=== PATIENT | male | born 1935 | race Caucasian/White ===

== ENCOUNTER → 2017-08-25 16:00 | Outpatient (CLI) | payer MEDICARE, SELFPAY | PROVIDERS: Family Provider Family Medicine; PCP Family Medicine; Visit Provider Otolaryngology Otolaryngology/Facial Plastic Surgery | DX: J02.9 Acute pharyngitis, unspecified (principal); J32.9 Chronic sinusitis, unspecified | CPT/HCPCS: 87070; 87077; 87186 ==

== ENCOUNTER → 2017-09-01 11:37 | Outpatient (CLI) | payer MEDICARE, SELFPAY ==
--- NOTE | 2017-09-01 11:44 | RAD_ITS ---
STUDY: X-RAY CHEST REASON FOR EXAM: Male, 82 years old. Cough. TECHNIQUE: PA and lateral views of the chest. COMPARISON: 06/13/2016. FINDINGS: There is linear stranding in both lung bases essentially unchanged since the prior examination likely due to scarring. No new infiltrate is seen. There is no demonstrated pleural abnormality. Sternal cerclage wires and vascular clips are present from a prior sternotomy and coronary artery bypass graft procedure (CABG). The heart size is normal. Normal mediastinum and jovany. Normal visualized pulmonary arteries. There is atherosclerotic calcification of the aortic arch with tortuosity. There are diffuse degenerative changes of the visualized thoracic spine. There is degenerative osteoarthritis of the bilateral shoulders. There is no demonstrated abnormality of the visualized soft tissue structures of the upper abdomen. RAD/Chest PA and Lateral IMPRESSION: Moderate stranding of the lung bases likely due to scarring unchanged since the prior examination. No new infiltrate is seen. Electronically Signed: Evans Causey MD at 3:40 EST Tel , Service support ,
== END ==
PROVIDERS: Family Provider Family Medicine; PCP Family Medicine; Visit Provider Family Medicine
DX: R93.8 Abnormal findings on diagnostic imaging of other specified body structures (principal); R06.89 Other abnormalities of breathing
CPT/HCPCS: 71046

== ENCOUNTER → 2017-11-06 15:47 | Outpatient (CLI) | payer MEDICARE, SELFPAY ==
[2017-11-06 16:46] LABS: Absolute Lymphocyte Count 2.56 X10^3/ul (0.83-4.51); Absolute Neutrophil Count 5.5 X10^3/uL (2.0-7.7); Basophil# 0.05 X10^3/uL; Basophil% 0.5 % (0-1); Eosinophil# 0.17 X10^3/uL; Eosinophils% 1.8 % (0-5); Hematocrit 50.2 % (40-54); Lymphocyte # 2.56 X10^3/ul (4.0); Lymphocyte % 27.4 % (19-41); Mean Corp Hgb Conc 31.9 g/gl (32-36); Mean Corpuscular Hgb 29.8 pg (27.0-32.0); Mean Corpuscular Volume 93.5 fL (80-94); Mean Platelet Vol. 9.9 fl (6.2-12.0); Monocyte# 1.12 X10^3/uL; Neutrophil # 5.45 X10^3/uL (2.7-7.7); Neutrophil % 58.2 % (47-70); Platelet Count 304 K/mm3 (150-450); RBC Distribution Width CV 14.5 % (11.6-14.6); RBC Distribution Width SD 48.8 fl (35.1-43.9); Red Blood Count 5.37 M/mm3 (4.6-6.2); White Blood Count 9.4 K/mm3 (4.4-11.0)
[2017-11-06 16:52] LABS: POSITIVE COUNT NO; POSITIVE DIFFERENTIAL NO; POSITIVE MORPHOLOGY NO
[2017-11-06 17:26] LABS: Anion Gap 7 (5-15); BUN 26 mg/dL (7-18); BUN/Creat Ratio 18.7 RATIO (10-20); Calcium,Total 8.9 mg/dL (8.5-10.1); Chloride 108 mmol/L (98-107); Creatinine, Serum 1.39 mg/dL (0.70-1.30); EST Glomerular Filtration Rate 52 mL/min (>60); Est Glom Filt Rate - Afr Amer 63 mL/min (>60); Glucose 86 mg/dL (74-106); Potassium 4.4 mmol/L (3.5-5.1); Sodium Level 144 mmol/L (136-145)
== END ==
PROVIDERS: Family Provider Family Medicine; PCP Family Medicine; Visit Provider Physician Assistant Medical
DX: I10 Essential (primary) hypertension (principal); R06.09 Other forms of dyspnea; I25.10 Atherosclerotic heart disease of native coronary artery without angina pectoris
CPT/HCPCS: 36415; 80048; 83880; 85025

== ENCOUNTER → 2018-02-26 08:18 | Outpatient (CLI) | payer MEDICARE, SELFPAY ==
[2018-02-26 09:35] LABS: AST(SGOT) 14 U/L (15-37); Alanine Aminotransfer ALT/SGPT 18 U/L (16-61); Albumin, Serum 2.9 g/dL (3.2-5.0); Alkaline Phosphatase 67 U/L (45-117); Bilirubin, Direct 0.14 mg/dL (0.00-0.30); Cholesterol 125 mg/dL (200); Globulin 4.1 g/dL (2.2-4.2); High Density Lipoprotein 36 mg/dL; Triglycerides 76 mg/dL; Very Low Density Lipoprotein 15 mg/dL (5-40)
== END ==
PROVIDERS: Family Provider Family Medicine; PCP Family Medicine; Visit Provider Physician Assistant Medical
DX: I10 Essential (primary) hypertension (principal); I25.10 Atherosclerotic heart disease of native coronary artery without angina pectoris; E78.00 Pure hypercholesterolemia, unspecified
CPT/HCPCS: 80061; 80076

== ENCOUNTER → 2018-06-01 08:43 | Outpatient (CLI) | payer MEDICARE, SELFPAY ==
[2018-06-01 10:35] LABS: Absolute Lymphocyte Count 1.83 X10^3/ul (0.83-4.51); Absolute Neutrophil Count 3.9 X10^3/uL (2.0-7.7); Basophil# 0.03 X10^3/uL; Basophil% 0.4 % (0-1); Eosinophil# 0.13 X10^3/uL; Eosinophils% 1.9 % (0-5); Hematocrit 47.9 % (40-54); Hemoglobin 15.6 g/dl (13.0-16.5); Lymphocyte # 1.83 X10^3/ul (4.0); Lymphocyte % 26.1 % (19-41); Mean Corp Hgb Conc 32.6 g/gl (32-36); Mean Corpuscular Hgb 30.5 pg (27.0-32.0); Mean Corpuscular Volume 93.6 fL (80-94); Mean Platelet Vol. 10.2 fl (6.2-12.0); Monocyte# 1.11 X10^3/uL; Monocyte% 15.8 % (0-10); Neutrophil % 55.7 % (47-70); Platelet Count 313 K/mm3 (150-450); RBC Distribution Width CV 13.9 % (11.6-14.6); RBC Distribution Width SD 46.1 fl (35.1-43.9); Red Blood Count 5.12 M/mm3 (4.6-6.2)
[2018-06-01 10:48] LABS: POSITIVE COUNT NO; POSITIVE DIFFERENTIAL NO; POSITIVE MORPHOLOGY NO
[2018-06-01 11:00] LABS: Anion Gap 7 (5-15); BUN 20 mg/dL (7-18); BUN/Creat Ratio 17.1 RATIO (10-20); Calcium,Total 8.7 mg/dL (8.5-10.1); Chloride 104 mmol/L (98-107); Creatinine, Serum 1.17 mg/dL (0.70-1.30); EST Glomerular Filtration Rate 63 mL/min (>60); Est Glom Filt Rate - Afr Amer 77 mL/min (>60); Glucose 90 mg/dL (74-106); Potassium 4.4 mmol/L (3.5-5.1); Sodium Level 140 mmol/L (136-145); Thyroid Stim Hormone (TSH) 0.27 uIU/mL (0.358-3.74)
[2018-06-01 14:23] LABS: T4 Free Direct 1.13 ng/dL (0.76-1.46)
== END ==
PROVIDERS: Family Provider Family Medicine; PCP Family Medicine; Visit Provider Family Medicine
DX: I10 Essential (primary) hypertension (principal); E03.9 Hypothyroidism, unspecified; E78.2 Mixed hyperlipidemia
CPT/HCPCS: 36415; 80048; 84439; 84443; 85025

== ENCOUNTER → 2018-11-25 | Outpatient (CLI) | payer MEDICARE, SELFPAY ==
[2018-11-05 14:50] VITALS: BMI 32.8
== END | disposition home or self-care (01) ==
PROVIDERS: Family Provider Family Medicine; PCP Family Medicine; Referring Provider Otolaryngology Otolaryngology/Facial Plastic Surgery; Visit Provider Otolaryngology Otolaryngology/Facial Plastic Surgery
DX: J02.9 Acute pharyngitis, unspecified (principal)
CPT/HCPCS: 87070

== ENCOUNTER → 2018-11-30 | Outpatient (CLI) | payer MEDICARE, SELFPAY ==
[2018-11-05 14:50] VITALS: BMI 32.8
[2018-11-30 12:31] LABS: AST(SGOT) 22 U/L (15-37); Alanine Aminotransfer ALT/SGPT 30 U/L (16-61); Albumin, Serum 3.6 g/dL (3.2-5.0); Alkaline Phosphatase 76 U/L (45-117); Anion Gap 7 (5-15); BUN 19 mg/dL (7-18); BUN/Creat Ratio 16.7 RATIO (10-20); Bilirubin, Direct 0.16 mg/dL (0.00-0.30); Calcium,Total 8.7 mg/dL (8.5-10.1); Chloride 108 mmol/L (98-107); Cholesterol 133 mg/dL (200); Creatinine, Serum 1.14 mg/dL (0.70-1.30); EST Glomerular Filtration Rate 65 mL/min (>60); Est Glom Filt Rate - Afr Amer 79 mL/min (>60); Globulin 4.5 g/dL (2.2-4.2); Glucose 102 mg/dL (74-106); High Density Lipoprotein 36 mg/dL; Potassium 4.3 mmol/L (3.5-5.1); Protein, Total 8.1 g/dL (6.4-8.2); Sodium Level 142 mmol/L (136-145); T4 Free Direct 1.08 ng/dL (0.76-1.46); Thyroid Stim Hormone (TSH) 0.21 uIU/mL (0.358-3.74); Triglycerides 151 mg/dL; Very Low Density Lipoprotein 30 mg/dL (5-40)
== END | disposition home or self-care (01) ==
LOC: BFHLAB 10:19
PROVIDERS: Family Provider Family Medicine; PCP Family Medicine; Visit Provider Physician Assistant Medical
DX: I10 Essential (primary) hypertension (principal); E05.90 Thyrotoxicosis, unspecified without thyrotoxic crisis or storm; E78.5 Hyperlipidemia, unspecified
CPT/HCPCS: 36415; 80048; 80061; 80076; 84439; 84443

== ENCOUNTER → 2019-06-02 | Outpatient (CLI) | payer MEDICARE, SELFPAY ==
[2018-11-05 14:50] VITALS: BMI 32.8
[2019-06-02 12:19] LABS: Absolute Lymphocyte Count 1.57 X10^3/uL (0.83-4.51); Absolute Neutrophil Count 4.3 X10^3/uL (2.0-7.7); Basophil# 0.09 X10^3/uL; Basophil% 1.3 % (0-1); Eosinophil# 0.14 X10^3/uL; Hematocrit 51.4 % (40-54); Hemoglobin 16.3 g/dL (13.0-16.5); Lymphocyte # 1.57 X10^3/ul (4.0); Lymphocyte % 22.6 % (19-41); Mean Corp Hgb Conc 31.7 g/dL (32-36); Mean Corpuscular Hgb 29.9 pg (27.0-32.0); Mean Corpuscular Volume 94.1 fL (80-94); Mean Platelet Vol. 9.9 fl (6.2-12.0); Monocyte# 0.79 X10^3/uL; Monocyte% 11.4 % (0-10); NRBC Flagged by Analyzer 0 % (0-5); Neutrophil # 4.34 X10^3/uL (2.7-7.7); Neutrophil % 62.6 % (47-70); Platelet Count 320 K/mm3 (150-450); RBC Distribution Width CV 13.8 % (11.6-14.6); RBC Distribution Width SD 47.8 fl (35.1-43.9); Red Blood Count 5.46 M/mm3 (4.6-6.2); White Blood Count 6.9 K/mm3 (4.4-11.0)
[2019-06-02 12:48] LABS: AST(SGOT) 16 U/L (15-37); Alanine Aminotransfer ALT/SGPT 22 U/L (16-61); Albumin, Serum 3.4 g/dL (3.2-5.0); Alkaline Phosphatase 68 U/L (45-117); Anion Gap 7 (5-15); BUN 18 mg/dL (7-18); BUN/Creat Ratio 15.9 RATIO (10-20); Bilirubin, Direct 0.19 mg/dL (0.00-0.30); Calcium,Total 8.6 mg/dL (8.5-10.1); Chloride 106 mmol/L (98-107); Cholesterol 126 mg/dL (200); Creatinine, Serum 1.13 mg/dL (0.70-1.30); EST Glomerular Filtration Rate 66 mL/min (>60); Est Glom Filt Rate - Afr Amer 80 mL/min (>60); Globulin 4.3 g/dL (2.2-4.2); Glucose 98 mg/dL (74-106); High Density Lipoprotein 40 mg/dL; Potassium 4.2 mmol/L (3.5-5.1); Protein, Total 7.7 g/dL (6.4-8.2); Sodium Level 140 mmol/L (136-145); T4 Free Direct 1.26 ng/dL (0.76-1.46); Triglycerides 102 mg/dL; Very Low Density Lipoprotein 20 mg/dL (5-40)
[2019-06-02 12:58] LABS: BNP,B-Type NATRIURETIC PEPTIDE 63.1 pg/mL (0-100)
== END | disposition home or self-care (01) ==
LOC: BFHLAB 10:18
PROVIDERS: Family Provider Family Medicine; PCP Family Medicine; Visit Provider Internal Medicine Cardiovascular Disease
DX: I10 Essential (primary) hypertension (principal); E05.90 Thyrotoxicosis, unspecified without thyrotoxic crisis or storm; R06.00 Dyspnea, unspecified; E78.5 Hyperlipidemia, unspecified
CPT/HCPCS: 36415; 80048; 80061; 80076; 83880; 84439; 84443; 85025

== ENCOUNTER → 2019-06-09 | Outpatient (CLI) | payer MEDICARE, SELFPAY ==
[2018-11-05 14:50] VITALS: BMI 32.8
--- NOTE | 2019-06-09 07:47 | CDU_ITS ---
Reason For Study: CAD Rt. Velocities/BP Lt. Velocities/BP Prox CCA 90.4/16 cm/sec. Prox CCA 117/9.4 cm/sec. Mid CCA 76/13.4 cm/sec. Mid CCA 103.8/11.6 cm/sec. Dist CCA 72.1/9.5 cm/sec. Dist CCA 84.6/11.5 cm/sec. Prox ICA 73.6/11.5 cm/sec. Prox ICA 99.4/16 cm/sec. Mid ICA 91.9/17 cm/sec. Mid ICA 88.4/16 cm/sec. Dist ICA 88.2/17 cm/sec. Dist ICA 88.2/22.5 cm/sec. Rt. ICA/CCA = 1.2. Lt. ICA/CCA = 1.0. Prox ECA 152.1/9.4 cm/sec. Prox ECA 215.8/8.5 cm/sec. Rt. Vert. 39.9/10.2 cm/sec. Lt. Vert. 48.7/8 cm/sec. Right Extracranial There is intimal thickening but no significant atherosclerotic plaque noted in the right common carotid artery. There is heterogeneous, irregular atherosclerotic plaque noted in the right internal carotid artery. There is heterogeneous, irregular atherosclerotic plaque noted in the right external carotid artery. Antegrade flow is noted in the right vertebral artery. Left Extracranial There is homogeneous, smooth atherosclerotic plaque noted in the left common carotid artery. There is heterogeneous, irregular atherosclerotic plaque noted in the left internal carotid artery. There is heterogeneous, irregular atherosclerotic plaque noted in the left external carotid artery. Antegrade flow is noted in the left vertebral artery. Procedure Carotid Duplex 44168. Exam performed in department. Interpretation Summary Mild (<50%) stenosis right extracranial internal carotid. Mild (<50%) stenosis left extracranial internal carotid. However, acoustic shadowing obscures portions of the left internal carotid artery lumen. Therefore, the degree of stenosis in the left internal carotid artery may exceed that which is estimated by velocity criteria alone. In this regard, clinical correlation is advised, and alternative imaging may be helpful. Flow within the vertebral arteries is antegrade bilaterally. Elevated velocities in the left external carotid artery are suggestive of stenosis >50%. Ordering Physician: Arnulfo Gordon Referring Physician: Arnulfo Gordon Performed By: Danelle Rojas RVT
== END | disposition home or self-care (01) ==
LOC: CVS 07:45
PROVIDERS: Family Provider Family Medicine; PCP Family Medicine; Referring Provider Family Medicine; Visit Provider Family Medicine
DX: I65.21 Occlusion and stenosis of right carotid artery (principal); I25.10 Atherosclerotic heart disease of native coronary artery without angina pectoris; Z95.1 Presence of aortocoronary bypass graft; R09.89 Other specified symptoms and signs involving the circulatory and respiratory systems
CPT/HCPCS: 93880

== ENCOUNTER → 2020-06-12 07:54 | Outpatient (CLI) | payer MEDICARE, SELFPAY ==
[2020-06-05 10:11] VITALS: BMI 33.6
[2020-06-12 09:44] LABS: Absolute Neutrophil Count 4.6 X10^3/uL (2.0-7.7); Basophil% 1.3 % (0-1); Eosinophil# 0.19 X10^3/uL; Eosinophils% 2.5 % (0-5); Hematocrit 50.7 % (40-54); Lymphocyte % 24.8 % (19-41); Mean Corp Hgb Conc 31.6 g/dL (32-36); Mean Corpuscular Hgb 30.3 pg (27.0-32.0); Mean Platelet Vol. 10.1 fl (6.2-12.0); Monocyte# 0.91 X10^3/uL; Monocyte% 11.9 % (0-10); NRBC Flagged by Analyzer 0 % (0-5); Neutrophil # 4.55 X10^3/uL (2.7-7.7); Neutrophil % 59.4 % (47-70); Platelet Count 330 K/mm3 (150-450); RBC Distribution Width CV 13.7 % (11.6-14.6); RBC Distribution Width SD 48.9 fl (35.1-43.9); Red Blood Count 5.28 M/mm3 (4.6-6.2); White Blood Count 7.7 K/mm3 (4.4-11.0)
[2020-06-12 10:05] LABS: AST(SGOT) 13 U/L (15-37); Alanine Aminotransfer ALT/SGPT 23 U/L (16-61); Albumin, Serum 3.2 g/dL (3.2-5.0); Alkaline Phosphatase 72 U/L (45-117); Bilirubin, Direct 0.15 mg/dL (0.00-0.30); Cholesterol 120 mg/dL (200); Globulin 4.2 g/dL (2.2-4.2); High Density Lipoprotein 38 mg/dL; Protein, Total 7.4 g/dL (6.4-8.2); Triglycerides 116 mg/dL; Very Low Density Lipoprotein 23 mg/dL (5-40)
[2020-06-12 10:24] LABS: Anion Gap 5 (5-15); BUN 20 mg/dL (7-18); BUN/Creat Ratio 16.5 RATIO (10-20); Calcium,Total 8.8 mg/dL (8.5-10.1); Chloride 106 mmol/L (98-107); Creatinine, Serum 1.21 mg/dL (0.70-1.30); EST Glomerular Filtration Rate 61 mL/min (>60); Est Glom Filt Rate - Afr Amer 74 mL/min (>60); Glucose 94 mg/dL (74-106); Potassium 4.5 mmol/L (3.5-5.1); Sodium Level 140 mmol/L (136-145); T4 Free Direct 1.08 ng/dL (0.76-1.46); Thyroid Stim Hormone (TSH) 0.19 uIU/mL (0.358-3.74)
== END ==
PROVIDERS: Physician Assistant Medical; PCP Family Medicine; Referring Provider Family Medicine; Visit Provider Family Medicine
DX: J42 Unspecified chronic bronchitis (principal); R79.89 Other specified abnormal findings of blood chemistry; I10 Essential (primary) hypertension; I25.10 Atherosclerotic heart disease of native coronary artery without angina pectoris
CPT/HCPCS: 36415; 80048; 80061; 80076; 84439; 84443; 85025

== ENCOUNTER → 2021-05-24 07:52 | Outpatient (CLI) | payer MEDICARE, SELFPAY ==
--- NOTE | 2021-05-24 07:57 | ECHOD_ITS ---
Reason For Study: S/P CABG Procedure This was a 2D Doppler, Color Flow transthoracic echocardiogram. Exam performed in department. Left Ventricle Normal LV size. Left ventricular systolic function is normal. The estimated ejection fraction is 60 %. Stage 1 diastolic dysfunction. No regional wall motion abnormalities noted. Right Ventricle Normal RV size. Normal systolic function. Atria Normal left atrium. Normal right atrium. Mitral Valve There is mild to moderate mitral annular calcification. Tricuspid Valve Normal tricuspid valve. Aortic Valve Trisinus/trileaflet aortic valve. Mild focal aortic valve calcification. Peak aortic valve gradient 18 mmHg. Mean aortic valve gradient 10 mmHg. Pulmonic Valve Normal pulmonic valve. Great Vessels Normal aortic root. The pulmonary artery is normal size. Normal inferior vena cava. Pericardium/Pleural No pericardial effusion. MMode/2D Measurements & Calculations LVIDd: 5.1 cm IVSd: 1.1 cm LVOT diam: 2.0 cm LVIDs: 3.5 cm LVPWd: 1.1 cm LVOT area: 3.1 cm2 RVDd: 3.5 cm FS: 32.1 % Ao root diam: 3.2 cm LAV(MOD-bp): 60.6 ml LA A4 area: 20.9 cm2 LAV(MOD-bp) Indexed: 29.8 ml/m2 LAV(MOD-sp2): 62.2 ml LAV(MOD-sp4): 59.1 ml LA dimension(2D): 4.2 cm RA A4 area: 18.0 cm2 Time Measurements MV dec time: 0.28 sec Doppler Measurements & Calculations MV E max salvador: 89.8 cm/sec Lat Peak E' Salvador: 7.3 cm/sec Med Peak E' Salvador: 6.8 cm/sec MV A max salvador: 116.1 cm/sec E/E' lat: 12.3 E/E' med: 13.1 MV E/A: 0.77 Ao V2 max: 215.3 cm/sec LV V1 max: 115.3 cm/sec SV(LVOT): 88.2 ml Ao max P.5 mmHg LV V1 max P.3 mmHg Ao V2 mean: 152.1 cm/sec LV V1 mean P.2 mmHg Ao mean P.1 mmHg LV V1 mean: 86.2 cm/sec Ao V2 VTI: 47.7 cm LV V1 VTI: 28.3 cm RICK(I,D): 1.8 cm2 RICK(V,D): 1.7 cm2 PA V2 max: 99.7 cm/sec PI end-d salvador: 95.2 cm/sec ECHO/Echo Complete Interpretation Summary Normal LV size. Left ventricular systolic function is normal. The estimated ejection fraction is 60 %. There is mild to moderate mitral annular calcification. Stage 1 diastolic dysfunction. Ordering Physician: Mk Landa Referring Physician: Gordon Scott Performed By: Patience Dawson, FAITH, RVT
--- NOTE | 2021-05-24 08:24 | AAVD_ITS ---
Reason For Study: AAA, HTN Aorta Measurements Aorta Doppler Measurements Proximal aorta measures2.22 x 2.24cm. in cross- Peak systolic flow velocities within the proximal sectional axis. aorta measure 50.6 cm/sec. Proximal aorta measures2.23cm. in longitudinal Peak systolic flow velocities within the mid aorta axis. measure 74.3 cm/sec. Mid aorta measures4.91 x 4.68cm. in cross- Peak systolic flow velocities within the distal sectional axis. aorta measure 42.13 cm/sec. Mid aorta measures4.93cm. in longitudinal axis. Distal aorta measures4.42 x 4.82cm. in cross- sectional axis. Distal aorta measures4.63cm. in longitudinal axis. Mural thrombus noted in the Aorta mid-distal. Mid true lumen, 2.42 x 3.23 x 2.22 cm. Distal true lumen, 1.97 x 3.15 x 1.93 cm. Left Iliac Artery Left iliac artery measures 1.08 x 1.07 cm. in the cross-sectional axis. Left iliac artery measures 1.09 cm. in the longitudinal axis. Peak systolic velocity in the left iliac artery measures 80.9 cm/sec. Right Iliac Artery Right iliac artery measures 1.11 x 1.11 cm. in the cross-sectional axis. Right iliac artery measures 1.11 cm. in the longitudinal axis. Peak systolic velocity in the right iliac artery measures 45.9 cm/sec. Procedure Aorta IVC Iliac vasculature or bypass grafts 99986. Exam performed in department. VL/Abd Aortic/IVC Duplex scan Interpretation Summary Mid abdominal aortic aneurysm 4.91 x 4.68 cm in diameter Mural thrombus noted with an adequate true lumen as per measurements. Left common iliac artery 1.08 x 1.07 cm diameter Right common iliac artery 1.11 x 1.11 cm in diameter Normal flow velocities throughout the abdominal aorta and iliac arteries. Ordering Physician: Mk Landa Referring Physician: Arnulfo Gordon Performed By: Danelle Rojas RVT
== END ==
PROVIDERS: PCP Family Medicine; Referring Provider Internal Medicine Cardiovascular Disease; Visit Provider Internal Medicine Cardiovascular Disease
DX: I25.10 Atherosclerotic heart disease of native coronary artery without angina pectoris (principal); I71.4 Abdominal aortic aneurysm, without rupture; I10 Essential (primary) hypertension
CPT/HCPCS: 93306; 93978

== ENCOUNTER → 2021-06-05 15:39 | Outpatient (CLI) | payer MEDICARE, SELFPAY ==
[2021-06-05 16:14] LABS: Hematocrit 49.1 % (40-54); Hemoglobin 15.9 g/dL (13.0-16.5); Mean Corp Hgb Conc 32.4 g/dL (32-36); Mean Corpuscular Hgb 29.8 pg (27.0-32.0); Mean Corpuscular Volume 91.9 fL (80-94); Mean Platelet Vol. 9.8 fl (6.2-12.0); Platelet Count 312 K/mm3 (150-450); RBC Distribution Width CV 13.8 % (11.6-14.6); RBC Distribution Width SD 46.8 fl (35.1-43.9); Red Blood Count 5.34 M/mm3 (4.6-6.2); White Blood Count 8.4 K/mm3 (4.4-11.0)
[2021-06-05 16:48] LABS: Anion Gap 4 (5-15); BUN 20 mg/dL (7-18); BUN/Creat Ratio 16.3 RATIO (10-20); Calcium,Total 9.2 mg/dL (8.5-10.1); Chloride 105 mmol/L (98-107); Creatinine, Serum 1.23 mg/dL (0.70-1.30); EST Glomerular Filtration Rate 60 mL/min (>60); Est Glom Filt Rate - Afr Amer 72 mL/min (>60); Glucose 98 mg/dL (74-106); Potassium 4.8 mmol/L (3.5-5.1); Sodium Level 139 mmol/L (136-145)
== END ==
PROVIDERS: PCP Family Medicine; Referring Provider Surgery; Visit Provider Surgery
DX: I25.10 Atherosclerotic heart disease of native coronary artery without angina pectoris (principal); I71.4 Abdominal aortic aneurysm, without rupture
CPT/HCPCS: 36415; 80048; 85027

== ENCOUNTER → 2021-06-20 12:33 | Outpatient (CLI) | payer MEDICARE, SELFPAY ==
--- NOTE | 2021-06-20 12:39 | CDU_ITS ---
Reason For Study: Bruit Rt. Velocities/BP Lt. Velocities/BP Prox CCA 114/7 cm/sec. Prox CCA 95/9 cm/sec. Mid CCA 78/7 cm/sec. Mid CCA 99/18 cm/sec. Dist CCA 69/6 cm/sec. Dist CCA 94/17 cm/sec. Prox ICA 77/13 cm/sec. Prox ICA 83/14 cm/sec. Mid ICA 92/20 cm/sec. Mid ICA 77/13 cm/sec. Dist ICA 84/19 cm/sec. Dist ICA 50/10 cm/sec. Rt. ICA/CCA = 1.2. Lt. ICA/CCA = 0.8. Prox ECA 201 cm/sec. Prox ECA 183/9 cm/sec. Rt. Vert. 44/12 cm/sec. Lt. Vert. 32/8 cm/sec. Right Extracranial There is intimal thickening but no significant atherosclerotic plaque noted in the right common carotid artery. There is heterogeneous, irregular atherosclerotic plaque noted in the right internal carotid artery. There is homogeneous, smooth atherosclerotic plaque noted in the right external carotid artery. Antegrade flow is noted in the right vertebral artery. Left Extracranial There is intimal thickening but no significant atherosclerotic plaque noted in the left common carotid artery. There is heterogeneous, irregular atherosclerotic plaque noted in the left internal carotid artery. There is heterogeneous, irregular atherosclerotic plaque noted in the left external carotid artery. Antegrade flow is noted in the left vertebral artery. Procedure Carotid Duplex 31013. This is a Carotid Duplex examination using B-mode, color flow and specral Doppler. Exam performed in department. VL/Carotid Duplex Ultrasound Interpretation Summary Irregular calcific plaque of the proximal right internal carotid artery with le ss than 50% stenosis. Mild tortuosity noted. Greater than 50% stenosis right external carotid artery Irregular calcific plaque with shadowing at the proximal left internal carotid artery with less than 50% stenosis Less than 50% stenosis left external carotid artery Patent and antegrade vertebral arteries bilaterally No significant change from the previous examination of June 09, 2019 except for possibly slightly increased stenosis of the right external carotid artery Ordering Physician: Adolph Sousa Referring Physician: Arnulfo Gordon Performed By: Praveena Frances RDCS, RVT
--- NOTE | 2021-06-20 12:39 | CT_ITS ---
STUDY: CT ABDOMEN AND PELVIS WITH CONTRAST REASON FOR EXAM: Male, 85 years old. Three-vessel CABG hypertension AAA RADIATION DOSAGE (If Supplied By Facility): CTDIvol = ( 35.54 ) mGy, DLP = ( 1142.67 ) mGycm TECHNIQUE: CT images were obtained from the dome of the diaphragm to the symphysis pubis without oral contrast. IV 100mL Isovue-370 was administered. Sagittal and coronal images were reconstructed. Individualized dose optimization techniques were used for this CT. COMPARISON: None. FINDINGS: Lung bases are severely emphysematous with atelectasis in the right lower lung. There is chronic bypass. There is infiltration of the right hemidiaphragm with hepatic flexure superimposed anteriorly and superiorly to the liver. Liver is normal. Gallbladder contains stones. Pancreas, spleen adrenals and kidneys are intact. There are simple renal cysts. Descending thoracic aorta is normal. Distal to the takeoff of the superior mesenteric artery but superior to the renal arteries there is a 4.2 cm aneurysm with peripheral moderate volume lipid rich plaque without stenosis. Renal arteries arise from the inferior portion of the aneurysm. Immediately below the renals the aortic diameter returns to normal. Further inferiorly there is a separate infrarenal 5.2 cm aortic aneurysm with large volume lipid rich plaque without luminal stenosis. Aorta returns to normal diameter immediately before the bifurcation. There is atherosclerosis of the common, internal and external iliacs. Left iliac is ectatic at 1.6 cm. Remainder of the vessels have normal diameters, are greater than 6 mm bilaterally. There are surgical clips in the suprapubic region and likely bilateral inguinal hernia repair without recurrence. There is right total hip replacement. There is no intestinal obstruction. There is severe intra-abdominal lipomatosis with normal subcutaneous fat compartment. This is an adverse metabolic proatherosclerotic state. Osseous structures are intact. CT/CT ANGIO ABD&PEL W/O&W/DYE IMPRESSION: 1. 4.2 cm suprarenal aortic aneurysm. 2. 5.2 cm infrarenal aortic aneurysm. 3. Severe emphysema. Electronically Signed: Josiah Dahl MD at 15:35 EST Tel , Service support ,
== END ==
PROVIDERS: PCP Family Medicine; Referring Provider Surgery; Visit Provider Surgery
DX: I71.4 Abdominal aortic aneurysm, without rupture (principal); R09.89 Other specified symptoms and signs involving the circulatory and respiratory systems
CPT/HCPCS: 74174; 93880; Q9967

== ENCOUNTER 2022-12-11 10:57 | Outpatient (CLI) | payer MEDICARE, SELFPAY ==
[2022-12-11 12:49] LABS: T4 Free Direct 1.02 ng/dL (0.76-1.46); Thyroid Stim Hormone (TSH) 0.18 uIU/mL (0.358-3.74)
== END 2022-12-11 23:59 | disposition home or self-care (01) ==
LOC: BFHLAB 10:58
PROVIDERS: PCP Nurse Practitioner Family; Referring Provider Nurse Practitioner Family; Visit Provider Nurse Practitioner Family
DX: R79.89 Other specified abnormal findings of blood chemistry (principal); E03.9 Hypothyroidism, unspecified
CPT/HCPCS: 36415; 84439; 84443

== ENCOUNTER → 2023-06-02 | Outpatient (CLI) | payer MEDICARE, SELFPAY ==
[2023-06-02 12:24] LABS: Absolute Lymphocyte Count 1.48 X10^3/uL (0.83-4.51); Absolute Neutrophil Count 5.7 X10^3/uL (2.0-7.7); Basophil# 0.09 X10^3/uL; Basophil% 1.1 % (0-1); Eosinophils% 2.4 % (0-5); Hematocrit 52.3 % (40-54); Hemoglobin 16.1 g/dL (13.0-16.5); Lymphocyte # 1.48 X10^3/ul (0.83-4.51); Lymphocyte % 17.9 % (19-41); Mean Corp Hgb Conc 30.8 g/dL (32-36); Mean Corpuscular Hgb 29.7 pg (27.0-32.0); Mean Corpuscular Volume 96.3 fL (80-94); Mean Platelet Vol. 10.3 fl (6.2-12.0); Monocyte# 0.76 X10^3/uL; Monocyte% 9.2 % (0-10); NRBC Flagged by Analyzer 0 % (0-5); Neutrophil # 5.71 X10^3/uL (2.7-7.7); Platelet Count 301 K/mm3 (150-450); RBC Distribution Width CV 13.4 % (11.6-14.6); RBC Distribution Width SD 47.6 fl (35.1-43.9); Red Blood Count 5.43 M/mm3 (4.6-6.2); White Blood Count 8.3 K/mm3 (4.4-11.0)
[2023-06-02 12:56] LABS: ALB/GLOB Ratio 0.8 RATIO (0.9-2.4); AST(SGOT) 16 U/L (15-37); Alanine Aminotransfer ALT/SGPT 20 U/L (16-61); Albumin, Serum 3.3 g/dL (3.2-5.0); Alkaline Phosphatase 62 U/L (45-117); Anion Gap 3 (5-15); BUN 20 mg/dL (7-18); BUN/Creat Ratio 14.2 RATIO (10-20); Chloride 108 mmol/L (98-107); Cholesterol 108 mg/dL (200); Creatinine, Serum 1.41 mg/dL (0.70-1.30); EST Glomerular Filtration Rate 51 mL/min (>60); Est Glom Filt Rate - Afr Amer 61 mL/min (>60); Globulin 4.1 g/dL (2.2-4.2); Glucose 96 mg/dL (74-106); High Density Lipoprotein 35 mg/dL; Potassium 4.9 mmol/L (3.5-5.1); Protein, Total 7.4 g/dL (6.4-8.2); Sodium Level 140 mmol/L (136-145); T4 Free Direct 1.18 ng/dL (0.76-1.46); Thyroid Stim Hormone (TSH) 0.17 uIU/mL (0.358-3.74); Triglycerides 118 mg/dL; Very Low Density Lipoprotein 24 mg/dL (5-40)
== END | disposition home or self-care (01) ==
LOC: BFHLAB 10:44
PROVIDERS: PCP Nurse Practitioner Family; Referring Provider Nurse Practitioner Family; Visit Provider Nurse Practitioner Family
DX: I10 Essential (primary) hypertension (principal); E78.2 Mixed hyperlipidemia; I25.10 Atherosclerotic heart disease of native coronary artery without angina pectoris; E05.90 Thyrotoxicosis, unspecified without thyrotoxic crisis or storm
CPT/HCPCS: 36415; 80053; 80061; 84439; 84443; 85025

== ENCOUNTER 2023-09-07 09:24 | Inpatient (IN) | payer MEDICARE, SELFPAY ==
[2023-09-07] VITALS (11 sets, daily range): BP systolic 154–176; BP diastolic 69–85; PULSE 61–71; RESP 16–22; TEMP 36.8–37.5; O2SAT 92–95; BMI 33.6
--- NOTE | 2023-09-07 09:50 | EX.ED.DYSGE1 ---
HPI History of Present Illness Chief Complaint: Fever Informant: patient and family Onset/Context/Timing Onset: Days Context: Gradual Onset Timing: Continuous Current Severity: Mild Maximum Severity: Mild Narrative Narrative: 88-year-old male history of COPD, CAD, CABG and AAA and hypertension. Has had a fever, cough and congestion since Friday morning. No vomiting or diarrhea. Coughing up all white phlegm. Able to take p.o. fluids. Complaining of generalized weakness. Today saw a urgent care center in the emergency department for further evaluation. Prior similar symptoms: Yes Recent Illness/Hospitalization: No PFSH [facility] Medical History Abdominal aortic aneurysm (AAA) Amnesia (retrograde) Atherosclerotic heart disease of [place] coronary artery without angina pectoris Encounter for long-term current use of high risk medication Essential (primary) hypertension Hayfever Hyperlipidemia Impacted cerumen, right ear Knee pain Nonrheumatic tricuspid (valve) insufficiency Obesity Home Medications aspirin 81 mg tablet,delayed release 81 mg PO DAILY@0800 10/23/15 [History Last Taken 06/12/16] cholecalciferol (vitamin D3) 25 mcg (1,000 unit) tablet 2,000 unit PO DAILY 10/23/15 [History Last Taken 06/12/16] omega 0-hel-uqk-fish oil 60 mg-90 mg-500 mg capsule 1 cap PO DAILY 06/05/20 [History Last Taken Unknown] lisinopril 20 mg tablet 20 mg PO DAILY #90 tabs 02/17/23 [Rx Last Taken Unknown] metoprolol succinate 25 mg tablet,extended release 24 hr 25 mg PO BID #180 tabs 02/17/23 [Rx Last Taken Unknown] simvastatin 20 mg tablet 20 mg PO DAILY #90 tabs 02/17/23 [Rx Last Taken Unknown] Allergy/AdvReac Type Severity Reaction Status Date / Time No Known Allergies Allergy Verified 09/07/23 09:25 Family History Mother CAD (coronary artery disease) Sister Asthma Other Atherosclerosis Surgical History H/O coronary artery bypass surgery (1989) H/O hernia repair History of hip replacement Hx of cataract surgery Social History Smoking Status: Former smoker alcohol intake: never substance use type: does not use caffeine: Yes Type: coffee Number of servings: 1 what type of physical activity do you participate in: none seatbelt use: always do you feel safe at home: Yes ROS ROS ED ROS Narrative Cough, fever, generalized weakness and congestion. Review of Systems ROS Unobtainable: Denies due to encephalopathy Constitutional Constitutional ED: Reports fever(s); Denies chills Eyes Eyes: Denies blurry vision ENT ENT ED: Denies ear pain Cardiovascular Cardiovascular: Denies chest pain or palpitations Respiratory/Chest Respiratory/Chest: Reports cough Gastrointestinal Gastrointestinal: Denies abdominal pain, constipation, diarrhea, melena, nausea or vomiting Genitourinary Genitourinary ED: Denies dysuria or hematuria Musculoskeletal Musculoskeletal: Denies arthralgias, back pain or myalgias Integumentary Denies abscess or Abrasions Neurologic Neurologic: Denies headache(s) or paresthesias Endocrine Endocrinology: Denies cold intolerance Hematologic/Lymphatic Hematologic/Lymphatic: Reports none Allergic/Immunologic Allergic/Immunologic ED: Denies mouth swelling, tongue swelling or urticaria EXAM Physical Exam Narrative Exam Narrative: 88-year-old male vital signs are stable his initial temperature is 99.5 temporally. Pulse ox 93% on room air no hypoxia. He is in no distress. Daughter is in the room helping with the history. He does not look septic or toxic. He is currently in no distress. H EENT exam moist weeks membranes. Pupils round reactive light. No facial droop. Neck nontender no lymphadenopathy. Lungs dry cough. No rales, rhonchi or wheezing. Heart regular rhythm rate about 70 no murmur. Chest wall and ribs nontender. Abdomen soft nontender. No peritoneal signs. Back nontender. Moving all 4 extremities. Normal motor strength. Nontender. No edema. Neurologically is awake and alert. Answering questions following commands. Const Vital Signs: 09/07/23 09:25 09/07/23 10:03 09/07/23 11:02 Temperature 99.5 F H 99.1 F Temperature Source Temporal Oral Pulse Rate 70 69 Respiratory Rate 18 20 H Respiratory Effort Short of Breath Respiratory Pattern Tachypnea Blood Pressure 158/75 H 154/69 H Blood Pressure Mean 102 97 Pulse Ox 93 92 Oxygen Delivery Method Room Air Room Air Positive well nourished and well developed; Negative for cachectic, contractures or unkempt General Appearance ED: well developed and NAD; Negative for unkempt, cachectic, contractures, cyanotic, diaphoretic or pallor Nutritional Appearance: Negative for cachectic HEENT Reports moist mucous membranes Negative for trauma or tenderness Eyes PERRL and EOMs intact bilaterally General Eye ED: Negative for pale conjunctiva, scleral icterus or other Neck no lymphadenopathy, supple and no JVD General: Negative for tenderness Lymph Lymphatic: Negative for other Chest Wall inspection of chest normal and palpation of chest normal Chest: Negative for other Resp normal respiratory effort and clear to auscultation bilaterally Effort and Inspection: Negative for retractions Auscultation: Negative for rales, rhonchi or wheezes Cardio regular rate, regular rhythm, S1 normal heart sound, S2 normal heart sound and no murmurs Rhythm: Negative for abnormal rhythm GI normal to inspection, nondistended, normoactive bowel sounds, non-tender, non-distended and no masses Auscultation: normoactive bowel sounds Palpation: soft; Negative for tender or guarding Back/Spine no CVA tenderness General Back: Negative for CVA tenderness Cervical Spine: Negative for cervical spine tenderness Thoracic Spine / Upper Back: Negative for thoracic spinal tenderness Lumbar Spine / Lower Back: Negative for lumbar spinal tenderness Extremity normal to inspection General Extremety ED: Negative for edema or tenderness General Extremity: Negative for edema Neuro oriented x3 and CN's II-XII intact bilaterally Sensorium / Orientation: alert Motor Exam: strength 5/5 throughout Psych mental status grossly normal Appearance: Negative for unkempt Attitude: No agitated Mood & Affect: Negative for depressed, anxious or tearful Skin no rashes or lesions noted and no wounds General Skin Exam: Negative for jaundice or pallor Lesions: No lesion noted Rashes: No rashes noted Trauma: Negative for abrasion Wounds: Negative for wounds noted MDM MDM MDM Narrative Medical decision making narrative: 88-year-old male URI symptoms will be tested for COVID and flu very well could be a viral syndrome versus pneumonia. Screening labs are being obtained. Will be treated with IV fluids. He will be ambulated to make sure he is strong enough to walk. Tylenol for low-grade fever. Repeat exam at 11:29 AM Patient doing well. Patient was ambulated down his pulse ox dropped into the mid 80s. He was able to ambulate. Currently he is doing well. Spoke to he and his family. He will be admitted. History & Record Review Discussion w/independent historian: Patient and Family Additional record(s) reviewed:: Prior inpatient record, Prior outpatient record, Prior ED visit and Prior labs Lab Data Attestation: I reviewed the patient's lab results. Lab results narrative: CBC normal. White count of 9. H&H 15 and 47. Platelets 277. Electrolytes show a gap of 7 BUN and creatinine of 27 and 1.46. Glucose 123. Labs: Laboratory Results - last 24 hr 09/07/23 10:05 WBC 9.3 RBC 5.02 Hgb 15.3 Hct 47.1 MCV 93.8 MCH 30.5 MCHC 32.5 RDW Std Deviation 49.0 H RDW Coeff of Laura 14.2 Plt Count 277 MPV 10.3 Immature Gran % (Auto) 0.200 Neut % (Auto) 63.3 Lymph % (Auto) 16.9 L Randolph % (Auto) 18.4 H Eos % (Auto) 0.2 Baso % (Auto) 1.0 Absolute Neuts (auto) 5.9 Absolute Lymphs (auto) 1.56 Nucleated RBC % 0 Differential Comment SCANNED Sodium 141 Potassium 4.5 Chloride 108 H Carbon Dioxide 26.0 Anion Gap 7 BUN 27 H Creatinine 1.46 H Estim Creat Clear Calc 36.39 Est GFR (MDRD) Af Amer 59 L Est GFR (MDRD) Non-Af 49 L BUN/Creatinine Ratio 18.5 Glucose 123 H Calcium 9.2 Radiography Chest X-Ray - ED: 1 View, Read by ED Physician, Read by Radiologist, Normal, Heart, Lungs, Mediastinum and Bony Structures Diagnostic Testing: Clinical Impression(s) from Imaging Studies Chest X-Ray 09/07/23 10:20 IMPRESSION: No radiographic evidence of acute cardiopulmonary disease. Electronically Signed: Evans Causey MD at 10:59 EST , Chest x-ray, portable, single view shows no acute abnormality. Interpreted both myself and the radiologist. Prior sternotomy. No pneumonia noted. Discharge Plan Triage Chief Complaint: Fever ED Provider: Jayson Carter Dx/Rx/DC Orders Clinical Impression: Influenza A, COPD (chronic obstructive pulmonary disease) with emphysema Prescriptions: No Action omega 9-cas-yof-fish oil 60-90-500 mg capsule 1 cap PO DAILY aspirin 81 MG tablet 81 mg PO DAILY@0800 Patient Comments: [facility] cholecalciferol (vitamin D3) 1,000 UNIT tablet 2,000 unit PO DAILY Patient Comments: SUPPLEMENT metoprolol succinate 25 mg tablet extended release 24 hr 25 mg PO BID Qty: 180 3RF simvastatin 20 mg tablet 20 mg PO DAILY Qty: 90 3RF lisinopril 20 mg tablet 20 mg PO DAILY Qty: 90 3RF Primary Care Provider: Praveena Dumont Referrals: Praveena Dumont, CHIEF CLERK-C [Primary Care Provider] - Disposition Disposition: Acute Care Hospital [facility]
[2023-09-07] MEDS: 0.9% Normal Saline (1000mL) 1,000 ML 1000 ML IV (10:02)
[2023-09-07] MEDS: Acetaminophen 500 MG Tablet 1000 MG PO (10:08)
--- OUTSIDE RECORDS SUMMARY | 2023-09-07 10:08 | XMS RPT_ITS | CCD ---
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 septum. Mitral Valve Mild diffuse mitral valve thickening. Mild mitral annular calcification extending into the posterior leaflet. Trivial mitral valve insufficiency. Tricuspid Valve Normal tricuspid valve. Trivial tricuspid valve insufficiency. Right ventricular systolic pressure estimated to be 41 mmHg. Mild pulmonary hypertension. Aortic Valve Trisinus/trileaflet aortic valve. Mild diffuse aortic valve thickening. Mild focal aortic valve calcification. Mild restriction of the aortic valve. Mild aortic stenosis. Peak aortic valve gradient 13 mmHg. Mean aortic valve gradient 6 mmHg. Calculated aortic valve area (continuity equation) is 2.1 cm2. Pulmonic Valve Normal pulmonic valve. Trivial eccentric pulmonic valve insufficiency. Great Vessels Normal aortic root. Mild atherosclerosis of the aortic arch. Normal inferior vena cava. Inferior vena cava collapse with sniff. Pericardium/Pleural No pericardial effusion. MMode/2D Measurements AND Calculations LVIDd: 4.6 cm IVSd: 1.4 cm LVOT diam: 2.1 cm Ao root diam: 3.3 cm LVIDs: 3.1 cm LVPWd: 1.3 cm LVOT area: 3.6 cm2 Ao root area: 8.8 cm2 RVDd: 3.1 cm FS: 31.1 % LA dimension: 4.6 cm ___ LAV(MOD-bp): 45.0 ml LA A4 area: 17.3 cm2 RA A4 area: 12.8 cm2 LAV(MOD-bp) Indexed: 23.4 ml/m2 LAV(MOD-sp2): 48.6 ml LAV(MOD-sp4): 40.2 ml Doppler Measurements AND Calculations MV E max salvador: Lat Peak E' Salvador: Med Peak E' Salvador: Ao V2 max: 183.0 cm/sec 93.1 cm/sec 13.0 cm/sec 8.6 cm/sec Ao max P.4 mmHg MV A max salvador: Ao V2 mean: 127.1 cm/sec 116.0 cm/sec MV E/A: 0.73 Ao mean P.1 mmHg Ao V2 VTI: 27.9 cm RICK(I,D): 2.4 cm2 RICK(V,D): 2.1 cm2 ___ LV V1 max: 105.0 cm/sec SV(LVOT): 66.5 ml PA V2 max: 121.5 cm/sec TR max salvador: LV V1 max P.4 mmHg PA max P.9 mmHg 298.0 cm/sec LV V1 mean P.9 mmHg TR max P.5 mmHg LV V1 mean: 64.0 cm/sec LV V1 VTI: 18.6 cm ___ E/E' lat: 7.2 E/E' med: 10.8 Interpretation Summary Mild concentric left ventricular hypertrophy. The estimated ejection fraction is 65 %. Stage 1 diastolic dysfunction. Right ventricular systolic pressure estimated to be 41 mmHg. Mild pulmonary hypertension. Mild aortic stenosis. Focal calcium located on non coronary cusp. Compared to echo report dated 04/16/2012, no appreciable changes noted. 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 Abdominal aortic aneurysm. TECHNIQUE: Ultrasound evaluation of the aorta was performed with real-time and static augustine-scale imaging. COMPARISON: Comparison is made with prior examination dated February 21, 2014. FINDINGS: There is atherosclerotic plaque formation of the abdominal aorta. Aorta measures: Proximal 2.2 cm. Middle 3.2 cm. Distal 3.8 cm. Aorta measure transversely: Proximal 2.4 cm. Middle 3.7 cm. Distal 3.3 cm. Right iliac artery measures: 1.6 cm. Right iliac artery measure transversely: 1.2 cm. Left iliac artery measures: 1.3 cm. Left iliac artery measure transversely: 1.1 cm. Minimal enlargement of the saccular infrarenal abdominal aortic aneurysm.. IMPRESSION: Minimal enlargement of the saccular infrarenal abdominal aortic aneurysm. Electronically Signed: Shay Kay MD at 10:18 EDT Tel [phone], Service support [phone], CC: Shira Desai DO [employer] Supervisor: Signed Shira Desai DO Work Phone: Start: 02-21-2014 End: 02-21-2014 Aorta Procedure Note: See Note; NOTES: [facility] Imaging Services [address] [place] [address] Ultrasound Report MR#: [id number] Acct: [id number] Name: MARTIN REYES Rep #: [id number] : 1935 78 From: Shay Kay MD PCP: Shira Desai DO Status: REG CLI Study: Aorta Date of Exam: 02/21/14 Exam# [id number] Ordering Dr: Shira Desai DO PROCEDURES: ULTRASOUND AORTA REASON FOR EXAM: Male, 78 years old. History of abdominal aortic aneurysm. TECHNIQUE: Ultrasound evaluation of the aorta was performed with real-time and static augustine-scale imaging. COMPARISON: Comparison is made with prior study dated January 12, 2013. FINDINGS: There is tortuous elongation of the abdominal aorta. There is evidence of atherosclerotic plaque formation. Aorta measures: Proximal 2.6 cm. Middle 3.0 cm. Distal 3.5 cm. Aorta measure transversely: Proximal 2.2 cm. Middle 3.3 cm. Distal 3.0 cm. Right iliac artery measures: 1.3 cm. Right iliac artery measure transversely: 1.1 cm. Left iliac artery measures: 0.8 cm. Left iliac artery measure transversely: 0.6 cm. There is a stable fusiform infrarenal abdominal aortic aneurysm.. Atherosclerotic plaque. IMPRESSION: Stable infrarenal fusiform abdominal aortic aneurysm. Electronically Signed: Shay Kay MD at 15:21 EDT Tel [phone], Service support [phone], CC: Shira Desai DO [employer] Supervisor: Signed Shira Desai DO Work Phone: Start: 11-16-2013 End: 11-16-2013 Lower Ext/No Jt/w/o Procedure Note: See Note; NOTES: [facility] Imaging Services [address] [place] [address] MRI Report MR#: [id number] Acct: [id number] Name: MARTIN REYES Rep #: [id number] : 1935 M 78 From: Ye Chong MD PCP: Shira Desai DO Status: REG CLI Study: Lower Ext/No Jt/w/o Date of Exam: 11/16/13 Exam# [id number] Ordering Dr: Shira Desai DO PROCEDURE: MRI LOWER EXTREMITY LEFT CALF REASON FOR EXAM: Male, 78 years old. Left calf pain; no known injury, pain medial calf into posterior knee, swelling calf into ankle x 2 months, oil bead medial knee and medial ankle showing area of pain, lt calf vein removed for bypass surgery in TECHNIQUE: Standardized fat and water weighted pulse sequences were obtained in all 3 orthogonal planes. COMPARISON: None. FINDINGS: There is anterior subcutaneous soft tissue edema. There is a knee joint effusion with popliteal cyst. There are insufficiency fractures of the medial femoral condyle and medial tibial plateau with degenerative changes of the medial compartment (coronal T1 series 4 image 10 and coronal T2 series 5 image 9). There is a ruptured popliteal cyst with fluid extending along the myofascial plane of the medial gastrocnemius (axial T2 series 7 image 16. Normal crural fascia of the leg. Normal muscles of the calf. Normal musculotendinous junction of the gastrocnemius ? Achilles tendon. Normal Achilles tendon. Normal tibia and fibula. IMPRESSION: Ruptured popliteal cyst with fluid extending along the myofascial plane of the medial gastrocnemius. Subcutaneous soft tissue edema. 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 Electronically Signed: Ye Chong MD, FACR at 21:47 EDT , Service support [phone], CC: Shira Desai DO [employer] Supervisor: Signed Shira Desai DO Work Phone: Start: 08-26-2013 End: 08-26-2013 Knee 4 or More Views Procedure Note: See Note; NOTES: [facility] Imaging Services [address] [place] [address] Radiology Report MR#: [id number] Acct: [id number] Name: MARTIN REYES Rep #: [id number] : 1935 M 78 From: Richa Becerra MD PCP: Shira Desai DO Status: REG CLI Study: Knee 4 or More Views Date of Exam: 08/26/13 Exam# [id number] Ordering Dr: Shira Desai DO STUDY: X-RAY - LEFT KNEE REASON FOR EXAM: Male, 78 years old. Knee pain TECHNIQUE: 4 views of the knee. COMPARISON: None. FINDINGS: Normal visualized distal femur. Normal visualized proximal tibia and fibula. Normal proximal tibiofibular articulation. There is no demonstrated fracture. There is minimal degenerative arthrosis of the medial femorotibial compartment. There is minimal degenerative arthrosis of the lateral femorotibial compartment. There is mild degenerative arthrosis of the patellofemoral articulation. There is a soft tissue prominence in the suprapatellar region suggesting a small volume joint effusion. Prior harvest of the greater saphenous vein. IMPRESSION: Minimal joint space narrowing with a small volume joint effusion. Electronically Signed: Richa Becerra M.D. at 19:11 EST , Service support [phone], CC: Shira Desai DO [employer] Supervisor: Signed Shira Desai DO Work Phone: Start: 08-26-2013 End: 08-26-2013 L/S Spine Min 4 Views Procedure Note: See Note; NOTES: [facility] Imaging Services [address] [place] [address] Radiology Report MR#: [id number] Acct: [id number] Name: MARTIN REYES Rep #: [id number] : 1935 M 78 From: Richa Becerra MD PCP: Shira Desai DO Status: REG CLI Study: L/S Spine Min 4 Views Date of Exam: 08/26/13 Exam# [id number] Ordering Dr: Shira Desai DO STUDY: X-RAY - LUMBAR SPINE REASON FOR EXAM: Male, 78 years old. Low back pain TECHNIQUE: 5 views of the lumbar spine were obtained. COMPARISON: Lumbar spine series of December 04, 2011 FINDINGS: Normal lumbar lordosis. There is no substantial scoliosis. There is a normal alignment of the vertebrae. Normal vertebral bodies and endplates. Mild degenerative disc narrowing at all lumbar levels with moderate spondylitic endplate changes at L1-2, L2-3 and L3-4 with minimal spondylitic endplate changes at L4-5 and L5-S1 hypertrophic degenerative facet joint changes primarily at L4-5 and L5-S1. Atherosclerotic calcifications of the abdominal aorta. Measurement of the wall calcifications suggest a 4.6 cm fusiform dilatation of the infrarenal aorta not substantially changed in size from the prior examination. IMPRESSION: Normal alignment of the lumbar spine without a fracture, osteolytic or blastic bone lesion. Degenerative disc and facet joint changes in the pattern as described above are not substantially changed from the prior exam of November 2011. 4.6 cm fusiform aneurysm of the infrarenal aorta appearing stable according to the wall measurements on lateral imaging since the prior exam. Electronically Signed: Richa Becerra M.D. at 19:47 EST , Service support [phone], CC: Shira Desai DO [employer] Supervisor: Signed Shira Desai DO Work Phone: Fang Schaeffer CMA Plan of Treatment Date Care Activity Detail Author Start: 07-28-2023 Advance Directive Discussion Advance Directive Discussion [facility] Start: 07-28-2023 Depression Assessment Depression Assessment [facility] Start: 03-28-2022 Influenza vaccination [facility] Start: 07-28-2021 ADVANCE DIRECTIVE DISCUSSION ADVANCE DIRECTIVE DISCUSSION [facility] Start: 07-28-2021 DEPRESSION ASSESSMENT DEPRESSION ASSESSMENT [facility] Start: 09-15-2017 End: 03-21-2017 *Hepatic Function Panel *Hepatic Function Panel [facility] Work Phone: Start: 09-15-2017 End: 03-21-2017 Lipid panel [AGGREGATE] *Lipid Profile CC PCP [facility] Work Phone: Start: 09-11-2017 End: 09-11-2017 Appointment Appointment [facility] Work Phone: Start: 03-13-2017 End: 03-13-2017 Appointment Appointment [facility] Work Phone: Start: 03-13-2017 End: 03-21-2017 *Hepatic Function Panel *Hepatic Function Panel [facility] Work Phone: Start: 03-13-2017 End: 03-13-2017 Follow Up Appt 6 months Follow Up Appt 6 months [facility] Work Phone: Start: 03-13-2017 End: 03-21-2017 Lipid panel [AGGREGATE] *Lipid Profile CC PCP [facility] Work Phone: Start: 03-13-2017 End: 03-13-2017 MMM MMM [facility] Work Phone: Start: 02-27-2017 End: 02-27-2017 Appointment Appointment [facility] Work Phone: Start: 08-28-2016 End: 08-28-2016 GRAPE PICKER GRAPE PICKER [facility] Work Phone: Start: 08-28-2016 End: 08-28-2016 Follow Up Appt 6 months Follow Up Appt 6 months [facility] Work Phone: Start: 07-09-2016 DIABETES SCREEN DIABETES SCREEN [facility] Start: 07-09-2016 Diabetes Screening Diabetes Screening [facility] Start: 10-10-2015 Procedure Education Eprescribed prescriptions (G8553) [facility]; [facility] Work Phone: Start: 10-10-2015 Urine albumin quantitative MICROALBUMIN: CREATININE RATIO (41702) AND (32439) [facility]; [facility] Work Phone: Start: 10-10-2015 Assay of prostate specific antigen total PSA (PROSTATE SPECIFIC ANTIGEN) (V76.44) [facility]; [facility] Work Phone: Start: 10-10-2015 Blood count complete auto&auto difrntl wbc CBC W/AUTO DIFF WBC (14387) [facility]; [facility] Work Phone: Start: 10-10-2015 Comprehensive metabolic panel METABOLIC PANEL, COMPREHENSIVE (57903) [facility]; [facility] Work Phone: Start: 10-10-2015 Lipid panel LIPID PANEL (67666) [facility]; [facility] Work Phone: Start: 10-10-2015 Assay of thyroid stimulating hormone tsh TSH (48374) [facility]; [facility] Work Phone: Start: 09-14-2015 Pneumococcal Vaccine: 65+ (2 of 2 - PPSV23 or PCV20) Pneumococcal Vaccine: 65+ (2 of 2 - PPSV23 or PCV20) [facility] Start: 07-19-2015 Procedure Education Eprescribed prescriptions (G8553) [facility]; [facility] Work Phone: Start: 06-06-2015 Procedure Education Eprescribed prescriptions (G8553) [facility]; [facility] Work Phone: Start: 06-06-2015 Assay of free thyroxine T4, FREE (THYROXINE) (40598) [facility]; [facility] Work Phone: Start: 06-06-2015 Assay of triiodothyronine t3 free T3, FREE (TRIDOTHYRONINE) (72567) [facility]; [facility] Work Phone: Start: 06-06-2015 Assay of thyroid stimulating hormone tsh TSH (18822) [facility]; [facility] Work Phone: Start: 06-06-2015 Blood count complete auto&auto difrntl wbc CBC W/AUTO DIFF WBC (52488) [facility]; [facility] Work Phone: Start: 06-06-2015 Comprehensive metabolic panel METABOLIC PANEL, COMPREHENSIVE (84292) [facility]; [facility] Work Phone: Start: 06-06-2015 Lipid panel LIPID PANEL (30411) [facility]; [facility] Work Phone: Start: 02-08-2015 Procedure Education Eprescribed prescriptions (G8553) [facility]; [facility] Work Phone: Start: 10-12-2014 Blood count complete auto&auto difrntl wbc CBC W/AUTO DIFF WBC (22051) [facility]; [facility] Work Phone: Start: 10-12-2014 Comprehensive metabolic panel METABOLIC PANEL, COMPREHENSIVE (36298) [facility]; [facility] Work Phone: Start: 10-12-2014 Lipid panel LIPID PANEL (73780) [facility]; [facility] Work Phone: Start: 10-12-2014 Assay of thyroid stimulating hormone tsh TSH (10661) [facility]; [facility] Work Phone: Start: 10-12-2014 Assay of prostate specific antigen total PSA (PROSTATE SPECIFIC ANTIGEN) (V76.44) [facility]; [facility] Work Phone: Start: 10-12-2014 Hemoglobin glycosylated a1c HgA1C , Office (20988) [facility]; [facility] Work Phone: Start: 05-13-2014 Patient Education [facility]; [facility] Work Phone: Start: 04-26-2014 Procedure Education Eprescribed prescriptions (G8553) [facility]; [facility] Work Phone: Start: 09-22-2013 Provider Instructions for Treatment [facility]; [facility] Work Phone: Start: 12-16-2012 Provider Instructions for Treatment Diet, Exercise, and Wt loss [facility]; [facility] Work Phone: Start: 08-19-2012 Patient Education High Cholesterol (Hypercholesterolemia) *: cholesterol [facility]; [facility] Work Phone: Start: 05-20-2012 Patient Education Heart Murmur *: cardiovascular health [facility]; [facility] Work Phone: Start: 04-08-2012 Patient Education Diabetes and Illness: diabetes [facility]; [facility] Work Phone: Start: 04-08-2012 Lipid panel LIPID PANEL (97231) [facility]; [facility] Work Phone: Start: 04-08-2012 Comprehensive metabolic panel METABOLIC PANEL, COMPREHENSIVE (53463) [facility]; [facility] Work Phone: Start: 04-08-2012 Assay of triiodothyronine t3 free T3, FREE (TRIDOTHYRONINE) (26509) [facility]; [facility] Work Phone: Start: 04-08-2012 Assay of thyroid stimulating hormone tsh TSH (01811) [facility]; [facility] Work Phone: Start: 04-08-2012 Assay of thyroxine total T4, TOTAL (68610) [facility] Work Phone: Start: 01-08-2012 Patient Education Depression: Brief Version *: depression [facility]; [facility] Work Phone: Start: 01-08-2012 Provider Instructions for Treatment Diet, Exercise, and Wt loss [facility]; [facility] Work Phone: Start: 2001 PNEUMOVAX AGE 65 AND OVER WITH 5YR LOOKBACK (#1) PNEUMOVAX AGE 65 AND OVER WITH 5YR LOOKBACK (#1) [facility] Start: 1996 RSV Vaccine (1 - 1-dose 60+ series) RSV Vaccine (1 - 1-dose 60+ series) [facility] Start: 1986 SHINGRIX VACCINE (1 of 2) SHINGRIX VACCINE (1 of 2) [facility] Start: 1955 Urine microalbumin profile [place] [facility] Start: 1954 SPIROMETRY SPIROMETRY [facility] Start: 1942 PNEUMOCOCCAL: 65+ (1 - PCV) PNEUMOCOCCAL: 65+ (1 - PCV) [facility] Start: 1941 COVID-19 VACCINE (1) COVID-19 VACCINE (1) [facility] Start: 1936 COVID-19 VACCINE (#1) COVID-19 VACCINE (#1) [facility] End: 06-19-2023 Ct angio abd&plvis cntrst mtrl w/wo cntrst img CTA ABD/PEL WO/W IVCON Radiology Routine 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 1 Occurrences starting 05/20/2022 until 06/19/2023 [facility] Work Phone: Immunizations Immunization Date Immunization Notes Care Provider Fa [facility] 05-20-2020 influenza, high-dose , quadrivalent vaccine (FLUZONE HIGH DOSE QUADRIVALENT) Gonzalez Grey MD Work Phone: [facility] 12-04-2011 varicella zoster immune globulin Shira Fast DO Work Phone: [facility]; [facility] Work Phone: 05-20-2005 influenza virus vaccine, unspecified formulation Gonzalez Grey MD Work Phone: [facility] Work Phone: Payers Date Payer Category Payer Medicare [employer] MEDICARE A ETNA MEDICARE PPO [id number] 2021-Present [phone] [address] [place] [address] PPO [id number] 2021 Medicare [id number] 2009 Medicare AETNA MEDICARE A ETNA MEDICARE PPO [id number] 2009-Present [phone] [address] [place] [address] PPO [id number] Unknown Social History Date Type Detail Facility Start: 05-20-2022 Tobacco smoking stat [facility] Ex-smoker [facility] End: 07-28-1971 History of tobacco use Current smoker [facility] Work Phone: End: 07-28-1971 History of tobacco use Cigarette Smoker [facility] Work Phone: Start: 11-12-2021 End: 09-02-2023 Alcohol intake Current non-drinker of alcohol (finding) [facility] Start: 1935 Sex Assigned At Not on file C [facility] Start: 11-02-2021 End: 05-20-2022 Exposure to SARS-CoV-2 (event) Not sure [facility] Start: 07-04-2020 End: 05-20-2022 Cigarettes smoked current (pack per day) - Reported 1 [facility] Start: 05-20-2022 Tobacco use and exposure Smokeless tobacco non-user [facility] Alcohol Use: Alcohol Use: [facility]; [facility] Work Phone: Exercise History: Exercise History: [facility]; [facility] Work Phone: Clinical Notes 11-12-2021 to 09-02-2023 Adarsh Ponce APRN.CNP - 09/02/2023 2:36 PM Selam Grey MD - 05/20/2022 12:15 PM RT Yumiko(R) - 11/12/2021 12:30 PM Doug Leo RN - 11/12/2021 12:30 PM EDT Note Date & Type Note Facility 09-02-2023 Note HNO ID: [id number] Author: ADARSH PONCE APRN.KARTIK Service: ? Author Type: Nurse Practitioner Type: Progress Notes Filed: 09/02/2023 18:37 Note Text: This note was created using NoteWriter. Subjective Martin Reyes is a 88 year old male. 88 year old male with PMH hyperlipidemia, AAA, HTN, thoracic aortic aneurysm, and emphysema presents for wound. Acute onset 2 weeks ago Mid brow +redness Endorses initially was a small scratch Has been picking at it. +drainage +tenderness Denies fever or chills Denies malaise or fatigue Denies new lotions, soaps, or medicines States he used hydrogen peroxide on the area as well. The history is provided by the patient. No hourly sign language interpreter was used. Wound Check This is a new problem. The current episode started 1 to 4 weeks ago. The problem occurs constantly. The problem has been unchanged. Pertinent negatives include no abdominal pain, arthralgias, chest pain, chills, coughing, diaphoresis, fever, headaches, nausea, rash or vomiting. Nothing aggravates the symptoms. Treatments tried: hydrogen peroxide. The treatment provided no relief. PAST MEDICAL HISTORY Diagnosis Date AAA (abdominal aortic aneurysm) without rupture (HCC) 11/12/2021 Essential hypertension 11/12/2021 Hypertrophy of prostate without urinary obstruction and other lower urinary tract symptoms (LUTS) Hypertrophy of the prostate w/o obstruction Unspecified essential hypertension PAST SURGICAL HISTORY Procedure Laterality Date ARTHRP ACETBLR/PROX FEM PROSTC AGRFT/ALGRFT 2004 Hip replacement, total, right COLONOSCOPY FLX DX W/COLLJ SPEC WHEN PFRMD 04/13/2012 Colonoscopy repeat flex sig and Ba Enema in 10 years LAPAROSCOPY SURG RPR INITIAL INGUINAL HERNIA 05/28/06 LEFT INGUINAL HERNIA LAPS SURG RPR RECURRENT INGUINAL HERNIA 05/28/06 RIGHT INGUINAL PAST SURGICAL HISTORY OF 2006 CABG x3 PAST SURGICAL HISTORY OF 2007 prostate surgery, scraped out tract RPR 1ST INGUN HRNA AGE 6 YRS/> REDUCIBLE 1963 Hernia repair, inguinal RPR UMBILICAL HRNA 5 YRS/> REDUCIBLE 05/28/06 UMBILICAL HERNIA ALLERGIES Patient has no active allergies. MEDICATIONS metoprolol tartrate, short acting, (LOPRESSOR) 50 mg tablet Take 25 mg by mouth twice daily. PT IS TAKING ONLY ONE 1/2 TAB DAILY lisinopril 5 mg tablet Take 1 tablet by mouth once daily. simvastatin (ZOCOR) 20 mg tablet Take 20 mg by mouth daily at bedtime. OMEGA-3 FATTY ACIDS 1,000 MG CAP Take one(1) tablet daily. CHOLECALCIFEROL (VITAMIN D3) 1,000 UNIT TAB Take one(1) tablet daily. aspirin(ECOTRIN LOW STRENGTH 81 MG TAB) Take one(1) tablet daily. mupirocin (BACTROBAN) 2 % cream Apply 1 application to affected area three times a day for 10 days. Location: brow of face doxycycline monohydrate 100 mg tablet Take 1 tablet by mouth two times a day for 7 days. citalopram hydrobromide (CELEXA) 10 mg tablet Take 1 tablet by mouth once daily. (Patient not taking: Reported on 09/02/2023) niacin/inositol niacinate(NIACIN FLUSH FREE 400 MG-100 MG CAP) Take one(1) tablet daily. (Patient not taking: Reported on 09/02/2023) FAMILY HISTORY Problem Relation Age of Onset Cancer Father Heart Mother Social History Tobacco Use Smoking status: Former Packs/day: 1.00 Years: 15.00 Additional pack years: 0.00 Total pack years: 15.00 Types: Cigarettes Quit date: 07/28/1971 Years since quittin.1 Smokeless tobacco: Never Substance Use Topics Alcohol use: No Drug use: No Review of Systems Constitutional: Negative for activity change, appetite change, chills, diaphoresis, fever and unexpected weight change. Eyes: Negative for photophobia, pain, discharge, redness and itching. Respiratory: Negative for apnea, cough, chest tightness, shortness of breath and stridor. Cardiovascular: Negative for chest pain, palpitations and leg swelling. Gastrointestinal: Negative for abdominal pain, diarrhea, nausea and vomiting. Musculoskeletal: Negative for arthralgias, back pain and gait problem. Skin: Positive for wound. Negative for color change, pallor and rash. Allergic/Immunologic: Negative for environmental allergies, food allergies and immunocompromised state. Neurological: Negative for dizziness, facial asymmetry, light-headedness and headaches. Hematological: Negative for adenopathy. Does not bruise/bleed easily. Psychiatric/Behavioral: Negative for agitation and behavioral problems. Objective BP 138/82 Pulse 69 Temp 36.6 ?C (97.8 ?F) (Tympanic) Resp 16 Wt 93.3 kg (205 lb 9.6 oz) SpO2 96% BMI 32.20 kg/m? Physical Exam Vitals and nursing note reviewed. Constitutional: General: He is not in acute distress. Appearance: Normal appearance. He is not ill-appearing, toxic-appearing or diaphoretic. HENT: Head: Normocephalic and atraumatic. Comments: Mid brow with scant purulent drainage noted from erythematic non indurated and non fluctuant. NO crepitus. No streaking. No petechi (more content not included)... [facility] 09-02-2023 History of Present illness Narrative This note was created using [employer]. Subjective Martin Reyes is a 88 year old male. 88 year old male with PMH hyperlipidemia, AAA, HTN, thoracic aortic aneurysm, and emphysema presents for wound. Acute onset 2 weeks ago Mid brow +redness Endorses initially was a small scratch Has been picking at it. +drainage +tenderness Denies fever or chills Denies malaise or fatigue Denies new lotions, soaps, or medicines States he used hydrogen peroxide on the area as well. The history is provided by the patient. No hourly sign language interpreter was used. Wound Check This is a new problem. The current episode started 1 to 4 weeks ago. The problem occurs constantly. The problem has been unchanged. Pertinent negatives include no abdominal pain, arthralgias, chest pain, chills, coughing, diaphoresis, fever, headaches, nausea, rash or vomiting. Nothing aggravates the symptoms. Treatments tried: hydrogen peroxide. The treatment provided no relief. PAST MEDICAL HISTORY Diagnosis Date AAA (abdominal aortic aneurysm) without rupture (HCC) 11/12/2021 Essential hypertension 11/12/2021 Hypertrophy of prostate without urinary obstruction and other lower urinary tract symptoms (LUTS) Hypertrophy of the prostate w/o obstruction Unspecified essential hypertension PAST SURGICAL HISTORY Procedure Laterality Date ARTHRP ACETBLR/PROX FEM PROSTC AGRFT/ALGRFT 2005 Hip replacement, total, right COLONOSCOPY FLX DX W/COLLJ SPEC WHEN PFRMD 04/13/2012 Colonoscopy repeat flex sig and Ba Enema in 10 years LAPAROSCOPY SURG RPR INITIAL INGUINAL HERNIA 05/28/06 LEFT INGUINAL HERNIA LAPS SURG RPR RECURRENT INGUINAL HERNIA 05/28/06 RIGHT INGUINAL PAST SURGICAL HISTORY OF 2006 CABG x3 PAST SURGICAL HISTORY OF 2007 prostate surgery, scraped out tract RPR 1ST INGUN HRNA AGE 6 YRS/> REDUCIBLE 1963 Hernia repair, inguinal RPR UMBILICAL HRNA 5 YRS/> REDUCIBLE 05/28/06 UMBILICAL HERNIA ALLERGIES Patient has no active allergies. MEDICATIONS metoprolol tartrate, short acting, (LOPRESSOR) 50 mg tablet Take 25 mg by mouth twice daily. PT IS TAKING ONLY ONE 1/2 TAB DAILY lisinopril 5 mg tablet Take 1 tablet by mouth once daily. simvastatin (ZOCOR) 20 mg tablet Take 20 mg by mouth daily at bedtime. OMEGA-3 FATTY ACIDS 1,000 MG CAP Take one(1) tablet daily. CHOLECALCIFEROL (VITAMIN D3) 1,000 UNIT TAB Take one(1) tablet daily. aspirin(ECOTRIN LOW STRENGTH 81 MG TAB) Take one(1) tablet daily. mupirocin (BACTROBAN) 2 % cream Apply 1 application to affected area three times a day for 10 days. Location: brow of face doxycycline monohydrate 100 mg tablet Take 1 tablet by mouth two times a day for 7 days. citalopram hydrobromide (CELEXA) 10 mg tablet Take 1 tablet by mouth once daily. (Patient not taking: Reported on 09/02/2023) niacin/inositol niacinate(NIACIN FLUSH FREE 400 MG-100 MG CAP) Take one(1) tablet daily. (Patient not taking: Reported on 09/02/2023) FAMILY HISTORY Problem Relation Age of Onset Cancer Father Heart Mother Social History Tobacco Use Smoking status: Former Packs/day: 1.00 Years: 15.00 Additional pack years: 0.00 Total pack years: 15.00 Types: Cigarettes Quit date: 07/28/1971 Years since quittin.1 Smokeless tobacco: Never Substance Use Topics Alcohol use: No Drug use: No Review of Systems Constitutional: Negative for activity change, appetite change, chills, diaphoresis, fever and unexpected weight change. Eyes: Negative for photophobia, pain, discharge, redness and itching. Respiratory: Negative for apnea, cough, chest tightness, shortness of breath and stridor. Cardiovascular: Negative for chest pain, palpitations and leg swelling. Gastrointestinal: Negative for abdominal pain, diarrhea, nausea and vomiting. Musculoskeletal: Negative for arthralgias, back pain and gait problem. Skin: Positive for wound. Negative for color change, pallor and rash. Allergic/Immunologic: Negative for environmental allergies, food allergies and immunocompromised state. Neurological: Negative for dizziness, facial asymmetry, light-headedness and headaches. Hematological: Negative for adenopathy. Does not bruise/bleed easily. Psychiatric/Behavioral: Negative for agitation and behavioral problems. Objective BP 138/82 Pulse 69 Temp 36.6 C (97.8 F) (Tympanic) Resp 16 Wt 93.3 kg (205 lb 9.6 oz) SpO2 96% BMI 32.20 kg/m Physical Exam Vitals and nursing note reviewed. Constitutional: General: He is not in acute distress. Appearance: Normal appearance. He is not ill-appearing, toxic-appearing or diaphoretic. HENT: Head: Normocephalic and atraumatic. Comments: Mid brow with scant purulent drainage noted from erythematic non indurated and non fluctuant. NO crepitus. No streaking. No petechia No rash Right Ear: External ear normal. Left Ear: External ear normal. Nose: Nose normal. No congestion or rhinorrhea. Mouth/Throat: Mouth: Mucous membranes are moist. Pharynx: Oropharynx is clear. No oropharyngeal exudate or posterior oropharyngeal erythema. Eyes: General: Right eye: No discharge. Left eye: No discharge. Extraocular Movements: Extraocular movements intact. Conjunctiva/sclera: Conjunctivae normal. Pupils: Pupils are equal, round, and reactive to light. Cardiovascular: Rate and Rhythm: Regular rhythm. Pulses: Normal pulses. Heart sounds: Normal heart sounds. No murmur heard. No friction rub. No gallop. Pulmonary: Effort: Pulmonary effort is normal. No respiratory distress. Breath sounds: Normal breath sounds. No stridor. No wheezing, rhonchi or rales. Chest: Chest wall: No tenderness. Abdominal: General: Abdomen is flat. There is no distension. Palpations: Abdomen is soft. There is no mass. Tenderness: There is no abdominal tenderness. There is no guarding or rebound. Hernia: No hernia is present. Musculoskeletal: General: No swelling, tenderness, deformity or signs of injury. Normal range of motion. Cervical back: Normal range of motion and neck supple. No rigidity or tenderness. Right lower leg: No edema. Left lower leg: No edema. Lymphadenopathy: Cervical: No cervical adenopathy. Skin: General: Skin is warm and dry. Capillary Refill: Capillary refill takes less than 2 seconds. Coloration: Skin is not jaundiced or pale. Findings: No bruising, lesion or rash. Neurological: General: No focal deficit present. Mental Status: He is alert and oriented to person, place, and time. Cranial Nerves: No cranial nerve deficit. Sensory: No sensory deficit. Motor: No weakness. Coordination: Coordination normal. Gait: Gait normal. Deep Tendon Reflexes: Reflexes normal. Psychiatric: Mood and Affect: Mood normal. Behavior: Behavior normal. Thought Content: Thought content normal. Assessment and Plan ASSESSMENT/PLAN: 1. Skin infection - ICD9: 686.9, ICD10: L08.9 Brow region of forehead Has been present x 2 weeks Mild yellow purulence noted - Begin treatment with Doxycyline Topical Mupirocin cream - No lymphangetic streaking, this was defined for patient to watch for and to seek medical care immediately if appears - Area of cellulitis defined with pen, seek further attention if this area continues to enlarge - Follow up for recheck in two days - Adarsh Ponce APRN.[employer] documented in this encounter [facility] 05-20-2022 History of Present illness Narrative Images from the original note were not included. 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 Heart , Vascular and Thoracic [place] DEPARTMENT OF VASCULAR SURGERY OUTPATIENT VISIT DATE May 20, 2022 OUTPATIENT VISIT TYPE ESTABLISHED SERVICE DATE: 05/20/2022 SERVICE TIME: 1:01 PM PRIMARY CARE PHYSICIAN: Shira Desai DO HISTORY OF PRESENT ILLNESS: Mr. Reyes is a 86 year old male who presents today for a vascular surgery follow-up visit. PAST MEDICAL HISTORY Diagnosis Date AAA (abdominal aortic aneurysm) without rupture 11/12/2021 Essential hypertension 11/12/2021 Hypertrophy of prostate without urinary obstruction and other lower urinary tract symptoms (LUTS) Hypertrophy of the prostate w/o obstruction Unspecified essential hypertension PAST SURGICAL HISTORY Procedure Laterality Date ARTHRP ACETBLR/PROX FEM PROSTC AGRFT/ALGRFT 2004 Hip replacement, total, right COLONOSCOPY FLX DX W/COLLJ SPEC WHEN PFRMD 04/13/2012 Colonoscopy repeat flex sig and Ba Enema in 10 years LAPAROSCOPY SURG RPR INITIAL INGUINAL HERNIA 05/28/06 LEFT INGUINAL HERNIA LAPS SURG RPR RECURRENT INGUINAL HERNIA 05/28/06 RIGHT INGUINAL PAST SURGICAL HISTORY OF 2006 CABG x3 PAST SURGICAL HISTORY OF 2007 prostate surgery, scraped out tract RPR 1ST INGUN HRNA AGE 6 YRS/> REDUCIBLE 1963 Hernia repair, inguinal RPR UMBILICAL HRNA 5 YRS/> REDUCIBLE 05/28/06 UMBILICAL HERNIA SOCIAL HISTORY Social History Tobacco Use Smoking status: Former Packs/day: 1.00 Years: 15.00 Pack years: 15.00 Types: Cigarettes Quit date: 07/28/1971 Years since quittin.8 Smokeless tobacco: Never Substance Use Topics Alcohol use: No Drug use: No MEDICATIONS: metoprolol tartrate, short acting, (LOPRESSOR) 50 mg tablet Take 25 mg by mouth twice daily. PT IS TAKING ONLY ONE 1/2 TAB DAILY lisinopril 5 mg tablet Take 1 tablet by mouth once daily. citalopram hydrobromide (CELEXA) 10 mg tablet Take 1 tablet by mouth once daily. simvastatin (ZOCOR) 20 mg tablet Take 20 mg by mouth daily at bedtime. niacin/inositol niacinate(NIACIN FLUSH FREE 400 MG-100 MG CAP) Take one(1) tablet daily. OMEGA-3 FATTY ACIDS 1,000 MG CAP Take one(1) tablet daily. CHOLECALCIFEROL (VITAMIN D3) 1,000 UNIT TAB Take one(1) tablet daily. aspirin(ECOTRIN LOW STRENGTH 81 MG TAB) Take one(1) tablet daily. ALLERGIES: ALLERGIES Allergen Reactions Environmental [Othe* ragweed causes sneezing and watering of the eyes Diagnostic tests reviewed for today's visit: Most recent imaging AORTA Abdominal aortic aneurysm measuring 3.04 x 3.01 cm at proximal. Juxtarenal abdominal aortic aneurysm measuring 4.48 x 4.35 cm at level of the renals. Infrarenal abdominal aortic aneurysm measuring 5.15 x 5.02 cm at mid. Known finding per CTA 11/12/2021. Aorta plaque noted without evidence of hemodynamically significant stenosis . RIGHT VESSELS Common iliac artery plaque noted without evidence of hemodynamically significant stenosis . Negative for aneurysm. Internal iliac artery plaque noted without evidence of hemodynamically significant stenosis at proximal. Negative for aneurysm. External iliac artery 50-99% stenosis at mid. Negative for aneurysm at proximal and mid. LEFT VESSELS Common iliac artery appears ectatic measuring 1.84 x 1.90 cm at distal. Common iliac artery plaque noted without evidence of hemodynamically significant stenosis . Internal iliac artery plaque noted without evidence of hemodynamically significant stenosis at proximal. Negative for aneurysm. External iliac artery patent without evidence of aneurysm at proximal and mid. IMPRESSION and PLAN: This office note has been dictated. STAFF PHYSICIAN: Gonzalez Grey MD DATE OF SERVICE: May 20, 2022 TIME OF SERVICE: 1:01 PM Medical Decision Making: Medical Decision Making Level: 1 - N/A S documented in this encounter [facility] 11-12-2021 History of Present illness Narrative Radiology Service Progress Note PATIENT NAME: Martin Reyes DATE OF SERVICE: November 12, 2021 TIME: 12:42 PM PATIENT IDENTITY VERIFICATION COMPLETED USING TWO (2) IDENTIFIERS: Name and Date of confirmed by patient verbally and Name and Date of confirmed by identification band. FALL SCREENING: Has the patient had 2 falls in the last year or 1 fall with injury or currently using an Ambulatory Assistive Device (Walker, Cane, Wheelchair, Crutches, etc.)? No PATIENT GENDER DATA: Male PATIENT RELEVANT IMPLANT DATA REVIEWED: Yes RADIOLOGY DEPARTMENT: CT; Exam(s) Completed: Cardiac PERIPHERAL IV DATA: Site assessment: Clean,Dry and Intact, Site disposition Discontinued SIGNED BY: RT Yee(R) November 12, 2021 12:42 PM Radiology Service Progress Note DATE OF SERVICE: November 12, 2021 TIME: 12:20 PM PATIENT WEIGHT: 202LBS PATIENT IDENTITY VERIFICATION COMPLETED USING TWO (2) STANDARD IDENTIFIERS: Name and Date of confirmed by patient verbally. FALL SCREENING: Has the patient had 2 falls in the last year or 1 fall with injury or currently using an Ambulatory Assistive Device (Walker, Cane, Wheelchair, Crutches, etc.)? No PATIENT GENDER DATA: Male ALLERGIES: Reviewed and unchanged CONTRAST ALLERGY: No EXAM: CT -CONTRAST INDUCED NEPHROPATHY RISK FACTORS: Patient age > 60 years CREATININE: Creatinine Date Value Ref Range Status 07/09/2013 1.00 0.70 - 1.40 mg/dL Final eGFR-All Other Races Date Value Ref Range Status 07/09/2013 >60 . Final Comment: eGFR (Estimated GFR) Units of measure: mL/min/1.73 meters squared eGFR is derived from the reexpressed MDRD Study equation using the following parameters: serum creatinine, age, gender and race. The creatinine assay has been calibrated to be traceable to IDMS. An eGFR <60 mL/min/1.73m2 for >3 months is consistent with chronic kidney disease. Refer to KDOQI guidelines for clinical interpretation. eGFR- Date Value Ref Range Status 07/09/2013 >60 Final P.O.C.T. RESULTS: POC done: Yes, See Lab Tab November 12, 2021 TREATMENT: No Hydration needed. IV SITE: Ambulatory: A peripheral IV was started in the Right antecubital site with a Angio cath: 20 gauge. IV SITE APPEARANCE: Clean,Dry and Intact SIGNATURE: Va Leo RN PATIENT NAME: Martin Reyes DATE: November 12, 2021 TIME: 12:20 PM documented in this encounter [facility] 11-12-2021 History of Present illness Narrative Images from the original note were not included. Heart, Vascular and Thoracic [place] DEPARTMENT OF VASCULAR SURGERY OUTPATIENT VISIT DATE November 12, 2021 OUTPATIENT VISIT TYPE CONSULTATION SERVICE DATE: 11/12/2021 SERVICE TIME: 12:10 PM PRIMARY CARE PHYSICIAN: Shira Desai DO REFERRING PROVIDER: Raymundo Sousa III NO FORWARDING ADDRESS Consult requested for an opinion regarding the evaluation and treatment of the above. My final impression and recommendations will be communicated back to the requesting physician by way of the shared medical record or letter via [place] mail. CHIEF COMPLAINT: Aortic aneurysm HISTORY OF PRESENT ILLNESS: Vascular consultation at the request of Dr. Raymundo A Cebul III. A copy of this consultation note will be provided to the requesting physician by way of shared Medical record or letter to requesting physician via [place] mail. Mr. Reyes is a 86 year old male who is seen today for aaa. PAST MEDICAL HISTORY Diagnosis Date Hypertrophy of prostate without urinary obstruction and other lower urinary tract symptoms (LUTS) Hypertrophy of the prostate w/o obstruction Unspecified essential hypertension PAST SURGICAL HISTORY Procedure Laterality Date ARTHRP ACETBLR/PROX FEM PROSTC AGRFT/ALGRFT 2004 Hip replacement, total, right COLONOSCOPY FLX DX W/COLLJ SPEC WHEN PFRMD 04/13/2012 Colonoscopy repeat flex sig and Ba Enema in 10 years LAPAROSCOPY SURG RPR INITIAL INGUINAL HERNIA 05/28/06 LEFT INGUINAL HERNIA LAPS SURG RPR RECURRENT INGUINAL HERNIA 05/28/06 RIGHT INGUINAL PAST SURGICAL HISTORY OF 2006 CABG x3 PAST SURGICAL HISTORY OF 2007 prostate surgery, scraped out tract RPR 1ST INGUN HRNA AGE 6 YRS/> REDUCIBLE 1963 Hernia repair, inguinal RPR UMBILICAL HRNA 5 YRS/> REDUCIBLE 05/28/06 UMBILICAL HERNIA SOCIAL HISTORY: Social History Tobacco Use Smoking status: Former Smoker Packs/day: 1.00 Years: 15.00 Pack years: 15.00 Types: Cigarettes Quit date: 07/28/1971 Years since quittin.3 Smokeless tobacco: Never Used Substance Use Topics Alcohol use: No Drug use: No FAMILY HISTORY Problem Relation Age of Onset Cancer Father Heart Mother MEDICATIONS: metoprolol tartrate, short acting, (LOPRESSOR) 50 mg tablet Take 25 mg by mouth twice daily. PT IS TAKING ONLY ONE 1/2 TAB DAILY lisinopril 5 mg tablet Take 1 tablet by mouth once daily. citalopram hydrobromide (CELEXA) 10 mg tablet Take 1 tablet by mouth once daily. simvastatin (ZOCOR) 20 mg ORAL tablet Take 20 mg by mouth daily at bedtime. niacin/inositol niacinate(NIACIN FLUSH FREE 400 MG-100 MG CAP) Take one(1) tablet daily. OMEGA-3 FATTY ACIDS 1,000 MG CAP Take one(1) tablet daily. CHOLECALCIFEROL (VITAMIN D3) 1,000 UNIT TAB Take one(1) tablet daily. aspirin(ECOTRIN LOW STRENGTH 81 MG TAB) Take one(1) tablet daily. ALLERGIES: ALLERGIES Allergen Reactions Environmental [Othe* ragweed causes sneezing and watering of the eyes REVIEW of SYSTEM: Constitutional: No weight loss, malaise or fevers. HEENT: Negative for frequent or significant headaches Respiratory: Negative for cough, wheezing, or shortness of breath Cardiovascular: Negative for chest pain, leg swelling or palpitations Gatrointestinal: Negative for abdominal discomfort, blood in stools or black stools or change in bowel habits Genitourinary: No history of dysuria, frequency, or incontinence Musculoskeletal: Negative for joint pain or swelling, back pain or muscle pain Endocrine: Negative for cold or heat intolerance, polyuria, polydipsia and goiter Hematology/Lymphatic: Negative for prolonged bleeding, bruising easily or swollen nodes Neurologic: No history or headaches, syncope, paralysis, seizures or tremors Integumentary: Negative for lesions, rash, and itching. PHYSICAL EXAM: VITALS: BP 180/78 Pulse 64 Temp 98 Resp 18 Ht 5' 7 (1.70m) Wt 202 lb (91.6kg) SpO2 94% BMI 31.63 kg/(m^2). General: WDWN in NAD Skin: No lesions; normal color, turgor HEENT: NCAT PERRLA EOMI No icterus or adenopathy Carotid: bruits none Pulmonary: Clear to percussion and auscultation Coronary: Normal S1, S2; no murmurs, rubs or gallops Abdomen: No organomegaly, normal bowel sounds, non-tender Extremities: Normal range of motion, no edema or ulceration Vascular: 2+ Pulses throughout carotid, brachial radial, femoral, popliteal, PT, DP Neurologic: Awake, alert and oriented. Normal and symmetrical M/S function. Diagnostic tests reviewed for today's visit: Most recent labs IMPRESSION: Mr. Reyes is a 86 year old male with 5cm aaa The normal abdominal aortic diameter is 2cm. A 50% increase in size in any artery diameter is when its considered an aneursym, so 3cm for the abdominal aorta. The iliac arteries start at the end of the aorta at the level of the belly button and are also enlarged in 20-30% of cases. 15% of patients with have associated lower extremity (popliteal artery) aneurysms. Abdominal aortic aneursyms (AAA) occur by age 65 in 4% of men and 1% of women, they are associated with smoking, hypertension and emphysema. For each subsequent decade the risk of AAA essentially doubles. AAAs tend not to run in families, 85% are sporatic and 15% have a family history. Smoking cessation or avoidance is important. BP control to <140/90 for non diabetics and <130/80 for non diabetics. The average AAA growth is 4mm per year. We follow them based on diameter. If initial ultrasound screening identified an aortic diameter>2.5 cmbut <3 cm, SVS suggest rescreening after 10 years. SVS suggest surveillance imaging at 3-year intervals for patients with an AAA between 3.0 and 3.9 cm. SVS suggest surveillance imaging at 12-month intervals for patients with an AAA of 4.0 to 4.9 cm in diameter. [place] Small Aneurysm (UKSAT) Trial and the Aneurysm Detection and Management (JESSICA) Trial, both which showed no survival benefit to repair of abdominal aortic aneurysms (AAA) that were less than 5.5cm. Both showed that surveillance was safe and both showed that 60% of people eventually crossed over to open repair. The risk of risk of rupture during surveillance was less than 1% for both studies; was actually .6% in JESSICA and 0.8% in the UKSAT. Current medicare data shows risk of open AAA repair to be associated with 4% mortality. [facility] experience has been 2%. Endovascular AAA repair has 2% mortality nationwide in medicare population and 1% at [facility]. This shows that either open AAA repair or minimally invasive endovascular AAA repair has higher risk than surveillance for AAA. The goal of AAA repair is to prevent rupture and and we intervene when our risk is less than risk of the untreated AAA. This is 5.5cm for men. Both studies had minimal women in the study so we sometimes fix AAA at 5.0cm in women due to lack of better data to suggest it is also ok to observe. We screen people to follow their aneurysm with either CAT scans or ultrasound. The frequency of testing is determined by size. f/u 6 months with aaa duplex This office note has been dictated. Gonzalez Grey MD . PLAN and RECOMMENDATIONS: Continue Medical Management Medical Decision Making SIGNATURE: Gonzalez Grey MD PATIENT NAME: Martin Reyes DATE: November 12, 2021 TIME: 12:10 PM documented in this encounter [facility] AAA (abdominal aortic aneurysm) without rupture (HCC)- Primary Abdominal aneurysm without mention of rupture [facility] Diagnosis Abdominal aortic aneurysm (AAA) without rupture (HCC) [facility] Diagnosis 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 Essential hypertension Unspecified essential hypertension Hyperlipidemia, mixed Mixed hyperlipidemia [facility] Diagnosis 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 [facility] Diagnosis Skin infection- Primary Unspecified local infection of skin and subcutaneous tissue [facility] Name Dates Details How to access health informa tion online Indication:Other hyperlipidemia Start:10-Oct-2015 Instruction Type:Patient Education How to access health informa tion online - Detail Indication:Other hyperlipidemia Start:10-Oct-2015 Instruction Type:Patient Education Patient Instructions Indication:Other hyperlipidemia Start:10-Oct-2015 Instruction Type:Provider Instructions for Treatment How to access health informa tion online 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 Start:07-Aug-2015 Instruction Type:Patient Education How to access health informa tion online - Detail 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 Start:07-Aug-2015 Instruction Type:Patient Education Patient Instructions 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 Start:07-Aug-2015 Instruction Type:Provider Instructions for Treatment How to access health informa tion online Indication:Cervical lymphadenopathy Start:19-Jul-2015 Instruction Type:Patient Education How to access health informa tion online - Detail Indication:Cervical lymphadenopathy Start:19-Jul-2015 Instruction Type:Patient Education Patient Instructions Indication:Cervical lymphadenopathy Start:19-Jul-2015 Instruction Type:Provider Instructions for Treatment How to access health informa tion online Indication:Other hyperlipidemia Start:06-Jun-2015 Instruction Type:Patient Education How to access health informa tion online - Detail Indication:Other hyperlipidemia Start:06-Jun-2015 Instruction Type:Patient Education Patient Instructions Indication:Other hyperlipidemia Start:06-Jun-2015 Instruction Type:Provider Instructions for Treatment Patient Instructions Indication:Allergic rhinitis Start:08-Feb-2015 Instruction Type:Provider Instructions for Treatment How to access health informa tion online Indication:Impaired fasting glucose Start:08-Feb-2015 Instruction Type:Patient Education How to access health informa tion online - Detail Indication:Impaired fasting glucose Start:08-Feb-2015 Instruction Type:Patient Education zyrtec Indication:Allergic rhinitis Start:08-Feb-2015 Instruction Type:Provider Instructions for Treatment Patient Instructions 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 Start:07-Dec-2014 Instruction Type:Provider Instructions for Treatment Patient Instructions Indication:Impaired fasting glucose Start:12-Oct-2014 Instruction Type:Provider Instructions for Treatment How to access health informa tion online Indication:Impaired fasting glucose Start:26-Apr-2014 Instruction Type:Patient Education How to access health informa tion online - Detail Indication:Impaired fasting glucose Start:26-Apr-2014 Instruction Type:Patient Education Patient Instructions Indication:Impaired fasting glucose Start:26-Apr-2014 Instruction Type:Provider Instructions for Treatment Patient Instructions Indication:Impaired fasting glucose Start:22-Dec-2013 Instruction Type:Provider Instructions for Treatment Patient Instructions Indication:Rupture of popliteal cyst Start:24-Nov-2013 Instruction Type:Provider Instructions for Treatment Patient Instructions Indication:Calf pain Start:03-Nov-2013 Instruction Type:Provider Instructions for Treatment Patient Instructions Indication:Encounter for Medicare annual wellness exam Start:22-Sep-2013 Instruction Type:Provider Instructions for Treatment Patient Instructions Indication:Impaired fasting glucose Start:24-Aug-2013 Instruction Type:Provider Instructions for Treatment Patient Instructions 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 Start:20-Apr-2013 Instruction Type:Provider Instructions for Treatment Patient Instructions Indication:Impaired fasting glucose Start:16-Dec-2012 Instruction Type:Provider Instructions for Treatment Patient Instructions Indication:Impaired fasting glucose Start:19-Aug-2012 Instruction Type:Provider Instructions for Treatment Patient Instructions Indication:Aortic valve disorder Start:20-May-2012 Instruction Type:Provider Instructions for Treatment Patient Instructions Indication:Depressive disorder Start:08-Apr-2012 Instruction Type:Provider Instructions for Treatment [facility] Work Phone: reason for referral (narrative)* Outpatient Procedure (Routine) - Authorized Specialty Diagnoses / Procedures Referred By Contac t Referred To [facility] Diagnoses AAA (abdominal aortic aneurysm) without rupture (HCC) Procedures US ABD AORTA COMPLETE VAS LAB DUP-SCAN AORTA IVC ILIAC VASCL/BPGS COMPLETE Gonzalez Grey MD [address] [place] [address] [facility] [place] [facility] [place] [address] Referral ID Status Reason Start Date Expiration Date Visits Requested Visits Authorized [id number] Authorized Auto-Generat ed Referral 11/12/2021 11/12/2022 1 1 [facility] Reason for Referral Specialty Diagnoses / Procedures Referred By Contac t Referred To Contact CT IMAGING Diagnoses 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 Procedures CTA ABD/PEL WO/W IVCON CT ANGIO ABD&PLVIS CNTRST MTRL W/WO CNTRST IMGES Gonzalez Grey MD [address] [place] [address] Ct Imaging Referral ID Status Reason Start Date Expiration Date Visits Requested Visits Authorized [id number] Pending Review Auto-Generat ed Referral 2 06/19/2023 1 1 Specialty Diagnoses / Procedures Referred By Contac t Referred To Contact CT IMAGING Diagnoses 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 Procedures CTA CHEST (NONGATED) WO/W IVCON CT ANGIOGRAPHY CHEST W/CONTRAST/NONCONTRAST Gonzalez Grey MD [address] [place] [address] Ct Imaging Referral ID Status Reason Start Date Expiration Date Visits Requested Visits Authorized [id number] Pending Review Auto-Generat ed Referral 2 06/19/2023 1 1 Family History No Family History Records FoundUnknown Family Member Name Dates Details Father Comments: from lung issu es at age 72- had alot of exposures in his life Status:Active Mother Comments:- atheroscl erosis- age 76 Status:Active Summary Purpose Advance Directives No Advanced Directives Records Found Additional Source Comments Source Comments (unrecognize d section and content) In the event this informatio n is protected by the Federal Confidentiality of Alcohol and Drug Abuse Patient Records regulations: The Federal rules restrict any use of the information to criminally investigate or prosecute any alcohol or drug abuse patient.[facility] event this information is protected by the Federal Confidentiality of Alcohol and Drug Abuse Patient Records regulations: The Federal rules restrict any use of the information to criminally investigate or prosecute any alcohol or drug abuse patient.[facility] the event this information is protected by the Federal Confidentiality of Alcohol and Drug Abuse Patient Records regulations: The Federal rules restrict any use of the information to criminally investigate or prosecute any alcohol or drug abuse patient.[facility] the event this information is protected by the Federal Confidentiality of Alcohol and Drug Abuse Patient Records regulations: The Federal rules restrict any use of the information to criminally investigate or prosecute any alcohol or drug abuse patient.[facility] the event this information is protected by the Federal Confidentiality of Alcohol and Drug Abuse Patient Records regulations: The Federal rules restrict any use of the information to criminally investigate or prosecute any alcohol or drug abuse patient.[facility] the event this information is protected by the Federal Confidentiality of Alcohol and Drug Abuse Patient Records regulations: The Federal rules restrict any use of the information to criminally investigate or prosecute any alcohol or drug abuse patient.[facility] Reason for Visit (unrecogniz ed section and content) Reason Comments Radiology CT Specialty Diagnoses / Procedures Referred By Carolina magallanes Referred To Contact CT IMAGING Diagnoses Abdominal aortic aneurysm (AAA) without rupture (HCC) Procedures CTA CHEST (NONGATED) WO/W IVCON CTA CHEST, W/WO CONTRAST Gonzalez Grey MD [address] [place] [address] Ct Imaging Referral ID Status Reason Start Date Expiration Date V isits Requested Visits Authorized [id number] Closed Auto-Generate d Referral 07/10/2021 08/09/2022 1 1 Reason Comments Established Patient Reason Comments Rash Rash abound eyebrows x 2 weeks Care Teams (unrecognized sec tion and content) Sound Effects Supervisor Relationship Specialty Start Date End Date Shira Desai DO PCP - General Internal Medicine 01/16/12 Sound Effects Supervisor Relationship Specialty Start Date End Date Shira Desai DO PCP - General Internal Medicine 01/16/12 Sound Effects Supervisor Relationship Specialty Start Date End Date Shira Desai DO PCP - General Internal Medicine 01/16/12 Sound Effects Supervisor Relationship Specialty Start Date End Date Shira Desai DO PCP - General Internal Medicine 01/16/12 (unrecognized sect ion and content) No Status Records Found INFORMATION SOURCE (unrecogn ized section and content) FOR RECORDS PERTAINING TO PATIENTS WHO ARE OR HAVE BEEN ENROLLED IN A CHEMICAL DEPENDENCY/SUBSTANCEABUSE PROGRAM, SOME INFORMATION MAY BE OMITTED. This clinical summary was aggregated from multiple sources. Caution should be exercised in using it in the provision of clinical care. This summary normalizes information from multiple sources, and as a consequence, information in this document may materially change the coding, format and clinical context of patient data. In addition, data may be omitted in some cases. CLINICAL DECISIONS SHOULD BE BASED ON THE PRIMARY CLINICAL RECORDS. [facility]. provides no warranty or guarantee of the accuracy or completeness of information in this document.
[2023-09-07 10:17] LABS: Absolute Lymphocyte Count 1.56 X10^3/uL (0.83-4.51); Absolute Neutrophil Count 5.9 X10^3/uL (2.0-7.7); Basophil# 0.09 X10^3/uL; Eosinophil# 0.02 X10^3/uL; Eosinophils% 0.2 % (0-5); Hematocrit 47.1 % (40-54); Hemoglobin 15.3 g/dL (13.0-16.5); Lymphocyte # 1.56 X10^3/ul (0.83-4.51); Lymphocyte % 16.9 % (19-41); Mean Corp Hgb Conc 32.5 g/dL (32-36); Mean Corpuscular Hgb 30.5 pg (27.0-32.0); Mean Corpuscular Volume 93.8 fL (80-94); Mean Platelet Vol. 10.3 fl (6.2-12.0); Monocyte% 18.4 % (0-10); NRBC Flagged by Analyzer 0 % (0-5); Neutrophil # 5.86 X10^3/uL (2.7-7.7); Neutrophil % 63.3 % (47-70); POSITIVE DIFFERENTIAL YES; Platelet Count 277 K/mm3 (150-450); RBC Distribution Width CV 14.2 % (11.6-14.6); Red Blood Count 5.02 M/mm3 (4.6-6.2); White Blood Count 9.3 K/mm3 (4.4-11.0)
[2023-09-07 10:18] LABS: Differential Indicated SCAN CRITERIA MET
--- NOTE | 2023-09-07 10:20 | RAD_ITS ---
INDICATION: cough EXAMINATION/TECHNIQUE: X-RAY - XR Chest 1 View COMPARISON: Prior study dated: 09/01/2017 FINDINGS: LINES/DEVICES: None. LUNGS: Mild stranding/scarring in the left lower lung. No new infiltrate is seen. No evidence of pleural effusions. MEDIASTINUM AND CARDIOVASCULAR STRUCTURES: Borderline cardiac silhouette. Status post median sternotomy. BONES AND SOFT TISSUES: Unchanged. RAD/Chest 1 View (Portable) IMPRESSION: No radiographic evidence of acute cardiopulmonary disease. Electronically Signed: Evans Causey MD at 10:59 EST ,
[2023-09-07 10:28] LABS: Anion Gap 7 (5-15); BUN 27 mg/dL (7-18); BUN/Creat Ratio 18.5 RATIO (10-20); Calcium,Total 9.2 mg/dL (8.5-10.1); Chloride 108 mmol/L (98-107); Creatinine, Serum 1.46 mg/dL (0.70-1.30); EST Glomerular Filtration Rate 49 mL/min (>60); Est Glom Filt Rate - Afr Amer 59 mL/min (>60); Estimated Creatinine Clearance 36.39 ml/min; Glucose 123 mg/dL (74-106); Potassium 4.5 mmol/L (3.5-5.1); Sodium Level 141 mmol/L (136-145)
[2023-09-07 10:49] LABS: Differential Comment SCANNED
--- NOTE | 2023-09-07 11:41 | PCM.HP.STD ---
HPI - General General Date of Admission: 09/07/23 Date of Service: 09/07/23 Chief Complaint: Generalized weakness HPI Narrative FRANCO REYES, is a 88 M with multiple comorbidities including COPD, coronary artery disease status post CABG ,Essential hypertension who presents with generalized weakness. Patient symptoms started 2 days prior to his admission. Patient did experience sinus congestion subjective fever as well as chills. Patient was seen and evaluated at an urgent care center and sent to the ED. Workup in the emergency department did reveal presence of influenza A infection. Patient did experience significant hypoxia on ambulation with oxygen saturation dropping to the mid 80s. Decision subsequently made to admit patient for further management in the hospital. [facility] Medical History Abdominal aortic aneurysm (AAA) Amnesia (retrograde) Atherosclerotic heart disease of hughes coronary artery without angina pectoris Encounter for long-term current use of high risk medication Essential (primary) hypertension Hayfever Hyperlipidemia Impacted cerumen, right ear Knee pain Nonrheumatic tricuspid (valve) insufficiency Obesity Home Medications aspirin 81 mg tablet,delayed release 81 mg PO DAILY@0800 10/23/15 [History Last Taken 06/12/16] cholecalciferol (vitamin D3) 25 mcg (1,000 unit) tablet 2,000 unit PO DAILY 10/23/15 [History Last Taken 06/12/16] omega 0-zju-zms-fish oil 60 mg-90 mg-500 mg capsule 1 cap PO DAILY 06/05/20 [History Last Taken Unknown] lisinopril 20 mg tablet 20 mg PO DAILY #90 tabs 02/17/23 [Rx Last Taken Unknown] metoprolol succinate 25 mg tablet,extended release 24 hr 25 mg PO BID #180 tabs 02/17/23 [Rx Last Taken Unknown] simvastatin 20 mg tablet 20 mg PO DAILY #90 tabs 02/17/23 [Rx Last Taken Unknown] Allergy/AdvReac Type Severity Reaction Status Date / Time No Known Allergies Allergy Verified 09/07/23 09:25 Family History Mother CAD (coronary artery disease) Sister Asthma Other Atherosclerosis Surgical History H/O coronary artery bypass surgery (1989) H/O hernia repair History of hip replacement Hx of cataract surgery Social History Smoking Status: Former smoker alcohol intake: never substance use type: does not use caffeine: Yes Type: coffee Number of servings: 1 what type of physical activity do you participate in: none seatbelt use: always do you feel safe at home: Yes ROS ROS Narrative GENERAL: fever, chills, HEENT: denies headache, sinus congestion, RESPIRATORY: cough, shortness of breath, CARDIAC: denies chest pain, palpitations, GASTROINTESTINAL: denies abdominal pain, GENITOURINARY: denies dysuria, urgency, EXTREMITY: denies swelling MUSCULOSKELETAL: denies current joint pain or tenderness NEUROLOGIC: denies focal numbness, weakness, tingling HEMATOLOGIC: denies easy bruising and/or hemorrhage INTEGUMENT: denies rashes PSYCHIATRIC: denies suicidal or homicidal ideation Vital Signs Vital Signs Vital Signs: 09/07/23 09:25 09/07/23 10:03 09/07/23 11:02 Temperature 99.5 F H 99.1 F Temperature Source Temporal Oral Pulse Rate 70 69 Respiratory Rate 18 20 H Respiratory Effort Short of Breath Respiratory Pattern Tachypnea Blood Pressure 158/75 H 154/69 H Blood Pressure Mean 102 97 Pulse Ox 93 92 Oxygen Delivery Method Room Air Room Air Weight Weight: 91.626 kg Body Mass Index (BMI) 33.6 Physical Exam Narrative GENERAL: Frail looking HEENT: Atraumatic; normocephalic EYES; Anicteric, Normal Conjunctiva NECK; supple, normal thyroid, RESPIRATORY: Diminished to auscultation CARDIOVASCULAR: Regular S1 S2, GI: soft, normoactive bowel sounds, : No Renal angle tenderness; EXTREMITIES: No edema, no clubbing, MUSCULOSKELETAL: no muscle wasting NEURO: Awake; no lateralizing signs. SKIN: No Rash PSYCH; Flat affect Results Lab / Micro Data 09/07/23 10:05 09/07/23 10:05 Labs: Laboratory Results - last 24 hr 09/07/23 10:05: WBC 9.3, RBC 5.02, Hgb 15.3, Hct 47.1, MCV 93.8, MCH 30.5, MCHC 32.5, RDW Std Deviation 49.0 H, RDW Coeff of Laura 14.2, Plt Count 277, MPV 10.3, Immature Gran % (Auto) 0.200, Neut % (Auto) 63.3, Lymph % (Auto) 16.9 L, [place] % (Auto) 18.4 H, Eos % (Auto) 0.2, Baso % (Auto) 1.0, Absolute Neuts (auto) 5.9, Absolute Lymphs (auto) 1.56, Nucleated RBC % 0, Differential Comment SCANNED, Sodium 141, Potassium 4.5, Chloride 108 H, Carbon Dioxide 26.0, Anion Gap 7, BUN 27 H, Creatinine 1.46 H, Estim Creat Clear Calc 36.39, Est GFR (MDRD) Af Amer 59 L, Est GFR (MDRD) Non-Af 49 L, BUN/Creatinine Ratio 18.5, Glucose 123 H, Calcium 9.2 Micro: Microbiology 09/07/23 10:04 Mucosa - Nasopharyngeal SARS-CoV-2, Influenza & RSV (PCR) - Final Influenzae A Imaging Radiology Impression Chest X-Ray 09/07/23 10:20 IMPRESSION: No radiographic evidence of acute cardiopulmonary disease. Electronically Signed: Evans Causey MD at 10:59 EST , Assessment & Plan Assessment/Plan (1) Influenza A: PLAN: Plan Patient is an 88-year-old gentleman presented with progressive generalized weakness subjective fever and chills tested positive for influenza A 1. Acute influenza A infection ? Patient admitted to regular nursing floor started on Tamiflu in addition to symptomatic treatment 2. COPD ? With mild exacerbation precipitated by patient acute influenza A. Patient managed with systemic steroid, bronchodilator treatments in addition to supplemental oxygen which is currently being titrated to keep saturation greater than 90 3. Acute hypoxia ? Secondary to #1 and #2 4. Coronary artery disease ? With previous CABG patient remains on guideline directed medical therapy 5. Hypertension - Blood pressure controlled, home medications continued with dose adjustment as needed 6. Acute renal insufficiency and superimposed on chronic kidney disease stage III ? Baseline creatinine 1.2 patient creatinine on admission was 1.4 started on hydration with subsequent monitoring of electrolyte 7. Dyslipidemia -Patient is on statin therapy, continued at home dose 8. DVT prophylaxis ? Patient on Lovenox dose adjusted for kidney function Time spent in the patient's overall evaluation,decision-making process, review of diagnostic data, adjustment of management, discussion with other providers, nursing nursing and ancillary staff involved in patient's care documentation, 75 Minutes Advance planning; did discuss with the patient and family regarding advanced directives as well as CODE STATUS. Did explain the various scenarios involved ( FULL CODE, DNR CCA, DNR CCA with no intubation, and DNR CC and what each meant) patient elected to remain full code with CPR and intubation if needed. Order was placed. Time spent on discussion 18 minutes. Charges/Coding Visit Charges Inpatient E&M: 49889 Init Hosp L3 Procedures Hospitalists Procedures: 39519 Advncd Care Plan 30 Min
[2023-09-07] MEDS: Ipratropium/Albuterol Sulfate 3 ML AMPUL.NEB INHALATION ×2 (11:45→19:19)
--- OUTSIDE RECORDS SUMMARY | 2023-09-07 13:44 | XMS RPT_ITS | CCD ---
Author Name Unknown Address [address] [facility] [address] [place] [address] Organization [facility] Care Team Providers Care Cad Detailer Name Role Phone MD Cordell, [place] S Unavailable Erica Caruso Unavailable Unavailable Terra WALLACE, Yasmin Brown Unavailable Unavailable MD Cordell, [place] S Unavailable Fast DO, Shira A Primary Care Provider Fast DO, Shira A Primary Care Provider Fast DO, Shira A Unavailable Manchak DATA COMMUNICATIONS TECHNICIAN, Lyndsay Unavailable Unavailable Nivia Blakely Unavailable Unavailable Unavailable Unavailable Fast DO, Shira A Primary Care Provider FAST, SHIRA A Primary Care Unavailable Allergies Allergy Classification Reported Allergen(s) Allergy Type Date of Onset Reaction(s) Facility (5 sources) environmental [Other] Propensity to adverse reactions [facility] Work Phone: (1 source) OTHER; Translations: [OTHER] Propensity to adverse reactions (disorder) [address] [place] [address] Repository Medications Current Medications Medication Drug Class(es) Dates Sig (Normalized) Sig (Original) doxycycline monohydrate 100 mg oral tablet (2 sources) Tetracycline-clas s Drug Start: 09-02-2023 End: 09-09-2023 [...] mouth 1 hour prior to appt. AMOXICILLIN [id number] Mk Landa MD Problems Active Problems Problem Classification Problem Date Documented Da te Episodic/Chronic Aortic; peripheral; and visceral artery aneurysms (20 sources) Abdominal aortic aneurysm without rupture; Translations: [Abdominal aortic aneurysm, without rupture] Onset: 11-12-2021 Chronic Cardiac dysrhythmias (4 sources) Premature beats; Translations: [Other premature beats] 10-10-2015 Chronic Past or Other Problems Problem Classification Problem Date Documented Da te Episodic/Chronic Abdominal hernia (14 sources) Bilateral inguinal hernia; Translations: [Bilateral inguinal hernia, without obstruction or gangrene, not specified as recurrent] Onset: 05-19-2006 05-19-2006 Episodic Coronary atherosclerosis and other heart disease (8 sources) Presence of aortocoronary bypass graft; Translations: [Presence of aortocoronary bypass graft] Onset: 08-24-2016 02-21-2017 Episodic Other aftercare (3 sources) Other penitentiary (current) drug therapy; Translations: [Other penitentiary (current) drug therapy] Onset: 08-24-2016 08-24-2016 Episodic Syncope (1 source) Syncope Unclassified (3 sources) Unspecified Diagnosis Resolved: 12-04-2011 12-04-2011 Results Test Name Value Interpretation Reference Range Facil ity Vital Signs Date Time Vital Sign Value Performing Clinician Facility 09-07-2023 09:15-0500 Body temperature 100.2 [degF] Alysha Hunter PA-C Work Phone: [facility] 09-07-2023 09:15-0500 Body weight 91.63 kg Alysha Hunter PA-C Work Phone: [facility] 09-07-2023 09:15-0500 Diastolic blood pressure 64 mm[Hg] Alysha Hunter PA-C Work Phone: [facility] 09-07-2023 09:15-0500 Heart rate 73 /min Alysha Hunter PA-C Work Phone: [facility] 09-07-2023 09:15-0500 Respiratory rate 20 /min Alysha Athy PA-C Work Phone: [facility] 09-07-2023 09:15-0500 SaO2% (BldA) [Mass fraction] 91 % Alysha Phamy PA-C Work Phone: [facility] 09-07-2023 09:15-0500 Systolic blood pressure 120 mm[Hg] Alysha Phamy PA-C Work Phone: [facility] 09-02-2023 14:20-0500 Body temperature 97.81 [degF] Adarsh Ponce CONTACT CENTER CONSULTANT.SIZE CHANGER Work Phone: [facility] 09-02-2023 14:20-0500 Body weight 93.26 kg Adarsh Ponce CONTACT CENTER CONSULTANT.SIZE CHANGER Work Phone: [facility] 09-02-2023 14:20-0500 Diastolic blood pressure 82 mm[Hg] Adarsh Ponce CONTACT CENTER CONSULTANT.SIZE CHANGER Work Phone: [facility] 09-02-2023 14:20-0500 Heart rate 69 /min Adarsh Ponce CONTACT CENTER CONSULTANT.SIZE CHANGER Work Phone: [facility] 09-02-2023 14:20-0500 Respiratory rate 16 /min Adarsh Ponce CONTACT CENTER CONSULTANT.SIZE CHANGER Work Phone: [facility] 09-02-2023 14:20-0500 SaO2% (BldA) [Mass fraction] 96 % Adarsh Ponce CONTACT CENTER CONSULTANT.SIZE CHANGER Work Phone: [facility] 09-02-2023 14:20-0500 Systolic blood pressure 138 mm[Hg] Adarsh Ponce CONTACT CENTER CONSULTANT.SIZE CHANGER Work Phone: [facility] 05-20-2022 12:42-0400 Diastolic blood pressure 81 mm[Hg] Gonzalez Grey MD Work Phone: [facility] 05-20-2022 12:42-0400 Heart rate 62 /min Gonzalez Grey MD Work Phone: [facility] 05-20-2022 12:42-0400 Systolic blood pressure 141 mm[Hg] Gonzalez Grey MD Work Phone: [facility] 11-12-2021 11:33-0400 Body height 170.2 cm Gonzalez Grey MD Work Phone: [facility] 11-12-2021 11:33-0400 Body temperature 98.01 [degF] Gonzalez Grey MD Work Phone: [facility] 11-12-2021 11:33-0400 Body weight 91.63 kg Gonzalez Grey MD Work Phone: [facility] 11-12-2021 11:33-0400 Diastolic blood pressure 78 mm[Hg] Gonzalez Grey MD Work Phone: [facility] 11-12-2021 11:33-0400 Heart rate 64 /min Gonzalez Grey MD Work Phone: [facility] 11-12-2021 11:33-0400 Respiratory rate 18 /min Gonzalez Grey MD Work Phone: [facility] 11-12-2021 11:33-0400 SaO2% (BldA) [Mass fraction] 94 % Gonzalez Grey MD Work Phone: [facility] 11-12-2021 11:33-0400 Systolic blood pressure 180 mm[Hg] Gonzalez Grey MD Work Phone: [facility] 03-13-2017 08:36-0400 BMI (Body Mass Index) 33.18 kg/m2 MD [facility] Work Phone: 03-13-2017 08:36-0400 BP Diastolic 70 mm[Hg] MD [facility] Work Phone: 03-13-2017 08:36-0400 BP Systolic 112 mm[Hg] MD [facility] Work Phone: 03-13-2017 08:36-0400 Height 162.56 cm MD [facility] Work Phone: 03-13-2017 08:36-0400 Pulse (Heart Rate) 60 /min MD [facility] Work Phone: 03-13-2017 08:36-0400 Respiratory Rate 20 /min MD [facility] Work Phone: 03-13-2017 08:36-0400 Weight 87.68 kg MD [facility] Work Phone: 08-28-2016 08:52-0500 BMI (Body Mass Index) 33.12 kg/m2 Yasmin Ellison RN [facility] Work Phone: 08-28-2016 08:52-0500 BP Diastolic 82 mm[Hg] Yasmin Ellison RN [facility] Work Phone: 08-28-2016 08:52-0500 BP Systolic 164 mm[Hg] Yasmin Ellison RN [facility] Work Phone: 08-28-2016 08:52-0500 BSA (Body Surface Area) 1.93 m2 Yasmin Ellison RN [facility] Work Phone: 08-28-2016 08:52-0500 Height 162.56 cm Yasmin Ellison RN [facility] Work Phone: 08-28-2016 08:52-0500 Pulse (Heart Rate) 74 /min Yasmin Ellison RN [facility] Work Phone: 08-28-2016 08:52-0500 Respiratory Rate 18 /min [facility] Work Phone: 08-28-2016 08:52-0500 Weight 87.54 kg Yasmin Ellison RN [facility] Work Phone: 10-10-2015 08:46-0400 Body height 162.56 cm Lyndsay Schaeffer CMA [facility] Work Phone: 10-10-2015 08:46-0400 Body mass index (BMI) [Ratio] 32.44 kg/m2 Lyndsay Schaeffer [facility] Work Phone: 10-10-2015 08:46-0400 Body surface area Derived from formula 1.91 m2 Lyndsay Schaeffer [facility] Work Phone: 10-10-2015 08:46-0400 Body temperature 97.7 [degF] Lyndsay Schaeffer [facility] Work Phone: Encounters Encounter Date Encounter Type Care Provider Facility Start: 09-07-2023 End: 09-07-2023 Patient encounter procedure Alysha Hunter PA-C Work Phone: [facility] Procedures Date Procedure Procedure Detail [...] [AGGREGATE] Sebastian Contreras Start: 03-13-2017 End: 03-13-2017 VERO Landa MD Start: 08-28-2016 End: 08-28-2016 Dietary management education, guidance, and counseling Yasmin Ellison RN Start: 08-28-2016 End: 08-28-2016 SHARMIN Landa MD Start: 08-28-2016 End: 08-28-2016 Follow Up Appt 6 months Sebastian Contreras Start: 06-13-2016 End: 06-13-2016 History and Physical Exam Procedure Note: See Note; NOTES: [facility] Medical Records Department [address] [place] [address] History and Physical 06/13/16 1633 MR#: [id number] Acct: [id number] Name: MARTIN REYES Rep #: [id number] : 1935 80 From: Saleem Gonzalez MD PCP: Shira Desai DO Status: REG ER Y Location: ED Problem List (1) Acute encephalopathy Status: Acute (2) Amnesia (retrograde) Status: Acute (3) Hypertension Status: Chronic Qualifiers: Hypertension type: H (4) Coronary artery disease Status: Chronic Qualifiers: Coronary Disease-Associated Artery/Lesion type: C Enterprise vs. transplanted heart: N Associated angina: A [...] Ike)] Niacin 500 mg PO DAILY 10/23/15 [place]-3 Fatty Acids [Fish Oil] 500 mg PO [...] 83.2 H Lymph % (Auto) 8.7 L [place] % (Auto) 7.1 Eos % (Auto) 0.4 [...] Clarity Clear Urine pH 6.5 Ur Specific [place] 1.005 Urine Protein Negative Urine Glucose (UA) [...] without Cont Procedure Note: See Note; NOTES: [facility] Imaging Services [address] [place] [address] Verdana 4d Abdomen/Pelvis without Cont MR#: [id number] Acct: [id number] Name: MARTIN REYES Rep #: [id number] : 1935 M 80 From: Shay Kay MD PCP: Shira Desai DO Status: REG ER Study: Abdomen/Pelvis without Cont Date of Exam: 06/13/16 Exam# [id number] Ordering Dr: Almaz Gaona DO STUDY: CT [...] Shay Kay MD at 13:40 EST Tel [phone], Service support [phone], CC: Shira Desia DO; Almaz Gaona DO Clipper Machine Operator: Signed Shira Desai DO Work Phone: Start: 06-13-2016 End: 06-13-2016 Brain/Head without Contrast Procedure Note: See Note; NOTES: [facility] Imaging Services [address] [place] [address] Verdana 4d Brain/Head without Contrast MR#: [id number] Acct: [id number] Name: MARTIN REYES Rep #: [id number] : 1935 M 80 From: Shay Kay MD PCP: Shira Desai DO Status: REG ER Study: Brain/Head without Contrast Date of Exam: 06/13/16 Exam# [id number] Ordering Dr: Almaz Gaona DO STUDY: CT [...] Shay Kay MD at 13:36 EST Tel [phone], Service support [phone], CC: Shira Desai DO; Almaz Gaona DO Clipper Machine Operator: Signed Shira Desai DO Work Phone: Start: 06-13-2016 End: 06-13-2016 Chest 1 View Procedure Note: See Note; NOTES: [facility] Imaging Services [address] [place] [address] Verdana 4d Chest 1 View MR#: [id number] Acct: [id number] Name: MARTIN REYES Rep #: [id number] : 1935 M 80 From: Shay Kay MD PCP: Shira Desai DO Status: PRE ER Study: Chest 1 View Date of Exam: 06/13/16 Exam# [id number] Ordering Dr: Almaz Gaona DO STUDY: X-RAY [...] Shay Kay MD at 13:05 EST Tel [phone], Service support [phone], CC: Shira Desai DO; Almaz Gaona DO Clipper Machine Operator: Signed Shira Desai DO Work Phone: Start: 10-30-2015 End: 10-30-2015 Emergency Department Summary Procedure Note: See Note; NOTES: [facility] Medical Records Department [address] [place] [address] Emergency Department Summary MR#: [id number] Acct: [id number] Name: MARTIN REYES Rep #: [id number] : 1935 80 From: Juan José Zazueta MD PCP: Shira Desai DO Status: DEP ER DATE OF SERVICE: 10/23/2015 CHIEF COMPLAINT: Chills and dysuria. HISTORY OF PRESENT ILLNESS: This is a 80-year-old male presenting secondary to 2 days' worth of symptoms. He states that he is having some burning with urination and difficulty emptying. He states that Friday night, he was having chills associated with [...] Juan José Zazueta M.D. T: SOFYA JOB: [id number] 10/30/15 0023 <Electronically signed by Juan José Zazueta MD> Date Juan José Zazueta MD Cosigner Signature (If Indicated): Date CC: Shira Desai DO Date Dictated: 10/23/15721 Date Transcribed: 10/23/15721 Clipper Machine Operator: Signed Shira Desai DO Work Phone: Start: 10-23-2015 End: 10-23-2015 Discharge Instruction Procedure Note: See Note; NOTES: [facility] Medical Records Department [address] [place], [place] [address] [address] Discharge Instruction 10/23/15717 MR#: [id number] Acct: [id number] Name: MARTIN REYES Rep #: [id number] : 1935 80 From: Juan José Zazueta MD PCP: Shira Desai DO Status: DEP ER ED Disposition - Plan for ED [...] problems, contact your doctor. Call [facility] ([phone]) or report to the closest Emergency Room. Call 911 if necessary. 10/23/15740 <Electronically signed by Juan José Zazueta MD> Date Juan José Zazueta MD Cosigner Signature (If Indicated): Date CC: Shira Little DO Work Phone: Start: 06-08-2015 End: 06-08-2015 Echocardiogram Complete Procedure Note: See Note; NOTES: [facility] Cardiovascular Services [address] [place] [address] Echo Complete 06/07/15 1347 MR#: [id number] Acct: [id number] Name: MARTIN REYES Rep #: [id number] : 1935 79 From: Wili Thomas MD Attending Dr: Shira Desai DO Status: REG CLI Ordering Dr: Shira Desai DO Date: 06/07/15 Location: [facility] Sex: M C Admitted: Procedure This was [...] Dictated: 06/07/15 1347 Date Transcribed: 06/07/15 1509 Clipper Machine Operator: Signed Shira Desai DO Work Phone: Start: 10-20-2014 End: 10-20-2014 Aorta Procedure Note: See Note; NOTES: [facility] Imaging Services [address] [place] [address] Ultrasound Report MR#: [id number] Acct: [id number] Name: MARTIN REYES Eleazar Rep #: [id number] : 1935 M 79 From: Shay Kay MD PCP: Shira Desai DO Status: REG CLI Study: Aorta Date of Exam: 10/20/14 Exam# [id number] Ordering Dr: Shira Desai DO PROCEDURES: ULTRASOUND [...] Shay Kay MD at 10:18 EDT Tel [phone], Service support [phone], CC: Shira Desai DO Clipper Machine Operator: Signed Shira Desai DO Work Phone: Start: 02-21-2014 End: 02-21-2014 Aorta Procedure Note: See Note; NOTES: [facility] Imaging Services [address] [place] [address] Ultrasound Report MR#: [id number] Acct: [id number] Name: MARTIN REYES Rep #: [id number] : 1935 M 78 From: Shay Kay MD PCP: Shira Desai DO Status: REG CLI Study: Aorta Date of Exam: 02/21/14 Exam# [id number] Ordering Dr: Shira Desai DO PROCEDURES: ULTRASOUND [...] Shay Kay MD at 15:21 EDT Tel [phone], Service support [phone], CC: Shira Desai DO Clipper Machine Operator: Signed Shira Desai DO Work Phone: Start: 11-16-2013 End: 11-16-2013 Lower Ext/No Jt/w/o Procedure Note: See Note; NOTES: [facility] Imaging Services [address] [place] [address] MRI Report MR#: [id number] Acct: [id number] Name: MARTIN REYES Eleazar Rep #: [id number] : 1935 78 From: Ye Chong MD PCP: Shira Desai DO Status: REG CLI Study: Lower Ext/No Jt/w/o Date of Exam: 11/16/13 Exam# [id number] Ordering Dr: Shira Desai DO PROCEDURE: MRI [...] FACR at 21:47 EDT , Service support [phone], CC: Shira Desai DO Clipper Machine Operator: Signed Shira Desai DO Work Phone: Start: 08-26-2013 End: 08-26-2013 Knee 4 or More Views Procedure Note: See Note; NOTES: [facility] Imaging Services [address] [place] [address] Radiology Report MR#: [id number] Acct: [id number] Name: MARTIN REYES Rep #: [id number] : 1935 M 78 From: Richa Becerra MD PCP: Shira Desai DO Status: REG CLI Study: Knee 4 or More Views Date of Exam: 08/26/13 Exam# [id number] Ordering Dr: Shira Desai DO STUDY: X-RAY [...] M.D. at 19:11 EST , Service support [phone], CC: Shira Desai DO Clipper Machine Operator: Signed Shira Desai DO Work Phone: Start: 08-26-2013 End: 08-26-2013 L/S Spine Min 4 Views Procedure Note: See Note; NOTES: [facility] Imaging Services [address] [place] [address] Radiology Report MR#: [id number] Acct: [id number] Name: MARTIN REYES Rep #: [id number] : 1935 [facility] From: Richa Becerra MD PCP: Shira Desai DO Status: REG CLI Study: L/S Spine Min 4 Views Date of Exam: 08/26/13 Exam# [id number] Ordering Dr: Shira Desai DO STUDY: X-RAY [...] M.D. at 19:47 EST , Service support [phone], CC: Shira Desai DO Clipper Machine Operator: Signed Shira Desai DO Work Phone: Fang Schaeffer CMA Plan of Treatment Date Care Activity Detail Author Start: 07-28-2023 Advance Directive Discussion Advance Directive Discussion [facility] Start: 07-28-2023 Depression Assessment Depression Assessment [facility] Start: 03-28-2022 Influenza vaccination [facility] Start: 07-28-2021 ADVANCE DIRECTIVE DISCUSSION ADVANCE DIRECTIVE DISCUSSION [facility] Start: 07-28-2021 DEPRESSION ASSESSMENT DEPRESSION ASSESSMENT [facility] Start: 09-15-2017 End: 03-21-2017 *Hepatic Function Panel *Hepatic Function Panel [facility] Work Phone: Start: 09-15-2017 End: 03-21-2017 Lipid panel [AGGREGATE] *Lipid Profile CC PCP [facility] Work Phone: Start: 09-11-2017 End: 09-11-2017 Appointment Appointment [facility] Work Phone: Start: 03-13-2017 End: 03-13-2017 Appointment Appointment [facility] Work Phone: Start: 03-13-2017 End: 03-21-2017 *Hepatic Function Panel *Hepatic Function Panel [facility] Work Phone: Start: 03-13-2017 End: 03-13-2017 Follow Up Appt 6 months Follow Up Appt 6 months [facility] Work Phone: Start: 03-13-2017 End: 03-21-2017 Lipid panel [AGGREGATE] *Lipid Profile CC PCP [facility] Work Phone: Start: 03-13-2017 End: 03-13-2017 MMM MMM [facility] Work Phone: Start: 02-27-2017 End: 02-27-2017 Appointment Appointment [facility] Work Phone: Start: 08-28-2016 End: 08-28-2016 TURNER MACHINE TURNER MACHINE [facility] Work Phone: Start: 08-28-2016 End: 08-28-2016 Follow Up Appt 6 months Follow Up Appt 6 months [facility] Work Phone: Start: 07-09-2016 DIABETES SCREEN DIABETES SCREEN [facility] Start: 07-09-2016 Diabetes Screening Diabetes Screening [facility] Start: 10-10-2015 Procedure Education Eprescribed prescriptions (G8408) [facility] Work Phone: Start: 10-10-2015 Urine albumin quantitative MICROALBUMIN: CREATININE RATIO (09887) AND (91894) [facility] Work Phone: Start: 10-10-2015 Assay of prostate specific antigen total PSA (PROSTATE SPECIFIC ANTIGEN) (V76.44) [facility] Work Phone: Start: 10-10-2015 Blood count complete auto&auto difrntl wbc CBC W/AUTO DIFF WBC (30551) [facility] Work Phone: Start: 10-10-2015 Comprehensive metabolic panel METABOLIC PANEL, COMPREHENSIVE (24680) [facility] Work Phone: Start: 10-10-2015 Lipid panel LIPID PANEL (87938) [facility]; [facility] Work Phone: Start: 10-10-2015 Assay of thyroid stimulating hormone tsh TSH (86875) [facility]; [facility] Work Phone: Start: 09-14-2015 Pneumococcal Vaccine: 65+ (2 of 2 - PPSV23 or PCV20) Pneumococcal Vaccine: 65+ (2 of 2 - PPSV23 or PCV20) [facility] Start: 07-19-2015 Procedure Education Eprescribed prescriptions (G8553) [facility]; [facility] Work Phone: Start: 06-06-2015 Procedure Education Eprescribed prescriptions (G8553) [facility] Work Phone: Start: 06-06-2015 Assay of free thyroxine T4, FREE (THYROXINE) (42631) [facility] Work Phone: Start: 06-06-2015 Assay of triiodothyronine t3 free T3, FREE (TRIDOTHYRONINE) (53828) [facility] Work Phone: Start: 06-06-2015 Assay of thyroid stimulating hormone tsh TSH (22568) [facility] Work Phone: Start: 06-06-2015 Blood count complete auto&auto difrntl wbc CBC W/AUTO DIFF WBC (28129) [facility]; [facility] Work Phone: Start: 06-06-2015 Comprehensive metabolic panel METABOLIC PANEL, COMPREHENSIVE (77809) [facility]; [facility] Work Phone: Start: 06-06-2015 Lipid panel LIPID PANEL (37142) [facility] Work Phone: Start: 02-08-2015 Procedure Education Eprescribed prescriptions (G8553) [facility]; [facility] Work Phone: Start: 10-12-2014 Blood count complete auto&auto difrntl wbc CBC W/AUTO DIFF WBC (65228) [facility] Work Phone: Start: 10-12-2014 Comprehensive metabolic panel METABOLIC PANEL, COMPREHENSIVE (00044) [facility] Work Phone: Start: 10-12-2014 Lipid panel LIPID PANEL (82065) [facility] Work Phone: Start: 10-12-2014 Assay of thyroid stimulating hormone tsh TSH (24256) [facility] Work Phone: Start: 10-12-2014 Assay of prostate specific antigen total PSA (PROSTATE SPECIFIC ANTIGEN) (V76.44) [facility] Work Phone: Start: 10-12-2014 Hemoglobin glycosylated a1c HgA1C , Office (01299) [facility] Work Phone: Start: 05-13-2014 Patient Education [facility] Work Phone: [...] Phone: Start: 04-08-2012 Lipid panel LIPID PANEL (38186) [facility]; [facility] Work Phone: Start: 04-08-2012 Comprehensive metabolic panel METABOLIC PANEL, COMPREHENSIVE (86752) [facility] Work Phone: Start: 04-08-2012 Assay of triiodothyronine t3 free T3, FREE (TRIDOTHYRONINE) (22990) [facility] Work Phone: Start: 04-08-2012 Assay of thyroid stimulating hormone tsh TSH (59861) [facility]; [facility] Work Phone: Start: 04-08-2012 Assay of thyroxine total T4, TOTAL (07481) [facility] [...] 65 AND OVER WITH 5YR LOOKBACK (#1) [facility] Start: 1996 RSV Vaccine (1 - 1-dose 60+ series) RSV Vaccine (1 - 1-dose 60+ series) [facility] Start: 1986 SHINGRIX VACCINE (1 of 2) SHINGRIX VACCINE (1 of 2) [facility] Start: 1955 Urine microalbumin profile [place] [facility] Start: 1954 SPIROMETRY SPIROMETRY [facility] Start: 1942 PNEUMOCOCCAL: 65+ (1 - PCV) PNEUMOCOCCAL: 65+ (1 - PCV) [facility] Start: 1941 COVID-19 VACCINE (1) COVID-19 VACCINE (1) [facility] Start: 1936 COVID-19 VACCINE (#1) COVID-19 VACCINE (#1) [facility] End: 06-19-2023 Ct angio abd&plvis cntrst mtrl w/wo cntrst img CTA ABD/PEL WO/W IVCON Radiology Routine 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 1 Occurrences starting 05/20/2022 until 06/19/2023 [facility] Work Phone: Immunizations Immunization Date Immunization Notes Care Provider Fa [facility] 05-20-2020 influenza, high-dose , quadrivalent vaccine (FLUZONE HIGH DOSE QUADRIVALENT) Gonzalez Grey MD Work Phone: [facility] 12-04-2011 varicella zoster immune globulin Shira Desai DO Work Phone: [facility] Work Phone: 05-20-2005 influenza virus vaccine, unspecified formulation Gonzalez Grey MD Work Phone: [facility] Work Phone: Payers Date Payer Category Payer Medicare AETNA MEDICARE A ETNA MEDICARE PPO [id number] 2021-Present [phone] [address] [place] [address] PPO [id number] 2021 Medicare [id number] 2009 Medicare AETNA MEDICARE A ETNA MEDICARE PPO [id number] 2009-Present [phone] [address] [place] [address] PPO [id number] Unknown Social History Date Type Detail Facility Start: [facility]20[facility]2022 [facility] End: 07-28-1971 History of tobacco use Current smoker [facility] Work Phone: End: 07-28-1971 History of tobacco use Cigarette Smoker [facility] Work Phone: Start: 11-12-2021 End: 09-07-2023 Alcohol intake Current non-drinker of alcohol (finding) [facility] Start: 1935 Sex Assigned At Not on file [facility] Start: 11-02-2021 End: 05-20-2022 Exposure to SARS-CoV-2 (event) Not sure [facility] Start: 07-04-2020 End: 05-20-2022 Cigarettes smoked current (pack per day) - Reported 1 [facility] Start: 05-20-2022 Tobacco use and exposure Smokeless tobacco non-user [facility] Alcohol Use: Alcohol Use: [facility]; [facility] Work Phone: Exercise History: Exercise History: Compr ehensive Internal Medicine; [facility] Work Phone: Clinical Notes 11-12-2021 to 09-07-2023 Alysha Hunter PA-C - 09/07/2023 9:20 AM Adarsh Spivey APRN.SIZE CHANGER - 09/02/2023 2:36 PM Selam Grey MD - 05/20/2022 12:15 PM EDTStaRT [place](R) - 11/12/2021 12:30 PM EDT Note Date & Type Note Facility 09-07-2023 History of Present illness Narrative Presents with a chief complaint of cough, shortness of breath, abdominal pain and fever over the past 2 days. He does have a history of COPD. Patient found to be hypoxic here at 91% and febrile. We do not have x-ray services or further workup here at [facility] so recommended he be evaluated in the emergency department. His daughter will take him to [facility] to be fully evaluated. documented in this encounter [facility] 09-02-2023 Note HNO ID: [id number] Author: ADARSH PONCE APRN.KARTIK Service: ? Author [...] history is provided by the patient. No postmaster relief was used. Wound Check This is a [...] streaking. No petechi (more content not included)... [facility] 09-02-2023 History of Present illness Narrative This note was created using AVAST Softwareriter. Subjective Martin Reyes is a 88 year [...] history is provided by the patient. No postmaster relief was used. Wound Check This is a [...] recheck in two days - Adarsh Ponce APRN.KARTIK documented in this encounter [facility] 05-20-2022 History of Present illness Narrative Images from the original note were not included. 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 [facility] DEPARTMENT OF VASCULAR SURGERY OUTPATIENT VISIT DATE [...] 05/28/06 RIGHT INGUINAL PAST SURGICAL HISTORY OF 2007 CABG x3 PAST SURGICAL HISTORY OF 2008 prostate surgery, scraped out tract RPR 1ST [...] - N/A S documented in this encounter [facility] 11-12-2021 History of Present illness Narrative Radiology [...] TIME: 12:20 PM documented in this encounter [facility] 11-12-2021 History of Present illness Narrative Images from the original note were not included. Heart[facility] V[facility] DEPARTMENT OF VASCULAR SURGERY OUTPATIENT VISIT DATE [...] consultation at the request of Dr. Raymundo Sousa III. A copy of this consultation note [...] repair to be associated with 4% mortality. [facility] experience has been 2%. Endovascular AAA repair has 2% mortality nationwide in medicare population and 1% at [facility]. 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 Essential hypertension Unspecified essential hypertension Hyperlipidemia, mixed Mixed hyperlipidemia [facility] Diagnosis 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 [facility] Diagnosis Skin infection- Primary Unspecified local infection of skin and subcutaneous tissue [facility] Diagnosis Hypoxia- Primary Hypoxemia Fever, unspecified fever cause documented in this encounter [facility]* Name Dates Details How to access health [...] Indication:Impaired fasting glucose Start:08-Feb-2015 Instruction Type:Patient Education [facility] Indication:Allergic rhinitis Start:08-Feb-2015 Instruction Type:Provider Instructions for [...] Referred By Contac t Referred To Contact HEART AND VASCULAR [facility] Diagnoses AAA (abdominal aortic aneurysm) without rupture (HCC) Procedures US ABD AORTA COMPLETE VAS LAB DUP-SCAN AORTA IVC ILIAC VASCL/BPGS COMPLETE Gonzalez Grey MD [address] [place] [address] 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 Procedures CTA ABD/PEL WO/W IVCON CT ANGIO ABD&PLVIS CNTRST MTRL W/WO CNTRST IMGES Gonzalez Grey MD [address] [place] [address] Ct Imaging Referral ID Status Reason Start Date Expiration Date Visits Requested Visits Authorized [id number] Pending Review Auto-Generat ed Referral 2 06/19/2023 1 1 Specialty Diagnoses / Procedures Referred By Contac t Referred To Contact CT IMAGING Diagnoses 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 Procedures CTA CHEST (NONGATED) WO/W IVCON CT ANGIOGRAPHY CHEST W/CONTRAST/NONCONTRAST Gonzalez Grey MD [id number] Imaging Referral ID Status Reason Start Date Expiration Date Visits Requested Visits Authorized [id number] Pending Review Auto-Generat ed Referral 2 06/19/2023 1 1 Family History Unknown Family Member Name Dates Details Father Comments: [...] or prosecute any alcohol or drug abuse patient.[facility] the event this information is protected by the Federal Confidentiality of Alcohol and Drug Abuse Patient Records regulations: The Federal rules restrict any use of the information to criminally investigate or prosecute any alcohol or drug abuse patient.[facility] the event this information is protected by the Federal Confidentiality of Alcohol and Drug Abuse Patient Records regulations: The Federal rules restrict any use of the information to criminally investigate or prosecute any alcohol or drug abuse patient.[facility] the event this information is protected by the Federal Confidentiality of Alcohol and Drug Abuse Patient Records regulations: The Federal rules restrict any use of the information to criminally investigate or prosecute any alcohol or drug abuse patient.[facility] the event this information is protected by the Federal Confidentiality of Alcohol and Drug Abuse Patient Records regulations: The Federal rules restrict any use of the information to criminally investigate or prosecute any alcohol or drug abuse patient.[facility] the event this information is protected by the Federal Confidentiality of Alcohol and Drug Abuse Patient Records regulations: The Federal rules restrict any use of the information to criminally investigate or prosecute any alcohol or drug abuse patient.[facility] the event this information is protected by the Federal Confidentiality of Alcohol and Drug Abuse Patient Records regulations: The Federal rules restrict any use of the information to criminally investigate or prosecute any alcohol or drug abuse patient.[facility] Reason for Visit (unrecogniz ed section and content) Reason Comments Radiology CT Specialty Diagnoses / Procedures Referred By Contac t Referred To Contact CT IMAGING Diagnoses Abdominal aortic aneurysm (AAA) without rupture (HCC) Procedures CTA CHEST (NONGATED) WO/W IVCON CTA CHEST, W/WO CONTRAST Gonzalez Grey MD [address] [place] [address] Ct Imaging Referral ID Status Reason Start Date Expiration Date V isits Requested Visits Authorized [id number] Closed Auto-Generate d Referral 07/10/2021 08/09/2022 1 1 Reason Comments Established Patient Reason Comments Rash Rash abound eyebrows x 2 weeks Reason Comments Fever Chills, runny nose, cough, stomach hurts from coughing x 2 days Care Teams (unrecognized sec tion and content) Cad Detailer Relationship Specialty Start Date End Date Shira Desai DO PCP - General Internal Medicine 01/16/12 Cad Detailer Relationship Specialty Start Date End Date Shira Desai DO PCP - General Internal Medicine 01/16/12 Cad Detailer Relationship Specialty Start Date End Date Shira Desai DO PCP - General Internal Medicine 01/16/12 Cad Detailer Relationship Specialty Start Date End Date Shira Desai DO PCP - General Internal Medicine 01/16/12 Cad Detailer Relationship Specialty Start Date End Date Shira [...] BE BASED ON THE PRIMARY CLINICAL RECORDS. [facility] [facility]. provides no warranty or guarantee of the accuracy or completeness of information in this document.
[2023-09-07] MEDS: 0.9% Normal Saline (1000mL) 1,000 ML 125 ML IV (16:25)
[2023-09-07] MEDS: guaiFENesin 10 ML UDC (200MG/10ML) 20 ML PO (16:49)
[2023-09-07] MEDS: Acetaminophen 325 MG Tablet 650 MG PO (16:49)
[2023-09-07] MEDS: Azithromycin 250 MG Tablet 500 MG PO (16:56)
[2023-09-07] MEDS: Oseltamivir Phosphate 30 MG Capsule PO (17:02)
[2023-09-07] MEDS: Metoprolol(XL)Succ 25 MG Tablet PO (20:39)
[2023-09-07] MEDS: MELATONIN 3 MG TABLET PO (20:40)
[2023-09-07] MEDS: Atorvastatin Calcium 10 MG Tablet PO (20:40)
[2023-09-07] MEDS: Aspirin E.C. 81 MG Tablet PO (20:40)
[2023-09-08] VITALS (8 sets, daily range): BP systolic 148–150; BP diastolic 73–76; PULSE 58–74; RESP 16–18; TEMP 36.6–36.8; O2SAT 88–94; BMI 33.1
[2023-09-08] MEDS: 0.9% Normal Saline (1000mL) 1,000 ML 125 ML IV (00:26)
[2023-09-08 06:09] LABS: Absolute Lymphocyte Count 0.82 X10^3/uL (0.83-4.51); Absolute Neutrophil Count 5.2 X10^3/uL (2.0-7.7); Basophil# 0.01 X10^3/uL; Basophil% 0.2 % (0-1); Hematocrit 45.9 % (40-54); Hemoglobin 14.2 g/dL (13.0-16.5); Lymphocyte # 0.82 X10^3/ul (0.83-4.51); Lymphocyte % 13.2 % (19-41); Mean Corp Hgb Conc 30.9 g/dL (32-36); Mean Corpuscular Hgb 29.9 pg (27.0-32.0); Mean Corpuscular Volume 96.6 fL (80-94); Mean Platelet Vol. 10.6 fl (6.2-12.0); Monocyte% 3.2 % (0-10); NRBC Flagged by Analyzer 0 % (0-5); Neutrophil # 5.15 X10^3/uL (2.7-7.7); Neutrophil % 83.2 % (47-70); Platelet Count 209 K/mm3 (150-450); RBC Distribution Width CV 14.1 % (11.6-14.6); RBC Distribution Width SD 50.3 fl (35.1-43.9); Red Blood Count 4.75 M/mm3 (4.6-6.2); White Blood Count 6.2 K/mm3 (4.4-11.0)
[2023-09-08 06:49] LABS: Anion Gap 5 (5-15); BUN 26 mg/dL (7-18); BUN/Creat Ratio 24.1 RATIO (10-20); Calcium,Total 8.3 mg/dL (8.5-10.1); Chloride 112 mmol/L (98-107); Creatinine, Serum 1.08 mg/dL (0.70-1.30); EST Glomerular Filtration Rate 69 mL/min (>60); Est Glom Filt Rate - Afr Amer 83 mL/min (>60); Estimated Creatinine Clearance 49.74 ml/min; Glucose 146 mg/dL (74-106); Magnesium 2.3 mg/dL (1.6-2.6); Phosphorus 2.5 mg/dL (2.5-4.9); Sodium Level 141 mmol/L (136-145)
[2023-09-08] MEDS: Ipratropium/Albuterol Sulfate 3 ML AMPUL.NEB INHALATION ×3 (07:16→14:03)
--- NOTE | 2023-09-08 08:21 | PN.HOSP_ITS ---
Reason for Visit Reason for Visit: Diagnoses Influenza due to other identified influenza virus with other respiratory manife stations (09/07/23) Subjective Subjective Feeling well. Anxious to go home. Objective Data Objective Data Vital Signs: Vital Signs Temp Pulse Resp BP Pulse Ox O2 Del Method O2 Flow Rate 36.8 C 60 18 150/73 H 94 Nasal Cannula 2 09/08/23 02:18 09/08/23 07:16 09/08/23 07:16 09/08/23 02:18 09/08/23 07:16 09/08/23 07:16 09/08/23 07:16 Oxygen Flow Rate (L/min) 2 Oxygen Delivery Method Nasal Cannula Weight: 90.2 kg Body Mass Index (BMI) 33.1 Intake & Output: Intake and Output for Last 24 Hours 09/06/23 09/07/23 09/08/23 23:59 23:59 23:59 Intake Total 1240 / 1240 1300 / 1300 Output Total 125 / 125 Balance 1240 / 1240 1175 / 1175 Lab / Micro Data 09/08/23 05:25 09/08/23 05:25 Labs: Laboratory Results - last 24 hr 09/07/23 10:05: WBC 9.3, RBC 5.02, Hgb 15.3, Hct 47.1, MCV 93.8, MCH 30.5, MCHC 32.5, RDW Std Deviation 49.0 H, RDW Coeff of Laura 14.2, Plt Count 277, MPV 10.3, Immature Gran % (Auto) 0.200, Neut % (Auto) 63.3, Lymph % (Auto) 16.9 L, Ada % (Auto) 18.4 H, Eos % (Auto) 0.2, Baso % (Auto) 1.0, Absolute Neuts (auto) 5.9, Absolute Lymphs (auto) 1.56, Nucleated RBC % 0, Differential Comment SCANNED, Sodium 141, Potassium 4.5, Chloride 108 H, Carbon Dioxide 26.0, Anion Gap 7, BUN 27 H, Creatinine 1.46 H, Estim Creat Clear Calc 36.39, Est GFR (MDRD) Af Amer 59 L, Est GFR (MDRD) Non-Af 49 L, BUN/Creatinine Ratio 18.5, Glucose 123 H, Calcium 9.2 09/08/23 05:25: WBC 6.2, RBC 4.75, Hgb 14.2, Hct 45.9, MCV 96.6 H, MCH 29.9, MCHC 30.9 L, RDW Std Deviation 50.3 H, RDW Coeff of Laura 14.1, Plt Count 209, MPV 10.6, Immature Gran % (Auto) 0.200, Neut % (Auto) 83.2 H, Lymph % (Auto) 13.2 L, Ada % (Auto) 3.2, Eos % (Auto) 0.0, Baso % (Auto) 0.2, Absolute Neuts (auto) 5.2, Absolute Lymphs (auto) 0.82 L, Nucleated RBC % 0, Sodium 141, Potassium 5.0, Chloride 112 H, Carbon Dioxide 24.0, Anion Gap 5, BUN 26 H, Creatinine 1.08, Estim Creat Clear Calc 49.74, Est GFR (MDRD) Af Amer 83, Est GFR (MDRD) Non-Af 69, BUN/Creatinine Ratio 24.1 H, Glucose 146 H, Calcium 8.3 L, Phosphorus 2.5, Magnesium 2.3 Micro: Microbiology 09/07/23 10:04 Mucosa - Nasopharyngeal SARS-CoV-2, Influenza & RSV (PCR) - Final Influenzae A Radiography Diagnostic Testing: Radiology Impression Chest X-Ray 09/07/23 10:20 IMPRESSION: No radiographic evidence of acute cardiopulmonary disease. Electronically Signed: Evans Causey MD at 10:59 EST Reading Location ID and State: [facility] / [place] Tel , Service support , Physical Exam Const alert and no apparent distress HEENT head/scalp atraumatic and moist oral mucous membranes Resp normal respiratory effort and no retractions Auscultation: wheezes Cardio regular rate, regular rhythm, S1 normal heart sound and S2 normal heart sound GI normal to inspection, nondistended, normoactive bowel sounds and soft to palpation Assessment & Plan Assessment/Plan (1) Influenza A: PLAN: Plan Acute influenza A infection * Tamiflu COPD with mild exacerbation * precipitated by patient acute influenza A. * Prednisone * Wean oxygen as tolerated. Patient is ambulatory in home and in the community and requires home oxygen with portability. 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 Patient on Lovenox dose adjusted for kidney function Code status: full.
[2023-09-08] MEDS: Azithromycin 250 MG Tablet 500 MG PO (09:40)
[2023-09-08] MEDS: Oseltamivir Phosphate 30 MG Capsule PO (09:41)
[2023-09-08] MEDS: Enoxaparin 30 MG/0.3 ML Syringe SC (09:41)
[2023-09-08] MEDS: Metoprolol(XL)Succ 25 MG Tablet PO (09:43)
[2023-09-08] MEDS: Cholecalciferol (VIT D3) 25 MCG TABLET (1,000 UNITS) 50 MCG PO (09:43)
--- NOTE | 2023-09-08 10:00 | CASEMGMT ---
RODRIGO NICHOLS Assessment Face to Face with patient for initial transition planning/care coordination assessment. RODRIGO NICHOLS introduced self and role at [facility], pt voices understanding. Pt is A&Ox4 and is resting comfortably in bed and is calm. Pt daughter at bedside. Care providers, pharmacy, and demographics verified. Admitting dx: Influenza A LACE Strata: 2 PCP:Tim Specialists: Cordell Preferred Pharmacy: [facility] during this stay Insurance: AETNA [facility] Prescription Benefit: Yes LNOK: Mee Lang - Daughter Living Arrangements: Pt lives alone in a ranch home with a BM with HR and 2 steps to enter with HR and no issues entering. Pt states he does not use the BM often. ADLs/IADLs: States ind Transportation: Pt drives DME: Walk-in shower with chair. Pt is on O2 now but denies home O2 history. Verbal list of local in network DME companies provided to the pt. Pt states he would want [employer] for potential home O2 needs. Pt daughter states that she is going to buy the pt a cane after DC. Denies all other DME needs. HHC/SNF: Denies SNF. States HHC in 1996 after heart surgery. Pt?s goal: Home no needs. Plan: Pt states that he feels safe and comfortable being DC from the hospital with no additional needs. Pt denies HHC, SNF, and OP therapy needs at this time. Will follow for possible O2 needs. Josué Head RN, CM
--- NOTE | 2023-09-08 11:07 | DS.PCM_ITS ---
Providers Date of Admission: 09/07/23 Primary Care Physician: TRACIE Gutierrez Reason For Visit: ACUTE INFLUENZA A Diagnosis Discharge Diagnosis (1) Influenza A: Status: Acute Code(s): J10.1 - Influenza due to other identified influenza virus with other respiratory manifestations Plan Acute influenza A infection * Tamiflu COPD with mild exacerbation * precipitated by patient acute influenza A. * Prednisone * Wean oxygen as tolerated. Patient is ambulatory in home and in the community and requires home oxygen with portability. 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 Patient on Lovenox dose adjusted for kidney function Code status: full. Medications at Discharge Home Medications aspirin 81 mg tablet,delayed release 81 mg PO DAILY@0800 10/23/15 cholecalciferol (vitamin D3) 25 mcg (1,000 unit) tablet 2,000 unit PO DAILY 10/23/15 omega 1-itr-bij-fish oil 60 mg-90 mg-500 mg capsule 1 cap PO DAILY 06/05/20 lisinopril 20 mg tablet 20 mg PO DAILY #90 tabs 02/17/23 metoprolol succinate 25 mg tablet,extended release 24 hr 25 mg PO BID #180 tabs 02/17/23 simvastatin 20 mg tablet 20 mg PO DAILY #90 tabs 02/17/23 Glucosamine Arthritis 09/07/23 Tumeric PO BID Arthritis 09/07/23 albuterol sulfate 90 mcg/actuation aerosol inhaler 2 puff inhalation Q6H PRN shortness of breath or wheezing #8.5 grams 09/08/23 azithromycin 250 mg tablet 500 mg (2 x 250 mg) PO Q24 #3 tabs 09/08/23 oseltamivir 30 mg capsule 30 mg PO BID #8 caps 09/08/23 prednisone 20 mg tablet 40 mg (2 x 20 mg) PO DAILY@0800 #10 tabs 09/08/23 Hospital Course Operations None Procedures None Summary of Care Provided Minutes Spent on Discharge: 32 Weight / BMI Weight Weight: 90.2 kg Body Mass Index (BMI) 33.1 ABG / Lab / Microbiology Data 09/08/23 05:25 09/08/23 05:25 Laboratory: Laboratory Results - last 24 hr 09/08/23 05:25: WBC 6.2, RBC 4.75, Hgb 14.2, Hct 45.9, MCV 96.6 H, MCH 29.9, MCHC 30.9 L, RDW Std Deviation 50.3 H, RDW Coeff of Laura 14.1, Plt Count 209, MPV 10.6, Immature Gran % (Auto) 0.200, Neut % (Auto) 83.2 H, Lymph % (Auto) 13.2 L, [place] % (Auto) 3.2, Eos % (Auto) 0.0, Baso % (Auto) 0.2, Absolute Neuts (auto) 5.2, Absolute Lymphs (auto) 0.82 L, Nucleated RBC % 0, Sodium 141, Potassium 5.0, Chloride 112 H, Carbon Dioxide 24.0, Anion Gap 5, BUN 26 H, Creatinine 1.08, Estim Creat Clear Calc 49.74, Est GFR (MDRD) Af Amer 83, Est GFR (MDRD) Non-Af 69, BUN/Creatinine Ratio 24.1 H, Glucose 146 H, Calcium 8.3 L, Phosphorus 2.5, Magnesium 2.3 Microbiology: Microbiology 09/07/23 10:04 Mucosa - Nasopharyngeal SARS-CoV-2, Influenza & RSV (PCR) - Final Influenzae A D/C Instructions Discharge Diet: No restrictions Meaningful Use Info Meaningful Use Diagnoses (Choose all that apply): None applicable Discharge Plan Admission Admit Date/Time: 09/07/23 11:37 Primary Reason for Your Visit: influenza A. COPD exacerbation. Attending Provider: Eulogio Cobian Primary Care Provider: Praveena Dumont Consulting Providers: Lukas Louise Discharge Orders/Prescriptions Prescriptions: New azithromycin 250 mg Tablet 500 mg PO Q24 Qty: 3 0RF prednisone 20 mg Tablet 40 mg PO DAILY@0800 Qty: 10 0RF oseltamivir 30 mg Capsule 30 mg PO BID Qty: 8 0RF albuterol sulfate 90 mcg/actuation HFA aerosol inhaler 2 puff inhalation Q6H PRN (Reason: shortness of breath or wheezing) Qty: 8.5 0RF Continued omega 7-hrr-rdl-fish oil 60-90-500 mg capsule 1 cap PO DAILY aspirin 81 MG tablet 81 mg PO DAILY@0800 Patient Comments: [facility] cholecalciferol (vitamin D3) 1,000 UNIT tablet 2,000 unit PO DAILY Patient Comments: SUPPLEMENT Tumeric PO BID Patient Comments: takes one in the morning and one in the evening. Glucosamine metoprolol succinate 25 mg tablet extended release 24 hr 25 mg PO BID Qty: 180 3RF simvastatin 20 mg tablet 20 mg PO DAILY Qty: 90 3RF lisinopril 20 mg tablet 20 mg PO DAILY Qty: 90 3RF Referrals / Follow Up: Praveena Dumont, CUPOLA OPERATOR-C [Primary Care Provider] - Within 2 Weeks Disposition Disposition (needs filled in before D/C Order can be placed): Home, Self Care Charges/Coding Visit Charges Inpatient E&M: 77380 Disch Hosp >30min
--- NOTE | 2023-09-08 13:25 | CASEMGMT ---
Pt qualified for O2 at home. Referral sent to [facility] via [facility] at this time.
--- NOTE | 2023-09-08 13:47 | PHA.DC.MC.R ---
Pharmacy [facility] has performed discharge medication reconciliation and counseling for this patient. Patient counseled via telephone due to droplet precautions. 1. ALBUTEROL INHALER 2PUFF Q6H PRN SOB/WHEEZING 2. AZITHROMYCIN 500MG PO DAILY X 3 DAYS 3. OSELTAMIVIR 30MG PO BID X 4 DAYS 4. PREDNISONE 40MG PO DAILY X 5 DAYS The patient's discharge medication list was reviewed for discrepancies and discrepancies were resolved. The patient was counseled on the following discharge medications and changes in medications for homegoing were reviewed. The Reason for Use, instructions for use, and potential side effects were reviewed for all new medications. The patient's questions regarding all of their medications were answered. The patient was able to verbally demonstrate an understanding of their discharge medications. Medications at Discharge Home Medications aspirin 81 mg tablet,delayed release 81 mg PO DAILY@0800 10/23/15 cholecalciferol (vitamin D3) 25 mcg (1,000 unit) tablet 2,000 unit PO DAILY 10/23/15 omega 4-lrq-pli-fish oil 60 mg-90 mg-500 mg capsule 1 cap PO DAILY 06/05/20 lisinopril 20 mg tablet 20 mg PO DAILY #90 tabs 02/17/23 metoprolol succinate 25 mg tablet,extended release 24 hr 25 mg PO BID #180 tabs 02/17/23 simvastatin 20 mg tablet 20 mg PO DAILY #90 tabs 02/17/23 Glucosamine Arthritis 09/07/23 Tumeric PO BID Arthritis 09/07/23 albuterol sulfate 90 mcg/actuation aerosol inhaler 2 puff inhalation Q6H PRN shortness of breath or wheezing #8.5 grams 09/08/23 azithromycin 250 mg tablet 500 mg (2 x 250 mg) PO Q24 #3 tabs 09/08/23 oseltamivir 30 mg capsule 30 mg PO BID #8 caps 09/08/23 prednisone 20 mg tablet 40 mg (2 x 20 mg) PO DAILY@0800 #10 tabs 09/08/23
--- NOTE | 2023-09-08 14:49 | CHAPLAIN ---
Type of Pastoral Visit _x__ Initial Visit ___ Follow-up Visit ___ On-call Visit ___ General Patient Visit ___ Spiritual Assessment ___ Family Conference ___ Bereavement ___ Rapid Response ___ Code Blue ___ Other (describe below) Pastoral Care Referral From _x__ Patient ___ Family ___ Nurse ___ Physician ___ Belt Molder ___ Bounty Trapper ___ Other (describe below) Sacrament/Intervention _x__ Active listening ___ Anointing ___ Jehovah'S Witness ___ Bereavement ___ Communion ___ [place] exploration ___ ___ Life review _x__ Prayer ___ Reconciliation ___ Sacrament of Sick _x__ Supportive presence ___ Wedding ___ Other (describe below) Pastoral Comments patient is awake and daughter is in the room with him; pt is very [place] and so speaking loudly is needed; pt indicates that he is fine and that he wants to go home today; pt is expected to be released today; pt welcomes a prayer; some initial reaction from patient is that he is focused on going home; pt welcomes a prayer for his support
== END 2023-09-08 15:32 | disposition home or self-care (01) | DRG 192 ==
LOC: ED 11:45 → MS3 13:40
PROVIDERS: Admitting Provider Internal Medicine; Emergency Provider Emergency Medicine; PCP Nurse Practitioner Family
DX: J44.1 Chronic obstructive pulmonary disease with (acute) exacerbation (principal); E78.5 Hyperlipidemia, unspecified; N18.30 Chronic kidney disease, stage 3 unspecified; I12.9 Hypertensive chronic kidney disease with stage 1 through stage 4 chronic kidney disease, or unspecified chronic kidney disease; J10.1 Influenza due to other identified influenza virus with other respiratory manifestations; I25.10 Atherosclerotic heart disease of native coronary artery without angina pectoris; R09.02 Hypoxemia; Z79.82 Long term (current) use of aspirin; Z79.899 Other long term (current) drug therapy; Z87.891 Personal history of nicotine dependence; Z95.1 Presence of aortocoronary bypass graft
CPT/HCPCS: 36415; 71045; 80048; 83735; 84100; 85025; 87631; 94640; 94668; 99283; J7030

== ENCOUNTER 2024-03-15 20:09 | Emergency (ER) | payer MEDICARE, SELFPAY ==
[2024-03-15 20:10] VITALS: BP 143/63; PULSE 91; RESP 20; TEMP 37.4; O2SAT 88
[2024-03-15 20:12] VITALS: BP 140/64; PULSE 81; RESP 18; TEMP 37.3; O2SAT 91; O2SAT 95
--- NOTE | 2024-03-15 20:55 | EX.ED.DYSGE1 ---
HPI History of Present Illness Chief Complaint: General Illness Informant: patient Onset/Context/Timing Onset: Today and Hours Context: Gradual Onset Timing: Continuous Current Severity: Mild Maximum Severity: Mild Narrative Narrative: 88-year-old male history of COPD on 2 L oxygen at home also hypertension and CAD. States today around 4:00 he started on sore throat and feeling feverish. No chills. He denies any vomiting or diarrhea. Denies any dysuria. No abdominal or chest pain. No known exposure. 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) Home Medications ?Medication ?Instructions ?Recorded ?Last Taken ?Type aspirin 81 mg tablet,delayed 81 mg PO DAILY@0800 10/23/15 06/12/16 History release cholecalciferol (vitamin D3) 25 2,000 unit PO DAILY 10/23/15 06/12/16 History mcg (1,000 unit) tablet omega 5-lqz-nwp-fish oil 60 mg-90 1 cap PO DAILY 06/05/20 Unknown History mg-500 mg capsule Glucosamine Arthritis 09/07/23 09/06/23 History Tumeric PO BID Arthritis 09/07/23 09/06/23 History albuterol sulfate 90 mcg/actuation 2 puff inhalation Q6H PRN 09/08/23 Unknown Rx aerosol inhaler shortness of breath or wheezing #8.5 grams azithromycin 250 mg tablet 500 mg (2 x 250 mg) PO Q24 #3 tabs 09/08/23 Unknown Rx oseltamivir 30 mg capsule 30 mg PO BID #8 caps 09/08/23 Unknown Rx prednisone 20 mg tablet 40 mg (2 x 20 mg) PO DAILY@0800 09/08/23 Unknown Rx #10 tabs lisinopril 20 mg tablet 20 mg PO DAILY #90 tabs 02/10/24 Unknown Rx metoprolol succinate 25 mg 25 mg PO BID #180 tabs 02/10/24 Unknown Rx tablet,extended release 24 hr simvastatin 20 mg tablet 20 mg PO DAILY #90 tabs 02/10/24 Unknown Rx nirmatrelvir 150 mg-ritonavir 100 See Rx Instructions PO .COMPLEX 03/15/24 Unknown Rx mg tablets in a dose pack #20 tabs (Paxlovid) Allergy/AdvReac Type Severity Reaction Status Date / Time No Known Allergies Allergy Verified 09/07/23 09:25 Family History Mother CAD (coronary artery disease) Sister Asthma Other Atherosclerosis Surgical History Hx of cataract surgery H/O hernia repair History of hip replacement H/O coronary artery bypass surgery (1989) Social History Smoking Status: Former smoker alcohol intake: never substance use type: does not use caffeine: Yes Type: coffee Number of servings: 1 what type of physical activity do you participate in: none seatbelt use: always do you feel safe at home: Yes ROS ROS ED ROS Narrative Fever and chills. Weakness. Constitutional Constitutional ED: Reports chills and fever(s) Eyes Eyes: Denies blurry vision ENT ENT ED: Denies ear pain Cardiovascular Cardiovascular: Denies chest pain Respiratory/Chest Respiratory/Chest: Reports cough and dyspnea Gastrointestinal Gastrointestinal: Denies abdominal pain, constipation, diarrhea, melena, nausea or vomiting Genitourinary Genitourinary ED: Denies dysuria or hematuria Musculoskeletal Musculoskeletal: Denies arthralgias or back pain Integumentary Denies abscess Neurologic Neurologic: Denies headache(s) Psychiatric Psychiatric: Denies anxiety Endocrine Endocrinology: Denies cold intolerance Hematologic/Lymphatic Hematologic/Lymphatic: Reports none Allergic/Immunologic Allergic/Immunologic ED: Denies mouth swelling, tongue swelling or urticaria EXAM Physical Exam Narrative Exam Narrative: A 8-year-old male vital signs his temporal temp was not 9.3 is oral temp is 90.1. He does not look septic or toxic. His pulse ox is 88 on room air 95% on 2 L he is on 2 L at home. He is in no distress. at bedside. H EENT exam appears dry reactive light. Mytrex membranes. Neck nontender. No lymphadenopathy. Lungs clear to auscultation bilaterally. Heart regular rhythm rate about 80 no murmur. Chest wall ribs nontender. Abdomen soft nontender. Moving all 4 extremities. Nontender. Neurologically is awake and alert. Answer questions following commands. Const Vital Signs: 03/15/24 20:10 03/15/24 20:12 03/15/24 20:12 Temperature 99.3 F H 99.1 F Temperature Source Temporal Oral Pulse Rate 91 81 Respiratory Rate 20 H 18 Respiratory Pattern Blood Pressure 143/63 H 140/64 H Blood Pressure Mean 89 89 Pulse Ox 88 95 91 Oxygen Delivery Method Room Air Nasal Cannula Nasal Cannula Oxygen Flow Rate (L/min) 2 2 03/15/24 21:12 03/15/24 21:18 03/15/24 22:00 Temperature 100.2 F H 99.4 F H Temperature Source Oral Oral Pulse Rate 78 82 Respiratory Rate 28 H 23 H Respiratory Pattern Tachypnea Blood Pressure 146/79 H 148/69 H Blood Pressure Mean 101 95 Pulse Ox 94 93 Oxygen Delivery Method Nasal Cannula Nasal Cannula Oxygen Flow Rate (L/min) 2 2 Positive well nourished and well developed; Negative for cachectic, contractures or unkempt General Appearance ED: well developed and NAD; Negative for unkempt, cachectic, contractures, cyanotic, diaphoretic or pallor Nutritional Appearance: Negative for cachectic HEENT Reports moist mucous membranes Negative for trauma or tenderness Eyes PERRL and EOMs intact bilaterally General Eye ED: Negative for pale conjunctiva Neck no lymphadenopathy, supple and no JVD Chest Wall inspection of chest normal and palpation of chest normal Chest: Negative for other Resp normal respiratory effort and clear to auscultation bilaterally Effort and Inspection: Negative for retractions Auscultation: Negative for rales, rhonchi, wheezes or diminished lung sounds Cardio regular rate, regular rhythm, S1 normal heart sound, S2 normal heart sound and no murmurs GI normal to inspection, nondistended, normoactive bowel sounds, non-tender, non-distended and no masses Palpation: soft; Negative for tender, guarding or rebound tenderness present Back/Spine no CVA tenderness General Back: Negative for CVA tenderness Cervical Spine: Negative for cervical spine tenderness Thoracic Spine / Upper Back: Negative for thoracic spinal tenderness Lumbar Spine / Lower Back: Negative for lumbar spinal tenderness Extremity normal to inspection General Extremety ED: Negative for edema or tenderness General Extremity: Negative for edema Neuro oriented x3 and CN's II-XII intact bilaterally Sensorium / Orientation: alert; Negative for orientation impaired Motor Exam: strength 5/5 throughout Psych mental status grossly normal Appearance: Negative for unkempt Attitude: No agitated Mood & Affect: Negative for depressed, anxious or tearful Skin no rashes or lesions noted and no wounds General Skin Exam: Negative for jaundice or pallor Lesions: No lesion noted Rashes: No rashes noted Trauma: Negative for abrasion Wounds: Negative for wounds noted MDM MDM MDM Narrative Medical decision making narrative: 88-year-old male low-grade fever 100.1 with URI symptoms and sore throat. COVID, chest x-ray and labs. IV fluids and Tylenol. Viral syndrome versus pneumonia versus other. Repeat exam at 11 PM patient is doing well. Had a long discussion with both he and his family at bedside. He wants to go home. She is comfortable that he goes home. He has oxygen at home. He has an inhaler and a nebulizer at home. They do want him to be started on Paxlovid I will write him a prescription and get it filled at our pharmacy. He will follow-up with his primary care physician to ensure he is improving. He knows to drink plenty of fluids. Tylenol for his fever. Return if worse. Nurses will ambulate the patient prior to discharge to make sure he is doing well and strong enough to walk. History & Record Review Discussion w/independent historian: Patient and Family Additional record(s) reviewed:: Prior inpatient record, Prior outpatient record, Prior ED visit and Prior labs Lab Data Attestation: I reviewed the patient's lab results. Lab results narrative: CBC white 11.8. H&H 14 and 44. Platelets 262. Electrolytes show gap 4. BUN and creatinine 25 and 1.85 history of chronic renal insufficiency consistent with prior labs. Glucose 137. UA has only 5-10 white cells. No red cells 1+ bacteria no nitrates. COVID-positive. Labs: Laboratory Results - last 24 hr 03/15/24 03/15/24 20:59 21:35 WBC 11.8 H RBC 4.77 Hgb 14.3 Hct 44.9 MCV 94.1 H MCH 30.0 MCHC 31.8 L RDW Std Deviation 48.2 H RDW Coeff of Laura 14.0 Plt Count 262 MPV 9.8 Immature Gran % (Auto) 0.300 Neut % (Auto) 83.1 H Lymph % (Auto) 3.8 L [place] % (Auto) 11.4 H Eos % (Auto) 0.6 Baso % (Auto) 0.8 Absolute Neuts (auto) 9.8 H Absolute Lymphs (auto) 0.45 L Nucleated RBC % 0 Sodium 140 Potassium 4.5 Chloride 111 H Carbon Dioxide 25.0 Anion Gap 4 L BUN 25 H Creatinine 1.85 H Est GFR (MDRD) Af Amer 45 L Est GFR (MDRD) Non-Af 37 L BUN/Creatinine Ratio 13.5 Glucose 137 H Calcium 8.8 Urine Color Yellow Urine Clarity Clear Urine pH 6.0 Ur Specific [place] 1.015 Urine Protein 15 H Urine Glucose (UA) Normal Urine Ketones Negative Urine Occult Blood Negative Urine Nitrite Negative Urine Bilirubin Negative Urine Urobilinogen Normal Ur Leukocyte Esterase 500 H Urine RBC 0-5 SEEN Urine WBC 5-10 SEEN Ur Squamous Epith Cells 0-5 SEEN Ur Transition Epith Cell 0-5 SEEN Urine Bacteria 1+ Urine Mucus 0 SEEN Urine Yeast RARE Radiography Chest X-Ray - ED: 2 View, Read by ED Physician, Normal, Heart, Lungs, Mediastinum, Bony Structures, No Acute Disease and Chronic Changes Diagnostic Testing: Clinical Impression(s) from Imaging Studies Chest X-Ray 03/15/24 21:10 IMPRESSION: 1. Bilateral pleural thickening and/or bilateral pleural effusions with basilar predominant pulmonary opacities which may be scarring, atelectasis, or pneumonia. 2. Status post median sternotomy. Status post CABG. 3. Hyperinflated lungs with interstitial prominence likely indicative of COPD. Electronically Signed: Jose Mello DO at 22:06 EDT , Chest x-ray, 2 views AP and lateral interpreted by myself shows chronic changes. Prior sternotomy. Possible right pleural effusion versus scarring. No obvious pneumonia. A lot of chronic changes from his COPD history. Discharge Plan Triage Chief Complaint: General Illness ED Provider: Jayson Carter Dx/Rx/DC Orders Clinical Impression: COVID, Hypoxia, History of COPD, History of coronary artery disease Prescriptions: New Paxlovid 150-100 mg tablets,dose pack See Rx Instructions .ROUTE .COMPLEX Qty: 20 0RF Rx Instructions: orally per package directions No Action omega 0-qno-yif-fish oil 60-90-500 mg capsule 1 cap PO DAILY aspirin 81 MG tablet 81 mg PO DAILY@0800 Patient Comments: [facility] cholecalciferol (vitamin D3) 1,000 UNIT tablet 2,000 unit PO DAILY Patient Comments: SUPPLEMENT Tumeric PO BID Patient Comments: takes one in the morning and one in the evening. Glucosamine azithromycin 250 mg Tablet 500 mg PO Q24 Qty: 3 0RF prednisone 20 mg Tablet 40 mg PO DAILY@0800 Qty: 10 0RF oseltamivir 30 mg Capsule 30 mg PO BID Qty: 8 0RF albuterol sulfate 90 mcg/actuation HFA aerosol inhaler 2 puff inhalation Q6H PRN (Reason: shortness of breath or wheezing) Qty: 8.5 0RF lisinopril 20 mg tablet 20 mg PO DAILY Qty: 90 3RF metoprolol succinate 25 mg tablet extended release 24 hr 25 mg PO BID Qty: 180 3RF simvastatin 20 mg tablet 20 mg PO DAILY Qty: 90 3RF Primary Care Provider: Praveena Dumont Referrals: Praveena Dumont, CAFE MANAGER-C [Primary Care Provider] - 3-5 Days if not improving Activity Restrictions/Additional Instructions: Plenty of fluids and rest. Tylenol for fever. Use your inhaler and nebulizer for your breathing. The Paxlovid prescription for your COVID Follow-up with your doctor if not improving. Return emergency department if you are feeling worse. Use your oxygen all the time 2 to 3 L. Print Language: Arabic Disposition Disposition: Home, Self Care
[2024-03-15 21:07] LABS: Absolute Lymphocyte Count 0.45 X10^3/uL (0.83-4.51); Absolute Neutrophil Count 9.8 X10^3/uL (2.0-7.7); Basophil% 0.8 % (0-1); Eosinophil# 0.07 X10^3/uL; Eosinophils% 0.6 % (0-5); Hematocrit 44.9 % (40-54); Hemoglobin 14.3 g/dL (13.0-16.5); Lymphocyte # 0.45 X10^3/ul (0.83-4.51); Lymphocyte % 3.8 % (19-41); Mean Corp Hgb Conc 31.8 g/dL (32-36); Mean Corpuscular Volume 94.1 fL (80-94); Mean Platelet Vol. 9.8 fl (6.2-12.0); Monocyte# 1.35 X10^3/uL; Monocyte% 11.4 % (0-10); NRBC Flagged by Analyzer 0 % (0-5); Neutrophil # 9.82 X10^3/uL (2.7-7.7); Neutrophil % 83.1 % (47-70); POSITIVE DIFFERENTIAL YES; Platelet Count 262 K/mm3 (150-450); RBC Distribution Width SD 48.2 fl (35.1-43.9); Red Blood Count 4.77 M/mm3 (4.6-6.2); White Blood Count 11.8 K/mm3 (4.4-11.0)
--- NOTE | 2024-03-15 21:10 | RAD_ITS ---
EXAM: XR CHEST, 2 VIEWS CLINICAL INDICATION: fever TECHNIQUE: Frontal and lateral views of the chest. COMPARISON: 09/07/2023 FINDINGS: LUNGS AND PLEURAL SPACES: Bilateral pleural thickening and/or bilateral pleural effusions with basilar predominant pulmonary opacities which may be scarring, atelectasis, or pneumonia. Hyperinflated lungs with interstitial prominence likely indicative of COPD. No pneumothorax. HEART: No significant cardiomegaly. Status post CABG. MEDIASTINUM: Central airways and mediastinal contour are unremarkable. BONES/JOINTS: Status post median sternotomy. Degenerative changes in the spine. No acute fracture. SOFT TISSUES: No significant abnormality. RAD/Chest PA and Lateral IMPRESSION: 1. Bilateral pleural thickening and/or bilateral pleural effusions with basilar predominant pulmonary opacities which may be scarring, atelectasis, or pneumonia. 2. Status post median sternotomy. Status post CABG. 3. Hyperinflated lungs with interstitial prominence likely indicative of COPD. Electronically Signed: Jose Mello DO at 22:06 EDT ,
[2024-03-15 21:12] VITALS: BP 146/79; PULSE 78; RESP 28; TEMP 37.9; O2SAT 94
[2024-03-15 21:21] LABS: Anion Gap 4 (5-15); BUN 25 mg/dL (7-18); BUN/Creat Ratio 13.5 RATIO (10-20); Calcium,Total 8.8 mg/dL (8.5-10.1); Chloride 111 mmol/L (98-107); Creatinine, Serum 1.85 mg/dL (0.70-1.30); EST Glomerular Filtration Rate 37 mL/min (>60); Est Glom Filt Rate - Afr Amer 45 mL/min (>60); Glucose 137 mg/dL (74-106); Potassium 4.5 mmol/L (3.5-5.1); Sodium Level 140 mmol/L (136-145)
[2024-03-15 21:39] LABS: Color, Urine Yellow (Yellow); Glucose, Dipstick Normal (Normal); Ketone-Dipstick Negative (Negative); Leukocyte Esterase-Dipstick 500 /ul (Negative); Mucous, Urine 0 SEEN /hpf (<or=2+); Nitrite-Dipstick Negative (Negative); Occult Blood-Urine Negative /ul (Negative); Protein-Dipstick 15 mg/dl (Negative); Specific Gravity, Urine 1.015 (1.002-1.030); Urine Bilirubin Dipstick Negative (Negative); Urine Clarity Clear (Clear); Urine Urobilinogen Normal (Normal)
[2024-03-15] MEDS: Acetaminophen 500 MG Tablet 1000 MG PO (21:40)
[2024-03-15] MEDS: 0.9% Normal Saline (1000mL) 1,000 ML 999 ML IV (21:41)
[2024-03-15 21:49] LABS: White Blood Cells 5-10 SEEN /hpf (0-5)
[2024-03-15 21:51] LABS: Bacteria 1+ /hpf (None Seen); Red Blood Cells-Urine 0-5 SEEN /hpf (0-5); Squamous Epithelial Cells - UA 0-5 SEEN /hpf (0-5); Yeast-Urine RARE /hpf (None Seen)
[2024-03-15 21:52] LABS: Transitional Epithelial - Ur 0-5 SEEN /hpf (0-5)
[2024-03-15 22:00] VITALS: BP 148/69; PULSE 82; RESP 23; TEMP 37.4; O2SAT 93
[2024-03-15 23:00] VITALS: BP 146/60; PULSE 80; RESP 18; TEMP 37.3; O2SAT 93
[2024-03-15 23:34] VITALS: BP 133/81; PULSE 82; RESP 22; TEMP 37.3; O2SAT 94
== END 2024-03-15 23:35 | disposition home or self-care (01) ==
PROVIDERS: Emergency Provider Emergency Medicine; PCP Nurse Practitioner Family; Visit Provider Emergency Medicine
DX: U07.1 COVID-19 (principal); J43.9 Emphysema, unspecified; I10 Essential (primary) hypertension; R09.02 Hypoxemia; E78.5 Hyperlipidemia, unspecified; Z87.891 Personal history of nicotine dependence; I25.10 Atherosclerotic heart disease of native coronary artery without angina pectoris; Z99.81 Dependence on supplemental oxygen; Z95.1 Presence of aortocoronary bypass graft
CPT/HCPCS: 71046; 80048; 81001; 85025; 87631; 96360; 99284; J7030; A4216

== ENCOUNTER 2024-03-16 17:57 | Emergency (ER) | payer MEDICARE, SELFPAY ==
[2024-03-16 17:59] VITALS: BP 137/58; PULSE 74; RESP 18; TEMP 37.7; O2SAT 88; BMI 35.4
[2024-03-16 19:15] VITALS: O2SAT 88
[2024-03-16 19:16] VITALS: O2SAT 94
[2024-03-16 19:29] VITALS: BP 141/61; PULSE 65; RESP 22; TEMP 38.1; O2SAT 94
--- NOTE | 2024-03-16 19:30 | ED.VIS.DYS ---
HPI History of Present Illness Chief Complaint: Cold Sx Narrative Narrative: 88-year-old male past medical history of COPD was seen in the emergency department yesterday evening and diagnosed with COVID. He had laboratory work and a chest x-ray performed. He was given a prescription for Paxlovid. He returns with his daughter and son-in-law today because he states that while they offered him admission last evening, he declined. Although his oxygen level may have been low, he has oxygen at home that he wears for his COPD as needed. Daughter states that he has not been wearing his 2 L of oxygen and that when he gets up to move around, he becomes hypoxic but refuses to wear his oxygen. Additionally, he was given a prescription for Paxlovid but was told by the pharmacy that he cannot take it until he does not take his cholesterol medication for at least 5 days. The patient inadvertently did take his cholesterol medication this morning. He presents to the emergency department again today because he was having chills and a fever. He last received Tylenol this afternoon. Additionally, he has an albuterol inhaler at home, that his daughter states that he does not like to use. 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) Home Medications ?Medication ?Instructions ?Recorded ?Last Taken ?Type aspirin 81 mg tablet,delayed 81 mg PO DAILY@0800 10/23/15 06/12/16 History release cholecalciferol (vitamin D3) 25 2,000 unit PO DAILY 10/23/15 06/12/16 History mcg (1,000 unit) tablet omega 4-mlt-xxm-fish oil 60 mg-90 1 cap PO DAILY 06/05/20 Unknown History mg-500 mg capsule Glucosamine Arthritis 09/07/23 09/06/23 History Tumeric PO BID Arthritis 09/07/23 09/06/23 History albuterol sulfate 90 mcg/actuation 2 puff inhalation Q6H PRN 09/08/23 Unknown Rx aerosol inhaler shortness of breath or wheezing #8.5 grams azithromycin 250 mg tablet 500 mg (2 x 250 mg) PO Q24 #3 tabs 09/08/23 Unknown Rx oseltamivir 30 mg capsule 30 mg PO BID #8 caps 09/08/23 Unknown Rx prednisone 20 mg tablet 40 mg (2 x 20 mg) PO DAILY@0800 09/08/23 Unknown Rx #10 tabs lisinopril 20 mg tablet 20 mg PO DAILY #90 tabs 02/10/24 Unknown Rx metoprolol succinate 25 mg 25 mg PO BID #180 tabs 02/10/24 Unknown Rx tablet,extended release 24 hr simvastatin 20 mg tablet 20 mg PO DAILY #90 tabs 02/10/24 Unknown Rx nirmatrelvir 150 mg-ritonavir 100 See Rx Instructions PO .COMPLEX 03/15/24 Unknown Rx mg tablets in a dose pack #20 tabs (Paxlovid) albuterol sulfate 90 mcg/actuation 1 - 2 puff inhalation Q4H PRN PRN 03/16/24 Unknown Rx aerosol inhaler (Ventolin HFA) Wheezing #1 ea Allergy/AdvReac Type Severity Reaction Status Date / Time No Known Allergies Allergy Verified 03/16/24 17:59 Family History Mother CAD (coronary artery disease) Sister Asthma Other Atherosclerosis Surgical History Hx of cataract surgery H/O hernia repair History of hip replacement H/O coronary artery bypass surgery (1989) Social History Smoking Status: Former smoker alcohol intake: never substance use type: does not use caffeine: Yes Type: coffee Number of servings: 1 what type of physical activity do you participate in: none seatbelt use: always do you feel safe at home: Yes ROS ROS ED ROS Narrative Positive fever. Positive chills. Recent diagnosis of COVID. Complains of mild dyspnea with occasional cough. Reported hypoxia when not on 2 L of oxygen at home. No nausea or vomiting. Denies other symptoms. EXAM Physical Exam Narrative Exam Narrative: Afebrile. Vital signs noted. Nontoxic-appearing. Regular rate and rhythm. Lungs are clear to auscultation bilaterally, speaking in full sentences and moving a good amount of air. Abdomen soft and nontender with normoactive bowel sounds. Neurological examination nonfocal and nonlateralizing. Const Vital Signs: 03/16/24 17:59 03/16/24 18:50 Temperature 99.9 F H Temperature Source Oral Pulse Rate 74 Respiratory Rate 18 Respiratory Effort Normal Non-Labored Blood Pressure 137/58 H Blood Pressure Mean 84 Pulse Ox 88 Oxygen Delivery Method Room Air MDM MDM MDM Narrative Medical decision making narrative: I reviewed the patient's prior records. He did have a chest x-ray yesterday, along with basic laboratory work. I had a lengthy conversation with both the patient and his daughter. It was stressed to him that he should wear his oxygen at least 2 L and up to 5 L per nasal cannula at home as he became hypoxic here. Resultant pulse ox on 2 L here in the emergency department is 94 to 97%. Additionally, I offered to write him for a steroid burst, but there is concern about him not being able to take his Paxlovid and a drug to drug interaction as well. I did write him a prescription for a new inhaler, and offered to give him 1 here in the emergency department but he declined. Additionally, I offered to call the hospitalist to see if he could be observed overnight, and I did discuss with him placement in rehab or long term facility and he also declined this. He prefers to be discharged home again, and I stressed the importance of wearing his oxygen, at least 2 L at all times, along with use of his inhaler and taking his Paxlovid. Return instructions to the emergency department were reviewed. Patient and family are agreeable to the plan. Disposition is discharged home in stable condition. Discharge Plan Triage Chief Complaint: Cold Sx ED Provider: Lance Arellano Dx/Rx/DC Orders Clinical Impression: COVID, History of COPD, Hypoxia Prescriptions: New albuterol sulfate [Ventolin HFA] 90 mcg/actuation HFA aerosol inhaler 1 - 2 puff inhalation Q4H PRN PRN (Reason: Wheezing) Qty: 1 0RF No Action omega 3-qtu-zlm-fish oil 60-90-500 mg capsule 1 cap PO DAILY aspirin 81 MG tablet 81 mg PO DAILY@0800 Patient Comments: [facility] cholecalciferol (vitamin D3) 1,000 UNIT tablet 2,000 unit PO DAILY Patient Comments: SUPPLEMENT Tumeric PO BID Patient Comments: takes one in the morning and one in the evening. Glucosamine azithromycin 250 mg Tablet 500 mg PO Q24 Qty: 3 0RF prednisone 20 mg Tablet 40 mg PO DAILY@0800 Qty: 10 0RF oseltamivir 30 mg Capsule 30 mg PO BID Qty: 8 0RF albuterol sulfate 90 mcg/actuation HFA aerosol inhaler 2 puff inhalation Q6H PRN (Reason: shortness of breath or wheezing) Qty: 8.5 0RF Paxlovid 150-100 mg tablets,dose pack See Rx Instructions .ROUTE .COMPLEX Qty: 20 0RF Rx Instructions: orally per package directions lisinopril 20 mg tablet 20 mg PO DAILY Qty: 90 3RF metoprolol succinate 25 mg tablet extended release 24 hr 25 mg PO BID Qty: 180 3RF simvastatin 20 mg tablet 20 mg PO DAILY Qty: 90 3RF Primary Care Provider: Praveena Dumont Referrals: Praveena Dumont, UTILIZATION COORDINATOR-C [Primary Care Provider] - 3-5 Days if not improving Activity Restrictions/Additional Instructions: You should wear your 2 L of oxygen at home at all times while you are sick with COVID. You can use up to 5 L. Take Tylenol 1000 mg by mouth up to 3 times in a 24-hour period. Use the albuterol inhaler 1 to 2 puffs inhaled every 4-6 hours as needed for shortness of breath. Do not take your cholesterol medication for 5 days so you can take your Paxlovid. Print Language: Japanese Disposition Disposition: Home, Self Care
--- NOTE | 2024-03-16 19:33 | ED.RN ---
This RN educated the pt on wearing oxygen at home and to take his paxlovid as prescribed per pharmacy. The patient verbally stated that he would wear his oxygen at home to better help his breathing.
--- NOTE | 2024-03-16 19:43 | ED.RN ---
Pt left without discharge paperwork, it was left in the room.
== END 2024-03-16 19:44 | disposition home or self-care (01) ==
PROVIDERS: Emergency Provider Emergency Medicine; PCP Nurse Practitioner Family; Visit Provider Emergency Medicine
DX: U07.1 COVID-19 (principal); J43.9 Emphysema, unspecified; E78.5 Hyperlipidemia, unspecified; R09.02 Hypoxemia; I25.10 Atherosclerotic heart disease of native coronary artery without angina pectoris; Z87.891 Personal history of nicotine dependence; I10 Essential (primary) hypertension; Z99.81 Dependence on supplemental oxygen
CPT/HCPCS: 99282

== ENCOUNTER → 2024-06-07 | Outpatient (CLI) | payer MEDICARE, SELFPAY ==
[2024-06-07 12:16] LABS: Absolute Lymphocyte Count 1.37 X10^3/uL (0.83-4.51); Absolute Neutrophil Count 4.7 X10^3/uL (2.0-7.7); Basophil# 0.08 X10^3/uL; Basophil% 1.1 % (0-1); Eosinophil# 0.22 X10^3/uL; Eosinophils% 3.1 % (0-5); Hematocrit 49.1 % (40-54); Hemoglobin 15.3 g/dL (13.0-16.5); Lymphocyte # 1.37 X10^3/ul (0.83-4.51); Lymphocyte % 19.1 % (19-41); Mean Corp Hgb Conc 31.2 g/dL (32-36); Mean Corpuscular Hgb 30.3 pg (27.0-32.0); Mean Corpuscular Volume 97.2 fL (80-94); Mean Platelet Vol. 10.4 fl (6.2-12.0); Monocyte# 0.79 X10^3/uL; NRBC Flagged by Analyzer 0 % (0-5); Neutrophil % 65.4 % (47-70); Platelet Count 296 K/mm3 (150-450); RBC Distribution Width CV 13.4 % (11.6-14.6); RBC Distribution Width SD 48.2 fl (35.1-43.9); Red Blood Count 5.05 M/mm3 (4.6-6.2); White Blood Count 7.2 K/mm3 (4.4-11.0)
[2024-06-07 12:44] LABS: Vitamin D,25 Hydroxy 76.2 ng/mL
[2024-06-07 13:23] LABS: ALB/GLOB Ratio 0.8 RATIO (0.9-2.4); AST(SGOT) 12 U/L (15-37); Alanine Aminotransfer ALT/SGPT 20 U/L (16-61); Albumin, Serum 3.1 g/dL (3.2-5.0); Alkaline Phosphatase 67 U/L (45-117); Anion Gap 5 (5-15); BUN 21 mg/dL (7-18); BUN/Creat Ratio 16.3 RATIO (10-20); Chloride 106 mmol/L (98-107); Cholesterol 127 mg/dL (200); Creatinine, Serum 1.29 mg/dL (0.70-1.30); EST Glomerular Filtration Rate 56 mL/min (>60); Est Glom Filt Rate - Afr Amer 68 mL/min (>60); Glucose 104 mg/dL (74-106); High Density Lipoprotein 47 mg/dL; Potassium 4.5 mmol/L (3.5-5.1); Protein, Total 7.1 g/dL (6.4-8.2); Sodium Level 139 mmol/L (136-145); Triglycerides 85 mg/dL; Very Low Density Lipoprotein 17 mg/dL (5-40)
== END | disposition home or self-care (01) ==
LOC: BFHLAB 10:28
PROVIDERS: PCP Nurse Practitioner Family; Referring Provider Nurse Practitioner Family; Visit Provider Nurse Practitioner Family
DX: E78.2 Mixed hyperlipidemia (principal); I10 Essential (primary) hypertension; E55.9 Vitamin D deficiency, unspecified
CPT/HCPCS: 36415; 80053; 80061; 82306; 85025

== ENCOUNTER → 2024-07-13 | Outpatient (CLI) | payer MEDICARE, SELFPAY ==
--- NOTE | 2024-07-13 14:25 | CT_ITS ---
STUDY: CTA ABDOMEN AND PELVIS WITH CONTRAST REASON FOR EXAM: Male, 89 years old. AAA CHANGES RADIATION DOSAGE (If Supplied By Facility): CTDIvol = ( 40.07 ) mGy, DLP = ( 1530.03 ) mGycm TECHNIQUE: Transaxial images were obtained from the dome of the diaphragm to the symphysis pubis without oral contrast. 100 ML ISOVUE 370 was administered. Sagittal and coronal images were reconstructed. 3-D images were reconstructed. Individualized dose optimization techniques were used for this CT. COMPARISON: Comparison is made with prior study dated June 20, 2021. FINDINGS: Mild degree of increased linear markings at the lung bases suggestive of a linear scarring. The visualized portions of the heart are within normal limits. There is decreased attenuation of the liver consistent with steatosis. There are multiple gallstones. Normal spleen. Normal pancreas. Normal bilateral adrenal glands. 1 cm cyst in the inferior pole of the right kidney as well as in the superior pole. There is a 4.4 cm cyst in the posterior lower aspect of the left kidney. Bilateral renal cortical atrophy. Normal visualized stomach. Normal small intestine. Normal colon. The appendix is visualized and appears normal. 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 There is also evidence of a fusiform infrarenal abdominal aortic aneurysm with a transverse dimension of 5.3 cm. Plaque formation is seen. Peripheral calcification of the aortic wall. Ectasia of both common iliac arteries. Normal inferior vena cava. Normal retroperitoneum. Normal urinary bladder. There is evidence of prior bilateral inguinal hernia repair with a mesh. There are degenerative changes of the visualized lumbar spine. Status post right total hip replacement. CT/CTA Abd/Pelvis W/WO Contrast IMPRESSION: Stable examination. Electronically Signed: Shay Kay MD at 13:54 EST ,
== END | disposition home or self-care (01) ==
LOC: CT 14:20
PROVIDERS: PCP Nurse Practitioner Family; Referring Provider Nurse Practitioner Family; Visit Provider Nurse Practitioner Family
DX: I71.40 Abdominal aortic aneurysm, without rupture, unspecified (principal)
CPT/HCPCS: 74174; Q9967

== ENCOUNTER → 2025-01-25 | Outpatient (CLI) | payer MEDICARE, SELFPAY ==
--- NOTE | 2025-01-25 10:48 | EKG12_ITS ---
Test Reason : PREOP Blood Pressure : */* mmHG Vent. Rate : 70 BPM Atrial Rate : 70 BPM P-R Int : 202 ms QRS Dur : 84 ms QT Int : 402 ms P-R-T Axes : 38 25 62 degrees QTcB Int : 434 ms Normal sinus rhythm Normal ECG Confirmed by MAILE SHANNON, JUSTINE ([id number]), editor in chief ASHLY REYES ([id number]) on 01/25/2025 1:30:50 PM Referred By: Oliver Rowell Confirmed By: JUSTINE GR MD
[2025-01-25 13:00] LABS: Hematocrit 49.7 % (40-54); Hemoglobin 16.2 g/dL (13.0-16.5); Mean Corp Hgb Conc 32.6 g/dL (32-36); Mean Corpuscular Volume 95.2 fL (80-94); Mean Platelet Vol. 10.4 fl (6.2-12.0); Platelet Count 291 K/mm3 (150-450); RBC Distribution Width CV 13.3 % (11.6-14.6); RBC Distribution Width SD 46.9 fl (35.1-43.9); Red Blood Count 5.22 M/mm3 (4.6-6.2); White Blood Count 8.6 K/mm3 (4.4-11.0)
[2025-01-25 14:02] LABS: Anion Gap 11 (5-15); BUN 39 mg/dL (4-19); BUN/Creat Ratio 20.5 RATIO (10-20); Calcium,Total 9.2 mg/dL (7.6-11.0); Carbon Dioxide 25.5 mmol/L (21.0-32.0); Chloride 103 mmol/L (98-108); Glucose 95 mg/dL (70-99); Potassium 5.2 mmol/L (3.3-5.1)
== END | disposition home or self-care (01) ==
LOC: PSN 10:42
PROVIDERS: PCP Nurse Practitioner Family; Referring Provider Otolaryngology; Visit Provider Otolaryngology
DX: Z01.812 Encounter for preprocedural laboratory examination (principal); Z01.810 Encounter for preprocedural cardiovascular examination
CPT/HCPCS: 36415; 80048; 85027; 93005

== ENCOUNTER → 2025-04-06 | Outpatient (CLI) | payer MEDICARE, SELFPAY | END | disposition home or self-care (01) | LOC: LABSPEC 15:33 | PROVIDERS: PCP Nurse Practitioner Family; Referring Provider Otolaryngology; Visit Provider Otolaryngology | DX: H92.10 Otorrhea, unspecified ear (principal) | CPT/HCPCS: 87070; 87075; 87077; 87186; 87205 ==

== ENCOUNTER → 2025-06-15 | Outpatient (CLI) | payer MEDICARE, SELFPAY ==
--- OUTSIDE RECORDS SUMMARY | 2025-06-15 14:44 | XMS RPT_ITS | CCD ---
Author Organization [facility] Care Team Providers Care Crm Technical Lead Name Role Phone MD Landa Cyril S Unavailable Erica Caruso Unavailable Unavailable Terra RN, Yasmin A Unavailable Unavailable MD Landa Cyril S Unavailable Fast DO, Leigh A Primary Care Provider Fast DO, Leigh A Primary Care Provider Fast DO, Legih A Unavailable Maksim GARCIA, Lyndsay Unavailable Unavailable Nivia Blakely Unavailable Unavailable Unavailable Unavailable Tim, INSIDE SALES SPECIALIST-C Praveena Primary Care Provider Tim, INSIDE SALES SPECIALIST-C Praveena Referring Provider Dr. Mk Landa Attending Provider Fast DO, Leigh A Primary Care Provider Tim, INSIDE SALES SPECIALIST-C Praveena Primary Care Provider Dr. Jayson Carter Emergency Provider Dr. Lukas Louise Attending Provider Unavailable Dr. Lukas Louise Admit Provider Unavailable Dr. Lukas Louise Other Provider Unavailable Dr. Eulogio Cobian Attending Provider Dr. Eulogio Cobian Other Provider Fast DO, Leigh A Primary Care Provider Unavailable Primary Care Provider Unavailabl e FAST, LEIGH A Primary Care Unavailable SELF Referring Unavailable FAST, LEIGH A Primary Care Unavailable Tim INSIDE SALES SPECIALIST-C, Praveena Primary Care Provider Sorin SHANNON, Dr. Boyd Attending Provider Sorin SHANNON, Dr. Boyd Referring Provider Oliver Rowell Attending Unavailabl e Oliver Rowell Referring Unavailabl e Tim, Praveena Primary Care Unavailable Roof Dillon BLANC Attending Unavailable Tim, Praveena Primary Care Unavailable Tim, Praveena Referring Unavailable Oliver Rowell Referring Unavailabl Mk Mendez Attending Unavailable Tim, Praveena Primary Care Unavailable Tim, Praveena Primary Care Unavailable Tim, Praveena Attending Unavailable Tim, Praveena Referring Unavailable Oliver Rowell Attending Unavailabl e Wartmcherrie, Oliver Referring Unavailabl e Tim, Praveena Primary Care Unavailable Tim, Praveena Primary Care Unavailable Tim, Praveena Attending Unavailable Tim, Praveena Referring Unavailable Tim INSIDE SALES SPECIALIST-C, [place] Primary Care Physician Sorin SHANNON, Dr. Boyd Attending Physician Cordell SHANNON, Dr. Terrazas Attending Physician Allergies Allergy Classification Reported Allergen(s) Allergy Type Date of Onset Reaction(s) Facility (5 sources) environmental [Other] Propensity to adverse reactions [facility] Work Phone: Medications Current Medications Medication Drug Class(es) Dates Sig (Normalized) Sig (Original) [id number] 200 actuat albuterol 0.09 mg/actuat metered dose inhaler (5 sources) beta2-Adrenergic Agonist Start: 03-16-2024 Start: 09-08-2023 End: 04-19-2024 Albuterol Sulfate 90 mcg/act uation HFA aerosol inhaler Discontinued 2 NMA INHALATION EVERY 6 HOURS as needed for shortness of breath or wheezing 8.5 0 September 08, 2023 1:00am April 19, 2024 10:31am Start: 09-08-2023 take 1 puff(s) by in halation every six hours Albuterol Sulfate Active 2 PUFF INHALATION EVERY 6 HOURS 8.5 September 08, 2023 12:00am aspirin 81 mg delayed release oral tablet (19 sources) Platelet Aggregation Inhibitor, Nonsteroidal Anti-inflammatory Drug Start: 01-03-2009 take 1 tablet by mouth once daily take 1 tablet by mouth once ana maría y ASPIRIN LOW DOSE, 81MG (Oral Tablet) 1 tab qd (81 MG) Active Comment on above: Take one(1) tablet d aily. cholecalciferol 0.25 mg oral tablet (20 sources) Vitamin D Start: 04-19-2024 take 1 tablet by mouth once daily Start: 08-24-2016 take 1 tablet by humberto once daily VITAMIN D 2000 UNIT TABS One tablet by mouth daily CHOLECALCIFEROL [id number] Serena Conde RN Start: 10-23-2015 End: 04-19-2024 take 2 tablets by mouth once daily Cholecalciferol (Vitamin D3) 1,000 UNIT tablet Discontinued 2000 U PO DAILY October 23, 2015 12:00am April 19, 2024 10:31am Start: 10-23-2015 take 2000 [IU] by [facility] once daily Cholecalciferol (Vitamin D3) Active 2000 UNIT PO DAILY October 22, 2015 11:00pm Start: 03-06-2010 CHOLECALCIFERO L (VITAMIN D3) 1,000 UNIT TAB Take one(1) tablet daily. 0 03/06/2010 Active take 1 capsule by [facility] once daily VITAMIN D3, 2000UNIT (Oral Capsule) 1 cap qd (2000 UNIT) Active Comment on above: Take one(1) tablet d aily. doxycycline monohydrate 100 mg oral tablet (2 sources) Tetracycline-cla ss Drug Start: 09-02-2023 End: 09-09-2023 take 1 tablet by mouth twice daily doxycycline monohydrate 100 mg tablet Take 1 tablet by mouth two times a day for 7 days. 14 tablet 0 09/02/2023 09/09/2023 Active Comment on above: Take 1 tablet by [facility] two times a day for 7 days. Glucosamine (5 sources) Start: 04-19-2024 Start: 04-19-2024 glucosamine HC l Active PO April 19, 2024 12:00am Start: 09-07-2023 End: 04-19-2024 Glucosamine Discontinued [facility] 2023 1:00am April 19, 2024 10:30am Arthritis Start: 09-07-2023 Glucosamine Ac tive September 07, 2023 12:00am inositol 100 mg / niacin 400 mg oral capsule (9 sources) Nicotinic Acid Start: 03-27-2010 niacin/inositol niacinate(NIACIN FLUSH FREE 400 MG-100 MG CAP) Take one(1) tablet daily. 0 03/27/2010 Active Comment on above: Take one(1) tablet d alisha. lisinopril 20 mg oral tablet (20 sources) Angiotensin Converting Enzyme Inhibitor Start: 05-04-2021 End: 03-29-2025 take 1 tablet by mouth once daily Start: 07-19-2015 End: 05-04-2021 take 1 tablet by mouth once daily Lisinopril 10 MG tablet Discontinued 10 mg PO DAILY October 23, 2015 12:00am May 04, 2021 12:24pm Start: 04-13-2012 take 1 tablet by humberto th once daily lisinopril 5 mg tablet Take 1 tablet by mouth once daily. 0 04/13/2012 Active Comment on above: Take 1 tablet by humberto th once daily. 24 hr metoprolol succinate 25 mg extended release oral tablet (20 sources) beta-Adrenergic Ike Start: 11-04-2019 End: 03-29-2025 take 1 tablet by mouth twice daily Start: 08-24-2016 take 1 tablet by humbreto th twice daily METOPROLOL TARTRATE 25 MG TABS One tablet by mouth twice daily METOPROLOL TARTRATE [id number] Mk Landa MD Start: 12-08-2015 take 1 tablet by humberto th once daily METOPROLOL SUCCINATE ER, 25MG (Oral Tablet Extended Release 24 Hour) 1 (one) Tablet ER 24HR daily for 0 days Quantity: 90 {Tablet} Refills: 0 Ordered: 08-Dec-2015 Lyndsay Schaeffer CMA Start : 08-Dec-2015 Active Start: 10-23-2015 End: 11-04-2019 take 1 tablet by mouth once daily Metoprolol Tartrate 25 MG tablet Discontinued 25 mg PO DAILY October 23, 2015 12:00am November 04, 2019 10:29am Start: 04-08-2012 End: 04-08-2012 METOPROLOL TARTRATE, 25MG (O ral Tablet) 1/2 tab Tablet qd for 0 days Quantity: 30 {Tablet} Refills: 0 Ordered: 08-Apr-2012 Fast DO, Leigh A Fast DO, Leigh A Start : 08-Apr-2012 End : 08-Apr-2012 Discontinued Start: 07-18-2011 take 1 tablet by humberto th once daily metoprolol tartrate, short acting, (LOPRESSOR) 50 mg tablet Take 25 mg by mouth twice daily. PT IS TAKING ONLY ONE 1/2 TAB DAILY 07/18/2011 Active take 1 tablet by humberto th every twenty-four hours metoprolol succinate ER (TOPROL XL) 25 mg 24 hr tablet Take 25 mg by mouth. Active Comment on above: Take 25 mg by mouth twice daily. PT IS TAKING ONLY ONE 1/2 TAB DAILY mupirocin 20 mg/ml topical cream (2 sources) RNA Synthetase Inhibitor Antibacterial Start: 4 End: 4 mupirocin (BACTROBAN) 2 % cream Apply 1 application to affected area three times a day for 10 days. Location: brow of face 30 g 0 09/02/2023 09/12/2023 Active Comment on above: Apply 1 application to affected area three times a day for 10 days. Location: brow of face ofloxacin 3 mg/ml otic solution (1 source) Quinolone Antimicrobial Start: 5 End: 5 ofloxacin (FLOXIN) 0.3 % otic solution Indications: Acute otitis externa of both ears, unspecified type Use 5 Drops in both ears once daily for 7 days. 10 mL 08/31/2024 09/07/2024 Active [facility] 9-Hjt-Jop-Fish Oil (4 sources) Start: 0 take 1 capsule by mouth once daily [facility]gins 9-Ofc-Kyq-Fish Oil Active 1 CAP PO DAILY June 05, 2020 12:00am Start: 10-23-2015 End: 09-16-2019 take 500 mg by mouth once daily [facility] 4-Wka-Vkb-Fish Oil Discontinued 500 MG PO DAILY October 22, 2015 11:00pm September 16, 2019 2:58pm [facility] 7-Oqx-Ycb-Fish Oil 60- 90-500 mg capsule (2 sources) Start: 06-05-2020 Start: 06-05-2020 [facility]gins 3-Dha-Ep a-Fish Oil 60-90-500 mg capsule Active 1 NMA PO DAILY June 05, 2020 1:00am OMEGA-3 FATTY ACIDS 1,000 MG CAP (9 sources) Start: 03-06-2010 OMEGA-3 FATTY ACIDS 1,000 MG CAP Take one(1) tablet daily. 0 03/06/2010 Active Comment on above: Take one(1) tablet d ailsilvio. simvastatin 20 mg oral tablet (20 sources) HMG-CoA Reductase Inhibitor Start: 08-05-2011 End: 03-29-2025 take 1 tablet by mouth once daily Comment on above: Take 20 mg by mouth daily at bedtime. Turmeric Root Extract 500 mg tablet (2 sources) Start: 04-19-2024 take 1 tablet by mouth twice daily Start: 04-19-2024 take 1 tablet by humberto th twice daily Turmeric Root Extract 500 mg tablet Active 500 mg PO TWICE A DAY April 19, 2024 12:00am Completed/Discontinued Medications Medication Drug Class(es) Dates Sig (Normalized) Sig (Original) amoxicillin 500 mg oral capsule (9 sources) Penicillin-class Antibacterial Start: 11-06-2017 End: 09-16-2019 take 1 capsule by mouth every hour Amoxicillin 500 mg capsule Discontinued 0 PO .Prior to appt. November 06, 2017 12:00am September 16, 2019 3:57pm 500 MG, 4 Caps 1 Hr PO .Prior to appt. Start: 03-13-2017 take 4 capsules by m outh every hour AMOXICILLIN 500 MG CAPS take 4 caps by mouth 1 hour prior to appt. AMOXICILLIN [id number] Mk Landa MD Start: 08-18-2015 AMOXICILLIN, 5 00MG (Oral Tablet) 4 Tablet 30 minutes prior to dental apt for 0 days Quantity: 4 {Tablet} Refills: 3 Ordered: 18-Aug-2015 Zenaida Prince Start : 18-Aug-2015 Active amoxicillin 875 mg / clavulanate 125 mg oral tablet (1 source) Penicillin-class Antibacterial Start: 07-19-2015 End: 08-07-2015 take 1 tablet by mouth twice daily AMOXICILLIN-POT CLAVULANATE, 875-125MG (Oral Tablet) 1 (one) Tablet bid for 0 days Quantity: 20 {Tablet} Refills: 0 Ordered: 07-Aug-2015 Zenaida Prince Start : 19-Jul-2015 End : 07-Aug-2015 Discontinued azithromycin 250 mg oral tablet (3 sources) Macrolide Antimicrobial Start: 09-08-2023 End: 04-19-2024 take 2 tablets by mouth every twenty-four hours Azithromycin 250 mg Tablet Discontinued 500 mg PO EVERY 24 HOURS 3 0 September 08, 2023 1:00am April 19, 2024 10:32am Start: 09-08-2023 take 500 mg by mouth every twenty-four hours Azithromycin Active 500 MG PO EVERY 24 HOURS 3 September 08, 2023 12:00am 24 hr buPROPion hydrochloride 150 mg extended release oral tablet (1 source) Aminoketone Start: 12-10-2011 End: 12-10-2011 take 1 tablet by mouth every twenty-four hours in the morning BUPROPION HCL (XL), 150MG (Oral Tablet Extended Release 24 Hour) 1 Tablet ER 24HR q am for 0 days Quantity: 30 {Tablet_ER_24HR} Refills: 3 Ordered: 10-Dec-2011 Fast DO, Leigh A Fast DO, Leigh A Start : 10-Dec-2011 End : 10-Dec-2011 Discontinued citalopram 10 mg oral tablet (19 sources) Serotonin Reuptake Inhibitor Start: 04-13-2012 End: 04-24-2023 take 1 tablet by mouth once daily Citalopram 10 MG tablet Discontinued 10 mg PO DAILY October 23, 2015 12:00am April 24, 2023 1:20pm Comment on above: Take 1 tablet by humberto once daily. docosahexaenoic acid 120 mg / eicosapentaenoic acid 180 mg oral capsule (1 source) take 1 capsule by mouth once daily FISH OIL CONCENTRATE, 1000MG (Oral Capsule) 1 cap qd (1000 MG) Active hydrocortisone acetate 25 mg rectal suppository (1 source) Corticosteroid Start: 06-07-2015 End: 08-07-2015 ANUSOL-HC, 25MG (Rectal Suppository) 1 (one) Suppository Suppository rectally, q hs, prn for 30 days Quantity: 30 {Suppository} Refills: 1 Ordered: 07-Aug-2015 Zenaida Prince Start : 07-Jun-2015 End : 07-Aug-2015 Discontinued niacin 500 mg oral tablet (9 sources) Nicotinic Acid Start: 10-23-2015 End: 09-16-2019 take 1 tablet by mouth once daily Niacin 500 MG tablet Discontinued 500 mg PO DAILY October 23, 2015 12:00am September 16, 2019 3:57pm NIACIN FLUSH FREE, 500MG (Oral Capsule) (1 source) take 1 tablet by mouth once daily NIACIN FLUSH FREE, 500MG (Oral Capsule) 1 tab qd (500 MG) Active Nirmatrelvir-Ritonav ir (2 sources) Start: 03-15-2024 End: 04-19-2024 Nirmatrelvir-Ritona vir (Paxlovid) 150-100 mg tablets,dose pack Discontinued 0 PO .COMPLEX 20 0 March 15, 2024 12:00am April 19, 2024 10:31am orally per package directions Hudgins 2-Ahc-Nis-Fish Oil 500 MG capsule,delayed release(DR/EC) (2 sources) Start: 10-23-2015 End: 09-16-2019 take 1 capsule by mouth once daily Hudgins 9-Miy-Cpt-Fish Oil 500 MG capsule,delayed release(DR/EC) Discontinued 500 mg PO DAILY October 23, 2015 12:00am September 16, 2019 3:58pm OMEGA-3 FATTY ACIDS CPDR (3 sources) Start: 08-24-2016 take 1 tablet by mouth once daily OMEGA 3 CPDR One tablet by mouth daily OMEGA-3 FATTY ACIDS CPDR [id number] Serena Conde RN OMEGA-3 FATTY ACIDS CPDR (2 sources) Start: 08-24-2016 take 1 tablet by mouth once daily OMEGA 3 CPDR One tablet by mouth daily OMEGA-3 FATTY ACIDS CPDR [id number] Serena Conde RN oseltamivir 30 mg oral capsule (3 sources) Neuraminidase Inhibitor Start: 09-08-2023 End: 04-19-2024 take 1 capsule by mouth twice daily Oseltamivir 30 mg Capsule Discontinued 30 mg PO TWICE A DAY 8 0 September 08, 2023 1:00am April 19, 2024 10:32am predniSONE 20 mg oral tablet (3 sources) Start: 09-08-2023 End: 04-19-2024 take 2 tablets by mouth once daily Prednisone 20 mg Tablet Discontinued 40 mg PO DAILY@0800 10 0 September 08, 2023 1:00am April 19, 2024 10:32am Start: 09-08-2023 take 40 mg by mouth once daily Prednisone Active 40 MG PO DAILY@0800 10 September 08, 2023 12:00am Tumeric (3 sources) Start: 09-07-2023 End: 04-19-2024 Tumeric Discontinued PO TWIC E A DAY September 07, 2023 1:00am April 19, 2024 10:30am Arthritis Start: 09-07-2023 Tumeric Active PO TWICE A DAY September 07, 2023 12:00am Problems Active Problems Problem Classification Problem Date Documented Date Episodic/Chronic Aortic; peripheral; and visceral artery aneurysms (20 sources) Abdominal aortic aneurysm without rupture; Translations: [Abdominal aortic aneurysm, without rupture] Onset: 11-12-2021 Chronic Comment on above: Mid abdominal aortic aneurysm 4.91 x 4.68 cm in diameter. Mural thrombus noted with an adequate true lumen as per measurements. U/S 05/24/21 Cardiac dysrhythmias (4 sources) Premature beats; Translations: [Other premature beats] 10-10-2015 Chronic Comment on above: chronic stable-dwayne nue present regimen Cardiac dysrhythmias (2 sources) Bradycardia; Translations: [Bradycardia] 10-10-2015 Episodic Chronic obstructive pulmonary disease and bronchiectasis (18 sources) Centriacinar emphysema; Translations: [Centrilobular emphysema] Onset: 11-12-2021 Chronic Coronary atherosclerosis and other heart disease (16 sources) Atherosclerotic heart disease of [place] coronary artery without angina pectoris; Translations: [Coronary arteriosclerosis] Onset: 08-24-2016 08-24-2016 Chronic Diabetes mellitus without complication (15 sources) Impaired fasting glycemia; Translations: [Impaired fasting glucose] 10-10-2015 Episodic Comment on above: has resolved he has been normal the last several labs Disorders of lipid metabolism (20 sources) Hyperlipidemia; Translations: [Mixed hyperlipidemia] Onset: 11-12-2011 08-24-2016 Chronic Comment on above: chronic stable-dwayne nue present regimen Essential hypertension (20 sources) Hypertensive disorder; Translations: [Essential hypertension] Onset: 08-24-2016 08-24-2016 Chronic Fever of unknown origin (1 source) Fever; Translations: [Fever, unspecified] 09-07-2023 Episodic Heart valve disorders (14 sources) Nonrheumatic tricuspid (valve) insufficiency; Translations: [Aortic valve disorder] Onset: 08-24-2016 08-24-2016 Chronic Heart valve disorders (2 sources) Heart murmur; Translations: [Heart murmur] 10-10-2015 Episodic Hemorrhoids (2 sources) Hemorrhoids; Translations: [Hemorrhoid] 10-10-2015 Episodic Hyperplasia of prostate (5 sources) Benign prostatic hyperplasia; Translations: [Enlarged prostate with lower urinary tract symptoms] 10-10-2015 Chronic Comment on above: chronic stable-dwayne nue present regimen Hypertension with complications and secondary hypertension (18 sources) Hypertensive heart disease; Translations: [Hypertensive heart disease without heart failure] 10-10-2015 Chronic Comment on above: chronic stable-dwayne nue present regimen Immunizations and screening for infectious disease (10 sources) Needs influenza immunization; Translations: [Need for prophylactic vaccination and inoculation against influenza (Renamed from Need for immunization against influenza)] Resolved: 06-06-2015 10-10-2015 Episodic Influenza (4 sources) Influenza due to Influenza A virus; Translations: [Influenza due to other identified influenza virus with other respiratory manifestations] 09-07-2023 Episodic Lymphadenitis (3 sources) Cervical lymphadenopathy; Translations: [Cervical lymphadenopathy] 10-10-2015 Episodic Comment on above: better will monitor close Mood disorders (11 sources) Depressive disorder; Translations: [Depressive disorder] 10-10-2015 Chronic Comment on above: chronic stable-dwayne nue present regimen Osteoarthritis (3 sources) Osteoarthritis; Translations: [Osteoarthritis, unspecified osteoarthritis type, unspecified site] 10-10-2015 Chronic Comment on above: sp hip replacemnt Other aftercare (2 sources) Patient encounter status; Translations: [Other buttermaker (current) drug therapy] 11-03-2019 Episodic Other aftercare (2 sources) Long-term current use of drug therapy; Translations: [Other buttermaker (current) drug therapy] 11-03-2019 Episodic Other and ill-defined heart disease (1 source) Heart disease 10-10-2015 Chronic Other circulatory disease (4 sources) Carotid bruit; Translations: [Other specified symptoms and signs involving the circulatory and respiratory systems] 07-02-2021 Episodic Other circulatory disease (2 sources) H/O: heart disorder; Translations: [Personal history of other diseases of the circulatory system] 03-23-2024 Episodic Other connective tissue disease (4 sources) Pain in calf; Translations: [Calf pain] 07-19-2015 Episodic Comment on above: seeing ortho Other connective tissue disease (2 sources) Pain in limb; Translations: [Limb pain] 10-10-2015 Episodic Other connective tissue disease (3 sources) Rupture of popliteal space synovial cyst; Translations: [Rupture of popliteal cyst] 10-10-2015 Episodic Comment on above: leg swelling better they are still dealing with knee Other connective tissue disease (2 sources) Swelling of limb; Translations: [Swelling of Limb (Renamed from Limb swelling)] 10-10-2015 Episodic Other ear and sense organ disorders (1 source) Hearing loss 10-10-2015 Chronic Other ear and sense organ disorders (1 source) Acute otitis externa of bilateral ears; Translations: [Unspecified acute noninfective otitis externa, bilateral] 08-31-2024 Episodic Other ear and sense organ disorders (1 source) Otorrhea, unspecified ear; Translations: [Otorrhea, unspecified ear] Onset: 04-16-2025 Episodic Other lower respiratory disease (3 sources) Hypoxia; Translations: [Hypoxemia] 09-07-2023 Episodic Other lower respiratory disease (1 source) Dyspnea; Translations: [Shortness of breath] 03-15-2024 Episodic Other lower respiratory disease (2 sources) History of chronic obstructive airway disease; Translations: [Personal history of other diseases of the respiratory system] 03-23-2024 Episodic Other male genital disorders (2 sources) Male erectile dysfunction, unspecified; Translations: [Erectile dysfunction] 10-10-2015 Chronic Comment on above: work on getting cial is samples Other nutritional; endocrine; and metabolic disorders (12 sources) Body mass index (BMI) 30.0-30.9, adult; Translations: [Body mass index (BMI) 33.0-33.9, adult] Onset: 08-24-2016 Resolved: 03-13-2017 03-13-2017 Chronic Other nutritional; endocrine; and metabolic disorders (2 sources) Body mass index (BMI) 33.0-33.9, adult; Translations: [Body mass index (BMI) 33.0-33.9, adult] Onset: 08-28-2016 08-28-2016 Chronic Other screening for suspected conditions (not mental disorders or infectious disease) (14 sources) Thyroid hormone tests abnormal; Translations: [Abnormal TSH] Resolved: 12-22-2013 10-10-2015 Episodic Other skin disorders (2 sources) Actinic keratosis; Translations: [Actinic keratosis] 10-10-2015 Episodic Other skin disorders (2 sources) [place] - lesion ; Translations: [[place] of foot] 10-10-2015 Episodic Other upper respiratory disease (2 sources) Allergic rhinitis; Translations: [Allergic rhinitis] 10-10-2015 Chronic Skin and subcutaneous tissue infections (1 source) Infection of skin; Translations: [Local infection of the skin and subcutaneous tissue, unspecified] 09-02-2023 Episodic Spondylosis; intervertebral disc disorders; other back problems (2 sources) Low back pain; Translations: [Low back pain] 10-10-2015 Episodic Thyroid disorders (9 sources) Hyperthyroidism; Translations: [Hyperthyroidism] 10-10-2015 Chronic Unclassified (2 sources) 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; Translations: [Presence of aortocoronary bypass graft] Onset: 08-24-2016 02-21-2017 Unclassified (2 sources) Long-term drug therapy; Translations: [Other half-way (current) drug therapy] Onset: 08-24-2016 08-24-2016 Unclassified (2 sources) screening Resolved: 06-06-2015 06-06-2015 Unclassified (20 sources) Unclassified (1 source) Abdominal aortic aneurysm, without rupture, unspecified; Translations: [Abdominal aortic aneurysm, without rupture, unspecified] Onset: 08-13-2024 Urinary tract infections (4 sources) Urinary tract infectious disease; Translations: [Urinary tract infection, site not specified] 10-24-2015 Episodic Viral infection (2 sources) Disease caused by 2019-nCoV; Translations: [COVID-19] 04-19-2024 Episodic Past or Other Problems Problem Classification Problem Date Documented Da te Episodic/Chronic Abdominal hernia (18 sources) Bilateral inguinal hernia; Translations: [Bilateral inguinal hernia, without obstruction or gangrene, not specified as recurrent] Onset: 05-19-2006 05-19-2006 Episodic Coronary atherosclerosis and other heart disease (9 sources) Presence of aortocoronary bypass graft; Translations: [Aortocoronary bypass status] Onset: 07-28-1989 02-21-2017 Episodic Other aftercare (3 sources) Other buttermaker (current) drug therapy; Translations: [Other buttermaker (current) drug therapy] Onset: 08-24-2016 08-24-2016 Episodic Syncope (1 source) Syncope Unclassified (3 sources) Unspecified Diagnosis Resolved: 12-04-2011 12-04-2011 Unclassified (4 sources) Acute encephalopathy 11-03-2019 Results Test Name Value Interpretation Reference Range Facility Culture, Anaerobic Any Sourc phil 04-12-2025 CUAN OTORRHEA No anaerobic bacteria isolated. Normal [facility] Comment on above: Performed By: #### M 100.2000, M100.2700, M100.4001 ####[facility] [id number] [place], [address] Ear/Mast Cultureon [facility] OTORRHEA #2 Gram positive riley suggestive of a diphtheroid. Susceptibility not normally performed on this organism Bacteria Ear Aerobe Cult Achromobacter xylosoxidans Amount Growth 2+ Corynebacterium jeikeium Amount Growth 3+ Achromobacter xylosoxidans: REACTION levoFLOXacin Islt BERRY 4 I Meropenem Islt BERRY 1 S Pip+Tazo Islt BERRY <=4 S TMP SMX Islt BERRY <=20 S Achromobacter xylosoxidans: REACTION Aztreonam Islt BERRY >=64 R Doxycycline Islt BERRY 8 I Imipenem Islt BERRY 2 S Normal [facility] Comment on above: Performed By: #### M 100.2000, M100.2700, M100.4001 ####[facility] [id number] [place], [address] Gram Stainon 04-07-2025 GS OTORRHEA Gram Stain 2+ Gram positive rods 4+ Gram negative rods Rare Gram positive cocci Normal [facility] Comment on above: Performed By: #### M 100.2000, M100.2700, M100.4001 #### [facility] [address] [place], [address] Aerobic bacterial ear cultur eOrdered By: Oliver Rowell on 04-06-2025 Bacteria identified Aer cx Nom (Ear) Achromobacter xylosoxidans Abnormal [facility] Bacteria identified Aer cx Nom (Ear) Corynebacterium jeikeium Abnormal [facility] Anaerobic cultureOrdered By: Oliver Rowell on 04-06-2025 Bacteria identified Anaer cx Nom (Unsp spec) No anaerobic bacteria isolated. [facility] Gram stainOrdered By: Christo Rowell on 04-06-2025 Microscopic observation Gram stain Nom (Unsp spec) [facility] 12 Lead EKGon 01-25-2025 12 Lead EKG [facility] Cardi[facility] Services [address] [place] [address] 12 Lead EKG 01/25/25 1053 MR#: [id number] Acct: [id number] Name: FRANCO REYES Rep #: [id number] : 1935 89 From: Mk Landa MD Attending Dr: Dr. Oliver Rowell MD Statu s: REG CLI Ordering Dr: Oliver Rowell MD Date: 5 Location: [facility] Sex: M C Admitted: Test Reason : PREOP Blood Pressure : */* mmHG Vent. Rate : 70 BPM Atrial Rate : 70 BPM P-R Int : 202 ms QRS Dur : 84 ms QT Int : 402 ms P-R-T Axes : 38 25 62 degrees QTcB Int : 434 ms Normal sinus rhythm Normal ECG Confirmed by MK LANDA MD ([id number]), editor city ASHLY REYES ([id number]) on 01/25/2025 1:30:50 PM Referred By: Oliver Rowell Confirmed By: MK LANDA MD 01/25/25 1330 Date Mk Landa MD CC: TRACIE Dumont; Dr. Oliver Rowell MD Signed Normal [facility] Anion gap in Serum or Plasma Ordered By: Oliver Rowell on 01-25-2025 Anion gap [Moles/Vol] 11 mmol/L 5-15 [facility] Automated blood erythrocyte countOrdered By: Oliver Rowell on 01-25-2025 RBC (Bld) [#/Vol] 5.22 10*6/uL Normal 4.6-6.2 [facility] Comment on above: Performed By: #### L 500.2500, L100.0500 #### [facility] [address] [place], [address] Automated blood hematocrit ( percentage)Ordered By: Oliver Rowell on 01-25-2025 Hematocrit (Bld) [Volume fraction] 49.7 % Normal 40-54 [facility] Comment on above: Performed By: #### L 500.2500, L100.0500 #### [facility] [address] [place], [address] BUN/creatinine ratioOrdered By: Oliver Rowell on 01-25-2025 Urea nitrogen/Creatinine [Mass ratio] 20.5 mg/mg High [facility]20 [facility] Basic Metabolic Profile (BMP )on 01-25-2025 BUN/CRE 20.[address] Comment on above: Performed By: #### L 500.2500, L100.0500 #### [facility] [address] [place], [address] Calcium [Mass/Vol] 9.2 mg/dL Normal 7.6-11.0 [facility] Comment on above: Performed By: #### L 500.2500, L100.0500 #### [facility] [address] [place], [address] Chloride [Moles/Vol] 103 mmol/L Normal 98-108 [facility] Comment on above: Performed By: #### L 500.2500, L100.0500 #### [facility] [address] [place], [address] CO2 [Moles/Vol] 25.5 mmol/L Normal 21.0-32.0 [facility] Comment on above: Performed By: #### L 500.2500, L100.0500 #### [facility] [address] [place], [address] Creatinine [Mass/Vol] 1.92 mg/dL High 0.70-1.20 [facility] Comment on above: Performed By: #### L 500.2500, L100.0500 #### [facility] [address] [place], [address] GAP 11 Normal 5-15 [facility] Comment on above: Performed By: #### L 500.2500, L100.0500 #### [facility] [address] [place], [address] GFR/1.73 sq M.predicted among non-blacks MDRD (S/P/Bld) [Vol rate/Area] 33 mL/min/{1.73_m2} Low >60 [facility] Comment on above: Result Comment: mL/m in/1.73m2 CKD-EPI Creatinine Equation (2020) Performed By: #### L 500.2500, L100.0500 #### [facility] [address] [place], [address] Glucose [Mass/Vol] 95 mg/dL Normal 70-99 [facility] Comment on above: Performed By: #### L 500.2500, L100.0500 #### [facility] [address] [place], [address] Potassium [Moles/Vol] 5.2 mmol/L High 3.3-5.1 [facility] Comment on above: Performed By: #### L 500.2500, L100.0500 #### [facility] [address] [place], [address] Sodium [Moles/Vol] 140 mmol/L Normal 133-145 [facility] Comment on above: Performed By: #### L 500.2500, L100.0500 #### [facility] [address] [place], [address] Urea nitrogen [Mass/Vol] 39 mg/dL High 4-19 [facility] [facility] Comment on above: Performed By: #### L 500.2500, L100.0500 #### [facility] [address] [place], [address] CBC-Complete Blood Cnt No Di ffon 01-25-2025 RDW SD 46.9 fl High 35.1-43.9 [facility] Comment on above: Performed By: #### L 500.2500, L100.0500 #### [facility] [address] [place], [address] Carbon dioxide, total [Moles /volume] in Central venous bloodOrdered By: Oliver Rowell on 01-25-2025 CO2 [Moles/Vol] 25.5 mmol/L 21.0-32.0 [facility] Chloride assayOrdered By: Ferny Rowell on 01-25-2025 Chloride [Moles/Vol] 103 mmol/L 98-108 [facility] Electrocardiogram reportOrde red By: Mk Landa on 01-25-2025 EKG study [facility] Cardi[facility] Services [address] [place] [address] 12 Lead EKG 01/25/25 1053 MR#: [id number] Acct: [id number] Name: FRANCO REYES Rep #:[id number] : 1935 89 From: Mk Landa MD Attending Dr: Dr. Oliver Rowell MD Status: REG CLI Ordering Dr: Oliver Rowell MD D ate: 01/25/25 Location: [facility] Sex: M C Admitted: Test Reason : PREOP Blood Pressure : */* mmHG Vent. Rate : 70 BPM Atrial Rate : 70 BPM P-R Int : 202 ms QRS Dur : 84 ms QT Int : 402 ms P-R-T Axes : 38 25 62 degrees QTcB Int : 434 ms Normal sinus rhythm Normal ECG Confirmed by MK LANDA MD ([id number]), [place] ASHLY REYES ([id number]) on 01/25/2025 1:30:50 PM Referred By: Oliver Rowell Confirmed By: MK LANDA MD 07/01/25 1330 Date _ Mk Landa MD CC: INSIDE SALES SPECIALIST-Derian Dumont; Dr. Oliver Rowell MD ~ Signed [facility] Work Phone: Erythrocyte distribution wid th ratioOrdered By: Oliver Rowell on 01-25-2025 Erythrocyte distribution width (RBC) [Ratio] 13.3 % Normal 11.6-14.6 [facility] Comment on above: Performed By: #### L 500.2500, L100.0500 #### [facility] [address] [facility] [place], [place], [id number] Erythrocyte distribution wid th standard deviationOrdered By: Oliver Rowell on 01-25-2025 Erythrocyte distribution width (RBC) [Ratio] 46.9 fl High 35.1-43.9 [facility] Glomerular filtration rate ( GFR) estimation/1.73 sq m using serum, plasma, or whole bOrdered By: Oliver Rowell on 01-25-2025 GFR/1.73 sq M.predicted among non-blacks MDRD (S/P/Bld) [Vol rate/Area] 33 mL/min/{1.73_m2} Low >60 [facility] Comment on above: mL/min/1.73m2 CKD-EP I Creatinine Equation (2020) Hemoglobin measurementOrdere d By: Oliver Rowell on 01-25-2025 Hemoglobin (Bld) [Mass/Vol] 16.2 g/dL Normal 13.0-16.5 [facility] Comment on above: Performed By: #### L 500.2500, L100.0500 #### [facility] [address] [place], [place], [id number] MCV (mean corpuscular volume ) determinationOrdered By: Oliver Rowell on 01-25-2025 MCV (RBC) [Entitic vol] 95.2 fL High 80-[address] [facility] Comment on above: Performed By: #### L 500.2500, L100.0500 #### [facility] [address] [place], [address] Mean corpuscular hemoglobin (MCH) determinationOrdered By: Oliver Rowell on 01-25-2025 MCH (RBC) [Entitic mass] 31.0 pg Normal 27.0-32.0 [facility] Comment on above: Performed By: #### L 500.2500, L100.0500 #### [facility] [address] [place], [address] Mean corpuscular hemoglobin concentration (MCHC) determinationOrdered By: Oliver Rowell on 01-25-2025 MCHC (RBC) [Mass/Vol] 32.6 g/dL Normal 32-36 [facility] Comment on above: Performed By: #### L 500.2500, L100.0500 #### [facility] [address] [place], [address] Mean platelet volume determi nationOrdered By: Oliver Rowell on 01-25-2025 Platelet mean volume (Bld) [Entitic vol] 10.4 fL Normal 6.2-12.0 [facility] Comment on above: Performed By: #### L 500.2500, L100.0500 #### [facility] [address] [place], [address] Platelet countOrdered By: Ferny Rowell on 01-25-2025 Platelets (Bld) [#/Vol] 291 10*3/uL Normal 150-450 [facility] Comment on above: Performed By: #### L 500.2500, L100.0500 #### [facility] [address] [place], [address] Potassium measurement (mass/ volume)Ordered By: Oliver Rowell on 01-25-2025 Potassium (Unsp spec) [Mass/Vol] 5.2 mmol/L High 3.3-5.1 [facility] Serum creatinine measurement (mass/volume)Ordered By: Oliver Rowell on 01-25-2025 Creatinine [Mass/Vol] 1.92 mg/dL High 0.70-1.20 [facility] Serum glucose measurement (m ass/volume)Ordered By: Oliver Rowell on 01-25-2025 Glucose [Mass/Vol] 95 mg/dL 70-99 [facility] Serum or plasma calcium ana paula urement (mass/volume)Ordered By: Oliver Rowell on 01-25-2025 Calcium [Mass/Vol] 9.2 mg/dL 7.6-11.0 [facility] Serum or plasma urea nitroge n measurement (mass/volume)Ordered By: Oliver Rowell on 01-25-2025 Urea nitrogen [Mass/Vol] 39 mg/dL High 4-19 [facility] Sodium levelOrdered By: Tom Rowell on 01-25-2025 Sodium [Moles/Vol] 140 mmol/L 133-145 [facility] White blood cell (WBC) count Ordered By: Oliver Rowell on 01-25-2025 WBC (Bld) [#/Vol] 8.6 10*3/uL Normal 4.4-11.0 [facility] Comment on above: Performed By: #### L 500.2500, L100.0500 #### [facility] [place], [address] [address] 08-31-2024 [facility] Office Visit (UCTR ) FRANCO REYES ([id number]) 1935 M Date Time Provider Department 08/31/24 2:30 PM MEGAN GRAHAM [facility] During your visit today, we recorded the following information about you: Temperature Pulse Respiration Blood pressure 98.2 degrees 67/minute 24/minute 177/82 Weight 95 kg Norman PORSHA Gibson.HYDRAULIC PILE HAMMER OPERATOR 08/31/2024 2:48 PM Signed CC: Patient presents with: Cough: Congestion, L ear pain x5 days HPI: Franco Reyes is a 89 year old male who presents to the office with complaint of cough, nonproductive and ear symptoms for 5 days. Symptoms are staying the same. Associated symptoms includes ear pain. Denies wheezing, dyspnea, nausea, vomiting , and diarrhea. Treatments tried include nothing so far. with no relief of symptoms. Sick contacts: unknown. History of asthma, frequent episodes of bronchitis, chronic bronchitis, bronchiectasis or COPD: No Smoker: No Seasonal/environmenta l allergies: No The ROS is otherwise negative. The patient's pmh, medications, allergies, and past visits are reviewed. PHYSICAL EXAM: BP 177/82 Pulse 67 Temp 36.8 ?C (98.2 ?F) Resp 24 Wt 95 kg (209 lb 7 oz) SpO2 94% BMI 32.80 kg/m? General appearance: alert, cooperative, pleasant, in no acute distress Head: Normocephalic Eyes: EOM's intact, conjunctiva pink and moist, no icterus, sclera white, non-injected Ears: Right ear: External ear/canal- cerumen impaction and irritated canal, TM - clear with good landmarks. Left ear: External ear/canal- irritated canal, TM - tympanosclerosis Oropharynx:moist without lesions, No erythema, exudates or tonsillar hypertrophy. Heart: Negative. RRR without obvious murmur, gallop, or rubs. No ectopy. Lungs: clear to auscultation, without rales or wheeze, good air exchange PAST MEDICAL HISTORY Diagnosis Date AAA (abdominal [...] 05/28/06 UMBILICAL HERNIA ALLERGIES Patient has no known allergies. MEDICATIONS lisinopril (ZESTRIL) 20 mg tablet metoprolol succinate ER (TOPROL XL) 25 mg 24 hr tablet Take 25 mg by mouth. simvastatin (ZOCOR) 20 mg tablet Take 20 mg by mouth daily at bedtime. OMEGA-3 FATTY ACIDS 1,000 MG CAP Take one(1) tablet daily. CHOLECALCIFEROL (VITAMIN D3) 1,000 UNIT TAB Take one(1) tablet daily. aspirin(ECOTRIN LOW STRENGTH 81 MG TAB) Take one(1) tablet daily. ofloxacin (FLOXIN) 0.3 % otic solution Use 5 Drops in both ears once daily for 7 days. metoprolol tartrate, short acting, (LOPRESSOR) 50 mg tablet Take 25 mg by mouth twice daily. PT IS TAKING ONLY ONE 1/2 TAB DAILY lisinopril 5 mg tablet Take 1 tablet by mouth once daily. citalopram hydrobromide (CELEXA) 10 mg tablet Take 10 mg by mouth once daily. niacin/inositol niacinate(NIACIN FLUSH FREE 400 MG-100 MG CAP) Take one(1) tablet daily. (Patient not taking: Reported on 09/02/2023) FAMILY HISTORY Problem Relation Age of Onset Cancer Father Heart Mother Social History Tobacco Use Smoking status: Former Current packs/day: 0.00 Average packs/day: 1 pack/day for 15.0 years (15.0 ttl pk-yrs) Types: Cigarettes Start date: 07/28/1956 Quit date: 07/28/1971 Years since quittin.1 Smokeless tobacco: Never Substance Use Topics Alcohol use: No Drug use: No ASSESSMENT/PLAN: 1. Acute otitis externa of both ears, unspecified type - ICD9: 380.10, ICD10: H60.503 - OFLOXACIN 0.3 % EAR DROPS Prescription instructions reviewed with patient as applicable. Potential red flag symptoms discussed with the patient. Reviewed appropriate action plan to take if red flag symptoms occur. Patient agreeable to treatment plan. Megan Graham APRN.HYDRAULIC PILE HAMMER OPERATOR Allergies As of Date: 08/31/2024 (No Known Allergies) Date Reviewed: 08/31/2024 Reviewed by: Luann Tran MA - Fully Assessed Reason for Visit: Cough [28] Cmt: Congestion, L ear pain x5 days Primary Visit Diagnosis:Acute otitis externa of both ears, unspecified type [H60.503] Order(s):ofloxacin (FLOXIN) 0.3 % otic solutionUse 5 Drops in both ears once d (more content not included)... Normal [facility] CTA Abd/Pelvis W/WO Contrast on 07-13-2024 CTA Abd/Pelvis W/WO Contrast [facility] Imaging Services [address] [place] [address] CTA Abd/Pelvis W/WO Contrast MR#: [id number] Acct: [id number] Name: KALEJULITAFRANCO D Rep #: [id number] : 1935 [facility] From: Shay zamorano MD PCP: TRACIE Gutierrez Status: REG CLI Study: CTA Abd/Pelvis W/WO Contrast Date of Exam: Exam# [id number] Ordering Dr: Praveena Dumont [id number] STUDY: CTA ABDOMEN AND PELVIS WITH CONTRAST REASON FOR EXAM: Male, 89 years old. AAA CHANGES RADIATION DOSAGE (If Supplied By Facility): CTDIvol = ( 40.07 ) mGy, DLP = ( 1530.03 ) mGycm TECHNIQUE: Transaxial images were obtained from the dome of the diaphragm to the symphysis pubis without oral contrast. 100 ML ISOVUE 370 was administered. Sagittal and coronal images were reconstructed. 3-D images were reconstructed. Individualized dose optimization techniques were used for this CT. COMPARISON: Comparison is made with prior study dated June 20, 2021. FINDINGS: Mild degree of increased linear markings at the lung bases suggestive of a linear scarring. The visualized portions of the heart are within normal limits. There is decreased attenuation of the liver consistent with steatosis. There are multiple gallstones. Normal spleen. Normal pancreas. Normal bilateral adrenal glands. 1 cm cyst in the inferior pole of the right kidney as well as in the superior pole. There is a 4.4 cm cyst in the posterior lower aspect of the left kidney. Bilateral renal cortical atrophy. Normal visualized stomach. Normal small intestine. Normal colon. The appendix is visualized and appears normal. 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 There is also evidence of a fusiform infrarenal abdominal aortic aneurysm with a transverse dimension of 5.3 cm. Plaque formation is seen. Peripheral calcification of the aortic wall. Ectasia of both common iliac arteries. Normal inferior vena cava. Normal retroperitoneum. Normal urinary bladder. There is evidence of prior bilateral inguinal hernia repair with a mesh. There are degenerative changes of the visualized lumbar spine. Status post right total hip replacement. CT/CTA Abd/Pelvis W/WO Contrast IMPRESSION: Stable examination. Electronically Signed: Shay Kay MD at 13:54 EST Reading Location ID and State: [address] [place] [address] , Service support , CC: TRACIE Dumont Java J2Ee Application Developer: Signed Normal [facility] CBC W/Diff, Automatedon 11- Absolute Lymph 1.37 X10 3/uL Normal 0.83-4.51 [facility] Comment on above: Performed By: #### L 500.4050, L500.4100, L100.0100, L506.1000 #### [facility] [address] [place], [place], [address] Absolute Neut 4.7 X10 3/uL Normal 2.0-7.7 [facility] Comment on above: Performed By: #### L 500.4050, L500.4100, L100.0100, L506.1000 #### [facility] [address] [place], [address] Basophils/100 WBC (Bld) 1.1 % High 0-[address] [facility] Comment on above: Performed By: #### L 500.4050, L500.4100, L100.0100, L506.1000 #### [facility] [address] [place], [address] Eosinophils/100 WBC (Bld) 3.1 % Normal 0-5 [facility] Comment on above: Performed By: #### L 500.4050, L500.4100, L100.0100, L506.1000 #### [facility] [address] [place], [address] Erythrocyte distribution width (RBC) [Ratio] 13.4 % Normal 11.6-14.6 [facility] Comment on above: Performed By: #### L 500.4050, L500.4100, L100.0100, L506.1000 #### [facility] [address] [place], [address] Hematocrit (Bld) [Volume fraction] 49.1 % Normal 40-54 [facility] Comment on above: Performed By: #### L 500.4050, L500.4100, L100.0100, L506.1000 #### [facility] [address] [place], [address] Hemoglobin (Bld) [Mass/Vol] 15.3 g/dL Normal 13.0-16.5 [facility] Comment on above: Performed By: #### L 500.4050, L500.4100, L100.0100, L506.1000 #### [facility] [address] [place], [address] IG% 0.300 Normal 0.0-0.9 [facility] Comment on above: Result Comment: IG% - Immature Granulocytes (promyelocytes, myelocytes and metamyelocytes) > 1% indicates that a LEFT SHIFT is Present. Performed By: #### L 500.4050, L500.4100, L100.0100, L506.1000 #### [facility] [address] [place], [address] Lymphocytes/100 WBC (Bld) 19.1 % Normal 19-41 [facility] Comment on above: Performed By: #### L 500.4050, L500.4100, L100.0100, L506.1000 #### [facility] [address] [place], [address] MCH (RBC) [Entitic mass] 30.3 pg Normal 27.0-32.0 [facility] Comment on above: Performed By: #### L 500.4050, L500.4100, L100.0100, L506.1000 #### [facility] [address] [place], [address] MCHC (RBC) [Mass/Vol] 31.2 g/dL Low 32-36 [facility] Comment on above: Performed By: #### L 500.4050, L500.4100, L100.0100, L506.1000 #### [facility] [address] [place], [address] MCV (RBC) [Entitic vol] 97.2 fL High 80-[address] [facility] Comment on above: Performed By: #### L 500.4050, L500.4100, L100.0100, L506.1000 #### [facility] [address] [place], [address] Monocytes/100 WBC (Bld) 11.0 % High 0-[address] [facility] Comment on above: Performed By: #### L 500.4050, L500.4100, L100.0100, L506.1000 #### [facility] [address] [place], [address] Neutrophils/100 WBC (Bld) 65.4 % Normal 47-70 [facility] Comment on above: Performed By: #### L 500.4050, L500.4100, L100.0100, L506.1000 #### [facility] [address] [place], [address] Nucleated RBC (Bld) [#/Vol] 0 10*3/uL Normal 0-5 [facility] Comment on above: Performed By: #### L 500.4050, L500.4100, L100.0100, L506.1000 #### [facility] [address] [place], [address] Platelet mean volume (Bld) [Entitic vol] 10.4 fL Normal 6.2-12.0 [facility] Comment on above: Performed By: #### L 500.4050, L500.4100, L100.0100, L506.1000 #### [facility] [address] [place], [address] Platelets (Bld) [#/Vol] 296 10*3/uL Normal 150-450 [facility] Comment on above: Performed By: #### L 500.4050, L500.4100, L100.0100, L506.1000 #### [facility] [address] [place], [address] RBC (Bld) [#/Vol] 5.05 10*6/uL Normal 4.6-6.2 [facility] Comment on above: Performed By: #### L 500.4050, L500.4100, L100.0100, L506.1000 #### [facility] [address] [place], [address] RDW SD 48.2 fl High 35.1-43.9 [facility] Comment on above: Performed By: #### L 500.4050, L500.4100, L100.0100, L506.1000 #### [facility] [address] [place], [address] WBC (Bld) [#/Vol] 7.2 10*3/uL Normal 4.4-11.0 [facility] Comment on above: Performed By: #### L 500.4050, L500.4100, L100.0100, L506.1000 #### [facility] [address] [place], [address] Comprehensive Metabolic Prof ilon 06-07-2024 Albumin [Mass/Vol] 3.1 g/dL Low 3.2-5.0 [facility] Comment on above: Performed By: #### L 500.4050, L500.4100, L100.0100, L506.1000 #### [facility] [address] [place], [address] Albumin/Globulin [Mass ratio] 0.8 {ratio} Low 0.9-2.4 [facility] Comment on above: Performed By: #### L 500.4050, L500.4100, L100.0100, L506.1000 #### [facility] [address] [place], [address] ALK P 67 U/L Normal 45-117 [facility] Comment on above: Performed By: #### L 500.4050, L500.4100, L100.0100, L506.1000 #### [facility] [address] [place], [address] ALT [Catalytic activity/Vol] 20 U/L Normal 16-61 [facility] Comment on above: Performed By: #### L 500.4050, L500.4100, L100.0100, L506.1000 #### [facility] [address] [place], [address] AST [Catalytic activity/Vol] 12 U/L Low 15-37 [facility] Comment on above: Performed By: #### L 500.4050, L500.4100, L100.0100, L506.1000 #### [facility] [address] [place], [address] Bilirubin [Mass/Vol] 0.70 mg/dL Normal 0.20-1.00 [facility] Comment on above: Result Comment: For patients on eltrombopag therapy, use of Dimension [place] TBIL is not recommended. Performed By: #### L 500.4050, L500.4100, L100.0100, L506.1000 #### [facility] [address] [place], [address] BUN/CRE 16.3 RATIO Normal 10-20 [facility] Comment on above: Performed By: #### L 500.4050, L500.4100, L100.0100, L506.1000 #### [facility] [address] [place], [address] CA,Total 9.0 mg/dL Normal 8.5-10.1 [facility] Comment on above: Performed By: #### L 500.4050, L500.4100, L100.0100, L506.1000 #### [facility] [address] [place], [address] Chloride [Moles/Vol] 106 mmol/L Normal 98-107 [facility] Comment on above: Performed By: #### L 500.4050, L500.4100, L100.0100, L506.1000 #### [facility] [address] [place], [address] CO2 [Moles/Vol] 28.0 mmol/L Normal 21.0-32.0 [facility] Comment on above: Performed By: #### L 500.4050, L500.4100, L100.0100, L506.1000 #### [facility] [address] [place], [address] Creatinine [Mass/Vol] 1.29 mg/dL Normal 0.70-1.30 [facility] Comment on above: Result Comment: The validity of the calculated GFR GFRAA in patients over 70 years has not been determined. Clinical correlation is essential. Performed By: #### L 500.4050, L500.4100, L100.0100, L506.1000 #### [facility] [address] [place], [address] EST GFR - AA 68 mL/min Normal >60 [facility] Comment on above: Result Comment: Afri can Cymraes GFR Calc Performed By: #### L 500.4050, L500.4100, L100.0100, L506.1000 #### [facility] [address] [place], [address] GAP 5 Normal 5-15 [facility] Comment on above: Performed By: #### L 500.4050, L500.4100, L100.0100, L506.1000 #### [facility] [address] [place], [address] GFR/1.73 sq M.predicted among non-blacks MDRD (S/P/Bld) [Vol rate/Area] 56 mL/min/{1.73_m2} Low >60 [facility] Comment on above: Result Comment: Non- GFR Calc Performed By: #### L 500.4050, L500.4100, L100.0100, L506.1000 #### [facility] [address] [place], [address] Globulin (S) [Mass/Vol] 4.0 g/dL Normal 2.2-4.2 [facility] Comment on above: Performed By: #### L 500.4050, L500.4100, L100.0100, L506.1000 #### [facility] [address] [place], [address] Glucose [Mass/Vol] 104 mg/dL Normal 74-106 [facility] Comment on above: Result Comment: Fast ing Glucose result from 100 to 125 mg/dL suggests IMPAIRED HOMEOSTASIS per A.D.A. criteria. Performed By: #### L 500.4050, L500.4100, L100.0100, L506.1000 #### [facility] [address] [place], [address] Potassium [Moles/Vol] 4.5 mmol/L Normal 3.5-5.1 [facility] Comment on above: Performed By: #### L 500.4050, L500.4100, L100.0100, L506.1000 #### [facility] [address] [place], [address] Sodium [Moles/Vol] 139 mmol/L Normal 136-145 [facility] Comment on above: Performed By: #### L 500.4050, L500.4100, L100.0100, L506.1000 #### [facility] [address] [place], [address] T PROT 7.1 g/dL Normal 6.4-8.2 [facility] Comment on above: Performed By: #### L 500.4050, L500.4100, L100.0100, L506.1000 #### [facility] [address] [place], [address] Urea nitrogen [Mass/Vol] 21 mg/dL High 7-18 [facility] Comment on above: Performed By: #### L 500.4050, L500.4100, L100.0100, L506.1000 #### [facility] [address] [place], [address] Lipid Profileon 06-07-2024 Cholesterol [Mass/Vol] 127 mg/dL Normal 200 [facility] Comment on above: Result Comment: <200 mg/dL Desirable 200-240 mg/dL Borderline >240 mg/dL High Risk Performed By: #### L 500.4050, L500.4100, L100.0100, L506.1000 #### [facility] [address] [place], [address] Cholesterol in HDL [Mass/Vol] 47 mg/dL Normal [facility] Comment on above: Result Comment: The drugs N-Acetylcysteine and Metamizole may falsely depress this assay. Reference Range HDL <40 mg/dL Low HDL Cholesterol HDL >or= 60 mg/dL High HDL Cholesterol Performed By: #### L 500.4050, L500.4100, L100.0100, L506.1000 #### [facility] [address] [place], [address] Cholesterol in LDL [Mass/Vol] 63 mg/dL Normal 0-130 [facility] Comment on above: Performed By: #### L 500.4050, L500.4100, L100.0100, L506.1000 #### [facility] [address] [place], [address] Cholesterol in VLDL [Mass/Vol] 17 mg/dL Normal 5-40 [facility] Comment on above: Performed By: #### L 500.4050, L500.4100, L100.0100, L506.1000 #### [facility] [address] [place], [address] Triglyceride [Mass/Vol] 85 mg/dL Normal [facility] Comment on above: Result Comment: The drugs N-Acetylcysteine and Metamizole may falsely depress this assay. Serum Triglycerides Reference Interval Normal <150 mg/dL Borderline high 150 - 199 mg/dL High 200 - 499 mg/dL Very High > or = 500 mg/dL Performed By: #### L 500.4050, L500.4100, L100.0100, L506.1000 #### [facility] [address] [place], [address] Vitamin D,25 Hydroxyon 06-07 Vitamin D 25-OH 76.2 ng/mL Normal [facility] Comment on above: Result Comment: Deloris min D 25(OH) Status Range Deficiency <20 ng/mL (50nmol/L) Insufficiency 20 - 30 ng/mL (50 - 75 nmol/L) Sufficiency 30 - 100 ng/mL (75 - 250 nmol/L) Toxicity >100 ng/mL (>250 nmol/L) Performed By: #### L 500.4050, L500.4100, L100.0100, L506.1000 #### [facility] [address] [place], [address] Cardiology Visit Reporton Cardiology Visit Report [facility] [address] [place], [place] [address] OFFICE VISIT Date of Service: 04/19/24 MR#: [id number] Acct: [id number] Name: FRANCO REYES Rep #: [id number] : 1935 Provider: TRACIE hodgson Age/Sex: 88/M [place] [facility] [place] Status: Signed [facility] History of Present Illness Details: FRANCO REYES, is a 88 M who presents to the office today for a cardiovascular follow-up. He has a history of coronary artery disease. He underwent coronary artery bypass surgery x3 in the . He also has a history of hypertension and hyperlipidemia. He also has a history of an abdominal aortic aneurysm documented by CT of 3.9 cm in 2016. He denies chest, arm, jaw, or neck discomfort. He acknowledges shortness with activity since COVID exposure in February 2024. He denies symptoms of shortness of breath at rest, orthopnea, PND, sudden weight gain, or bilateral lower extremity edema. He denies snoring. He denies chronic cough. He denies palpitations, lightheadedness, near syncope, or syncopal episodes. He states dizziness associated with Meniere's disease. He denies claudication issues. He denies fever or chills. He denies blood in urine, blood in stool, or epistaxis. He denies myalgia. He denies unexplainable fatigue. His exercise tolerance is stable. He states his blood pressure at home is typically systolic 120s. Intake Vital Signs 04/24/23 13:19 03/16/24 17:59 04/19/24 10:20 Height 5 ft 5 in 5 ft 5 in 5 ft 5 in Weight: 204 lb BMI 33.9 BP 148/71 H Blood Pressure Location Lt brachial Position Sitting Respiration 18 Pulse 66 Pulse Source NIBP Pulse Oximetry (%) 94 Oxygen Delivery Method room air Comment Wears O2 NC at home Intake Visit Reasons: 1 y fu Bsw Required: No Is patient in pain?: No Allergies No Known Allergies Allergy (Verified 04/19/24 10:27) Medications ???Medication ???Instructions ???Recorded ???Confirmed ???Type aspirin 81 mg tablet,delayed 81 mg PO DAILY@0800 10/23/15 04/19/24 History release omega 0-flu-toz-fish oil 60 mg-90 1 cap PO DAILY 06/05/20 04/19/24 History mg-500 mg capsule lisinopril 20 mg tablet 20 mg PO DAILY #90 tabs 02/10/24 04/19/24 Rx metoprolol succinate 25 mg 25 mg PO BID #180 tabs 02/10/24 04/19/24 Rx tablet,extended release 24 hr simvastatin 20 mg tablet 20 mg PO DAILY #90 tabs 02/10/24 04/19/24 Rx albuterol sulfate 90 mcg/actuation 1 - 2 puff inhalation Q4H PRN PRN 03/16/24 04/19/24 Rx aerosol inhaler (Ventolin HFA) Wheezing #1 ea cholecalciferol (vitamin D3) 250 250 mcg PO QDAY 04/19/24 04/19/24 History mcg (10,000 unit) tablet glucosamine HCl PO 04/19/24 04/19/24 History turmeric root extract 500 mg tablet 500 mg PO BID 04/19/24 04/19/24 History Ejection fraction %: 60 Have you fallen in the past year?: Yes (X 1 fall walking down a ramp) PFSH Medical History (Reviewed 04/19/24 @ 10:49 by Dillon Frances INSIDE SALES SPECIALIST, INSIDE SALES SPECIALIST-C) Essential (primary) hypertension Hyperlipidemia Nonrheumatic tricuspid (valve) insufficiency Atherosclerotic heart disease of [place] coronary artery without angina pectoris Emphysema lung Carotid bruit Obesity Abdominal aortic aneurysm (AAA) Impacted cerumen, right ear Knee pain Hayfever Encounter for long-term current use of high risk medication Amnesia (retrograde) Surgical History (Reviewed 04/19/24 @ 10:49 by Dillon Frances INSIDE SALES SPECIALIST, INSIDE SALES SPECIALIST-C) Hx of cataract surgery H/O hernia repair History of hip replacement H/O coronary artery bypass surgery (1989) Family History (Reviewed 04/19/24 @ 10:49 by Dillon Frances INSIDE SALES SPECIALIST, INSIDE SALES SPECIALIST-C) Mother CAD (coronary artery disease) Sister Asthma Other Atherosclerosis Social History Smoking Status: Former smoker how long ago did patient quit smokin alcohol intake: never substance use type: does not use caffeine: Yes Type: coffee Number of servings: 1 what type of physical activity do you participate in: none seatbelt use: always do you feel safe at home: Yes ROS Const Const: Negative for fatigue or weakness Eyes Eyes: Negative for change in vision ENT ENT: Positive for balance problems (Has been using a cane as a precaution since fall.); Negative for dizziness or Nosebleed/epistaxis Cardio Chest Pain: No Palpitations: No Edema: None Muscle aches with walking: None Resp Respiratory: Positive for SOB with activity (Since covid in February 2024); Negative for SOB at rest, SOB orthopnea SOB lying down, Cough or paroxysmal nocturnal dyspnea GI GI: Negative nausea, heartburn or black,tarry stools : Negative for hematuria Musc Musc: Positive for balance problems (Has been using a cane as a precaution since fall.); Negative for muscle aches/ myalgia, muscle we (more content not included)... [facility] ([facility] ) FRANCO REYES ([id number]) 1935 M Date Time Provider Department 03/15/24 7:30 PM LAURIE APARICIO [facility] During your visit today, we recorded the following information about you: Temperature Pulse Respiration Weight 102.6 degrees 84/minute 24/minute 96.2 kg Laurie Aparicio BRO 03/15/2024 7:56 PM Signed Patient presents today stating that suddenly around 4 PM today he felt chilled and developed wheezing. He states that all of a sudden he just started not feeling well. On presentation here his initial pulse ox was 88% and patient appeared to have moderate work of breathing. Patient does have a known history of COPD. His temperature was 102.6. After discussion with patient I informed him that I felt that he should be evaluated at a facility with a higher level of care. I explained to him that with his low oxygen saturation combined with his current fever there was a high likelihood of pneumonia and possible need for admission to the hospital. I offered transportation to [facility] which family declines and they will self transport. Patient was able to ambulate back to his car. Allergies As of Date: 03/15/2024 (No Active Allergies) Date Reviewed: 03/15/2024 Reviewed by: Maryann Banks MA - Fully Assessed Reason for Visit: Wheezing [181] Cmt: chills x today Primary Visit Diagnosis:SOB (shortness of breath) [R06.02] Prescriptions as of 03/15/2024 - metoprolol tartrate, short acting, (LOPRESSOR) 50 mg tablet Take 25 mg by mouth twice daily. PT IS TAKING ONLY ONE 1/2 TAB DAILY - lisinopril 5 mg tablet Take 1 tablet by mouth once daily. - citalopram hydrobromide (CELEXA) 10 mg tablet Take 1 tablet by mouth once daily. - simvastatin (ZOCOR) 20 mg tablet Take 20 mg by mouth daily at bedtime. - niacin/inositol niacinate(NIACIN FLUSH FREE 400 MG-100 MG CAP) Take one(1) tablet daily. - OMEGA-3 FATTY ACIDS 1,000 MG CAP Take one(1) tablet daily. - CHOLECALCIFEROL (VITAMIN D3) 1,000 UNIT TAB Take one(1) tablet daily. - aspirin(ECOTRIN LOW STRENGTH 81 MG TAB) Take one(1) tablet daily. Problem List As Of Date 03/15/2024 Noted Resolved HERNIA INGUINAL,BILATERAL [K40.20] 05/19/2006 HERNIA UMBILICAL [K42.9] 05/19/2006 Hyperlipidemia, mixed [E78.2] 11/12/2011 AAA (abdominal aortic aneurysm) without rupture*11/12/2021 Centrilobular emphysema (HCC) [J43.2] 11/12/2021 Essential hypertension [I10] 11/12/2021 Thoracic aortic aneurysm without rupture [I71.2*05/20/2022 Encounter Status:Closed by LAURIE APARICIO on 03/15/24 Normal [facility] Absolute lymphocyte countOrd ered By: Lukas Louise on 09-08-2023 Lymphocytes Auto (Unsp spec) [#/Vol] 0.82 10*3/uL 0.83-4.51 [facility] Automated lymphocyte count a s percentage of total leukocytesOrdered By: Lukas Louise on 09-08-2023 Lymphocytes/100 WBC Auto (Unsp spec) 13.2 % 19-41 [facility] Basophil percentageOrdered B y: Lukas Louise on 09-08-2023 Basophil percentage 2.5 mg/dL 2.5-4.9 [facility] Basophils/100 WBC (Bld) 0.2 % 0-[address] [facility] Chloride [Moles/Vol] 112 mmol/L 98-107 [facility] Eosinophils/100 WBC (Bld) 0.0 % 0-5 [facility] Glucose [Mass/Vol] 146 mg/dL 74-106 [facility] Comment on above: Fasting Glucose resu lt greater than or equal to 126 mg/dL suggests DIABETES MELLITUS per A.D.A. criteria. Hemoglobin (Bld) [Mass/Vol] 14.2 g/dL 13.0-16.5 [facility] Monocytes/100 WBC (Bld) 3.2 % 0-[address] [facility] Neutrophils (Bld) [#/Vol] 5.2 10*3/uL 2.0-7.7 [facility] Neutrophils/100 WBC (Bld) 83.2 % 47-70 [facility] Potassium [Moles/Vol] 5.0 mmol/L 3.5-5.1 [facility] Sodium [Moles/Vol] 141 mmol/L 136-145 [facility] WBC (Bld) [#/Vol] 6.2 10*3/uL 4.4-11.0 [facility] Determination of erythrocyte mean corpuscular volume (MCV)Ordered By: Lukas Louise on 09-08-2023 MCV (RBC) [Entitic vol] 96.6 fL 80-[address] [facility] Erythrocyte distribution wid th ratioOrdered By: Lukas Louise on 09-08-2023 Erythrocyte distribution width (RBC) [Ratio] 14.1 % 11.6-14.6 [facility] Erythrocyte distribution wid th standard deviationOrdered By: Lukas Louise on 09-08-2023 Erythrocyte distribution width (RBC) [Entitic vol] 50.3 fL 35.1-43.9 [facility] Hematocrit Auto (Bld) [Volum e fraction]Ordered By: Lukas Louise on 09-08-2023 Hematocrit (Bld) [Volume fraction] 45.9 % 40-54 [facility] Immature granulocytes/100 WB C Auto (Bld)Ordered By: Lukas Louise on 09-08-2023 Immature granulocytes/100 WBC (Bld) 0.200 % 0.0-0.9 [facility] Comment on above: IG% - Immature Granu locytes (promyelocytes, myelocytes and metamyelocytes) > 1% indicates that a LEFT SHIFT is Present. Laboratory - Chemistry and C hemistry - challengeOrdered By: Lukas Louise on 09-08-2023 CO2 [Moles/Vol] 24.0 mmol/L 21.0-32.0 [facility] Magnesium [Mass/Vol] 2.3 mg/dL 1.6-2.6 [facility] Urea nitrogen/Creatinine [Mass ratio] 24.1 mg/mg 10-20 [facility] Laboratory - Hematology and Cell countsOrdered By: Lukas Louise on 09-08-2023 MCH (RBC) [Entitic mass] 29.9 pg 27.0-32.0 [facility] MCHC (RBC) [Mass/Vol] 30.9 g/dL 32-36 [facility] Nucleated RBC/100 WBC (Bld) [Ratio] 0 % 0-5 [facility] Platelet mean volume (Bld) [Entitic vol] 10.6 fL 6.2-12.0 [facility] Platelets (Bld) [#/Vol] 209 10*3/uL 150-450 [facility] No Panel InformationOrdered By: Lukas Louise on 09-08-2023 Estimated Creatinine Clearance Calc 49.74 ml/min [facility] Estimated GFR (MDRD) Amer 83 mL/min >60 [facility] Comment on above: GFR Calc Estimated GFR (MDRD) Non-Af Amer 69 mL/min >60 [facility] Comment on above: Non- GFR Calc RBC Auto (Bld) [#/Vol]Ordere d By: Lukas Louise on 09-08-2023 RBC (Bld) [#/Vol] 4.75 10*6/uL 4.6-6.2 [facility] Serum or plasma calcium ana paula urement (mass/volume)Ordered By: Lukas Louise on 09-08-2023 Calcium [Mass/Vol] 8.3 mg/dL 8.5-10.1 [facility] Serum or plasma creatinine m easurement (mass/volume)Ordered By: Lukas Louise on 09-08-2023 Creatinine [Mass/Vol] 1.08 mg/dL 0.70-1.30 [facility] Comment on above: The validity of the calculated GFR & GFRAA in patients over 70 years has not been determined. Clinical correlation is essential. Serum or plasma urea nitroge n measurement (mass/volume)Ordered By: Lukas Louise on 09-08-2023 Urea nitrogen [Mass/Vol] 26 mg/dL 7-18 [facility] Thin prep Papanicolaou smear with manual screeningOrdered By: Lukas Louise on 09-08-2023 Thin prep Papanicolaou smear with manual screening 5 5-15 [facility] Blood manual differential co mment interpretation (narrative result)Ordered By: Jayson Carter on 09-07-2023 Manual differential comment Mono (Bld) [Interp] SCANNED [facility] CNOVon 09-07-2023 CNOV Office Visit ([facility] ) FRANCO REYES ([id number]) 1935 M Date Time Provider Department 09/07/23 9:15 AM RAUL QUINTERO [facility] During your visit today, we recorded the following information about you: Temperature Pulse Respiration Blood pressure 100.2 degrees 73/minute 20/minute 120/64 Weight 91.6 kg Raul Quintero, PATI 09/07/2023 9:21 AM Signed Presents with a chief complaint of cough, shortness of breath, abdominal pain and fever over the past 2 days. He does have a history of COPD. Patient found to be hypoxic here at 91% and febrile. We do not have x-ray services or further workup here at [facility] so recommended he be evaluated in the emergency department. His daughter will take him to [facility] to be fully evaluated. Referring Provider: SELF [200] Allergies As of Date: 09/07/2023 (No Active Allergies) Date Reviewed: 09/07/2023 Reviewed by: Jewels Mei MA - Fully Assessed Reason for Visit: Fever [47] Cmt: Chills, runny nose, cough, stomach hurts from coughing x 2 days Primary Visit Diagnosis:Hypoxia [R09.02] Other Visit Diagnosis:Fever, unspecified fever cause [R50.9] Prescriptions as of 09/07/2023 - mupirocin (BACTROBAN) 2 % cream Apply 1 application to affected area three times a day for 10 days. Location: brow of face - doxycycline monohydrate 100 mg tablet Take 1 tablet by mouth two times a day for 7 days. - metoprolol tartrate, short acting, (LOPRESSOR) 50 mg tablet Take 25 mg by mouth twice daily. PT IS TAKING ONLY ONE 1/2 TAB DAILY - lisinopril 5 mg tablet Take 1 tablet by mouth once daily. - citalopram hydrobromide (CELEXA) 10 mg tablet Take 1 tablet by mouth once daily. - simvastatin (ZOCOR) 20 mg tablet Take 20 mg by mouth daily at bedtime. - niacin/inositol niacinate(NIACIN FLUSH FREE 400 MG-100 MG CAP) Take one(1) tablet daily. - OMEGA-3 FATTY ACIDS 1,000 MG CAP Take one(1) tablet daily. - CHOLECALCIFEROL (VITAMIN D3) 1,000 UNIT TAB Take one(1) tablet daily. - aspirin(ECOTRIN LOW STRENGTH 81 MG TAB) Take one(1) tablet daily. Problem List As Of Date 09/07/2023 Noted Resolved HERNIA INGUINAL,BILATERAL [K40.20] 05/19/2006 HERNIA UMBILICAL [K42.9] 05/19/2006 Hyperlipidemia, mixed [E78.2] 11/12/2011 AAA (abdominal aortic aneurysm) without rupture*11/12/2021 Centrilobular emphysema (HCC) [J43.2] 11/12/2021 Essential hypertension [I10] 11/12/2021 Thoracic aortic aneurysm without rupture [I71.2*05/20/2022 Encounter Status:Closed by RAUL QUINTERO on 09/07/23 Normal [facility] - Microbiology an d Antimicrobial susceptibilityOrdered By: Jayson Carter on 09-07-2023 SARS-CoV-2 (COVID-19) RNA SOBIA+probe Ql (Unsp spec) Influenzae A [facility] Absolute lymphocyte countOrd ered By: Praveena Dumont on 06-02-2023 Lymphocytes Auto (Unsp spec) [#/Vol] 1.48 10*3/uL 0.83-4.51 [facility] Basophil percentageOrdered B y: Praveena Dumont on 06-02-2023 Basophils/100 WBC (Bld) 1.1 % 0-[address] [facility] Bilirubin [Mass/Vol] 0.70 mg/dL 0.20-1.00 [facility] Comment on above: For patients on eltr ombopag therapy, use of Dimension [place] TBIL is not recommended. Chloride [Moles/Vol] 108 mmol/L 98-107 [facility] Cholesterol [Mass/Vol] 108 mg/dL <200 [facility] Comment on above: <200 mg/dL Desirable 200-240 mg/dL Borderline >240 mg/dL High Risk Eosinophils/100 WBC (Bld) 2.4 % 0-5 [facility] Glucose [Mass/Vol] 96 mg/dL 74-106 [facility] Neutrophils (Bld) [#/Vol] 5.7 10*3/uL 2.0-7.7 [facility] Neutrophils/100 WBC (Bld) 69.0 % 47-70 [facility] Potassium [Moles/Vol] 4.9 mmol/L 3.5-5.1 [facility] Protein [Mass/Vol] 7.4 g/dL 6.4-8.2 [facility] Sodium [Moles/Vol] 140 mmol/L 136-145 [facility] Triglyceride [Mass/Vol] 118 mg/dL <[address] [facility] Comment on above: The drugs N-Acetylcy steine and Metamizole may falsely depress this assay.Serum Triglycerides Reference Interval Normal <150 mg/dL Borderline high 150 - 199 mg/dL High 200 - 499 mg/dL Very High > or = 500 mg/dL WBC (Bld) [#/Vol] 8.3 10*3/uL 4.4-11.0 [facility] Blood erythrocytes count (nu mber/volume)Ordered By: Praveena Dumont on 06-02-2023 RBC (Bld) [#/Vol] 5.43 10*6/uL 4.6-6.2 [facility] Blood hemoglobin measurement (mass/volume)Ordered By: Praveena Dumont on 06-02-2023 Hemoglobin (Bld) [Mass/Vol] 16.1 g/dL 13.0-16.5 [facility] Blood lymphocytes/100 leukoc ytesOrdered By: Praveena Dumont on 06-02-2023 Lymphocytes/100 WBC (Bld) 17.9 % 19-41 [facility] Blood monocytes/100 leukocyt esOrdered By: Praveena Dumont on 06-02-2023 Monocytes/100 WBC (Bld) 9.2 % 0-10 [facility] Blood platelet mean volumeOr dered By: Praveena Dumont on 06-02-2023 Platelet mean volume (Bld) [Entitic vol] 10.3 fL 6.2-12.0 [facility] Determination of erythrocyte mean corpuscular volume (MCV)Ordered By: Praveena Dumont on 06-02-2023 MCV (RBC) [Entitic vol] 96.3 fL 80-[address] [facility] Hematocrit Auto (Bld) [Volum e fraction]Ordered By: Praveena Dumont on 06-02-2023 Hematocrit (Bld) [Volume fraction] 52.3 % 40-54 [facility] Laboratory - Chemistry and C hemistry - challengeOrdered By: Praveena Dumont on 06-02-2023 ALP [Catalytic activity/Vol] 62 U/L 45-117 [facility] ALT [Catalytic activity/Vol] 20 U/L 16-61 [facility] CO2 [Moles/Vol] 29.0 mmol/L 21.0-32.0 [facility] Free T4 [Mass/Vol] 1.18 ng/dL 0.76-1.46 [facility] Globulin (S) [Mass/Vol] 4.1 g/dL 2.2-4.[address] [facility] Urea nitrogen/Creatinine [Mass ratio] 14.2 mg/mg 10-20 [facility] - Hematology and Cell countsOrdered By: Praveena Dumont on 06-02-2023 Erythrocyte distribution width (RBC) [Entitic vol] 47.6 fL 35.1-43.9 [facility] Erythrocyte distribution width (RBC) [Ratio] 13.4 % 11.6-14.6 [facility] Immature granulocytes/100 WBC (Bld) 0.400 % 0.0-0.9 [facility] Comment on above: IG% - Immature Granu locytes (promyelocytes, myelocytes and metamyelocytes) > 1% indicates that a LEFT SHIFT is Present. MCH (RBC) [Entitic mass] 29.7 pg 27.0-32.0 [facility] Nucleated RBC/100 WBC (Bld) [Ratio] 0 % 0-5 [facility] MCHC Auto (RBC) [Mass/Vol]Or dered By: Praveena Dumont on 06-02-2023 MCHC (RBC) [Mass/Vol] 30.8 g/dL 32-36 [facility] No Panel InformationOrdered By: Praveena Dumont on 06-02-2023 Estimated GFR (MDRD) Amer 61 mL/min >60 [facility] Comment on above: GFR Calc Estimated GFR (MDRD) Non-Af Amer 51 mL/min >60 [facility] Comment on above: Non- GFR Calc Thyroid Stimulating Hormone (TSH) 0.17 uIU/mL 0.358-3.74 [facility] Platelets bldOrdered By: Lacey Dumont on 06-02-2023 Platelets (Bld) [#/Vol] 301 10*3/uL 150-450 [facility] Serum or plasma albumin ana paula urement (mass/volume)Ordered By: Praveena Dumont on 06-02-2023 Albumin [Mass/Vol] 3.3 g/dL 3.2-5.0 [facility] Serum or plasma albumin/glob ulin mass ratioOrdered By: Praveena Dumont on 06-02-2023 Albumin/Globulin [Mass ratio] 0.8 {ratio} 0.9-2.4 [facility] Serum or plasma calcium ana paula urement (mass/volume)Ordered By: Prvaeena Dumont on 06-02-2023 Calcium [Mass/Vol] 9.0 mg/dL 8.5-10.1 [facility] Serum or plasma cholesterol in HDL measurement (mass/volume)Ordered By: Praveena Dumont on 06-02-2023 Cholesterol in HDL [Mass/Vol] 35 mg/dL >40 [facility] Comment on above: The drugs N-Acetylcy steine and Metamizole may falsely depress this assay. Reference Range HDL <40 mg/dL Low HDL Cholesterol HDL >or= 60 mg/dL High HDL Cholesterol Serum or plasma cholesterol in VLDL measurement (mass/volume)Ordered By: Praveena Dumont on 06-02-2023 Cholesterol in VLDL [Mass/Vol] 24 mg/dL 5-40 [facility] Serum or plasma creatinine m easurement (mass/volume)Ordered By: Praveena Dumont on 06-02-2023 Creatinine [Mass/Vol] 1.41 mg/dL 0.70-1.30 [facility] Comment on above: The validity of the calculated GFR & GFRAA in patients over 70 years has not been determined. Clinical correlation is essential. Serum or plasma low density lipoprotein (LDL) cholesterol measurement (mass/volume)Ordered By: Praveena Dumont on 06-02-2023 Cholesterol in LDL [Mass/Vol] 49 mg/dL 0-130 [facility] Serum or plasma urea nitroge n measurement (mass/volume)Ordered By: Praveena Dumont on 06-02-2023 Urea nitrogen [Mass/Vol] 20 mg/dL 7-18 [facility] Thin prep Papanicolaou smear with manual screeningOrdered By: Praveena Dumont on 06-02-2023 Thin prep Papanicolaou smear with manual screening 16 U/L 15-37 [facility] Thin prep Papanicolaou smear with manual screening 3 5-15 [facility] CREATININE, BLOOD (POC)on Creatinine [Mass/Vol] 1.10 mg/dL 0.7 - 1.4 mg/dL [facility] GFR/1.73 sq M.predicted among non-blacks MDRD (S/P/Bld) [Vol rate/Area] mL/min/{1.73_m2} [facility] No Panel Informationon 11-12 [facility] Lab Report: Lipid Profileon 03-13-2017 Cholesterol 118 mg/dL Invalid Interpretation Code 200 [facility] Work Phone: HDL Cholesterol 40 mg/dL Invalid Interpretation Code [facility] Work Phone: LDL Cholesterol 50 mg/dL Invalid Interpretation Code 0-130 [facility] Work Phone: Triglyceride 141 mg/dL Invalid Interpretation Code [facility] Work Phone: very low density lipoproteins 28 mg/dL Invalid Interpretation Code 5-40 [facility] Work Phone: Lab Report: Liver Profileon 03-13-2017 Alanine aminotransferase (ALT) 21 U/L Invalid Interpretation Code 12-78 [facility] Work Phone: Albumin 3.3 g/dL Low 3.4-5.0 [employer] Work Phone: Alkaline phosphatase (ALP) 74 U/L Invalid Interpretation Code 45-117 [facility] Work Phone: ALP enzyme act/vol (Bld) 74 U/L 45-117 [facility] Work Phone: Aspartate aminotransferase (AST) 15 U/L Invalid Interpretation Code 15-37 [facility] Work Phone: Bilirubin (direct) 0.16 mg/dL Invalid Interpretation Code 0.00-0.30 [facility] Work Phone: Bilirubin (total) 0.60 mg/dL Invalid Interpretation Code 0.20-1.00 [facility] Work Phone: Globulin 4.1 g/dL High 2.3-3.5 [facility] Work Phone: Globulin mass conc (S) 4.1 g/dL High 2.3-3.5 [facility] Work Phone: Protein 7.4 g/dL Invalid Interpretation Code 6.4-8.2 [facility] Work Phone: Office Visiton 03-13-2017 Documentation of current medications (procedure) Done Invalid Interpretation Code [facility] Work Phone: Fall risk assessment No Invalid Interpretation Code [facility] Work Phone: Protein mass conc Done [facility] Work Phone: Clinical Lists Update: 02-21-2017 Left ventricular Ejection fraction 60 % Invalid Interpretation Code [facility] Work Phone: Office Visiton 08-28-2016 Dietary management education, guidance, and counseling (procedure) yes Invalid Interpretation Code [facility] Work Phone: Documentation of current medications (procedure) Done Invalid Interpretation Code [facility] Work Phone: Protein mass conc Done [facility] Work Phone: Clinical Lists Update: 08-24-2016 Tobacco smoking status NHIS Former smoker [facility] Work Phone: Tobacco use CPHS Former smoker Invalid Interpretation Code [facility] Work Phone: Clinical Lists Update: 06-16-2016 Thyrotropin Qn 0.20 u[iU]/mL Low [facility] Work Phone: Clinical Lists Update: 06-13-2016 Anion gap 9 mmol/L Invalid Interpretation Code [facility] Work Phone: Anion gap molar conc 9 mmol/L [facility] Work Phone: Calcium mass conc 8.7 mg/dL Invalid Interpretation Code [facility] Work Phone: Chloride molar conc 105 mmol/L Invalid Interpretation Code [facility] Work Phone: CO2 27 mmol/L Invalid Interpretation Code [facility] Work Phone: CO2 ppres (BldV) 27 mmol/L [facility] Work Phone: Creatinine mass conc 1.09 mg/dL Invalid Interpretation Code [facility] Work Phone: Glucose 101 mg/dL Invalid Interpretation Code [facility] Work Phone: Glucose mass conc 101 mg/dL [facility] Work Phone: Hematocrit (HCT) 48.1 % Invalid Interpretation Code [facility] Work Phone: Hematocrit Volume Fraction (Bld) 48.1 % [facility] Work Phone: Hemoglobin mass conc (Bld) 16.2 g/dL Invalid Interpretation Code [facility] Work Phone: Magnesium mass conc 2.2 mg/dL Invalid Interpretation Code [facility] Work Phone: Platelets 329 10*3/mm3 Invalid Interpretation Code [facility] Work Phone: Platelets #/vol (Bld) 329 10*3/mm3 [facility] Work Phone: Potassium molar conc 4.3 mmol/L Invalid Interpretation Code [facility] Work Phone: Sodium molar conc 141 mmol/L Invalid Interpretation Code [facility] Work Phone: Urea nitrogen mass conc 19 mg/dL High [facility] Work Phone: Urea nitrogen/Creatinine mass ratio 17.4 mg/mg Invalid Interpretation Code [facility] Work Phone: HgA1C , Office ([phone])Aleyda d By: Lyndsay Schaeffer on 10-10-2015 HbA1c (Bld) [Mass fraction] 5.4 % Normal 4.6 - 7.1 [facility] Work Phone: HgA1C , Office ([phone])Ordere d By: Leihg Lloyd on 06-06-2015 HbA1c (Bld) [Mass fraction] 5.6 % Normal 4.6 - 7.1 [facility] Work Phone: LIPID PANEL ([phone])Ordered B y: Wound Nurse on 05-25-2015 Cholesterol [Mass/Vol] 107 mg/dL Normal 100-199 [facility] Work Phone: Comment on above: Please note refere nce interval change PATIENT WAS FASTINGP ERFORMED BY: YEHUDA KeyVive70 Andrew Michaels Ltdin [place] [id number] Cholesterol in HDL [Mass/Vol] 39 mg/dL Abnormal [facility]; [facility] Work Phone: Comment on above: According to ATP-III Guidelines, HDL-C >59 mg/dL is considered anegative risk factor for CHD. PATIENT WAS FASTINGP ERFORMED BY: YEHUDA LabBreezeworks70 [place] [id number] Cholesterol in LDL [Mass/Vol] 55 mg/dL Normal 0-99 [facility]; [facility] Work Phone: Comment on above: Please note refere nce interval change PATIENT WAS FASTINGP ERFORMED BY: [facility] LabSangon Biotechrp Jibwsj0971 [address] [place] [id number] Cholesterol in LDL/Cholesterol in HDL [Mass ratio] 1.4 {ratio_units} Normal 0.0-3.6 [facility]; [facility] Work Phone: Comment on above: LDL/HDL Ratio Men Wo men 1/2 Avg.Risk 1.0 1.5 Avg.Risk 3.6 3.2 2X Avg.Risk 6.2 5.0 3X Avg.Risk 8.0 6.1 PATIENT WAS FASTINGP ERFORMED BY: Glisten LabRue La LaWtvxrt5555 [place] [id number] Cholesterol in VLDL [Mass/Vol] 13 mg/dL Normal 5-40 [facility]; [facility] Work Phone: Comment on above: PATIENT WAS FASTINGP ERFORMED BY: YEHUDA LabCoapril Ovtnzp3484 [address] [facility] [place] [id number] Triglyceride [Mass/Vol] 66 mg/dL Normal 0-149 [facility]; [facility] Work Phone: Comment on above: Please note refere nce interval change PATIENT WAS FASTINGP ERFORMED BY: YEHUDA [facility] Hozmjq8206 [facility] [id number] METABOLIC PANEL, COMPREHENSI VE ([id number])Ordered By: Wound Nurse on 05-25-2015 Albumin [Mass/Vol] 3.7 g/dL Normal 3.5-4.8 [facility]; [facility] Work Phone: Comment on above: PATIENT WAS FASTINGP ERFORMED BY: YEHUDA LabCo Lighir13[address] [facility] [id number] Information: [id number] Albumin/Globulin [Mass ratio] 1.3 {ratio} Normal 1.1-2.5 [facility]; [facility] Work Phone: Comment on above: PATIENT WAS FASTINGP ERFORMED BY: YEHUDA LabCo Xlwjpc9026 [facility] [id number] Information: [id number] ALP [Catalytic activity/Vol] 61 U/L Normal 39-117 [facility]; [facility] Work Phone: Comment on above: PATIENT WAS FASTINGP ERFORMED BY: [facility] Brtrqv2896 [address] [facility] [place] [id number] Information: [id number] ALT [Catalytic activity/Vol] 14 U/L Normal 0-44 [facility]; [facility] Work Phone: Comment on above: PATIENT WAS FASTINGP ERFORMED BY: CB [facility] Cwfnoi5138 [address] [facility] [id number] Information: [id number] AST [Catalytic activity/Vol] 18 U/L Normal 0-40 [facility]; [facility] Work Phone: Comment on above: PATIENT WAS FASTINGP ERFORMED BY: YEHUDA Sosa6370 [address] [facility] [id number] Information: [id number] Bilirubin [Mass/Vol] 0.7 mg/dL Normal 0.0-1.2 [facility] rehensive Internal Medicine; [facility] Work Phone: Comment on above: PATIENT WAS FASTINGP ERFORMED BY: YEHUDA LabCo Rmqjim9365 [address] [facility] [id number] Information: [id number] Calcium [Mass/Vol] 8.7 mg/dL Normal 8.6-10.2 [facility]; [facility] Work Phone: Comment on above: PATIENT WAS FASTINGP ERFORMED BY: [facility] Eoivaf78[address] [facility] [id number] Information: [id number] Chloride [Moles/Vol] 106 mmol/L Normal 97-108 [facility]; [facility] Work Phone: Comment on above: PATIENT WAS FASTINGP ERFORMED BY: YEHUDA LabCo Boruqd5628 [address] [facility] [id number] Information: [id number] CO2 [Moles/Vol] 20 mmol/L Normal 18-29 [facility]; [facility] Work Phone: Comment on above: PATIENT WAS FASTINGP ERFORMED BY: Lab[facility] Rbzgrd0478 [address] [facility] [place] [id number] Information: [id number] Creatinine [Mass/Vol] 1.05 mg/dL Normal 0.76-1.27 [facility]; [facility] Work Phone: Comment on above: PATIENT WAS FASTINGP ERFORMED BY: [facility] Deqtii9711 [address] [facility] [id number] Information: [id number] GFR/1.73 sq M.predicted among blacks CKD-EPI (S/P/Bld) [Vol rate/Area] 78 mL/min/1.73 Normal [facility]; [facility] Work Phone: Comment on above: PATIENT WAS FASTINGP ERFORMED BY: [facility]CoMarl[facility] Rehabilitation HospitalByttpi4224 [facility] [id number] Information: [id number] GFR/1.73 sq M.predicted among non-blacks CKD-EPI (S/P/Bld) [Vol rate/Area] 68 mL/min/1.73 Normal [facility]; [facility] Work Phone: Comment on above: PATIENT WAS FASTINGP ERFORMED BY: [facility] Funnji69[address] [facility] [id number] Information: [id number] Globulin (S) [Mass/Vol] 2.9 g/dL Normal 1.5-4.5 [facility]; [facility] Work Phone: Comment on above: PATIENT WAS FASTINGP ERFORMED BY: [facility] Vrwqom12[address] [facility] [id number] Information: [id number] Glucose [Mass/Vol] 97 mg/dL Normal 65-99 [facility]; [facility] Work Phone: Comment on above: PATIENT WAS FASTINGP ERFORMED BY: [facility] Shabwn6[address] [facility] [id number] Information: [id number] Potassium [Moles/Vol] 4.8 mmol/L Normal 3.5-5.2 [facility]; [facility] Work Phone: Comment on above: PATIENT WAS FASTINGP ERFORMED BY: [facility] Bimtii033[address] [facility] [id number] Information: [id number] Protein [Mass/Vol] 6.6 g/dL Normal 6.0-8.5 [facility]; [facility] Work Phone: Comment on above: PATIENT WAS FASTINGP ERFORMED BY: YEHUDA Jennings Gkspgc[address] [facility] [id number] Information: [id number] Sodium [Moles/Vol] 141 mmol/L Normal 134-144 [facility]; [facility] Work Phone: Comment on above: PATIENT WAS FASTINGP ERFORMED BY: StephaniJac[place] 2850[address] [facility] [id number] Information: [id number] Urea nitrogen [Mass/Vol] 16 mg/dL Normal 8-27 [facility]; [facility] Work Phone: Comment on above: PATIENT WAS FASTINGP ERFORMED BY: [address] [id number] Information: [id number] Urea nitrogen/Creatinine [Mass ratio] 15 mg/mg Normal 10-22 [facility]; [facility] Work Phone: Comment on above: PATIENT WAS FASTINGP ERFORMED BY: [facility] Cswvqw7970 [facility] [id number] Information: [id number] T3, FREE (TRIDOTHYRONINE) ([phone])Ordered By: Wound Nurse on 05-25-2015 Free T3 [Mass/Vol] 3.3 pg/mL Normal 2.0-4.4 [facility]; [facility] Work Phone: Comment on above: PATIENT WAS FASTINGP ERFORMED BY: [place] [address] [facility] [id number] T4, FREE (THYROXINE) ([id number]) Ordered By: Wound Nurse on 05-25-2015 Free T4 [Mass/Vol] 1.23 ng/dL Normal 0.82-1.77 [facility]; [facility] Work Phone: Comment on above: PATIENT WAS FASTINGP ERFORMED BY: YEHUDA [facility] [facility] [id number] TSH ([id number])Ordered By: Angel perry Delivery Coordinator on 05-25-2015 TSH Qn 0.220 {uIU/mL} Abnormal 0.450-4.500 Angelita arnett [facility]; [facility] Work Phone: Comment on above: PATIENT WAS FASTINGP ERFORMED BY: YEHUDA [facility] Pwxgmm3983 [facility] [id number] FECAL OCCULT- Tubes sent sue e ([id number])on 02-08-2015 Hemoglobin.gastrointest inal Ql (Stl) negetive Normal [facility]; [facility] Work Phone: HgA1C , Office ([phone])Ordere d By: Zenaida Prince on 02-08-2015 HbA1c (Bld) [Mass fraction] 5.5 % Normal 4.6 - 7.1 [facility]; [facility] Work Phone: CBC W/AUTO DIFF WBC ([id number])O rdered By: Wound Nurse on 10-06-2014 Basophils (Bld) [#/Vol] 0.1 10*3/uL Normal 0.0-0.2 [facility]; [facility] Work Phone: Comment on above: PATIENT WAS FASTINGP ERFORMED BY: YEHUDA LabCoapril Rxjlxy30[address] [facility] [id number] Information: [id number] Basophils/100 WBC (Bld) 1 % Normal [facility]; [facility] Work Phone: Comment on above: PATIENT WAS FASTINGP ERFORMED BY: YEHUDA [facility] Ymiqrr1677 [facility] [id number] Information: [id number] Eosinophils (Bld) [#/Vol] 0.3 10*3/uL Normal 0.0-0.4 [facility]; [facility] Work Phone: Comment on above: PATIENT WAS FASTINGP ERFORMED BY: YEHUDA [facility] Ynzweu4317 [facility] [id number] Information: [id number] Eosinophils/100 WBC (Bld) 4 % Normal [facility]; [facility] Work Phone: Comment on above: PATIENT WAS FASTINGP ERFORMED BY: YEHUDA Sosa[address] [facility] [id number] Information: [id number] Erythrocyte distribution width (RBC) [Ratio] 13.8 % Normal 12.3-15.4 [facility]; [facility] Work Phone: Comment on above: PATIENT WAS FASTINGP ERFORMED BY: [address] [id number] Information: [id number] Hematocrit (Bld) [Volume fraction] 47.8 % Normal 37.5-51.0 [facility]; [facility] Work Phone: Comment on above: PATIENT WAS FASTINGP ERFORMED BY: [address] [id number] Information: [id number] Hemoglobin (Bld) [Mass/Vol] 15.6 g/dL Normal 12.6-17.7 [facility]; [facility] Work Phone: Comment on above: PATIENT WAS FASTINGP ERFORMED BY: [facility] [facility] [id number] Information: [id number] Immature granulocytes (Bld) [#/Vol] 0.0 10*3/uL Normal 0.0-0.1 [facility]; [facility] Work Phone: Comment on above: PATIENT WAS FASTINGP ERFORMED BY: [place] [address] [facility] [id number] Information: [id number] Immature granulocytes/100 WBC (Bld) 0 % Normal [facility]; [facility] Work Phone: Comment on above: PATIENT WAS FASTINGP ERFORMED BY: [address] [id number] Information: [id number] Lymphocytes (Bld) [#/Vol] 1.7 10*3/uL Normal 0.7-3.1 [facility]; [facility] Work Phone: Comment on above: PATIENT WAS FASTINGP ERFORMED BY: YEHUDA StephaniJacob [place] 2850270 [facility] [id number] Information: [id number] Lymphocytes/100 WBC (Bld) 21 % Normal [facility]; [facility] Work Phone: Comment on above: PATIENT WAS FASTINGP ERFORMED BY: YEHUDA [facility] Fwcpir4[address] [id number] Information: [id number] MCH (RBC) [Entitic mass] 30.0 pg Normal 26.6-33.0 [facility]; [facility] Work Phone: Comment on above: PATIENT WAS FASTINGP ERFORMED BY: YEHUDA [address]phani[address] [id number] Information: [id number] MCHC (RBC) [Mass/Vol] 32.6 g/dL Normal 31.5-35.7 [facility] prehensive Internal Medicine; [facility] Work Phone: Comment on above: PATIENT WAS FASTINGP ERFORMED BY: YEHUDA Styles[address] [id number] Information: [id number] MCV (RBC) [Entitic vol] 92 fL Normal 79-97 [facility]; [facility] Work Phone: Comment on above: PATIENT WAS FASTINGP ERFORMED BY: [address] [id number] Information: [id number] Monocytes (Bld) [#/Vol] 0.8 10*3/uL Normal 0.1-0.9 [facility]; [facility] Work Phone: Comment on above: PATIENT WAS FASTINGP ERFORMED BY: YEHUDA StylesCo Jsrpxy54[address] [facility] [id number] Information: [id number] Monocytes/100 WBC (Bld) 10 % Normal [facility]; [facility] Work Phone: Comment on above: PATIENT WAS FASTINGP ERFORMED BY: [facility] Qtswoc5804 [facility] [id number] Information: [id number] Neutrophils (Bld) [#/Vol] 5.2 10*3/uL Normal 1.4-7.0 [facility]; [facility] Work Phone: Comment on above: PATIENT WAS FASTINGP ERFORMED BY: YEHUDA Jennings Leheee4[address] [facility] [id number] Information: [id number] Neutrophils/100 WBC (Bld) 64 % Normal [facility]; [facility] Work Phone: Comment on above: PATIENT WAS FASTINGP ERFORMED BY: [facility] Eqtcwg1380 [facility] [id number] Information: [id number] Platelets (Bld) [#/Vol] 318 10*3/uL Normal 150-379 [facility]; [facility] Work Phone: Comment on above: PATIENT WAS FASTINGP ERFORMED BY: [facility] Elhscn7718 [facility] [id number] Information: [id number] RBC (Bld) [#/Vol] 5.20 10*6/uL Normal 4.14-5.80 Compr ensive Internal [facility]; [facility] Work Phone: Comment on above: PATIENT WAS FASTINGP ERFORMED BY: [facility] Vitrss44[address] [facility] [id number] Information: [id number] WBC (Bld) [#/Vol] 8.1 10*3/uL Normal 3.4-10.8 Compre [facility]; [facility] Work Phone: Comment on above: PATIENT WAS FASTINGP ERFORMED BY: YEHUDA Lucie Sosa6370 [address] [place] [id number] Information: [id number] LIPID PANEL ([id number])Ordered B y: Wound Nurse on 10-06-2014 Cholesterol [Mass/Vol] 109 mg/dL Normal 100-199 [facility]; [facility] Work Phone: Comment on above: PATIENT WAS FASTINGP ERFORMED BY: YEHUDA [facility] Dvohwo8969 [address] RoadDublin [place] [id number] Cholesterol in HDL [Mass/Vol] 35 mg/dL Abnormal [facility]; [facility] Work Phone: Comment on above: According to ATP-III Guidelines, HDL-C >59 mg/dL is considered anegative risk factor for CHD. PATIENT WAS FASTINGP ERFORMED BY: YEHUDA LabAlee Sywluj2724 [address] VoicesCritical Access Hospitalin [place] [id number] Cholesterol in LDL [Mass/Vol] 53 mg/dL Normal 0-99 [facility]; [facility] Work Phone: Comment on above: PATIENT WAS FASTINGP ERFORMED BY: YEHUDA LabAlee Nnwpuq5261 [address] Voices[place] [id number] Cholesterol in LDL/Cholesterol in HDL [Mass ratio] 1.5 {ratio_units} Normal 0.0-3.6 [facility]; [facility] Work Phone: Comment on above: LDL/HDL Ratio Men Wo men 1/2 Avg.Risk 1.0 1.5 Avg.Risk 3.6 3.2 2X Avg.Risk 6.2 5.0 3X Avg.Risk 8.0 6.1 PATIENT WAS FASTINGP ERFORMED BY: YEHUDA [facility] Jmvqcx4438 [address] [facility] [place] [id number] Cholesterol in VLDL [Mass/Vol] 21 mg/dL Normal 5-40 [facility]; [facility] Work Phone: Comment on above: PATIENT WAS FASTINGP ERFORMED BY: YEHUDA [facility] Qtfvsl4382 [address] [facility] [place] [id number] Triglyceride [Mass/Vol] 103 mg/dL Normal 0-149 [facility]; [facility] Work Phone: Comment on above: PATIENT WAS FASTINGP ERFORMED BY: YEHUDA Lucie Sosa[address] [facility] [id number] METABOLIC PANEL, COMPREHENSI VE ([id number])Ordered By: Wound Nurse on 10-06-2014 Albumin [Mass/Vol] 3.8 g/dL Normal 3.5-4.8 [facility]; [facility] Work Phone: Comment on above: PATIENT WAS FASTINGP ERFORMED BY: YEHUDA Michaelaapril Vqohqo[address] [facility] [id number] Albumin/Globulin [Mass ratio] 1.4 {ratio} Normal 1.1-2.5 [facility]; [facility] Work Phone: Comment on above: PATIENT WAS FASTINGP ERFORMED BY: YEHUDA Michaela Kpbpkl0[address] [facility] [id number] ALP [Catalytic activity/Vol] 63 U/L Normal 39-117 [facility]; [facility] Work Phone: Comment on above: PATIENT WAS FASTINGP ERFORMED BY: YEHUDA Michaelaapril Agzbgd0537 [facility] [id number] ALT [Catalytic activity/Vol] 13 U/L Normal 0-44 [facility]; [facility] Work Phone: Comment on above: PATIENT WAS FASTINGP ERFORMED BY: YEHUDA Michaela Vxlrrc56[address] [facility] [id number] AST [Catalytic activity/Vol] 16 U/L Normal 0-40 [facility]; [facility] Work Phone: Comment on above: PATIENT WAS FASTINGP ERFORMED BY: YEHUDA Michaelaapril Hknbtb38[address] [facility] [id number] Bilirubin [Mass/Vol] 0.6 mg/dL Normal 0.0-1.2 [facility]; [facility] Work Phone: Comment on above: PATIENT WAS FASTINGP ERFORMED BY: YEHUDA [facility] Psreli8404 [address]oney RoadDublin [place] [id number] Calcium [Mass/Vol] 9.0 mg/dL Normal 8.6-10.2 [facility]; [facility] Work Phone: Comment on above: PATIENT WAS FASTINGP ERFORMED BY: CB [facility] Yegamb4445 [address] RoadDublin [place] [id number] Chloride [Moles/Vol] 103 mmol/L Normal 97-108 Comp rehensive Internal Medicine; [facility] Work Phone: Comment on above: PATIENT WAS FASTINGP ERFORMED BY: CB [facility] Benzkb6761 [address] RoadDublin [place] [id number] CO2 [Moles/Vol] 25 mmol/L Normal 18-29 [facility] Internal Medicine; [facility] Work Phone: Comment on above: PATIENT WAS FASTINGP ERFORMED BY: [facility] Sihprz0342 [address] RoadDublin [place] [id number] Creatinine [Mass/Vol] 0.97 mg/dL Normal 0.76-1.27 [facility]; [facility] Work Phone: Comment on above: PATIENT WAS FASTINGP ERFORMED BY: [facility] Lwvpwf8314 [address] RoadDublin [place] [id number] GFR/1.73 sq M.predicted among blacks CKD-EPI (S/P/Bld) [Vol rate/Area] 86 mL/min/1.73 Normal [facility]; [facility] Work Phone: Comment on above: PATIENT WAS FASTINGP ERFORMED BY: [facility] Tomeyg3269 [address] RoadDublin [place] [id number] GFR/1.73 sq M.predicted among non-blacks CKD-EPI (S/P/Bld) [Vol rate/Area] 74 mL/min/1.73 Normal [facility]; [facility] Work Phone: Comment on above: PATIENT WAS FASTINGP ERFORMED BY: CB [facility] Meopsr6473 [address] RoadDublin [place] [id number] Globulin (S) [Mass/Vol] 2.7 g/dL Normal 1.5-4.5 [facility]; [facility] Work Phone: Comment on above: PATIENT WAS FASTINGP ERFORMED BY: YEHUDA LabAlee Sosa6370 [address] RoadDublin [place] [id number] Glucose [Mass/Vol] 86 mg/dL Normal 65-99 [facility]; [facility] Work Phone: Comment on above: PATIENT WAS FASTINGP ERFORMED BY: YEHUDA [facility] Guiwmk0286 [address] RoadDublin [place] [id number] Potassium [Moles/Vol] 4.6 mmol/L Normal 3.5-5.2 [facility]; [facility] Work Phone: Comment on above: PATIENT WAS FASTINGP ERFORMED BY: YEHUDA [facility] Pwdpjg4322 [address]oney RoadCritical Access Hospitalin [place] [id number] Protein [Mass/Vol] 6.5 g/dL Normal 6.0-8.5 [facility] Internal Medicine; [facility] Work Phone: Comment on above: PATIENT WAS FASTINGP ERFORMED BY: YEHUDA LabCoapril Bpvdtc4712 [address] Roadblin [place] [id number] Sodium [Moles/Vol] 143 mmol/L Normal 134-144 [facility] Internal Medicine; [facility] Work Phone: Comment on above: PATIENT WAS FASTINGP ERFORMED BY: YEHUDA [facility]Centerpo[facility] Zdbyoi[address] [facility]in [place] [id number] Urea nitrogen [Mass/Vol] 19 mg/dL Normal 8-27 [facility]; [facility] Work Phone: Comment on above: PATIENT WAS FASTINGP ERFORMED BY: YHEUDA [facility] Npgvac26[address] RoadDublin [place] [id number] Urea nitrogen/Creatinine [Mass ratio] 20 mg/mg Normal 10-22 [facility]; [facility] Work Phone: Comment on above: PATIENT WAS FASTINGP ERFORMED BY: YEHUDA [facility] Egzvos[address] [facility]in [place] [id number] MICROALBUMINOrdered By: Syst em Delivery Coordinator on 10-06-2014 Albumin DL <= 20 mg/L (U) [Mass/Vol] mg/dL Normal 0.0-17.0 [facility]; [facility] Work Phone: Comment on above: PATIENT WAS FASTINGP ERFORMED BY: YEHUDA [facility] Imwwtv[address] Voicesblin [place] [id number] Albumin/Creatinine (U) [Mass ratio] <3.5 Normal 0.0-30.0 [facility]; [facility] Work Phone: Comment on above: PATIENT WAS FASTINGP ERFORMED BY: YEHUDA LabCoapril Yvfxzw2930 [address] RoadDublin [place] [id number] Creatinine (U) [Mass/Vol] 85.6 mg/dL Normal 22.0-328.0 [facility]; [facility] Work Phone: Comment on above: PATIENT WAS FASTINGP ERFORMED BY: YEHUDA LabAlee Uqjmpl[address] [facility]in [place] [id number] TSH ([id number])Ordered By: Syste m Delivery Coordinator on 10-06-2014 TSH Qn 0.280 {uIU/mL} Abnormal 0.450-4.500 [facility] Internal Medicine; [facility] Work Phone: Comment on above: PATIENT WAS FASTINGP ERFORMED BY: YEHUDA [facility] Rguopa5784 [address]en[address] edelightAtrium Health Harrisburg [id number] HgA1C , Office ([phone])Ordere d By: Zenaida Prince on 04-26-2014 HbA1c (Bld) [Mass fraction] 5.6 % Normal 4.6 - 7.1 [facility]; [facility] Work Phone: LIPID PANEL ([phone])Ordered B y: Wound Nurse on 04-15-2014 Cholesterol [Mass/Vol] 121 mg/dL Normal 100-199 [facility] Internal Medicine; [facility] Work Phone: Comment on above: PATIENT WAS FASTINGP ERFORMED BY: YEHUDA LabCoapril Ruhybs[address] [facility] [id number] Cholesterol in HDL [Mass/Vol] 43 mg/dL Normal [facility]; [facility] Work Phone: Comment on above: According to ATP-III Guidelines, HDL-C >59 mg/dL is considered anegative risk factor for CHD. PATIENT WAS FASTINGP ERFORMED BY: CB [facility] Xihosg8696 [address] RoadDublin [place] [id number] Cholesterol in LDL [Mass/Vol] 62 mg/dL Normal 0-99 [facility]; [facility] Work Phone: Comment on above: PATIENT WAS FASTINGP ERFORMED BY: CB [facility] Jytynd0938 [address] RoadDublin [place] [id number] Cholesterol in LDL/Cholesterol in HDL [Mass ratio] 1.4 {ratio_units} Normal 0.0-3.6 [facility]; [facility] Work Phone: Comment on above: PATIENT WAS FASTINGP ERFORMED BY: CB [facility] Ogsvrj8763 [address] RoadDublin [place] [id number] Cholesterol in VLDL [Mass/Vol] 16 mg/dL Normal 5-40 [facility]; [facility] Work Phone: Comment on above: PATIENT WAS FASTINGP ERFORMED BY: CB [facility] Ltefes[address] [facility] HospitalDublin [place] [id number] Triglyceride [Mass/Vol] 78 mg/dL Normal 0-149 C omprehensive Internal Medicine; [facility] Work Phone: Comment on above: PATIENT WAS FASTINGP ERFORMED BY: CB [facility] Ivnbvh[address] [facility] HospitalDublin [place] [id number] METABOLIC PANEL, COMPREHENSI VE ([id number])Ordered By: Wound Nurse on 04-15-2014 Albumin [Mass/Vol] 3.9 g/dL Normal 3.5-4.8 [facility] Internal Medicine; [facility] Work Phone: Comment on above: PATIENT WAS FASTINGP ERFORMED BY: CB [facility] Aeeyyg[address] [facility] Hospitalblin [place] [id number] Information: [id number] Albumin/Globulin [Mass ratio] 1.3 {ratio} Normal 1.1-2.5 [facility]; [facility] Work Phone: Comment on above: PATIENT WAS FASTINGP ERFORMED BY: YEHUDA Sosa[address] [facility] [id number] Information: [id number] ALP [Catalytic activity/Vol] 72 U/L Normal 39-117 [facility]; [facility] Work Phone: Comment on above: PATIENT WAS FASTINGP ERFORMED BY: [place] [address] [facility] [id number] Information: [id number] ALT [Catalytic activity/Vol] 15 U/L Normal 0-44 [facility]; [facility] Work Phone: Comment on above: PATIENT WAS FASTINGP ERFORMED BY: [address] [id number] Information: [id number] AST [Catalytic activity/Vol] 17 U/L Normal 0-40 [facility]; [facility] Work Phone: Comment on above: PATIENT WAS FASTINGP ERFORMED BY: [facility]aniCenterpointe Hospital Wsjwtg8[address] [facility] [id number] Information: [id number] Bilirubin [Mass/Vol] 0.8 mg/dL Normal 0.0-1.2 [facility]; [facility] Work Phone: Comment on above: PATIENT WAS FASTINGP ERFORMED BY: [place] [address] [facility] [id number] Information: [id number] Calcium [Mass/Vol] 9.3 mg/dL Normal 8.6-10.2 [facility] Internal Medicine; [facility] Work Phone: Comment on above: PATIENT WAS FASTINGP ERFORMED BY: [facility] [facility] [id number] Information: [id number],[id number] Chloride [Moles/Vol] 103 mmol/L Normal 97-108 Comp rehensive Internal Medicine; [facility] Work Phone: Comment on above: PATIENT WAS FASTINGP ERFORMED BY: LabCenterpointe Hospital Orwdgc485[address] [facility] [id number] Information: [id number] CO2 [Moles/Vol] 24 mmol/L Normal 18-29 [facility] Internal Medicine; [facility] Work Phone: Comment on above: PATIENT WAS FASTINGP ERFORMED BY: LabJacob V[place] 2850270 [facility] [id number] Information: [id number] Creatinine [Mass/Vol] 1.03 mg/dL Normal 0.76-1.27 [facility] prehensive Internal Medicine; [facility] Work Phone: Comment on above: PATIENT WAS FASTINGP ERFORMED BY: [place] [address] [facility] [id number] Information: [id number] GFR/1.73 sq M.predicted among blacks CKD-EPI (S/P/Bld) [Vol rate/Area] 81 mL/min/1.73 Normal [facility]; [facility] Work Phone: Comment on above: PATIENT WAS FASTINGP ERFORMED BY: [facility] [facility] [id number] Information: [id number] GFR/1.73 sq M.predicted among non-blacks CKD-EPI (S/P/Bld) [Vol rate/Area] 70 mL/min/1.73 Normal [facility]; [facility] Work Phone: Comment on above: PATIENT WAS FASTINGP ERFORMED BY: LabJacob [place] 2850270 [facility] [id number] Information: [id number] Globulin (S) [Mass/Vol] 3.0 g/dL Normal 1.5-4.5 C omprehensive Internal Medicine; [facility] Work Phone: Comment on above: PATIENT WAS FASTINGP ERFORMED BY: YEHUDA Jennings Wsrkhw82[address] [facility] [id number] Information: [id number],[id number] Glucose [Mass/Vol] 89 mg/dL Normal 65-99 [facility] Internal Medicine; [facility] Work Phone: Comment on above: PATIENT WAS FASTINGP ERFORMED BY: YEHUDA StylesCenterpointe Hospital Yomdik[address] [facility] [id number] Information: [id number],[id number] Potassium [Moles/Vol] 4.6 mmol/L Normal 3.5-5.2 [facility] Internal Medicine; [facility] Work Phone: Comment on above: PATIENT WAS FASTINGP ERFORMED BY: YEHUDA Espanalin[address] [facility] [id number] Information: [id number] Protein [Mass/Vol] 6.9 g/dL Normal 6.0-8.5 [facility] Internal Medicine; [facility] Work Phone: Comment on above: PATIENT WAS FASTINGP ERFORMED BY: YEHUDA StylesCenterpo[facility] Hospital Nlwixe99[address] [facility] [id number] Information: [id number],[id number] Sodium [Moles/Vol] 143 mmol/L Normal 134-144 [facility] Internal Medicine; [facility] Work Phone: Comment on above: PATIENT WAS FASTINGP ERFORMED BY: [facility]aniCenterpo[facility] Hospital Qhnrjf[address] [facility] [id number] Information: [id number],[id number] Urea nitrogen [Mass/Vol] 17 mg/dL Normal 8-27 [facility]; [facility] Work Phone: Comment on above: PATIENT WAS FASTINGP ERFORMED BY: YEHUDA Jennings Apnuld0[address] [facility] [id number] Information: [id number] Urea nitrogen/Creatinine [Mass ratio] 17 mg/mg Normal 10-22 [facility]; [facility] Work Phone: Comment on above: PATIENT WAS FASTINGP ERFORMED BY: [facility] Uudfiz[address] [facility] [id number] Information: [id number] Blood Glucose , Office ([phone])Ordered By: Anastasia Dorado on 12-22-2013 Glucose Glucometer (BldC) [Moles/Vol] 108 1 Normal [facility]; [facility] Work Phone: Comment on above: not fasting HgA1C , Office ([phone])Ordere d By: Anastasia Dorado on 12-22-2013 HbA1c (Bld) [Mass fraction] 5.7 % Normal 4.6 - 7.1 [facility]; [facility] Work Phone: CBC WITH MANUAL DIFF ([phone]) Ordered By: Wound Nurse on 12-10-2013 Basophils (Bld) [#/Vol] 0.1 10*3/uL Normal 0.0-0.2 [facility]; [facility] Work Phone: Comment on above: PATIENT WAS FASTINGP ERFORMED BY: [facility] Phmlvp29[address] [facility] [id number] Information: [id number] Basophils/100 WBC (Bld) 1 % Normal 0-3 C omprehensive Internal Medicine; [facility] Work Phone: Comment on above: PATIENT WAS FASTINGP ERFORMED BY: [facility] Wcguoz[address] [facility] [id number] Information: [id number] Eosinophils (Bld) [#/Vol] 0.1 10*3/uL Normal 0.0-0.4 [facility]; [facility] Work Phone: Comment on above: PATIENT WAS FASTINGP ERFORMED BY: CB [facility] Hpapci[address] [facility] [id number] Information: [id number],[id number] Eosinophils/100 WBC (Bld) 2 % Normal 0-5 [facility]; [facility] Work Phone: Comment on above: PATIENT WAS FASTINGP ERFORMED BY: YEHUDA Jennings Hroxlk[address] [facility] [id number] Information: [id number] Erythrocyte distribution width (RBC) [Ratio] 13.6 % Normal 12.3-15.4 [facility]; [facility] Work Phone: Comment on above: PATIENT WAS FASTINGP ERFORMED BY: YEHUDA Jennings[address] [id number] Information: [id number],[id number] Hematocrit (Bld) [Volume fraction] 46.9 % Normal 37.5-51.0 [facility]; [facility] Work Phone: Comment on above: PATIENT WAS FASTINGP ERFORMED BY: YEHUDA Jennings Trmqmr[address] [id number] Information: [id number],[id number] Hemoglobin (Bld) [Mass/Vol] 15.8 g/dL Normal 12.6-17.7 [facility]; [facility] Work Phone: Comment on above: PATIENT WAS FASTINGP ERFORMED BY: YEHUDA StylesCenterpointe Hospital Quyylg36[address] [id number] Information: [id number],[id number] Immature granulocytes (Bld) [#/Vol] 0.0 10*3/uL Normal 0.0-0.1 [facility]; [facility] Work Phone: Comment on above: PATIENT WAS FASTINGP ERFORMED BY: YEHUDA Jennings[address] [id number] Information: [id number] Immature granulocytes/100 WBC (Bld) 0 % Normal 0-2 [facility]; [facility] Work Phone: Comment on above: PATIENT WAS FASTINGP ERFORMED BY: YEHUDA JenningsJason [place] 8[address]4970 [facility] [id number] Information: [id number] Lymphocytes (Bld) [#/Vol] 1.5 10*3/uL Normal 0.7-3.1 [facility]; [facility] Work Phone: Comment on above: PATIENT WAS FASTINGP ERFORMED BY: YEHUDA [facility]lesCenterpointe Hospital Wpnegi08[address] [facility] [id number] Information: [id number] Lymphocytes/100 WBC (Bld) 23 % Normal 14-46 [facility]; [facility] Work Phone: Comment on above: PATIENT WAS FASTINGP ERFORMED BY: Stephani[address] [id number] Information: [id number] MCH (RBC) [Entitic mass] 30.7 pg Normal 26.6-33.0 [facility]; [facility] Work Phone: Comment on above: PATIENT WAS FASTINGP ERFORMED BY: Stephani[address] [id number] Information: [id number] MCHC (RBC) [Mass/Vol] 33.7 g/dL Normal 31.5-35.7 [facility]; [facility] Work Phone: Comment on above: PATIENT WAS FASTINGP ERFORMED BY: YEHUDA [facility]phaniCenterpointe Hospital Imtdrq5[address] [facility] [id number] Information: [id number] MCV (RBC) [Entitic vol] 91 fL Normal 79-97 C [facility] centerrehens[facility] Internal Medicine; [facility] Work Phone: Comment on above: PATIENT WAS FASTINGP ERFORMED BY: [facility] [facility] [id number] Information: [id number] Monocytes (Bld) [#/Vol] 0.7 10*3/uL Normal 0.1-0.9 [facility]; [facility] Work Phone: Comment on above: PATIENT WAS FASTINGP ERFORMED BY: YEHUDA [facility]aniUp [facility] System[address] [facility] [id number] Information: [id number] Monocytes/100 WBC (Bld) 10 % Normal 4-12 C omprehensive Internal Medicine; [facility] Work Phone: Comment on above: PATIENT WAS FASTINGP ERFORMED BY: YEHUDA Sosa[address] Markbl[place] [id number] Information: [id number] Neutrophils (Bld) [#/Vol] 4.0 10*3/uL Normal 1.4-7.0 [facility]; [facility] Work Phone: Comment on above: PATIENT WAS FASTINGP ERFORMED BY: YEHUDA Sosa[address] RoadCritical Access Hospitalin [place] [id number] Information: 105939,[id number] Neutrophils/100 WBC (Bld) 64 % Normal 40-74 [facility]; [facility] Work Phone: Comment on above: PATIENT WAS FASTINGP ERFORMED BY: YEHUDA Sosa[address] [facility] [id number] Information: [id number] Platelets (Bld) [#/Vol] 266 10*3/uL Normal 155-379 [facility]; [facility] Work Phone: Comment on above: PATIENT WAS FASTINGP ERFORMED BY: YEHUDA Sosa[address] [facility] [place] [id number] Information: [id number] RBC (Bld) [#/Vol] 5.14 10*6/uL Normal 4.14-5.80 [facility]; [facility] Work Phone: Comment on above: PATIENT WAS FASTINGP ERFORMED BY: YEHUDA LabCoapril EspanaOryfpz2997 Rooney RoadCritical Access Hospitalin [place] [id number] Information: [id number] WBC (Bld) [#/Vol] 6.4 10*3/uL Normal 3.4-10.8 [facility] Internal Medicine; [facility] Work Phone: Comment on above: PATIENT WAS FASTINGP ERFORMED BY: YEHUDA LabCoapril EspanaCnhvnc[address] [facility]in [place] [id number] Information: [id number] LIPID PANEL ([id number])Ordered B y: Wound Nurse on 12-10-2013 Cholesterol [Mass/Vol] 117 mg/dL Normal 100-199 Co mprehensive Internal Medicine; [facility] Work Phone: Comment on above: PATIENT WAS FASTINGP ERFORMED BY: YEHUDA [facility] Adjnpv4340 [address] RoadDublin [place] [id number] Cholesterol in HDL [Mass/Vol] 40 mg/dL Normal [facility]; [facility] Work Phone: Comment on above: According to ATP-III Guidelines, HDL-C >59 mg/dL is considered anegative risk factor for CHD. PATIENT WAS FASTINGP ERFORMED BY: YEHUDA [facility] Zcfarn5341 [address] RoadDublin [place] [id number] Cholesterol in LDL [Mass/Vol] 56 mg/dL Normal 0-99 [facility]; [facility] Work Phone: Comment on above: PATIENT WAS FASTINGP ERFORMED BY: CB [facility] Yaokjb7707 [address] RoadDublin [place] [id number] Cholesterol in LDL/Cholesterol in HDL [Mass ratio] 1.4 {ratio_units} Normal 0.0-3.6 [facility]; [facility] Work Phone: Comment on above: PATIENT WAS FASTINGP ERFORMED BY: YEHUDA [facility] Uxnjql8882 [address] RoadDublin [place] [id number] Cholesterol in VLDL [Mass/Vol] 21 mg/dL Normal 5-40 [facility]; [facility] Work Phone: Comment on above: PATIENT WAS FASTINGP ERFORMED BY: CB [facility] Phnpdm4815 [address] RoadDublin [place] [id number] Triglyceride [Mass/Vol] 104 mg/dL Normal 0-149 C ompwyandot memorial hospitalensive Internal Medicine; [facility] Work Phone: Comment on above: PATIENT WAS FASTINGP ERFORMED BY: CB [facility] Zgmhff7803 [address] RoadDublin [place] [id number] METABOLIC PANEL, COMPREHENSI VE ([id number])Ordered By: Wound Nurse on 12-10-2013 Albumin [Mass/Vol] 4.0 g/dL Normal 3.5-4.8 [facility] Internal Medicine; [facility] Work Phone: Comment on above: PATIENT WAS FASTINGP ERFORMED BY: YEHUDA Lucie Sosa[address] [facility] [id number]; will review at appt on 12.24.13 Albumin/Globulin [Mass ratio] 1.4 {ratio} Normal 1.1-2.5 [facility]; [facility] Work Phone: Comment on above: PATIENT WAS FASTINGP ERFORMED BY: YEHUDA StephaniAlee EspanaKkpacg4[address] [facility] [id number]; will review at appt on 12.24.13 ALP [Catalytic activity/Vol] 64 U/L Normal 39-117 [facility]; [facility] Work Phone: Comment on above: PATIENT WAS FASTINGP ERFORMED BY: YEHUDA Lucie Sosa[address] [facility] [id number]; will review at appt on 12.24. ALT [Catalytic activity/Vol] 17 U/L Normal 0-44 [facility]; [facility] Work Phone: Comment on above: PATIENT WAS FASTINGP ERFORMED BY: YEHUDA Lucie Espanalin[address] [facility] [id number]; will review at appt on 12.24. AST [Catalytic activity/Vol] 18 U/L Normal 0-40 [facility]; [facility] Work Phone: Comment on above: PATIENT WAS FASTINGP ERFORMED BY: YEHUDA LabEmanuel Jvbizr[address] [facility] [id number]; will review at appt on 12.24. Bilirubin [Mass/Vol] 0.5 mg/dL Normal 0.0-1.2 [facility] Internal Medicine; [facility] Work Phone: Comment on above: PATIENT WAS FASTINGP ERFORMED BY: YEHUDA [facility] Nuqtzo06[address] [facility] [id number]; will review at appt on 5.30.14 Calcium [Mass/Vol] 9.0 mg/dL Normal 8.6-10.2 [facility] Internal Medicine; [facility] Work Phone: Comment on above: PATIENT WAS FASTINGP ERFORMED BY: YEHUDA Sosa[address] [facility] [id number]; will review at appt on 12.24.14 Chloride [Moles/Vol] 104 mmol/L Normal 97-108 [facility] rehensive Internal Medicine; [facility] Work Phone: Comment on above: PATIENT WAS FASTINGP ERFORMED BY: YEHUDA [facility]Co Gipals[address] [facility] [id number]; will review at appt on 12.24.14 CO2 [Moles/Vol] 24 mmol/L Normal 19-28 [facility] Internal Medicine; [facility] Work Phone: Comment on above: PATIENT WAS FASTINGP ERFORMED BY: YEHUDA LabAlee EspanaIumhqh7[address] [facility] [id number]; will review at appt on 12.24.14 Creatinine [Mass/Vol] 0.89 mg/dL Normal 0.76-1.27 [facility]eren[facility]; [facility] Work Phone: Comment on above: PATIENT WAS FASTINGP ERFORMED BY: YEHUDA LabCoapril EspanaXwiehy54[address] [facility] [id number]; will review at appt on 12.24.14 GFR/1.73 sq M.predicted among blacks CKD-EPI (S/P/Bld) [Vol rate/Area] 95 mL/min/1.73 Normal [facility]; [facility] Work Phone: Comment on above: PATIENT WAS FASTINGP ERFORMED BY: YEHUDA [facility] Fbanca[address] [facility] [id number]; will review at appt on 530.14 GFR/1.73 sq M.predicted among non-blacks CKD-EPI (S/P/Bld) [Vol rate/Area] 82 mL/min/1.73 Normal [facility]; [facility] Work Phone: Comment on above: PATIENT WAS FASTINGP ERFORMED BY: YEHUDA Sosa[address] [facility] [id number]; will review at appt on 12.24.14 Globulin (S) [Mass/Vol] 2.8 g/dL Normal 1.5-4.5 [facility]; [facility] Work Phone: Comment on above: PATIENT WAS FASTINGP ERFORMED BY: YEHUDA Lucie Sosa[address] [facility] [id number]; will review at appt on 12.24.14 Glucose [Mass/Vol] 90 mg/dL Normal 65-99 [facility]; [facility] Work Phone: Comment on above: PATIENT WAS FASTINGP ERFORMED BY: YEHUDA Sosa[address] [facility] [id number]; will review at appt on 12.24.14 Potassium [Moles/Vol] 4.7 mmol/L Normal 3.5-5.2 [facility]; [facility] Work Phone: Comment on above: PATIENT WAS FASTINGP ERFORMED BY: YEHUDA Michaela Slgwwf[address] [facility] [id number]; will review at appt on 12.24.14 Protein [Mass/Vol] 6.8 g/dL Normal 6.0-8.5 [facility] Internal Medicine; [facility] Work Phone: Comment on above: PATIENT WAS FASTINGP ERFORMED BY: YEHUDA Michaela Zcjakj85[address] [facility] [id number]; will review at appt on 12.24.14 Sodium [Moles/Vol] 141 mmol/L Normal 134-144 [facility] Internal Medicine; [facility] Work Phone: Comment on above: PATIENT WAS FASTINGP ERFORMED BY: YEHUDA Espanalin[address] [facility] [id number]; will review at appt on 12.24.14 Urea nitrogen [Mass/Vol] 17 mg/dL Normal 8-27 [facility]; [facility] Work Phone: Comment on above: PATIENT WAS FASTINGP ERFORMED BY: YEHUDA [facility] Qejzps4983 [facility] [id number]; will review at appt on 12.24.13 Urea nitrogen/Creatinine [Mass ratio] 19 mg/mg Normal 10-22 [facility]; [facility] Work Phone: Comment on above: PATIENT WAS FASTINGP ERFORMED BY: YEHUDA [facility] Elxvgj0062 [facility] [id number]; will review at appt on 12.24.13 MICROALBUMINOrdered By: Syst em Delivery Coordinator on 12-10-2013 Albumin DL <= 20 mg/L (U) [Mass/Vol] 3.5 ug/mL Normal 0.0-17.0 [facility]; [facility] Work Phone: Comment on above: PATIENT WAS FASTINGP ERFORMED BY: YEHUDA [facility] Iwyqzw5865 [facility] [id number] Albumin/Creatinine (U) [Mass ratio] 6.5 {mg/g_creat} Normal 0.0-30.0 [facility]; [facility] Work Phone: Comment on above: PATIENT WAS FASTINGP ERFORMED BY: YEHUDA LabEmanuel Myqiuz4[address] [facility] [id number] Creatinine (U) [Mass/Vol] 54.0 mg/dL Normal 22.0-328.0 [facility]; [facility] Work Phone: Comment on above: PATIENT WAS FASTINGP ERFORMED BY: [facility] Qnhypj4841 [facility] [id number] HgA1C , Office ([id number])Ordere d By: Leigh Desai on 08-24-2013 HbA1c (Bld) [Mass fraction] 5.5 % Normal 4.6 - 7.1 [facility]; [facility] Work Phone: LIPID PANEL ([id number])Ordered B y: Wound Nurse on 08-09-2013 Cholesterol [Mass/Vol] 118 mg/dL Normal 100-199 Co m[facility]; [facility] Work Phone: Comment on above: PATIENT WAS FASTINGP ERFORMED BY: CB [facility] Vwxbuh5098 [address] RoadDublin [place] [id number] Cholesterol in HDL [Mass/Vol] 40 mg/dL Normal [facility]; [facility] Work Phone: Comment on above: According to ATP-III Guidelines, HDL-C >59 mg/dL is considered anegative risk factor for CHD. PATIENT WAS FASTINGP ERFORMED BY: CB [facility] Lpxrqf6578 [address] RoadDublin [place] [id number] Cholesterol in LDL [Mass/Vol] 61 mg/dL Normal 0-99 [facility]; [facility] Work Phone: Comment on above: PATIENT WAS FASTINGP ERFORMED BY: YEHUDA [facility] Soxyxt1393 [address] RoadDublin [place] [id number] Cholesterol in LDL/Cholesterol in HDL [Mass ratio] 1.5 {ratio_units} Normal 0.0-3.6 [facility]; [facility] Work Phone: Comment on above: PATIENT WAS FASTINGP ERFORMED BY: CB [facility] Rzhyya2565 [address] RoadDublin [place] [id number] Cholesterol in VLDL [Mass/Vol] 17 mg/dL Normal 5-40 [facility]; [facility] Work Phone: Comment on above: PATIENT WAS FASTINGP ERFORMED BY: CB [facility] Nkzikc9329 [address] RoadDublin [place] [id number] Triglyceride [Mass/Vol] 85 mg/dL Normal 0-149 C omprehensive [facility]; [facility] Work Phone: Comment on above: PATIENT WAS FASTINGP ERFORMED BY: CB [facility] Ddmemr7699 [address] RoadDublin [place] [id number] METABOLIC PANEL, COMPREHENSI VE ([id number])Ordered By: Wound Nurse on 08-09-2013 Albumin [Mass/Vol] 3.8 g/dL Normal 3.5-4.8 [facility] Internal [facility]; [facility] Work Phone: Comment on above: PATIENT WAS FASTINGP ERFORMED BY: CB [facility] Gwddwk[address] [facility] [id number] Information: [id number] Albumin/Globulin [Mass ratio] 1.3 {ratio} Normal 1.1-2.5 [facility]; [facility] Work Phone: Comment on above: PATIENT WAS FASTINGP ERFORMED BY: YEHUDA StephaniJacob Ville [address]50[address] [facility] [id number] Information: [id number] ALP [Catalytic activity/Vol] 61 U/L Normal 39-117 [facility]; [facility] Work Phone: Comment on above: PATIENT WAS FASTINGP ERFORMED BY: YEHUDA StephaniAlee EspanaCoaqxm0154 [facility] [id number] Information: [id number] ALT [Catalytic activity/Vol] 20 U/L Normal 0-44 [facility]; [facility] Work Phone: Comment on above: PATIENT WAS FASTINGP ERFORMED BY: YEHUDA StephaniJacob V[place] 2850270 [facility] [id number] Information: [id number] AST [Catalytic activity/Vol] 20 U/L Normal 0-40 [facility]; [facility] Work Phone: Comment on above: PATIENT WAS FASTINGP ERFORMED BY: YEHUDA StephaniCenterpointe Hospital Eenjit4[address] [facility] [id number] Information: [id number] Bilirubin [Mass/Vol] 0.7 mg/dL Normal 0.0-1.2 [facility]; [facility] Work Phone: Comment on above: PATIENT WAS FASTINGP ERFORMED BY: YEHUDA StephaniJacob [place] 2850270 [facility] [id number] Information: [id number],[id number] Calcium [Mass/Vol] 8.9 mg/dL Normal 8.6-10.2 [facility] Internal Medicine; [facility] Work Phone: Comment on above: PATIENT WAS FASTINGP ERFORMED BY: YEHUDA StylesJacob V[place] [address]50[address] [facility] [id number] Information: [id number] Chloride [Moles/Vol] 105 mmol/L Normal 97-108 [facility] rehensive Internal Medicine; [facility] Work Phone: Comment on above: PATIENT WAS FASTINGP ERFORMED BY: CB [facility] Vfyuti1509 [address] [facility] [id number] Information: [id number] CO2 [Moles/Vol] 23 mmol/L Normal 19-28 [facility] Internal Medicine; [facility] Work Phone: Comment on above: PATIENT WAS FASTINGP ERFORMED BY: [facility] Bqhdcr87[address] [facility] [id number] Information: [id number] Creatinine [Mass/Vol] 0.96 mg/dL Normal 0.76-1.27 [facility]; [facility] Work Phone: Comment on above: PATIENT WAS FASTINGP ERFORMED BY: [facility]Center[facility] Dlgerh15[address] [facility] [id number] Information: [id number] GFR/1.73 sq M.predicted among blacks CKD-EPI (S/P/Bld) [Vol rate/Area] 88 mL/min/1.73 Normal [facility]; [facility] Work Phone: Comment on above: PATIENT WAS FASTINGP ERFORMED BY: [facility] Qccwik99[address] [facility] [id number] Information: [id number] GFR/1.73 sq M.predicted among non-blacks CKD-EPI (S/P/Bld) [Vol rate/Area] 76 mL/min/1.73 Normal [facility]; [facility] Work Phone: Comment on above: PATIENT WAS FASTINGP ERFORMED BY: [facility] Gqnkpx0[address] [facility] [id number] Information: [id number] Globulin (S) [Mass/Vol] 3.0 g/dL Normal 1.5-4.5 [facility]; [facility] Work Phone: Comment on above: PATIENT WAS FASTINGP ERFORMED BY: YEHUDA LabAlee Sosa6370 [address] [facility]in [place] [id number] Information: [id number] Glucose [Mass/Vol] 94 mg/dL Normal 65-99 [facility] Internal Medicine; [facility] Work Phone: Comment on above: PATIENT WAS FASTINGP ERFORMED BY: [facility] Tsmqia8714 [address] [facility] [id number] Information: [id number] Potassium [Moles/Vol] 4.4 mmol/L Normal 3.5-5.2 [facility]eren[facility]; [facility] Work Phone: Comment on above: PATIENT WAS FASTINGP ERFORMED BY: [facility]Center[facility] Stambn2[address] [facility] [id number] Information: [id number] Protein [Mass/Vol] 6.8 g/dL Normal 6.0-8.5 [facility]; [facility] Work Phone: Comment on above: PATIENT WAS FASTINGP ERFORMED BY: YEHUDA [facility] Sliabv6[address] [facility] [id number] Information: [id number],[id number] Sodium [Moles/Vol] 142 mmol/L Normal 134-144 [facility] Internal [facility]; [facility] Work Phone: Comment on above: PATIENT WAS FASTINGP ERFORMED BY: [facility] Nbwykn8280 [facility] [id number] Information: [id number] Urea nitrogen [Mass/Vol] 20 mg/dL Normal 8-27 [facility]; [facility] Work Phone: Comment on above: PATIENT WAS FASTINGP ERFORMED BY: [facility] Tyxxlm4505 [address] [facility] [id number] Information: [id number] Urea nitrogen/Creatinine [Mass ratio] 21 mg/mg Normal 10-22 [facility]; [facility] Work Phone: Comment on above: PATIENT WAS FASTINGP ERFORMED BY: ReelGenie Pjzany7[address] [facility] [id number] Information: [id number] MICROALBUMINOrdered By: Syst em Delivery Coordinator on 08-09-2013 Albumin DL <= 20 mg/L (U) [Mass/Vol] 3.0 ug/mL Normal 0.0-17.0 [facility]; [facility] Work Phone: Comment on above: PATIENT WAS FASTINGP ERFORMED BY: ReelGenie Pzvqdh4630 [facility] [id number] Albumin/Creatinine (U) [Mass ratio] 3.3 {mg/g_creat} Normal 0.0-30.0 [facility]; [facility] Work Phone: Comment on above: PATIENT WAS FASTINGP ERFORMED BY: ReelGenie Sdkrsy34[address] [facility] [id number] Creatinine (U) [Mass/Vol] 92.3 mg/dL Normal 22.0-328.0 [facility]; [facility] Work Phone: Comment on above: PATIENT WAS FASTINGP ERFORMED BY: [employer] Rkchbt09[address] [facility] [id number] PSA (PROSTATE SPECIFIC ANTIG EN) (V76.44)Ordered By: Wound Nurse on 08-09-2013 Prostate specific Ag [Mass/Vol] 1.1 ng/mL Normal 0.0-4.0 [facility]; [facility] Work Phone: Comment on above: Alexys ECLIA methodol ogy. .According to the [employer], Serum PSA shoulddecrease and remain at undetectable levels after radicalprostatectomy. The AUA defines biochemical recurrence as an initialPSA value 0.2 ng/mL or greater followed by a subsequent confirmatoryPSA value 0.2 ng/mL or greater.Values obtained with different assay methods or kits cannot be usedinterchangeably. Results cannot be interpreted as absolute evidenceof the presence or absence of malignant disease. PATIENT WAS FASTINGP ERFORMED BY: [facility] Mjifjk0786 [facility] [id number] TSH ([id number])Ordered By: Jamese m Delivery Coordinator on 08-09-2013 TSH Qn 0.507 {uIU/mL} Normal 0.450-4.500 [facility] Internal Medicine; [facility] Work Phone: Comment on above: PATIENT WAS FASTINGP ERFORMED BY: [facility] Yjuvmm22[address] [facility] [id number] HgA1C , Office ([id number])Ordere d By: Zenaida Prince on 04-20-2013 HbA1c (Bld) [Mass fraction] 5.3 % Normal 4.6 - 7.1 [facility]; [facility] Work Phone: CBC WITH MANUAL DIFF ([id number]) Ordered By: Wound Nurse on 04-07-2013 Basophils (Bld) [#/Vol] 0.1 10*3/uL Normal 0.0-0.2 [facility]; [facility] Work Phone: Comment on above: PATIENT WAS FASTINGP ERFORMED BY: [facility] Tkgimm2621 [facility] [id number] Information: [id number] Basophils/100 WBC (Bld) 2 % Normal 0-3 C omprehensive [facility]; [facility] Work Phone: Comment on above: PATIENT WAS FASTINGP ERFORMED BY: [facility] Adjjhv58[address] [facility] [id number] Information: [id number] Eosinophils (Bld) [#/Vol] 0.3 10*3/uL Normal 0.0-0.4 [facility]; [facility] Work Phone: Comment on above: Please note refere nce interval change PATIENT WAS FASTINGP ERFORMED BY: [facility] Tjklaj3027 [facility] [id number] Information: [id number] Eosinophils/100 WBC (Bld) 4 % Normal 0-5 [facility]; [facility] Work Phone: Comment on above: Please note refere nce interval change PATIENT WAS FASTINGP ERFORMED BY: YEHUDA Sosa[address] [facility] [id number] Information: [id number] Erythrocyte distribution width (RBC) [Ratio] 13.7 % Normal 12.3-15.4 [facility]; [facility] Work Phone: Comment on above: PATIENT WAS FASTINGP ERFORMED BY: [place] [address]76[address] [facility] [id number] Information: [id number] Hematocrit (Bld) [Volume fraction] 47.3 % Normal 37.5-51.0 [facility]; [facility] Work Phone: Comment on above: PATIENT WAS FASTINGP ERFORMED BY: [place] [address]76[address] [facility] [id number] Information: [id number],[id number] Hemoglobin (Bld) [Mass/Vol] 15.3 g/dL Normal 12.6-17.7 [facility]; [facility] Work Phone: Comment on above: PATIENT WAS FASTINGP ERFORMED BY: YEHUDA StylesCenterpointe Hospital Clewzs1185 [facility] [id number] Information: [id number] Immature granulocytes (Bld) [#/Vol] 0.0 10*3/uL Normal 0.0-0.1 [facility]; [facility] Work Phone: Comment on above: PATIENT WAS FASTINGP ERFORMED BY: [facility] Lunecf6943 [facility] [id number] Information: [id number] Immature granulocytes/100 WBC (Bld) 0 % Normal 0-2 [facility]; [facility] Work Phone: Comment on above: PATIENT WAS FASTINGP ERFORMED BY: LabCoJason Ville 8754970 [facility] [id number] Information: [id number] Lymphocytes (Bld) [#/Vol] 2.0 10*3/uL Normal 0.7-3.1 [facility]; [facility] Work Phone: Comment on above: Please note refere nce interval change PATIENT WAS FASTINGP ERFORMED BY: [place] [address]76[address] [facility] [id number] Information: [id number] Lymphocytes/100 WBC (Bld) 26 % Normal 14-46 [facility]; [facility] Work Phone: Comment on above: Please note refere nce interval change PATIENT WAS FASTINGP ERFORMED BY: [place] [address]76[address] [facility] [id number] Information: 405305,[id number] MCH (RBC) [Entitic mass] 30.2 pg Normal 26.6-33.0 [facility]; [facility] Work Phone: Comment on above: PATIENT WAS FASTINGP ERFORMED BY: [place] [address]76[address] [facility] [id number] Information: [id number] MCHC (RBC) [Mass/Vol] 32.3 g/dL Normal 31.5-35.7 [facility] prehensive Internal Medicine; [facility] Work Phone: Comment on above: PATIENT WAS FASTINGP ERFORMED BY: [facility] [facility] [id number] Information: [id number] MCV (RBC) [Entitic vol] 94 fL Normal 79-97 [facility] centerrehens[facility]; [facility] Work Phone: Comment on above: PATIENT WAS FASTINGP ERFORMED BY: [facility] [facility] [id number] Information: [id number] Monocytes (Bld) [#/Vol] 0.8 10*3/uL Normal 0.1-0.9 [facility]; [facility] Work Phone: Comment on above: Please note refere nce interval change PATIENT WAS FASTINGP ERFORMED BY: YEHUDA Sosa6370 [address] [facility] HospitalJosephin [place] [id number] Information: 797026,[id number] Monocytes/100 WBC (Bld) 11 % Normal 4-12 [facility]; [facility] Work Phone: Comment on above: Please note refere nce interval change PATIENT WAS FASTINGP ERFORMED BY: YEHUDA StylesCo Goouod[address] [facility] [id number] Information: 413662,G48844 Neutrophils (Bld) [#/Vol] 4.3 10*3/uL Normal 1.4-7.0 [facility]; [facility] Work Phone: Comment on above: Please note refere nce interval change PATIENT WAS FASTINGP ERFORMED BY: YEHUDA Espanalin[address] [facility] [id number] Information: [id number],[id number] Neutrophils/100 WBC (Bld) 57 % Normal 40-74 [facility]; [facility] Work Phone: Comment on above: Please note refere nce interval change PATIENT WAS FASTINGP ERFORMED BY: YEHUDA StylesCenterpointe Hospital Spleyk7[address] [facility] [id number] Information: [id number] Platelets (Bld) [#/Vol] 254 10*3/uL Normal 155-379 [facility]; [facility] Work Phone: Comment on above: Please note refere nce interval change PATIENT WAS FASTINGP ERFORMED BY: YEHUDA Jennings Idlgsv01[address] [facility] [id number] Information: [id number] RBC (Bld) [#/Vol] 5.06 10*6/uL Normal 4.14-5.80 [facility] Internal [facility]; [facility] Work Phone: Comment on above: PATIENT WAS FASTINGP ERFORMED BY: CB [facility] Kkseqh6011 [address] RoadDublin [place] [id number] Information: [id number] WBC (Bld) [#/Vol] 7.4 10*3/uL Normal 3.4-10.8 [facility] Internal Medicine; [facility] Work Phone: Comment on above: Please note refere nce interval change PATIENT WAS FASTINGP ERFORMED BY: CB [facility] Xmvevo9997 [address] RoadDublin [place] [id number] Information: [id number] LIPID PANEL ([id number])Ordered B y: Wound Nurse on 04-07-2013 Cholesterol [Mass/Vol] 119 mg/dL Normal 100-199 [facility] Internal Medicine; [facility] Work Phone: Comment on above: PATIENT WAS FASTINGP ERFORMED BY: CB [facility] Skdryg7018 [address] RoadDuin [place] [id number] Cholesterol in HDL [Mass/Vol] 41 mg/dL Normal [facility]; [facility] Work Phone: Comment on above: According to ATP-III Guidelines, HDL-C >59 mg/dL is considered anegative risk factor for CHD. PATIENT WAS FASTINGP ERFORMED BY: CB [facility] Tmdtkb7025 [address] [facility] [place] [id number] Cholesterol in LDL [Mass/Vol] 59 mg/dL Normal 0-99 [facility]; [facility] Work Phone: Comment on above: PATIENT WAS FASTINGP ERFORMED BY: CB [facility] Rcknmb4304 [address] [facility] [place] [id number] Cholesterol in LDL/Cholesterol in HDL [Mass ratio] 1.4 {ratio_units} Normal 0.0-3.6 [facility]; [facility] Work Phone: Comment on above: PATIENT WAS FASTINGP ERFORMED BY: CB [facility] Zysxdh8722 [address] RoadDublin [place] [id number] Cholesterol in VLDL [Mass/Vol] 19 mg/dL Normal 5-40 [facility]; [facility] Work Phone: Comment on above: PATIENT WAS FASTINGP ERFORMED BY: YEHUDA Lucie Sosa6370 [address] Roadblin [place] [id number] Triglyceride [Mass/Vol] 93 mg/dL Normal 0-149 C omprehensive Internal [facility]; [facility] Work Phone: Comment on above: PATIENT WAS FASTINGP ERFORMED BY: YEHUDA StephaniAlee EspanaXbmshp7874 [address] Roadblin [place] [id number] METABOLIC PANEL, COMPREHENSI VE (85000)Ordered By: Wound Nurse on 04-07-2013 Albumin [Mass/Vol] 3.8 g/dL Normal 3.5-4.8 [facility] Internal Medicine; [facility] Work Phone: Comment on above: PATIENT WAS FASTINGP ERFORMED BY: YEHUDA StephaniAlee EspanaHhniff2033 [address] RoadDuin [place] [id number] Albumin/Globulin [Mass ratio] 1.2 {ratio} Normal 1.1-2.5 [facility]; [facility] Work Phone: Comment on above: PATIENT WAS FASTINGP ERFORMED BY: YEHUDA Michaelaapril Kfgugy3051 [address] Roadblin [place] [id number] ALP [Catalytic activity/Vol] 65 U/L Normal 44-105 [facility]; [facility] Work Phone: Comment on above: PATIENT WAS FASTINGP ERFORMED BY: YEHUDA StephaniAlee EspanaEnkqeg6462 [address] [facility] [place] [id number] ALT [Catalytic activity/Vol] 20 U/L Normal 0-44 [facility]; [facility] Work Phone: Comment on above: PATIENT WAS FASTINGP ERFORMED BY: YEHUDA LabEmanuelapril Dqekrw3244 [address] [facility]bl[facility] [place] [id number] AST [Catalytic activity/Vol] 21 U/L Normal 0-40 [facility]; [facility] Work Phone: Comment on above: PATIENT WAS FASTINGP ERFORMED BY: YEHUDA LabAlee Auulad7499 [address] RoadDublin [place] [id number] Bilirubin [Mass/Vol] 0.7 mg/dL Normal 0.0-1.2 Comp rehensive Internal Medicine; [facility] Work Phone: Comment on above: PATIENT WAS FASTINGP ERFORMED BY: CB [facility] Xhxzfa5536 [address] RoadDublin [place] [id number] Calcium [Mass/Vol] 8.9 mg/dL Normal 8.6-10.2 [facility] Internal Medicine; [facility] Work Phone: Comment on above: PATIENT WAS FASTINGP ERFORMED BY: CB [facility] Wyvrfr9445 [address] RoadDublin [place] [id number] Chloride [Moles/Vol] 105 mmol/L Normal 97-108 Comp rehensive Internal Medicine; [facility] Work Phone: Comment on above: PATIENT WAS FASTINGP ERFORMED BY: [facility] Tvzokc9434 [address] RoadDublin [place] [id number] CO2 [Moles/Vol] 22 mmol/L Normal 19-28 [facility] Internal Medicine; [facility] Work Phone: Comment on above: PATIENT WAS FASTINGP ERFORMED BY: [facility] Yatdrj0481 [address] RoadDublin [place] [id number] Creatinine [Mass/Vol] 1.07 mg/dL Normal 0.76-1.27 [facility]; [facility] Work Phone: Comment on above: PATIENT WAS FASTINGP ERFORMED BY: [facility] Eebqro1[address] RoadDublin [place] [id number] GFR/1.73 sq M.predicted among blacks CKD-EPI (S/P/Bld) [Vol rate/Area] 78 mL/min/1.73 Normal [facility]; [facility] Work Phone: Comment on above: PATIENT WAS FASTINGP ERFORMED BY: CB [facility] Fszrtj9732 [address] RoadDublin [place] [id number] GFR/1.73 sq M.predicted among non-blacks CKD-EPI (S/P/Bld) [Vol rate/Area] 67 mL/min/1.73 Normal [facility]; [facility] Work Phone: Comment on above: PATIENT WAS FASTINGP ERFORMED BY: YEHUDA [facility] Emqirl6107 [address] RoadDublin [place] [id number] Globulin (S) [Mass/Vol] 3.1 g/dL Normal 1.5-4.5 C omprehensive [facility]; [facility] Work Phone: Comment on above: PATIENT WAS FASTINGP ERFORMED BY: CB [facility] Rvmzxc4149 [address] RoadDublin [place] [id number] Glucose [Mass/Vol] 87 mg/dL Normal 65-99 [facility] hens[facility]; [facility] Work Phone: Comment on above: PATIENT WAS FASTINGP ERFORMED BY: CB [facility] Yxphkm3322 [address] RoadDublin [place] [id number] Potassium [Moles/Vol] 4.3 mmol/L Normal 3.5-5.2 [facility]; [facility] Work Phone: Comment on above: PATIENT WAS FASTINGP ERFORMED BY: YEHUDA [facility] Scqktl8729 [address] RoadDublin [place] [id number] Protein [Mass/Vol] 6.9 g/dL Normal 6.0-8.5 [facility]; [facility] Work Phone: Comment on above: PATIENT WAS FASTINGP ERFORMED BY: [facility] Voakdm8367 [address] RoadDublin [place] [id number] Sodium [Moles/Vol] 142 mmol/L Normal 134-144 [facility]; [facility] Work Phone: Comment on above: PATIENT WAS FASTINGP ERFORMED BY: CB [facility] Tiflmf0266 [address] RoadDublin [place] [id number] Urea nitrogen [Mass/Vol] 24 mg/dL Normal 8-27 [facility]; [facility] Work Phone: Comment on above: PATIENT WAS FASTINGP ERFORMED BY: CB [facility] Jvjexc8021 [address] RoadDublin [place] [id number] Urea nitrogen/Creatinine [Mass ratio] 22 mg/mg Normal 10-22 [facility]; [facility] Work Phone: Comment on above: PATIENT WAS FASTINGP ERFORMED BY: ReelGenie Ebqehz[address] [facility] [id number] T3, FREE (TRIDOTHYRONINE) (8 [phone])Ordered By: Wound Nurse on 02-22-2013 Free T3 [Mass/Vol] 3.0 pg/mL Normal 2.0-4.4 [facility] Internal Medicine; [facility] Work Phone: Comment on above: PATIENT NOT FASTINGP ERFORMED BY: ReelGenieMarlton Rehabilitation HospitalGihlfe0395 [facility] [id number] T4, FREE (THYROXINE) ([id number]) Ordered By: Wound Nurse on 02-22-2013 Free T4 [Mass/Vol] 1.08 ng/dL Normal 0.82-1.77 [facility] Internal Medicine; [facility] Work Phone: Comment on above: PATIENT NOT FASTINGP ERFORMED BY: ReelGenieMarlton Rehabilitation HospitalTvzokt29[address] [facility] [id number] Information: [id number] TSH (84689)Ordered By: Angel m Delivery Coordinator on 02-22-2013 TSH Qn 0.257 {uIU/mL} Abnormal 0.450-4.500 [facility] Internal Medicine; [facility] Work Phone: Comment on above: PATIENT NOT FASTINGP ERFORMED BY: ReelGenieMarlton Rehabilitation HospitalIpnccr5[address] [facility] [id number] HgA1C , Office (14552)Ordere d By: Zenaida Prince on 12-16-2012 HbA1c (Bld) [Mass fraction] 5.6 % Normal 4.6 - 7.1 [facility]; [facility] Work Phone: CBC WITH MANUAL DIFF ([id number]) Ordered By: Wound Nurse on 12-09-2012 Basophils (Bld) [#/Vol] 0.1 10*3/uL Normal 0.0-0.2 [facility]; [facility] Work Phone: Comment on above: PATIENT NOT FASTINGP ERFORMED BY: YEHUDA Jennings Jmpxsl07[address] [facility] [id number] Information: [id number] Basophils/100 WBC (Bld) 1 % Normal 0-3 [facility]rehens[facility]; [facility] Work Phone: Comment on above: PATIENT NOT FASTINGP ERFORMED BY: YEHUDA [facility] Stotri4[address] [facility] [id number] Information: [id number] Eosinophils (Bld) [#/Vol] 0.3 10*3/uL Normal 0.0-0.4 [facility]; [facility] Work Phone: Comment on above: PATIENT NOT FASTINGP ERFORMED BY: YEHUDA Jennings Bbcrhi65[address] [facility] [id number] Information: [id number] Eosinophils/100 WBC (Bld) 5 % Normal 0-7 [facility]; [facility] Work Phone: Comment on above: PATIENT NOT FASTINGP ERFORMED BY: YEHUDA [facility]lesCenterpointe Hospital Suyxft21[address] [facility] [id number] Information: [id number] Erythrocyte distribution width (RBC) [Ratio] 14.1 % Normal 12.3-15.4 [facility]; [facility] Work Phone: Comment on above: PATIENT NOT FASTINGP ERFORMED BY: YEHUDA LabCoJason Ville 8[address]49[address] [facility] [id number] Information: [id number] Hematocrit (Bld) [Volume fraction] 47.5 % Normal 37.5-51.0 [facility]; [facility] Work Phone: Comment on above: PATIENT NOT FASTINGP ERFORMED BY: YEHUDA StylesCo Dsncgb6220 [facility] [id number] Information: [id number] Hemoglobin (Bld) [Mass/Vol] 15.9 g/dL Normal 12.6-17.7 [facility]; [facility] Work Phone: Comment on above: PATIENT NOT FASTINGP ERFORMED BY: YEHUDA RoseThree [facility] [id number] Information: [id number] Immature granulocytes (Bld) [#/Vol] 0.0 10*3/uL Normal 0.0-0.1 [facility]; [facility] Work Phone: Comment on above: PATIENT NOT FASTINGP ERFORMED BY: YEHUDA Espanalin[address] [facility] [id number] Information: [id number] Immature granulocytes/100 WBC (Bld) 0 % Normal 0-2 [facility]; [facility] Work Phone: Comment on above: PATIENT NOT FASTINGP ERFORMED BY: YEHUDA Espanalin[address] [facility] [id number] Information: [id number] Lymphocytes (Bld) [#/Vol] 1.8 10*3/uL Normal 0.7-4.5 [facility]; [facility] Work Phone: Comment on above: PATIENT NOT FASTINGP ERFORMED BY: YEHUDA Sosa[address] [facility] [id number] Information: [id number] Lymphocytes/100 WBC (Bld) 26 % Normal 14-46 [facility]; [facility] Work Phone: Comment on above: PATIENT NOT FASTINGP ERFORMED BY: YEHUDA Espanalin[address] [facility] [id number] Information: [id number] MCH (RBC) [Entitic mass] 31.1 pg Normal 26.6-33.0 [facility]; [facility] Work Phone: Comment on above: PATIENT NOT FASTINGP ERFORMED BY: YEHUDA Espanalin[address] [facility] [id number] Information: [id number] MCHC (RBC) [Mass/Vol] 33.5 g/dL Normal 31.5-35.7 [facility] prehensive Internal Medicine; [facility] Work Phone: Comment on above: PATIENT NOT FASTINGP ERFORMED BY: YEHUDA Sosa[address] [facility] HospitalJosephAtrium Health [facility]burg [id number] Information: [id number] MCV (RBC) [Entitic vol] 93 fL Normal 79-97 [facility] hospitalensive [facility]; [facility] Work Phone: Comment on above: PATIENT NOT FASTINGP ERFORMED BY: YEHUDA LabCoapril SosaOnafzh27[address] [facility] [id number] Information: [id number] Monocytes (Bld) [#/Vol] 0.8 10*3/uL Normal 0.1-1.0 [facility]; [facility] Work Phone: Comment on above: PATIENT NOT FASTINGP ERFORMED BY: YEHUDA Espanalin[address] [facility] [id number] Information: [id number] Monocytes/100 WBC (Bld) 11 % Normal 4-13 [facility] hospitalensive [facility]; [facility] Work Phone: Comment on above: PATIENT NOT FASTINGP ERFORMED BY: YEHUDA Sosa[address] [facility] [id number] Information: [id number] Neutrophils (Bld) [#/Vol] 3.7 10*3/uL Normal 1.8-7.8 [facility]; [facility] Work Phone: Comment on above: PATIENT NOT FASTINGP ERFORMED BY: YEHUDA [facility] Vqkazb5937 RooneyThree [facility] Healthcare [id number] Information: [id number] Neutrophils/100 WBC (Bld) 57 % Normal 40-74 [facility]; [facility] Work Phone: Comment on above: PATIENT NOT FASTINGP ERFORMED BY: YEHUDA [facility] Crzoux[address] [facility] [id number] Information: [id number] Platelets (Bld) [#/Vol] 276 10*3/uL Normal 140-415 [facility]; [facility] Work Phone: Comment on above: PATIENT NOT FASTINGP ERFORMED BY: YEHUDA Sosa63Karen RoseThree Rivers Healthcare [id number] Information: [id number] RBC (Bld) [#/Vol] 5.11 10*6/uL Normal 4.14-5.80 [facility] Internal Medicine; [facility] Work Phone: Comment on above: PATIENT NOT FASTINGP ERFORMED BY: EYHUDA Hunter[address] [facility] [id number] Information: [id number] WBC (Bld) [#/Vol] 6.7 10*3/uL Normal 4.0-10.5 [facility] Internal Medicine; [facility] Work Phone: Comment on above: PATIENT NOT FASTINGP ERFORMED BY: YEHUDA Sosa[address] [facility] [id number] Information: [id number] LIPID PANEL (56684)Ordered B y: Wound Nurse on 12-09-2012 Cholesterol [Mass/Vol] 121 mg/dL Normal 100-199 [facility] Internal Medicine; [facility] Work Phone: Comment on above: PATIENT NOT FASTINGP ERFORMED BY: YEHUDA Hunter[address] [facility] [id number] Cholesterol in HDL [Mass/Vol] 42 mg/dL Normal [facility]; [facility] Work Phone: Comment on above: According to ATP-III Guidelines, HDL-C >59 mg/dL is considered anegative risk factor for CHD. PATIENT NOT FASTINGP ERFORMED BY: YEHUDA Espanalin[address] [facility] [id number] Cholesterol in LDL [Mass/Vol] 67 mg/dL Normal 0-99 [facility]; [facility] Work Phone: Comment on above: PATIENT NOT FASTINGP ERFORMED BY: CB [facility] Rhijwf7[address]Dublin [place] [id number] Cholesterol in LDL/Cholesterol in HDL [Mass ratio] 1.6 {ratio_units} Normal 0.0-3.6 [facility]; [facility] Work Phone: Comment on above: PATIENT NOT FASTINGP ERFORMED BY: CB [facility] Xsddzy4548 [address] RoadDublin [place] [id number] Cholesterol in VLDL [Mass/Vol] 12 mg/dL Normal 5-40 [facility]; [facility] Work Phone: Comment on above: PATIENT NOT FASTINGP ERFORMED BY: CB [facility] Skykto7545 [address] RoadDublin [place] [id number] Triglyceride [Mass/Vol] 59 mg/dL Normal 0-149 C omprehensive [facility]; [facility] Work Phone: Comment on above: PATIENT NOT FASTINGP ERFORMED BY: CB [facility] Vuqbff1757 [address] RoadDublin [place] [id number] METABOLIC PANEL, COMPREHENSI VE (27484)Ordered By: Wound Nurse on 12-09-2012 Albumin [Mass/Vol] 3.5 g/dL Normal 3.5-4.8 [facility] Internal Medicine; [facility] Work Phone: Comment on above: PATIENT NOT FASTINGP ERFORMED BY: CB [facility] Zxbnnm8763 [address] RoadDublin [place] [id number] Albumin/Globulin [Mass ratio] 1.2 {ratio} Normal 1.1-2.5 [facility]; [facility] Work Phone: Comment on above: PATIENT NOT FASTINGP ERFORMED BY: CB [facility] Faryxh9771 [address] RoadDublin [place] [id number] ALP [Catalytic activity/Vol] 66 U/L Normal 25-160 [facility]; [facility] Work Phone: Comment on above: PATIENT NOT FASTINGP ERFORMED BY: CB [facility] Zrthwx5883 [address] RoadDublin [place] [id number] ALT [Catalytic activity/Vol] 23 U/L Normal 0-44 [facility]; [facility] Work Phone: Comment on above: PATIENT NOT FASTINGP ERFORMED BY: CB [facility] Gyqkwd2903 [address] RoadDublin [place] [id number] AST [Catalytic activity/Vol] 21 U/L Normal 0-40 [facility]; [facility] Work Phone: Comment on above: PATIENT NOT FASTINGP ERFORMED BY: CB [facility] Deflqy7656 [address] RoadDublin [place] [id number] Bilirubin [Mass/Vol] 0.8 mg/dL Normal 0.0-1.2 Comp rehensive Internal Medicine; [facility] Work Phone: Comment on above: PATIENT NOT FASTINGP ERFORMED BY: CB [facility] Vivpzq7364 [address] RoadDublin [place] [id number] Calcium [Mass/Vol] 8.6 mg/dL Normal 8.6-10.2 [facility] Internal Medicine; [facility] Work Phone: Comment on above: PATIENT NOT FASTINGP ERFORMED BY: CB [facility] Lhbyhr7880 [address] RoadDublin [place] [id number] Chloride [Moles/Vol] 108 mmol/L Normal 97-108 Comp rehensive Internal Medicine; [facility] Work Phone: Comment on above: PATIENT NOT FASTINGP ERFORMED BY: CB [facility] Jfnovl8560 [address] RoadDublin [place] [id number] CO2 [Moles/Vol] 23 mmol/L Normal 20-32 [facility]; [facility] Work Phone: Comment on above: PATIENT NOT FASTINGP ERFORMED BY: CB [facility] Tvduee3088 [address] RoadDublin [place] [id number] Creatinine [Mass/Vol] 1.03 mg/dL Normal 0.76-1.27 Com prehensive Internal Medicine; [facility] Work Phone: Comment on above: PATIENT NOT FASTINGP ERFORMED BY: CB [facility] Pqlyxs7793 [address] RoadDublin [place] [id number] GFR/1.73 sq M.predicted among blacks CKD-EPI (S/P/Bld) [Vol rate/Area] 81 mL/min/1.73 Normal [facility]; [facility] Work Phone: Comment on above: PATIENT NOT FASTINGP ERFORMED BY: YEHUDA LabCoapril Nscrmm9789 [address] RoadDublin [place] [id number] GFR/1.73 sq M.predicted among non-blacks CKD-EPI (S/P/Bld) [Vol rate/Area] 70 mL/min/1.73 Normal [facility]; [facility] Work Phone: Comment on above: PATIENT NOT FASTINGP ERFORMED BY: CB [facility] Dmmkqh5329 [address]oney RoadCritical Access Hospitalin [place] [id number] Globulin (S) [Mass/Vol] 2.9 g/dL Normal 1.5-4.5 [facility] omprehensive [facility]; [facility] Work Phone: Comment on above: PATIENT NOT FASTINGP ERFORMED BY: CB [facility] Twavxs6160 Rooney RoadCritical Access Hospitalin [place] [id number] Glucose [Mass/Vol] 100 mg/dL Abnormal 65-99 [facility]; [facility] Work Phone: Comment on above: PATIENT NOT FASTINGP ERFORMED BY: CB [facility] Xjqpcz[address] [facility]in [place] [id number] Potassium [Moles/Vol] 3.9 mmol/L Normal 3.5-5.2 [facility] prehensive Internal Medicine; [facility] Work Phone: Comment on above: PATIENT NOT FASTINGP ERFORMED BY: CB [facility] Jgfkxt[address] [facility]in [place] [id number] Protein [Mass/Vol] 6.4 g/dL Normal 6.0-8.5 [facility]; [facility] Work Phone: Comment on above: PATIENT NOT FASTINGP ERFORMED BY: CB [facility] Dkexzt[address] [facility]in [place] [id number] Sodium [Moles/Vol] 144 mmol/L Normal 134-144 [facility]; [facility] Work Phone: Comment on above: PATIENT NOT FASTINGP ERFORMED BY: CB [facility] Gfsoob9271 [address] RoadDublin [place] [id number] Urea nitrogen [Mass/Vol] 18 mg/dL Normal 8-27 [facility]; [facility] Work Phone: Comment on above: PATIENT NOT FASTINGP ERFORMED BY: CB [facility] Unhsev5511 [address] RoadDublin [place] [id number] Urea nitrogen/Creatinine [Mass ratio] 17 mg/mg Normal 10-22 [facility]; [facility] Work Phone: Comment on above: PATIENT NOT FASTINGP ERFORMED BY: CB [facility] Hubodc0231 [address] RoadDublin [place] [id number] T3, FREE (TRIDOTHYRONINE) (3 9232)Ordered By: Wound Nurse on 12-09-2012 Free T3 [Mass/Vol] 3.0 pg/mL Normal 2.0-4.4 [facility] Internal Medicine; [facility] Work Phone: Comment on above: PATIENT NOT FASTINGP ERFORMED BY: CB [facility] Hllbjo3418 [address] RoadDublin [place] [id number] T4, FREE (THYROXINE) ([id number]) Ordered By: Wound Nurse on 12-09-2012 Free T4 [Mass/Vol] 1.04 ng/dL Normal 0.82-1.77 [facility] Internal Medicine; [facility] Work Phone: Comment on above: PATIENT NOT FASTINGP ERFORMED BY: CB [facility] Mkjzui6577 [address] Roadblin [place] [id number] TSH (90823)Ordered By: Syste m Delivery Coordinator on 12-09-2012 TSH Qn 0.311 {uIU/mL} Abnormal 0.450-4.500 [facility] Internal Medicine; [facility] Work Phone: Comment on above: PATIENT NOT FASTINGP ERFORMED BY: CB [facility] Zqsdhb7575 [address] RoadDublin [place] [id number] HgA1C , Office ([id number])Ordere d By: Zenaida Prince on 08-19-2012 HbA1c (Bld) [Mass fraction] 5.1 % Normal 4.6 - 7.1 [facility]; [facility] Work Phone: CBC WITH MANUAL DIFF ([id number]) Ordered By: Wound Nurse on 08-05-2012 Basophils (Bld) [#/Vol] 0.1 10*3/uL Normal 0.0-0.2 [facility]; [facility] Work Phone: Comment on above: PATIENT WAS FASTINGP ERFORMED BY: [facility] Zdiyrd9[address] [facility] [id number] Information: [id number] Basophils/100 WBC (Bld) 1 % Normal 0-3 C o[facility]rehensive [facility]; [facility] Work Phone: Comment on above: PATIENT WAS FASTINGP ERFORMED BY: LabCoMarlton Rehabilitation HospitalKqdpel8423 [facility] [id number] Information: [id number] Eosinophils (Bld) [#/Vol] 0.3 10*3/uL Normal 0.0-0.4 [facility]; [facility] Work Phone: Comment on above: PATIENT WAS FASTINGP ERFORMED BY: [facility] Utrert9[address] [facility] [id number] Information: [id number] Eosinophils/100 WBC (Bld) 3 % Normal 0-7 [facility]; [facility] Work Phone: Comment on above: PATIENT WAS FASTINGP ERFORMED BY: [facility] Srfyib95[address] [facility] [id number] Information: [id number] Erythrocyte distribution width (RBC) [Ratio] 13.5 % Normal 12.3-15.4 [facility]; [facility] Work Phone: Comment on above: PATIENT WAS FASTINGP ERFORMED BY: [facility] Wrmlmh06[address] [facility] [id number] Information: [id number] Hematocrit (Bld) [Volume fraction] 46.8 % Normal 37.5-51.0 [facility]; [facility] Work Phone: Comment on above: PATIENT WAS FASTINGP ERFORMED BY: YEHUDA Sosa[address] [facility] [id number] Information: [id number] Hemoglobin (Bld) [Mass/Vol] 15.8 g/dL Normal 12.6-17.7 [facility]; [facility] Work Phone: Comment on above: PATIENT WAS FASTINGP ERFORMED BY: YEHUDA Styles[address] [id number] Information: [id number] Immature granulocytes (Bld) [#/Vol] 0.0 10*3/uL Normal 0.0-0.1 [facility]; [facility] Work Phone: Comment on above: PATIENT WAS FASTINGP ERFORMED BY: YEHUDA Jennings[address] [id number] Information: [id number] Immature granulocytes/100 WBC (Bld) 0 % Normal 0-2 [facility]; [facility] Work Phone: Comment on above: PATIENT WAS FASTINGP ERFORMED BY: YEHUDA Jennings Sqwmsj[address] [facility] [id number] Information: [id number] Lymphocytes (Bld) [#/Vol] 1.7 10*3/uL Normal 0.7-4.5 [facility]; [facility] Work Phone: Comment on above: PATIENT WAS FASTINGP ERFORMED BY: YEHUDA [place] 0[address]25[address] [facility] [id number] Information: 780405,[id number] Lymphocytes/100 WBC (Bld) 23 % Normal 14-46 [facility]; [facility] Work Phone: Comment on above: PATIENT WAS FASTINGP ERFORMED BY: [place] [address]76[address] [facility] [id number] Information: [id number] MCH (RBC) [Entitic mass] 31.0 pg Normal 26.6-33.0 [facility] Internal Medicine; [facility] Work Phone: Comment on above: PATIENT WAS FASTINGP ERFORMED BY: YEHUDA Lucie Sosa[address] [facility] [id number] Information: [id number] MCHC (RBC) [Mass/Vol] 33.8 g/dL Normal 31.5-35.7 [facility] Internal Medicine; [facility] Work Phone: Comment on above: PATIENT WAS FASTINGP ERFORMED BY: YEHUDA [address] [id number] Information: [id number] MCV (RBC) [Entitic vol] 92 fL Normal 79-97 [facility]; [facility] Work Phone: Comment on above: PATIENT WAS FASTINGP ERFORMED BY: YEHUDA StylesCenterpointe Hospital Jptcoy6[address] [facility] [id number] Information: [id number] Monocytes (Bld) [#/Vol] 0.8 10*3/uL Normal 0.1-1.0 [facility] Internal Medicine; [facility] Work Phone: Comment on above: PATIENT WAS FASTINGP ERFORMED BY: YEHUDA [facility]Up [facility] [facility] [id number] Information: [id number] Monocytes/100 WBC (Bld) 11 % Normal 4-13 [facility]; [facility] Work Phone: Comment on above: PATIENT WAS FASTINGP ERFORMED BY: YEHUDA [facility] [facility] [id number] Information: [id number] Neutrophils (Bld) [#/Vol] 4.4 10*3/uL Normal 1.8-7.8 [facility] Internal Medicine; [facility] Work Phone: Comment on above: PATIENT WAS FASTINGP ERFORMED BY: YEHUDA Lucie Sosa[address] [facility] [id number] Information: [id number] Neutrophils/100 WBC (Bld) 62 % Normal 40-74 [facility]; [facility] Work Phone: Comment on above: PATIENT WAS FASTINGP ERFORMED BY: YEHUDA Sosa[address] [facility] [id number] Information: [id number] Platelets (Bld) [#/Vol] 273 10*3/uL Normal 140-415 [facility]; [facility] Work Phone: Comment on above: PATIENT WAS FASTINGP ERFORMED BY: YEHUDA Lucie Sosa[address] [facility] [id number] Information: [id number] RBC (Bld) [#/Vol] 5.09 10*6/uL Normal 4.14-5.80 [facility] Internal Medicine; [facility] Work Phone: Comment on above: PATIENT WAS FASTINGP ERFORMED BY: YEHUDA Lucie Sosa[address] [facility] [id number] Information: [id number] WBC (Bld) [#/Vol] 7.3 10*3/uL Normal 4.0-10.5 [facility] Internal Medicine; [facility] Work Phone: Comment on above: PATIENT WAS FASTINGP ERFORMED BY: YEHUDA Lucie Sosa[address] [facility] [id number] Information: [id number] LIPID PANEL ([id number])Ordered B y: Wound Nurse on 08-05-2012 Cholesterol [Mass/Vol] 107 mg/dL Normal 100-199 [facility] Internal Medicine; [facility] Work Phone: Comment on above: PATIENT WAS FASTINGP ERFORMED BY: YEHUDA Sosa[address] [facility] [id number] Cholesterol in HDL [Mass/Vol] 45 mg/dL Normal [facility]; [facility] Work Phone: Comment on above: According to ATP-III Guidelines, HDL-C >59 mg/dL is considered anegative risk factor for CHD. PATIENT WAS FASTINGP ERFORMED BY: CB [facility] Nqpght4702 [address] RoadDublin [place] [id number] Cholesterol in LDL [Mass/Vol] 48 mg/dL Normal 0-99 [facility]; [facility] Work Phone: Comment on above: PATIENT WAS FASTINGP ERFORMED BY: CB [facility] Dpaiiw4221 [address] RoadDublin [place] [id number] Cholesterol in LDL/Cholesterol in HDL [Mass ratio] 1.1 {ratio_units} Normal 0.0-3.6 [facility]; [facility] Work Phone: Comment on above: PATIENT WAS FASTINGP ERFORMED BY: CB [facility] Pwybyg0027 [address] RoadDublin [place] [id number] Cholesterol in VLDL [Mass/Vol] 14 mg/dL Normal 5-40 [facility]; [facility] Work Phone: Comment on above: PATIENT WAS FASTINGP ERFORMED BY: CB [facility] Ftfkub5983 [address] RoadDublin [place] [id number] Triglyceride [Mass/Vol] 68 mg/dL Normal 0-149 C omprehensive Internal Medicine; [facility] Work Phone: Comment on above: PATIENT WAS FASTINGP ERFORMED BY: YEHUDA [facility] Ntouez0053 [address] RoadDublin [place] [id number] METABOLIC PANEL, COMPREHENSI VE ([id number])Ordered By: Wound Nurse on 08-05-2012 Albumin [Mass/Vol] 3.7 g/dL Normal 3.5-4.8 [facility] Internal Medicine; [facility] Work Phone: Comment on above: PATIENT WAS FASTINGP ERFORMED BY: CB [facility] Otnbrh5434 [address] RoadDublin [place] [id number] Albumin/Globulin [Mass ratio] 1.3 {ratio} Normal 1.1-2.5 [facility]; [facility] Work Phone: Comment on above: PATIENT WAS FASTINGP ERFORMED BY: CB [facility] Xyxhfg7112 [address] RoadDublin [place] [id number] ALP [Catalytic activity/Vol] 68 U/L Normal 25-160 [facility]; [facility] Work Phone: Comment on above: PATIENT WAS FASTINGP ERFORMED BY: CB [facility] Uxtcbk7404 [address] RoadDublin [place] [id number] ALT [Catalytic activity/Vol] 20 U/L Normal 0-44 [facility]; [facility] Work Phone: Comment on above: PATIENT WAS FASTINGP ERFORMED BY: [facility] Vwbckh7516 [address] RoadDublin [place] [id number] AST [Catalytic activity/Vol] 18 U/L Normal 0-40 [facility]; [facility] Work Phone: Comment on above: PATIENT WAS FASTINGP ERFORMED BY: [facility] Biuciz6821 [address] RoadDublin [place] [id number] Bilirubin [Mass/Vol] 0.5 mg/dL Normal 0.0-1.2 Comp rehensive Internal Medicine; [facility] Work Phone: Comment on above: PATIENT WAS FASTINGP ERFORMED BY: [facility] Jvtivu2879 [address] Roadblin [place] [id number] Calcium [Mass/Vol] 9.0 mg/dL Normal 8.6-10.2 [facility] Internal Medicine; [facility] Work Phone: Comment on above: PATIENT WAS FASTINGP ERFORMED BY: [facility] Ucamhm6830 [address] RoadDublin [place] [id number] Chloride [Moles/Vol] 106 mmol/L Normal 97-108 Comp rehensive Internal Medicine; [facility] Work Phone: Comment on above: PATIENT WAS FASTINGP ERFORMED BY: CB [facility] Bikmec2811 [address] RoadDublin [place] [id number] CO2 [Moles/Vol] 24 mmol/L Normal 20-32 [facility] Internal [facility]; [facility] Work Phone: Comment on above: PATIENT WAS FASTINGP ERFORMED BY: [facility] Brhjqq2631 [address] RoadDublin [place] [id number] Creatinine [Mass/Vol] 1.09 mg/dL Normal 0.76-1.27 [facility] prehensive Internal Medicine; [facility] Work Phone: Comment on above: PATIENT WAS FASTINGP ERFORMED BY: [facility] Hjcnla2745 [address] RoadDublin [place] [id number] GFR/1.73 sq M.predicted among blacks CKD-EPI (S/P/Bld) [Vol rate/Area] 76 mL/min/1.73 Normal [facility]; [facility] Work Phone: Comment on above: PATIENT WAS FASTINGP ERFORMED BY: [facility] Tlxhxa1469 [address] Roadblin [place] [id number] GFR/1.73 sq M.predicted among non-blacks CKD-EPI (S/P/Bld) [Vol rate/Area] 66 mL/min/1.73 Normal [facility]; [facility] Work Phone: Comment on above: PATIENT WAS FASTINGP ERFORMED BY: [facility] Obtsah0803 [address] [facility] [id number] Globulin (S) [Mass/Vol] 2.8 g/dL Normal 1.5-4.5 [facility]; [facility] Work Phone: Comment on above: PATIENT WAS FASTINGP ERFORMED BY: [facility] Lpbtbj3504 [address] [facility]in [place] [id number] Glucose [Mass/Vol] 97 mg/dL Normal 65-99 [facility] Internal Medicine; [facility] Work Phone: Comment on above: PATIENT WAS FASTINGP ERFORMED BY: [facility] Twyogs[address] [facility]in [place] [id number] Potassium [Moles/Vol] 4.8 mmol/L Normal 3.5-5.2 [facility] prehensive Internal Medicine; [facility] Work Phone: Comment on above: PATIENT WAS FASTINGP ERFORMED BY: [facility] Ohhwwz0112 [address] [facility] [id number] Protein [Mass/Vol] 6.5 g/dL Normal 6.0-8.5 [facility]; [facility] Work Phone: Comment on above: PATIENT WAS FASTINGP ERFORMED BY: YEHUDA [facility] Dffkqi6126 [address] RoadDublin [place] [id number] Sodium [Moles/Vol] 143 mmol/L Normal 134-144 [facility]; [facility] Work Phone: Comment on above: PATIENT WAS FASTINGP ERFORMED BY: YEHUDA [facility] Dtngsx7526 [address] RoadDublin [place] [id number] Urea nitrogen [Mass/Vol] 20 mg/dL Normal 8-27 [facility]; [facility] Work Phone: Comment on above: PATIENT WAS FASTINGP ERFORMED BY: YEHUDA [facility] Jswghz6123 [address] RoadDublin [place] [id number] Urea nitrogen/Creatinine [Mass ratio] 18 mg/mg Normal 10-22 [facility]; [facility] Work Phone: Comment on above: PATIENT WAS FASTINGP ERFORMED BY: YEHUDA [facility] Syqcbs1943 [address] RoadDublin [place] [id number] TSH ([id number])Ordered By: [employer] Technologye m Delivery Coordinator on 08-05-2012 TSH Qn 0.216 {uIU/mL} Abnormal 0.450-4.500 Comprehen sive Internal Medicine; [facility] Work Phone: Comment on above: PATIENT WAS FASTINGP ERFORMED BY: YEHUDA [facility] Ewzooh0117 [address] RoadDublin [place] [id number] URINALYSIS, W/ MICRO (69205) Ordered By: Wound Nurse on 08-05-2012 Appearance (U) Clear Normal Comprehens [facility]enson Internal Medicine; [facility] Work Phone: Comment on above: PATIENT WAS FASTINGP ERFORMED BY: YEHUDA [facility] Txwnzl2234 [address] RoadDublin [place] [id number] Bilirubin Ql (U) Negative Normal Comprehe nsive Internal Medicine; [facility] Work Phone: Comment on above: PATIENT WAS FASTINGP ERFORMED BY: YEHUDA [facility] Gimjkh6387 [address] RoadDublin [place] [id number] Color (U) Yellow Normal [facility]; [facility] Work Phone: Comment on above: PATIENT WAS FASTINGP ERFORMED BY: YEHUDA LabEmanuelrp Kdgjlq7325 [address] RoadDublin [place] [id number] Glucose Ql (U) Negative Normal Comprehens [facility]enson Internal Medicine; [facility] Work Phone: Comment on above: PATIENT WAS FASTINGP ERFORMED BY: YEHUDA [facility] Xwdlku2204 [address] Roadblin [place] [id number] Hemoglobin Ql (U) Negative Normal Compreh ensive Internal Medicine; [facility] Work Phone: Comment on above: PATIENT WAS FASTINGP ERFORMED BY: YEHUDA LabEmanuel Flmoaw2089 [address] RoadDublin [place] [id number] Ketones Ql (U) Negative Normal Comprehens [facility] Internal Medicine; [facility] Work Phone: Comment on above: PATIENT WAS FASTINGP ERFORMED BY: YEHUDA [facility] Hiayuy0474 [address] Roadblin [place] [id number] Leukocyte esterase Test strip Ql (U) Negative Normal [facility]; [facility] Work Phone: Comment on above: PATIENT WAS FASTINGP ERFORMED BY: YEHUDA LabEmanuel Gjimup0519 [address] RoadDuin [place] [id number] Microscopic observation LM Nom (Urine sed) MICRON Normal [facility]; [facility] Work Phone: Comment on above: Microscopic follows if indicated. PATIENT WAS FASTINGP ERFORMED BY: YEHUDA [facility] Yrrxod2996 [address] RoadDublin [place] [id number] Microscopic observation LM Nom (Urine sed) See below: Normal [facility]; [facility] Work Phone: Comment on above: PATIENT WAS FASTINGP ERFORMED BY: YEHUDA [facility] Yjizgu6927 [address] RoadDublin [place] [id number] Nitrite Ql (U) Negative Normal Comprehens [facility]enson Internal Medicine; [facility] Work Phone: Comment on above: PATIENT WAS FASTINGP ERFORMED BY: YEHUDA [facility] Ypoqfd[address] [facility] [id number] pH (U) 6.5 [pH] Normal 5.0-7.5 [facility]; [facility] Work Phone: Comment on above: PATIENT WAS FASTINGP ERFORMED BY: [facility] Pmrelr[address] [facility] [id number] Protein Ql (U) Negative Normal Comprehens benson Internal Medicine; [facility] Work Phone: Comment on above: PATIENT WAS FASTINGP ERFORMED BY: [facility] Eeroei44[address] [facility] [id number] Specific gravity (U) [Rel density] 1.022 1 Normal 1.005-1.030 [facility]; [facility] Work Phone: Comment on above: PATIENT WAS FASTINGP ERFORMED BY: [facility] Jnbdho7[address] [facility] [id number] Urobilinogen (U) [Mass/Vol] 0.2 mg/dL Normal 0.0-1.9 [facility]; [facility] Work Phone: Comment on above: PATIENT WAS FASTINGP ERFORMED BY: [facility] Ijxdkm7458 [facility] [id number] HgA1C , Office ([id number])Ordere d By: Zenaida Prince on 04-08-2012 HbA1c (Bld) [Mass fraction] 5.4 % Normal 4.6 - 7.1 [facility]; [facility] Work Phone: T3, FREE (TRIDOTHYRONINE) ([phone])Ordered By: Wound Nurse on 04-01-2012 Free T3 [Mass/Vol] 3.4 pg/mL Normal 2.0-4.4 [facility] Internal Medicine; [facility] Work Phone: Comment on above: PATIENT WAS FASTINGP ERFORMED BY: [facility] Dkfeqm06[address] [facility] [id number] T4, FREE (THYROXINE) (08529) Ordered By: Wound Nurse on 04-01-2012 Free T4 [Mass/Vol] 1.42 ng/dL Normal 0.82-1.77 [facility] Internal Medicine; [facility] Work Phone: Comment on above: PATIENT WAS FASTINGP ERFORMED BY: [employer] Ckqhuk9[address] [facility] [id number] Information: [id number] TSH (28995)Ordered By: [employer]e m Delivery Coordinator on 04-01-2012 TSH Qn 0.280 {uIU/mL} Abnormal 0.450-4.500 [facility] Internal Medicine; [facility] Work Phone: Comment on above: PATIENT WAS FASTINGP ERFORMED BY: Dr. Scribbles[address] [facility] [id number] Anti-TPO Antibody (67800)Ord ered By: Wound Nurse on 01-08-2012 TPO Ab Qn 7 [IU]/mL Normal 0-34 [facility] Internal Medicine; [facility] Work Phone: Comment on above: Please note refere nce interval change PATIENT NOT FASTINGP ERFORMED BY: [employer] Health TechnologiesMarlton Rehabilitation HospitalVefsjr4[address] [facility] [id number] Hemoglobin Glyclated (HGB A1 C) (05179)Ordered By: Wound Nurse on 01-08-2012 HbA1c (Bld) [Mass fraction] 5.5 % Normal 4.8-5.6 [facility] Internal Medicine; [facility] Work Phone: Comment on above: . Increased risk for diabetes: 5.7 - 6.4 Diabetes: >6.4 Glycemic control for adults with diabetes: <7.0 PATIENT NOT FASTINGP ERFORMED BY: ReelGenieMarlton Rehabilitation HospitalJdtzwo48[address] [facility] [id number] Information: [id number] TSH (58238)Ordered By: [employer]e m Delivery Coordinator on 01-08-2012 TSH Qn 0.294 {uIU/mL} Abnormal 0.450-4.500 [facility] Internal Medicine; [facility] Work Phone: Comment on above: PATIENT NOT FASTINGP ERFORMED BY: YEHUDA Jennings Kddpkr7[address] [facility] [id number] CBC WITH MANUAL DIFF (70941) Ordered By: Wound Nurse on 12-10-2011 Basophils (Bld) [#/Vol] 0.1 10*3/uL Normal 0.0-0.2 [facility]; [facility] Work Phone: Comment on above: PATIENT WAS FASTINGP ERFORMED BY: [facility]Centerpo[facility] Hospital Psyduj35[address] [facility] [id number] Information: [id number] Basophils/100 WBC (Bld) 1 % Normal 0-3 C omprehensive Internal Medicine; [facility] Work Phone: Comment on above: PATIENT WAS FASTINGP ERFORMED BY: YEHUDA Jennings Yuwiqp[address] [facility] [id number] Information: [id number] Eosinophils (Bld) [#/Vol] 0.1 10*3/uL Normal 0.0-0.4 [facility]; [facility] Work Phone: Comment on above: PATIENT WAS FASTINGP ERFORMED BY: YEHUDA Jennings Zjqpbo7[address] [facility] [id number] Information: [id number] Eosinophils/100 WBC (Bld) 2 % Normal 0-7 [facility]; [facility] Work Phone: Comment on above: PATIENT WAS FASTINGP ERFORMED BY: [facility] [facility] [id number] Information: [id number] Erythrocyte distribution width (RBC) [Ratio] 14.0 % Normal 11.7-15.0 [facility]; [facility] Work Phone: Comment on above: PATIENT WAS FASTINGP ERFORMED BY: YEHUDA Jennings Sjhorw2[address] [facility] [id number] Information: [id number] Hematocrit (Bld) [Volume fraction] 47.8 % Normal 36.0-50.0 [facility]; [facility] Work Phone: Comment on above: PATIENT WAS FASTINGP ERFORMED BY: YEHUDA Sosa[address] [facility] [id number] Information: [id number] Hemoglobin (Bld) [Mass/Vol] 15.9 g/dL Normal 12.5-17.0 [facility]; [facility] Work Phone: Comment on above: PATIENT WAS FASTINGP ERFORMED BY: YEHUDA Jennings Bimszp[address] [facility] [id number] Information: [id number] Immature granulocytes (Bld) [#/Vol] 0.0 10*3/uL Normal 0.0-0.1 [facility]; [facility] Work Phone: Comment on above: PATIENT WAS FASTINGP ERFORMED BY: YEHUDA Jennings Ooczts79[address] [facility] [id number] Information: [id number] Immature granulocytes/100 WBC (Bld) 0 % Normal 0-2 [facility]; [facility] Work Phone: Comment on above: PATIENT WAS FASTINGP ERFORMED BY: YEHUDA Espanalin[address] [facility] [id number] Information: [id number] Lymphocytes (Bld) [#/Vol] 1.2 10*3/uL Normal 0.7-4.5 [facility]; [facility] Work Phone: Comment on above: PATIENT WAS FASTINGP ERFORMED BY: YEHUDA [facility] [facility] [id number] Information: [id number] Lymphocytes/100 WBC (Bld) 16 % Normal 14-46 [facility]; [facility] Work Phone: Comment on above: PATIENT WAS FASTINGP ERFORMED BY: YEHUDA [facility]lesUp [facility] System[address] [facility] [id number] Information: [id number] MCH (RBC) [Entitic mass] 30.4 pg Normal 27.0-34.0 [facility] Internal Medicine; [facility] Work Phone: Comment on above: PATIENT WAS FASTINGP ERFORMED BY: YEHUDA [facility] Kmffwz[address] [facility] [id number] Information: [id number] MCHC (RBC) [Mass/Vol] 33.3 g/dL Normal 32.0-36.0 [facility] Internal Medicine; [facility] Work Phone: Comment on above: PATIENT WAS FASTINGP ERFORMED BY: [facility] Txgiiv1188 [address] [facility] [id number] Information: [id number] MCV (RBC) [Entitic vol] 91 fL Normal 80-98 [facility] Internal [facility]; [facility] Work Phone: Comment on above: PATIENT WAS FASTINGP ERFORMED BY: [facility] Lbrykf[address] [facility] [id number] Information: [id number] Monocytes (Bld) [#/Vol] 0.7 10*3/uL Normal 0.1-1.0 [facility] Internal Medicine; [facility] Work Phone: Comment on above: PATIENT WAS FASTINGP ERFORMED BY: [facility] Jjsocg[address] [facility] [id number] Information: [id number] Monocytes/100 WBC (Bld) 9 % Normal 4-13 [facility] Internal Medicine; [facility] Work Phone: Comment on above: PATIENT WAS FASTINGP ERFORMED BY: [facility] Wuvtvr2050 [address] [facility] [id number] Information: [id number] Morphology Mono (Bld) [Interp] Note: Normal [facility] Internal Medicine; [facility] Work Phone: Comment on above: Verified by microsco pic examination. PATIENT WAS FASTINGP ERFORMED BY: [facility] Mluwfq[address] [facility] [id number] Information: [id number] Neutrophils (Bld) [#/Vol] 5.4 10*3/uL Normal 1.8-7.8 [facility]; [facility] Work Phone: Comment on above: PATIENT WAS FASTINGP ERFORMED BY: YEHUDA [facility]Centerpointe Hospital Rgitkz7[address] [facility] [id number] Information: [id number] Neutrophils/100 WBC (Bld) 72 % Normal 40-74 [facility]; [facility] Work Phone: Comment on above: PATIENT WAS FASTINGP ERFORMED BY: [facility] [facility] [id number] Information: [id number] Platelets (Bld) [#/Vol] 266 10*3/uL Normal 140-415 [facility]; [facility] Work Phone: Comment on above: PATIENT WAS FASTINGP ERFORMED BY: YEHUDA [facility] [facility] [id number] Information: [id number] RBC (Bld) [#/Vol] 5.23 10*6/uL Normal 4.10-5.60 [facility] Internal Medicine; [facility] Work Phone: Comment on above: PATIENT WAS FASTINGP ERFORMED BY: [facility] [facility] [id number] Information: [id number] WBC (Bld) [#/Vol] 7.5 10*3/uL Normal 4.0-10.5 [facility] Internal Medicine; [facility] Work Phone: Comment on above: PATIENT WAS FASTINGP ERFORMED BY: [facility] [facility] [id number] Information: [id number] LIPID PANEL (86690)Ordered B y: Wound Nurse on 12-10-2011 Cholesterol [Mass/Vol] 113 mg/dL Normal 100-199 [facility]; [facility] Work Phone: Comment on above: PATIENT WAS FASTINGP ERFORMED BY: CB [facility] Nblqhl4837 [address] RoadDublin [place] [id number] Cholesterol in HDL [Mass/Vol] 41 mg/dL Normal [facility]; [facility] Work Phone: Comment on above: According to ATP-III Guidelines, HDL-C >59 mg/dL is considered anegative risk factor for CHD. PATIENT WAS FASTINGP ERFORMED BY: CB [facility] Pfaysw5682 [address] RoadDublin [place] [id number] Cholesterol in LDL [Mass/Vol] 56 mg/dL Normal 0-99 [facility]; [facility] Work Phone: Comment on above: PATIENT WAS FASTINGP ERFORMED BY: CB [facility] Axertg9975 [address] RoadDublin [place] [id number] Cholesterol in LDL/Cholesterol in HDL [Mass ratio] 1.4 {ratio_units} Normal 0.0-3.6 [facility]; [facility] Work Phone: Comment on above: PATIENT WAS FASTINGP ERFORMED BY: CB [facility] Hpshoy1459 [address] RoadDublin [place] [id number] Cholesterol in VLDL [Mass/Vol] 16 mg/dL Normal 5-40 [facility]; [facility] Work Phone: Comment on above: PATIENT WAS FASTINGP ERFORMED BY: CB [facility] Pwhndj8990 [address] RoadDublin [place] [id number] Triglyceride [Mass/Vol] 81 mg/dL Normal 0-149 C omprehensive Internal Medicine; [facility] Work Phone: Comment on above: PATIENT WAS FASTINGP ERFORMED BY: CB [facility] Uifmhq4393 [address] RoadDublin [place] [id number] METABOLIC PANEL, COMPREHENSI VE (45086)Ordered By: Wound Nurse on 12-10-2011 Albumin [Mass/Vol] 3.9 g/dL Normal 3.5-4.8 [facility] Internal Medicine; [facility] Work Phone: Comment on above: PATIENT WAS FASTINGP ERFORMED BY: CB [facility] Xndlhy[address] [facility] [place] [id number] Albumin/Globulin [Mass ratio] 1.3 {ratio} Normal 1.1-2.5 [facility]; [facility] Work Phone: Comment on above: PATIENT WAS FASTINGP ERFORMED BY: YEHUDA Lucie Espanalin6370 [address] RoadDublin [place] [id number] ALP [Catalytic activity/Vol] 85 U/L Normal 25-160 [facility]; [facility] Work Phone: Comment on above: PATIENT WAS FASTINGP ERFORMED BY: YEHUDA [facility] Gjwaxo6738 [address] Roadblin [place] [id number] ALT [Catalytic activity/Vol] 19 U/L Normal 0-55 [facility]; [facility] Work Phone: Comment on above: PATIENT WAS FASTINGP ERFORMED BY: YEHUDA StephaniCenterpointe Hospital Ysgejm5136 [address]oney RoadHighsmith-Rainey Special[facility] [id number] AST [Catalytic activity/Vol] 19 U/L Normal 0-40 [facility]; [facility] Work Phone: Comment on above: PATIENT WAS FASTINGP ERFORMED BY: YEHUDA Michaela Qcupsb9154 [address] [facility] [place] [id number] Bilirubin [Mass/Vol] 0.8 mg/dL Normal 0.0-1.2 [facility] rehensive Internal Medicine; [facility] Work Phone: Comment on above: PATIENT WAS FASTINGP ERFORMED BY: YEHUDA [facility] Xfxbig1274 [address] [facility] [id number] Calcium [Mass/Vol] 8.8 mg/dL Normal 8.6-10.2 [facility] Internal Medicine; [facility] Work Phone: Comment on above: PATIENT WAS FASTINGP ERFORMED BY: YEHUDA [facility] Nawcrv[address] [facility] [place] [id number] Chloride [Moles/Vol] 103 mmol/L Normal 97-108 Comp rehensive Internal Medicine; [facility] Work Phone: Comment on above: PATIENT WAS FASTINGP ERFORMED BY: YEHUDA [facility] Jnnvhx7334 [address] RoadDuin [place] [id number] CO2 [Moles/Vol] 22 mmol/L Normal 20-32 [facility] Internal Medicine; [facility] Work Phone: Comment on above: PATIENT WAS FASTINGP ERFORMED BY: CB [facility] [id number] Rooney RoadDuAtrium Health Harrisburg [id number] Creatinine [Mass/Vol] 0.96 mg/dL Normal 0.76-1.27 [facility]; [facility] Work Phone: Comment on above: PATIENT WAS FASTINGP ERFORMED BY: CB [facility] [id number] [address] RoadDuin [place] [id number] GFR/1.73 sq M.predicted among blacks CKD-EPI (S/P/Bld) [Vol rate/Area] 89 mL/min/1.73 Normal [facility]; [facility] Work Phone: Comment on above: PATIENT WAS FASTINGP ERFORMED BY: CB [facility] [id number] [address] RoadHighsmith-[facility] [id number] GFR/1.73 sq M.predicted among non-blacks CKD-EPI (S/P/Bld) [Vol rate/Area] 77 mL/min/1.73 Normal [facility]; [facility] Work Phone: Comment on above: PATIENT WAS FASTINGP ERFORMED BY: [facility] [id number] [facility] [id number] Globulin (S) [Mass/Vol] 3.0 g/dL Normal 1.5-4.5 [facility]; [facility] Work Phone: Comment on above: PATIENT WAS FASTINGP ERFORMED BY: CB [facility] [id number]Dublin [place] [id number] Glucose [Mass/Vol] 106 mg/dL Abnormal 65-99 [facility] Internal Medicine; [facility] Work Phone: Comment on above: PATIENT WAS FASTINGP ERFORMED BY: CB [facility] [id number]Dublin [place] [id number] Potassium [Moles/Vol] 4.5 mmol/L Normal 3.5-5.2 [facility] prehensive Internal Medicine; [facility] Work Phone: Comment on above: PATIENT WAS FASTINGP ERFORMED BY: CB [facility] [id number]Dublin [place] [id number] Protein [Mass/Vol] 6.9 g/dL Normal 6.0-8.5 [facility] Internal [facility]; [facility] Work Phone: Comment on above: PATIENT WAS FASTINGP ERFORMED BY: CB [facility] [id number]Dublin [place] [id number] Sodium [Moles/Vol] 139 mmol/L Normal 134-144 [facility] Internal Medicine; [facility] Work Phone: Comment on above: PATIENT WAS FASTINGP ERFORMED BY: CB [facility] [id number]Duin [place] [id number] Urea nitrogen [Mass/Vol] 14 mg/dL Normal 8-27 [facility]; [facility] Work Phone: Comment on above: PATIENT WAS FASTINGP ERFORMED BY: CB [facility] [id number]Dublin [place] [id number] Urea nitrogen/Creatinine [Mass ratio] 15 mg/mg Normal 10-22 [facility]; [facility] Work Phone: Comment on above: PATIENT WAS FASTINGP ERFORMED BY: CB [facility] [id number]Dublin [place] [id number] TSH ([id number])Ordered By: Angel m Delivery Coordinator on 12-10-2011 TSH Qn 0.241 {uIU/mL} Abnormal 0.450-4.500 [facility] Internal Medicine; [facility] Work Phone: Comment on above: PATIENT WAS FASTINGP ERFORMED BY: CB [facility] [id number] [address]Dublin [place] [id number] Vital Signs Date Time Vital Sign Value Performing Clinician Facility 08-31-2024 14:28-0500 Body mass index (BMI) [Ratio] 32.8 kg/m2 Megan Graham APRN.CNP Work Phone: [facility] 08-31-2024 14:28-0500 Body temperature 98.2 [degF] Megan Graham HAIR SPRING CUTTER.HYDRAULIC PILE HAMMER OPERATOR Work Phone: [facility] 08-31-2024 14:28-0500 Body weight 95 kg Megan Graham APRN.HYDRAULIC PILE HAMMER OPERATOR Work Phone: [facility] 08-31-2024 14:28-0500 Diastolic blood pressure 82 mm[Hg] Megan Graham APRN.HYDRAULIC PILE HAMMER OPERATOR Work Phone: [facility] 08-31-2024 14:28-0500 Heart rate 67 /min Megan Graham APRN.HYDRAULIC PILE HAMMER OPERATOR Work Phone: [facility] 08-31-2024 14:28-0500 Respiratory rate 24 /min Megan Graham HAIR SPRING CUTTER.HYDRAULIC PILE HAMMER OPERATOR Work Phone: [facility] 08-31-2024 14:28-0500 SaO2% (BldA) [Mass fraction] 94 % Megan Graham APRN.HYDRAULIC PILE HAMMER OPERATOR Work Phone: [facility] 08-31-2024 14:28-0500 Systolic blood pressure 177 mm[Hg] Megan Graham APRN.HYDRAULIC PILE HAMMER OPERATOR Work Phone: [facility] 03-15-2024 19:50-0400 Body mass index (BMI) [Ratio] 33.22 kg/m2 Laurie Moomaw HAIR SPRING CUTTER.HYDRAULIC PILE HAMMER OPERATOR Work Phone: [facility] 03-15-2024 19:50-0400 Body temperature 102.6 [degF] Laurie Moomaw HAIR SPRING CUTTER.HYDRAULIC PILE HAMMER OPERATOR Work Phone: [facility] 03-15-2024 19:50-0400 Body weight 96.2 kg Laurie Moomaw HAIR SPRING CUTTER.HYDRAULIC PILE HAMMER OPERATOR Work Phone: [facility] 03-15-2024 19:50-0400 Heart rate 84 /min Laurie Moomaw HAIR SPRING CUTTER.HYDRAULIC PILE HAMMER OPERATOR Work Phone: [facility] 03-15-2024 19:50-0400 Respiratory rate 24 /min Laurie Moomaw HAIR SPRING CUTTER.HYDRAULIC PILE HAMMER OPERATOR Work Phone: [facility] 03-15-2024 19:50-0400 SaO2% (BldA) [Mass fraction] 91 % Laurie Aparicio APRN.HYDRAULIC PILE HAMMER OPERATOR Work Phone: [facility] 09-08-2023 14:05-0500 Heart rate 74 /min INSIDE SALES SPECIALIST-C Praveena Tim Work Phone: [facility] 09-08-2023 14:05-0500 Respiratory rate 18 /min INSIDE SALES SPECIALIST-C Praveena Tim Work Phone: [facility] 09-08-2023 12:45-0500 Inhaled oxygen flow rate 2 L/min INSIDE SALES SPECIALIST-C Praveena Tim Work Phone: [facility] 09-08-2023 12:45-0500 SaO2% (BldA) [Mass fraction] 92 % INSIDE SALES SPECIALIST-C Praveena Tim Work Phone: [facility] 09-08-2023 09:20-0500 Body temperature 97.8 [degF] INSIDE SALES SPECIALIST-C Praveena Tim Work Phone: [facility] 09-08-2023 09:20-0500 Diastolic blood pressure 76 mm[Hg] INSIDE SALES SPECIALIST-C Praveena Tim Work Phone: [facility] 09-08-2023 09:20-0500 Systolic blood pressure 148 mm[Hg] INSIDE SALES SPECIALIST-C Praveena Tim Work Phone: [facility] 09-08-2023 06:00-0500 Body mass index (BMI) [Ratio] 33.1 kg/m2 INSIDE SALES SPECIALIST-C Praveena Tim Work Phone: [facility] 09-08-2023 06:00-0500 Body weight 90.2 kg INSIDE SALES SPECIALIST-C Praveena Tim Work Phone: [facility] 09-07-2023 16:13-0500 Body height 165.1 cm INSIDE SALES SPECIALIST-C Praveena Tim Work Phone: [facility] 09-07-2023 09:15-0500 Body temperature 100.2 [degF] Raul Athy PA-C Work Phone: [facility] 09-07-2023 09:15-0500 Body weight 91.63 kg Raul Athy PA-C Work Phone: [facility] 09-07-2023 09:15-0500 Diastolic blood pressure 64 mm[Hg] Raul Athy PA-C Work Phone: [facility] 09-07-2023 09:15-0500 Heart rate 73 /min Raul Athy PA-C Work Phone: [facility] 09-07-2023 09:15-0500 Respiratory rate 20 /min Raul Athy PA-C Work Phone: [facility] 09-07-2023 09:15-0500 SaO2% (BldA) [Mass fraction] 91 % Raul Athy PA-C Work Phone: [facility] 09-07-2023 09:15-0500 Systolic blood pressure 120 mm[Hg] Raul Athy PA-C Work Phone: [facility] 09-02-2023 14:20-0500 Body temperature 97.81 [degF] Ree Bazan HAIR SPRING CUTTER.HYDRAULIC PILE HAMMER OPERATOR Work Phone: [facility] 09-02-2023 14:20-0500 Body weight 93.26 kg Ree Bazan HAIR SPRING CUTTER.HYDRAULIC PILE HAMMER OPERATOR Work Phone: [facility] 09-02-2023 14:20-0500 Diastolic blood pressure 82 mm[Hg] Ree Bazan HAIR SPRING CUTTER.HYDRAULIC PILE HAMMER OPERATOR Work Phone: [facility] 09-02-2023 14:20-0500 Heart rate 69 /min Ree Bazan HAIR SPRING CUTTER.HYDRAULIC PILE HAMMER OPERATOR Work Phone: [facility] 09-02-2023 14:20-0500 Respiratory rate 16 /min Ree Bazan HAIR SPRING CUTTER.HYDRAULIC PILE HAMMER OPERATOR Work Phone: [facility] 09-02-2023 14:20-0500 SaO2% (BldA) [Mass fraction] 96 % Ree Bazan HAIR SPRING CUTTER.HYDRAULIC PILE HAMMER OPERATOR Work Phone: [facility] 09-02-2023 14:20-0500 Systolic blood pressure 138 mm[Hg] Ree Bazan HAIR SPRING CUTTER.HYDRAULIC PILE HAMMER OPERATOR Work Phone: [facility] 04-24-2023 13:19-0400 Body height 165.1 cm INSIDE SALES SPECIALIST-C Praveena Tim Work Phone: [facility] 04-24-2023 13:19-0400 Body mass index (BMI) [Ratio] 34.6 kg/m2 INSIDE SALES SPECIALIST-C Praveena Tim Work Phone: [facility] 04-24-2023 13:19-0400 Body weight 94.34 kg INSIDE SALES SPECIALIST-C Praveena Tim Work Phone: [facility] 04-24-2023 13:19-0400 Diastolic blood pressure 64 mm[Hg] INSIDE SALES SPECIALIST-C Praveena Tim Work Phone: [facility] 04-24-2023 13:19-0400 Heart rate 58 /min INSIDE SALES SPECIALIST-C Praveena Tim Work Phone: [facility] 04-24-2023 13:19-0400 Respiratory rate 16 /min INSIDE SALES SPECIALIST-C Praveena Tim Work Phone: [facility] 04-24-2023 13:19-0400 Systolic blood pressure 156 mm[Hg] INSIDE SALES SPECIALIST-C Praveena Tim Work Phone: [facility] 05-20-2022 12:42-0400 Diastolic blood pressure 81 mm[Hg] Gonzalez Grey MD Work Phone: [facility] 05-20-2022 12:42-0400 Heart rate 62 /min Gonzalez Grey MD Work Phone: [facility] 05-20-2022 12:42-0400 Systolic blood pressure 141 mm[Hg] Gonzalez Grey MD Work Phone: [facility] 11-12-2021 11:33-0400 Body height 170.2 cm Gonzalez Grey MD Work Phone: [facility] 11-12-2021 11:33-0400 Body temperature 98.01 [degF] Gonzalez Grey MD Work Phone: [facility] 11-12-2021 11:33-0400 Body weight 91.63 kg Gonzalez Grey MD Work Phone: [facility] 11-12-2021 11:33-0400 Diastolic blood pressure 78 mm[Hg] Gonzalez Grey MD Work Phone: [facility] 11-12-2021 11:33-0400 Heart rate 64 /min Gonzalez Grey MD Work Phone: [facility] 11-12-2021 11:33-0400 Respiratory rate 18 /min Gonzalez Grey MD Work Phone: [facility] 11-12-2021 11:33-0400 SaO2% (BldA) [Mass fraction] 94 % Gonzalez Grey MD Work Phone: [facility] 11-12-2021 11:33-0400 Systolic blood pressure 180 mm[Hg] Gonzalez Grey MD Work Phone: [facility] 03-13-2017 08:36-0400 BMI (Body Mass Index) [...] 08:36-0400 Pulse (Heart Rate) 60 /min Mk Cordell, MD [facility] Work Phone: 03-13-2017 08:36-0400 Respiratory Rate 20 /min MD [facility] Work Phone: 03-13-2017 08:36-0400 Weight 87.68 kg MD [facility] Work Phone: 08-28-2016 08:52-0500 BMI (Body Mass Index) 33.12 kg/m2 Yasmin Ellison RN [facility] Work Phone: 08-28-2016 08:52-0500 BP Diastolic 82 mm[Hg] Yasmin Ellison RN [facility] Work Phone: 08-28-2016 08:52-0500 BP Systolic 164 mm[Hg] [facility] Work Phone: 08-28-2016 08:52-0500 BSA (Body Surface Area) 1.93 m2 Yasmin Ellison RN [facility] Work Phone: 08-28-2016 08:52-0500 Height 162.56 cm [facility] Work Phone: 08-28-2016 08:52-0500 Pulse (Heart Rate) 74 /min Yasmin Ellison RN [facility] Work Phone: 08-28-2016 08:52-0500 Respiratory Rate 18 /min [facility] Work Phone: 08-28-2016 08:52-0500 Weight 87.54 kg [facility] Work Phone: 10-10-2015 08:46-0400 Body height 162.56 cm [facility]; [facility] Work Phone: 10-10-2015 08:46-0400 Body mass index (BMI) [Ratio] 32.44 kg/m2 [facility]; [facility] Work Phone: 10-10-2015 08:46-0400 Body surface area Derived from formula 1.91 m2 Lyndsay Schaeffer [facility]; [facility] Work Phone: 10-10-2015 08:46-0400 Body temperature 97.7 [degF] Lyndsay Schaeffer AUTOMOTIVE LIGHT MECHANIC [facility]; [facility] Work Phone: Comment on above: Method: Oral 10-10-2015 08:46-0400 Body weight 85.73 kg Lyndsay Schaeffer [facility]; [facility] Work Phone: 10-10-2015 08:46-0400 Diastolic blood pressure 62 mm[Hg] Lyndsay Schaeffer [facility]; [facility] Work Phone: Comment on above: Patient Position: Sitting; Cuff Location : Left Arm; Cuff Size: Standard 10-10-2015 08:46-0400 Heart rate 62 /min Lyndsay Schaeffer [facility]; [facility] Work Phone: Comment on above: Pattern: Regular 10-10-2015 08:46-0400 Respiratory rate 16 /min Lyndsay Schaeffer [facility]; [facility] Work Phone: Comment on above: Pattern: Unlabored 10-10-2015 08:46-0400 Systolic blood pressure 142 mm[Hg] Lyndsay Schaeffer [facility]; [facility] Work Phone: Comment on above: Patient Position: Sitting; Cuff Location : Left Arm; Cuff Size: Standard 08-07-2015 11:47-0500 Body height 162.56 cm Zenaida Prince [facility] Internal Medicine; [facility] Work Phone: 08-07-2015 11:47-0500 Body mass index (BMI) [Ratio] 31.75 kg/m2 Zenaida Prince [facility]; [facility] Work Phone: 08-07-2015 11:47-0500 Body surface area Derived from formula 1.89 m2 Zenaida Prince [facility]; [facility] Work Phone: 08-07-2015 11:47-0500 Body temperature 98.4 [degF] Zenaida Starrprimoamy [facility]; [facility] Work Phone: Comment on above: Method: Temporal 08-07-2015 11:47-0500 Body weight 83.92 kg Zenaida Prince [facility]; [facility] Work Phone: 08-07-2015 11:47-0500 Diastolic blood pressure 90 mm[Hg] Zenaida Prince [facility]; [facility] Work Phone: Comment on above: Patient Position: Sitting; Cuff Location : Left Arm; Cuff Size: Standard 08-07-2015 11:47-0500 Heart rate 62 /min Zenaida Starrdillan [facility]; [facility] Work Phone: Comment on above: Pattern: Regular 08-07-2015 11:47-0500 Respiratory rate 16 /min Zenaida Suresh [facility]; [facility] Work Phone: Comment on above: Pattern: Unlabored 08-07-2015 11:47-0500 SaO2% (BldA) [Mass fraction] 93 % Zenaida Starrdillan [facility]; [facility] Work Phone: Comment on above: Room air 08-07-2015 11:47-0500 Systolic blood pressure 178 mm[Hg] Zenaida Starrdillan [facility]; [facility] Work Phone: Comment on above: Patient Position: Sitting; Cuff Location : Left Arm; Cuff Size: Standard 07-19-2015 14:51-0500 Body height 162.56 cm Nivia Blakely [facility]; [facility] Work Phone: 07-19-2015 14:51-0500 Body mass index (BMI) [Ratio] 31.75 kg/m2 Nivia Blakely [facility]; [facility] Work Phone: 07-19-2015 14:51-0500 Body surface area Derived from formula 1.89 m2 Nivia Blakely [facility]; [facility] Work Phone: 07-19-2015 14:51-0500 Body temperature 98 [degF] Nivia Blakely [facility]; [facility] Work Phone: Comment on above: Method: Tympanic 07-19-2015 14:51-0500 Body weight 83.92 kg Nivia Blakely [facility]; [facility] Work Phone: 07-19-2015 14:51-0500 Diastolic blood pressure 80 mm[Hg] Nivia Blakely [facility]; [facility] Work Phone: Comment on above: Patient Position: Sitting; Cuff Location : Left Arm; Cuff Size: Standard 07-19-2015 14:51-0500 Heart rate 66 /min Nivia Blakely [facility]; [facility] Work Phone: Comment on above: Pattern: Regular 07-19-2015 14:51-0500 Respiratory rate 18 /min Nivia Blakely [facility]; [facility] Work Phone: Comment on above: Pattern: Unlabored 07-19-2015 14:51-0500 SaO2% (BldA) [Mass fraction] 96 % Nivia Blakely [facility]; [facility] Work Phone: Comment on above: Room air 07-19-2015 14:51-0500 Systolic blood pressure 152 mm[Hg] Nivia Blakely [facility]; [facility] Work Phone: Comment on above: Patient Position: Sitting; Cuff Location : Left Arm; Cuff Size: Standard 06-06-2015 10:04-0500 Body height 162.56 cm Leigh A Fast DO Work Phone: [facility]; [facility] Work Phone: 06-06-2015 10:04-0500 Body mass index (BMI) [Ratio] 31.41 kg/m2 Leigh A Fast DO Work Phone: [facility]; [facility] Work Phone: 06-06-2015 10:04-0500 Body surface area Derived from formula 1.88 m2 Leigh A Fast DO Work Phone: [facility]; [facility] Work Phone: 06-06-2015 10:04-0500 Body temperature 97.8 [degF] Leigh A Fast DO Work Phone: [facility]; [facility] Work Phone: Comment on above: Method: Temporal 06-06-2015 10:04-0500 Body weight 83.01 kg Leigh A Fast DO Work Phone: [facility]; [facility] Work Phone: 06-06-2015 10:04-0500 Diastolic blood pressure 70 mm[Hg] Leigh A Fast DO Work Phone: [facility]; [facility] Work Phone: Comment on above: Patient Position: Sitting; Cuff Location : Left Arm; Cuff Size: Standard 06-06-2015 10:04-0500 Heart rate 45 /min Leigh A Fast DO Work Phone: [facility]; [facility] Work Phone: Comment on above: Pattern: Regular 06-06-2015 10:04-0500 Respiratory rate 16 /min Leigh A Fast DO Work Phone: [facility]; [facility] Work Phone: Comment on above: Pattern: Unlabored 06-06-2015 10:04-0500 Systolic blood pressure 138 mm[Hg] Leigh A Fast DO Work Phone: [facility]; [facility] Work Phone: Comment on above: Patient Position: Sitting; Cuff Location : Left Arm; Cuff Size: Standard 02-08-2015 10:30-0400 Body height 162.56 cm Zenaida Prince [facility]; [facility] Work Phone: 02-08-2015 10:30-0400 Body mass index (BMI) [Ratio] 31.24 kg/m2 Zenaida Prince [facility]; [facility] Work Phone: 02-08-2015 10:30-0400 Body surface area Derived from formula 1.88 m2 Zenaida Suresh [facility]; [facility] Work Phone: 02-08-2015 10:30-0400 Body temperature 97.7 [degF] Zenaida Starrdillan [facility]; [facility] Work Phone: Comment on above: Method: Oral 02-08-2015 10:30-0400 Body weight 82.56 kg Zenaida Suresh [facility]; [facility] Work Phone: 02-08-2015 10:30-0400 Diastolic blood pressure 86 mm[Hg] Zenaida Suresh [facility]; [facility] Work Phone: Comment on above: Patient Position: Sitting; Cuff Location : Left Arm; Cuff Size: Standard 02-08-2015 10:30-0400 Heart rate 56 /min Zenaida Suresh [facility]; [facility] Work Phone: Comment on above: Pattern: Regular 02-08-2015 10:30-0400 Respiratory rate 17 /min Zenaida Starrdillan [facility]; [facility] Work Phone: Comment on above: Pattern: Unlabored 02-08-2015 10:30-0400 Systolic blood pressure 136 mm[Hg] Zenaida Starrdillan [facility]; [facility] Work Phone: Comment on above: Patient Position: Sitting; Cuff Location : Left Arm; Cuff Size: Standard 12-07-2014 10:08-0400 Body height 162.56 cm Zenaida Suresh [facility]; [facility] Work Phone: 12-07-2014 10:08-0400 Body mass index (BMI) [Ratio] 31.75 kg/m2 Zenaida Suresh [facility]; [facility] Work Phone: 12-07-2014 10:08-0400 Body surface area Derived from formula 1.89 m2 Zenaida Prince [facility]; [facility] Work Phone: 12-07-2014 10:08-0400 Body temperature 98.3 [degF] Zenaida Starrdillan [facility]; [facility] Work Phone: Comment on above: Method: Oral 12-07-2014 10:08-0400 Body weight 83.92 kg Zenaida Starrprimoamy [facility]; [facility] Work Phone: 12-07-2014 10:08-0400 Diastolic blood pressure 72 mm[Hg] Zenaida Starrdillan [facility]; [facility] Work Phone: Comment on above: Patient Position: Sitting; Cuff Location : Left Arm; Cuff Size: Standard 12-07-2014 10:08-0400 Heart rate 64 /min Zenaida Suresh [facility]; [facility] Work Phone: Comment on above: Pattern: Regular 12-07-2014 10:08-0400 Respiratory rate 18 /min Zenaida Starrdillan [facility]; [facility] Work Phone: Comment on above: Pattern: Unlabored 12-07-2014 10:08-0400 Systolic blood pressure 124 mm[Hg] Zenaida Starrdillan [facility]; [facility] Work Phone: Comment on above: Patient Position: Sitting; Cuff Location : Left Arm; Cuff Size: Standard 10-12-2014 11:14040 Body height 162.56 cm Zenaida Fldillan [facility]; [facility] Work Phone: 10-12-2014 11:14-0400 Body mass index (BMI) [Ratio] 32.27 kg/m2 Zenaida Suresh [facility]; [facility] Work Phone: 10-12-2014 11:14-0400 Body surface area Derived from formula 1.91 m2 Zenaida [facility]; [facility] Work Phone: 10-12-2014 11:14-0400 Body temperature 97.7 [degF] Zenaida Suresh [facility]; [facility] Work Phone: 10-12-2014 11:14-0400 Body weight 85.28 kg Zenaida Suresh [facility]; [facility] Work Phone: 10-12-2014 11:14-0400 Diastolic blood pressure 80 mm[Hg] Zenaida Suresh [facility]; [facility] Work Phone: Comment on above: Patient Position: Sitting; Cuff Location : Left Arm; Cuff Size: Standard 10-12-2014 11:14-0400 Heart rate 72 /min Zenaida Suresh [facility]; [facility] Work Phone: Comment on above: Pattern: Regular 10-12-2014 11:14-0400 Respiratory rate 16 /min Zenaida Suresh [facility]; [facility] Work Phone: Comment on above: Pattern: Unlabored 10-12-2014 11:14-0400 Systolic blood pressure 130 mm[Hg] Zenaida Suresh [facility]; [facility] Work Phone: Comment on above: Patient Position: Sitting; Cuff Location : Left Arm; Cuff Size: Standard 04-26-2014 10:260400 Body height 162.56 cm Zenaida Suresh [facility]; [facility] Work Phone: 04-26-2014 10:-0400 Body mass index (BMI) [Ratio] 31.75 kg/m2 Zenaida Suresh [facility]; [facility] Work Phone: 04-26-2014 10:26-0400 Body surface area Derived from formula 1.89 m2 Zenaida [facility]; [facility] Work Phone: 04-26-2014 10:26-0400 Body temperature 98 [degF] Zenaida Prince [facility]; [facility] Work Phone: 04-26-2014 10:-040 Body weight 83.92 kg Zenaida Suresh [facility]; [facility] Work Phone: 04-26-2014 10:26-0400 Diastolic blood pressure 74 mm[Hg] Zenaida [facility]; [facility] Work Phone: Comment on above: Patient Position: Sitting; Cuff Location : Left Arm; Cuff Size: Standard 04-26-2014 10:26-0400 Heart rate 56 /min Zenaida Prince [facility]; [facility] Work Phone: Comment on above: Pattern: Regular 04-26-2014 10:26-0400 Respiratory rate 18 /min Zenaida Suresh [facility] Work Phone: Comment on above: Pattern: Unlabored 04-26-2014 10:26-0400 Systolic blood pressure 146 mm[Hg] Zenaida Suresh [facility] Work Phone: Comment on above: Patient Position: Sitting; Cuff Location : Left Arm; Cuff Size: Standard 12-22-2013 10:37-0400 Body height 162.56 cm Anastasia Dorado RN [facility] Work Phone: 12-22-2013 10:37-0400 Body mass index (BMI) [Ratio] 31.24 kg/m2 Anastasia Dorado [facility]; [facility] Work Phone: 12-22-2013 10:37-0400 Body surface area Derived from formula 1.88 m2 Anastasia Dorado [facility]; [facility] Work Phone: 12-22-2013 10:37-0400 Body temperature 97.8 [degF] Anastasia Dorado [facility]; [facility] Work Phone: Comment on above: Method: Temporal 12-22-2013 10:37-0400 Body weight 82.56 kg Anastasia Dorado [facility]; [facility] Work Phone: 12-22-2013 10:37-0400 Diastolic blood pressure 84 mm[Hg] Anastasia Dorado [facility]; [facility] Work Phone: Comment on above: Patient Position: Sitting; Cuff Location : Left Arm; Cuff Size: Standard 12-22-2013 10:37-0400 Heart rate 64 /min Anastasia Dorado [facility] Work Phone: Comment on above: Pattern: Regular 12-22-2013 10:37-0400 Respiratory rate 16 /min Anastasia Dorado [facility] Work Phone: Comment on above: Pattern: Unlabored 12-22-2013 10:37-0400 SaO2% (BldA) [Mass fraction] 95 % Anastasia Dorado [facility]; [facility] Work Phone: Comment on above: Room air 12-22-2013 10:37-0400 Systolic blood pressure 140 mm[Hg] Anastasia Dorado [facility]; [facility] Work Phone: Comment on above: Patient Position: Sitting; Cuff Location : Left Arm; Cuff Size: Standard 11-24-2013 12:10-0400 Body height 162.56 cm Zenaida [facility] Work Phone: 11-24-2013 12:10-0400 Body mass index (BMI) [Ratio] 31.58 kg/m2 Zenaida [facility] Work Phone: 11-24-2013 12:10-0400 Body surface area Derived from formula 1.89 m2 Zenaida [facility] Work Phone: 11-24-2013 12:10-0400 Body temperature 97.3 [degF] Zenaida Prince [facility]; [facility] Work Phone: 11-24-2013 12:10-0400 Body weight 83.46 kg Zenaida [facility] Work Phone: 11-24-2013 12:10-0400 Diastolic blood pressure 70 mm[Hg] Zenaida [facility] Work Phone: Comment on above: Patient Position: Sitting; Cuff Location : Left Arm; Cuff Size: Standard 11-24-2013 12:10-0400 Heart rate 58 /min Zenaida Prince [facility]; [facility] Work Phone: Comment on above: Pattern: Regular 11-24-2013 12:10-0400 Respiratory rate 18 /min Zenaida Suresh [facility] Work Phone: Comment on above: Pattern: Unlabored 11-24-2013 12:10-0400 Systolic blood pressure 126 mm[Hg] Zenaida Suresh [facility]; [facility] Work Phone: Comment on above: Patient Position: Sitting; Cuff Location : Left Arm; Cuff Size: Standard 11-03-2013 10:15-0400 Body height 162.56 cm Zenaida Prince [facility]; [facility] Work Phone: 11-03-2013 10:15-0400 Body mass index (BMI) [Ratio] 31.24 kg/m2 Zenaida Prince [facility]; [facility] Work Phone: 11-03-2013 10:15-0400 Body surface area Derived from formula 1.88 m2 Zenaida Prince [facility]; [facility] Work Phone: 11-03-2013 10:15-0400 Body temperature 96.4 [degF] Zenaida Suresh [facility]; [facility] Work Phone: 11-03-2013 10:15-0400 Body weight 82.56 kg Zenaida Suresh [facility]; [facility] Work Phone: 11-03-2013 10:15-0400 Diastolic blood pressure 76 mm[Hg] Zenaida Prince [facility]; [facility] Work Phone: Comment on above: Patient Position: Sitting; Cuff Location : Left Arm; Cuff Size: Standard 11-03-2013 10:15-0400 Heart rate 62 /min Zenaida Prince [facility]; [facility] Work Phone: Comment on above: Pattern: Regular 11-03-2013 10:15-0400 Respiratory rate 16 /min Zenaida Prince [facility]; [facility] Work Phone: Comment on above: Pattern: Unlabored 11-03-2013 10:15-0400 Systolic blood pressure 124 mm[Hg] Zenaida Prince [facility]; [facility] Work Phone: Comment on above: Patient Position: Sitting; Cuff Location : Left Arm; Cuff Size: Standard 09-22-2013 10:43-0500 Body height 162.56 cm Zenaida Prince [facility]; [facility] Work Phone: 09-22-2013 10:43-0500 Body mass index (BMI) [Ratio] 31.07 kg/m2 Zenaida Prince [facility]; [facility] Work Phone: 09-22-2013 10:43-0500 Body surface area Derived from formula 1.87 m2 Zenaida Prince [facility]; [facility] Work Phone: 09-22-2013 10:43-0500 Body temperature 97.6 [degF] Zenaida Prince [facility]; [facility] Work Phone: 09-22-2013 10:43-0500 Body weight 82.1 kg Zenaida Prince [facility]; [facility] Work Phone: 09-22-2013 10:43-0500 Diastolic blood pressure 86 mm[Hg] Zenaida Prince [facility]; [facility] Work Phone: Comment on above: Patient Position: Sitting; Cuff Location : Left Arm; Cuff Size: Large 09-22-2013 10:43-0500 Heart rate 64 /min Zenaida Prince [facility]; [facility] Work Phone: Comment on above: Pattern: Regular 09-22-2013 10:43-0500 Respiratory rate 18 /min Zenaida Prince [facility]; [facility] Work Phone: Comment on above: Pattern: Unlabored 09-22-2013 10:43-0500 Systolic blood pressure 152 mm[Hg] Zenaida Prince [facility]; [facility] Work Phone: Comment on above: Patient Position: Sitting; Cuff Location : Left Arm; Cuff Size: Large 08-24-2013 13:04-0500 Body height 162.56 cm Zenaida [facility] Work Phone: 08-24-2013 13:04-0500 Body mass index (BMI) [Ratio] 31.75 kg/m2 Zenaida Suresh [facility] Work Phone: 08-24-2013 13:04-0500 Body surface area Derived from formula 1.89 m2 Zenaida Prince [facility]; [facility] Work Phone: 08-24-2013 13:04-0500 Body temperature 97.4 [degF] Zenaida Suresh [facility]; [facility] Work Phone: 08-24-2013 13:04-0500 Body weight 83.92 kg Zenaida Suresh [facility]; [facility] Work Phone: 08-24-2013 13:04-0500 Diastolic blood pressure 84 mm[Hg] Zenaida Prince [facility]; [facility] Work Phone: Comment on above: Patient Position: Sitting; Cuff Location : Left Arm; Cuff Size: Large 08-24-2013 13:04-0500 Heart rate 60 /min Zenaida Suresh [facility]; [facility] Work Phone: Comment on above: Pattern: Regular 08-24-2013 13:04-0500 Respiratory rate 18 /min Zenaida Suresh [facility]; [facility] Work Phone: Comment on above: Pattern: Unlabored 08-24-2013 13:04-0500 Systolic blood pressure 146 mm[Hg] Zenaida Suresh [facility]; [facility] Work Phone: Comment on above: Patient Position: Sitting; Cuff Location : Left Arm; Cuff Size: Large 04-20-2013 12:20-0400 Body height 162.56 cm Zenaida Prince [facility]; [facility] Work Phone: 04-20-2013 12:20-0400 Body mass index (BMI) [Ratio] 30.38 kg/m2 Zenaida Prince [facility]; [facility] Work Phone: 04-20-2013 12:20-0400 Body surface area Derived from formula 1.86 m2 Zenaida Starrdillan [facility]; [facility] Work Phone: 04-20-2013 12:20-0400 Body temperature 97.3 [degF] Zenaida Prince [facility]; [facility] Work Phone: 04-20-2013 12:20-0400 Body weight 80.29 kg Zenaida Starrprimoamy [facility]; [facility] Work Phone: 04-20-2013 12:20-0400 Diastolic blood pressure 68 mm[Hg] Zenaida Starrprimoamy [facility]; [facility] Work Phone: Comment on above: Patient Position: Sitting; Cuff Location : Left Arm; Cuff Size: Standard 04-20-2013 12:20-0400 Heart rate 60 /min Zenaida Starrdillan [facility]; [facility] Work Phone: Comment on above: Pattern: Regular 04-20-2013 12:20-0400 Respiratory rate 16 /min Zenaida Starrdillan [facility]; [facility] Work Phone: Comment on above: Pattern: Unlabored 04-20-2013 12:20-0400 Systolic blood pressure 118 mm[Hg] Zenaida Prince [facility]; [facility] Work Phone: Comment on above: Patient Position: Sitting; Cuff Location : Left Arm; Cuff Size: Standard 12-16-2012 12:25-0400 Body height 162.56 cm Zenaida Starrdillan [facility] Work Phone: 12-16-2012 12:25-0400 Body mass index (BMI) [Ratio] 30.21 kg/m2 Zenaida Starrdillan [facility]; [facility] Work Phone: 12-16-2012 12:25-0400 Body surface area Derived from formula 1.85 m2 Zenaida Suresh [facility]; [facility] Work Phone: 12-16-2012 12:25-0400 Body temperature 97.6 [degF] Zenaida Suresh [facility]; [facility] Work Phone: 12-16-2012 12:25-0400 Body weight 79.83 kg Zenaida Starrdillan [facility]; [facility] Work Phone: 12-16-2012 12:25-0400 Diastolic blood pressure 94 mm[Hg] Zenaida Suresh [facility]; [facility] Work Phone: Comment on above: Patient Position: Sitting; Cuff Location : Left Arm; Cuff Size: Standard 12-16-2012 12:25-0400 Heart rate 68 /min Zenaida Suresh [facility]; [facility] Work Phone: Comment on above: Pattern: Regular 12-16-2012 12:25-0400 Respiratory rate 18 /min Zenaida Suresh [facility]; [facility] Work Phone: Comment on above: Pattern: Unlabored 12-16-2012 12:25-0400 Systolic blood pressure 162 mm[Hg] Zenaida Suresh [facility]; [facility] Work Phone: Comment on above: Patient Position: Sitting; Cuff Location : Left Arm; Cuff Size: Standard 08-19-2012 12:10-0500 Body height 162.56 cm Zenaida Prince [facility]; [facility] Work Phone: 08-19-2012 12:10-0500 Body mass index (BMI) [Ratio] 31.07 kg/m2 Zenaida Prince [facility]; [facility] Work Phone: 08-19-2012 12:10-0500 Body surface area Derived from formula 1.87 m2 Zenaida Prince [facility]; [facility] Work Phone: 08-19-2012 12:10-0500 Body temperature 97.7 [degF] Zenaida Prince [facility]; [facility] Work Phone: 08-19-2012 12:10-0500 Body weight 82.1 kg Zenaida Prince [facility]; [facility] Work Phone: 08-19-2012 12:10-0500 Diastolic blood pressure 66 mm[Hg] Zenaida Suresh [facility]; [facility] Work Phone: Comment on above: Patient Position: Sitting; Cuff Location : Left Arm; Cuff Size: Large 08-19-2012 12:10-0500 Heart rate 60 /min Zenaida Suresh [facility]; [facility] Work Phone: Comment on above: Pattern: Regular 08-19-2012 12:10-0500 Respiratory rate 18 /min Zenaida Suresh [facility]; [facility] Work Phone: Comment on above: Pattern: Unlabored 08-19-2012 12:10-0500 Systolic blood pressure 144 mm[Hg] Zenaida Suresh [facility]; [facility] Work Phone: Comment on above: Patient Position: Sitting; Cuff Location : Left Arm; Cuff Size: Large 05-20-2012 11:37-0400 Body height 162.56 cm Zenaida Suresh [facility]; [facility] Work Phone: 05-20-2012 11:37-0400 Body mass index (BMI) [Ratio] 29.87 kg/m2 Zenaida Suresh [facility]; [facility] Work Phone: 05-20-2012 11:37-0400 Body surface area Derived from formula 1.84 m2 Zenaida Prince [facility]; [facility] Work Phone: 05-20-2012 11:37-0400 Body temperature 98.3 [degF] Zenaida Suresh [facility]; [facility] Work Phone: 05-20-2012 11:37-0400 Body weight 78.93 kg Zenaida Suresh [facility]; [facility] Work Phone: 05-20-2012 11:37-0400 Diastolic blood pressure 70 mm[Hg] Zenaida Prince [facility]; [facility] Work Phone: Comment on above: Patient Position: Sitting; Cuff Location : Left Arm; Cuff Size: Large 05-20-2012 11:37-0400 Heart rate 58 /min Zenaida Suresh [facility]; [facility] Work Phone: Comment on above: Pattern: Regular 05-20-2012 11:37-0400 Respiratory rate 18 /min Zenaida Suresh [facility]; [facility] Work Phone: Comment on above: Pattern: Unlabored 05-20-2012 11:37-0400 Systolic blood pressure 130 mm[Hg] Zenaida Suresh [facility]; [facility] Work Phone: Comment on above: Patient Position: Sitting; Cuff Location : Left Arm; Cuff Size: Large 04-08-2012 11:12-0400 Body height 162.56 cm Zenaida Prince [facility]; [facility] Work Phone: 04-08-2012 11:12-0400 Body mass index (BMI) [Ratio] 29.87 kg/m2 Zenaida Prince [facility]; [facility] Work Phone: 04-08-2012 11:12-0400 Body surface area Derived from formula 1.84 m2 Zenaida Prince [facility]; [facility] Work Phone: 04-08-2012 11:12-0400 Body temperature 96.3 [degF] Zenaida Prince [facility]; [facility] Work Phone: 04-08-2012 11:12-0400 Body weight 78.93 kg Zenaida Suresh [facility]; [facility] Work Phone: 04-08-2012 11:12-0400 Diastolic blood pressure 60 mm[Hg] Zenaida Prince [facility]; [facility] Work Phone: Comment on above: Patient Position: Sitting; Cuff Location : Left Arm; Cuff Size: Standard 04-08-2012 11:12-0400 Heart rate 32 /min Zenaida Prince [facility]; [facility] Work Phone: Comment on above: Pattern: Regular 04-08-2012 11:12-0400 Respiratory rate 16 /min Zenaida Prince [facility]; [facility] Work Phone: Comment on above: Pattern: Unlabored 04-08-2012 11:12-0400 Systolic blood pressure 138 mm[Hg] Zenaida Morenoamy [facility]; [facility] Work Phone: Comment on above: Patient Position: Sitting; Cuff Location : Left Arm; Cuff Size: Standard 01-08-2012 11:15-0400 Body height 162.56 cm Zenaida Starrdillan [facility]; [facility] Work Phone: 01-08-2012 11:15-0400 Body mass index (BMI) [Ratio] 30.38 kg/m2 Zenaida Starrdillan [facility]; [facility] Work Phone: 01-08-2012 11:15-0400 Body surface area Derived from formula 1.86 m2 Zenaida Suresh [facility]; [facility] Work Phone: 01-08-2012 11:15-0400 Body temperature 96.4 [degF] Zenaida Starrdillan [facility]; [facility] Work Phone: 01-08-2012 11:15-0400 Body weight 80.29 kg Zenaida Starrdillan [facility]; [facility] Work Phone: 01-08-2012 11:15-0400 Diastolic blood pressure 84 mm[Hg] Zenaida Starrdillan [facility]; [facility] Work Phone: Comment on above: Patient Position: Sitting; Cuff Location : Left Arm; Cuff Size: Standard 01-08-2012 11:15-0400 Heart rate 48 /min Zenaida Suresh [facility]; [facility] Work Phone: Comment on above: Pattern: Regular 01-08-2012 11:15-0400 Respiratory rate 16 /min Zenaida Starrdillan [facility]; [facility] Work Phone: Comment on above: Pattern: Unlabored 01-08-2012 11:15-0400 Systolic blood pressure 122 mm[Hg] Zenaida Suresh [facility]; [facility] Work Phone: Comment on above: Patient Position: Sitting; Cuff Location : Left Arm; Cuff Size: Standard 12-10-2011 09:48-0400 Body height 162.56 cm Zenaida Suresh [facility]; [facility] Work Phone: 12-10-2011 09:48-0400 Body mass index (BMI) [Ratio] 30.55 kg/m2 Zenaida Suresh [facility]; [facility] Work Phone: 12-10-2011 09:48-0400 Body surface area Derived from formula 1.86 m2 Zenaida Sruesh [facility]; [facility] Work Phone: 12-10-2011 09:48-0400 Body temperature 97.6 [degF] Zenaida Prince [facility]; [facility] Work Phone: 12-10-2011 09:48-0400 Body weight 80.74 kg Zenaida Suresh [facility]; [facility] Work Phone: 12-10-2011 09:48-0400 Diastolic blood pressure 64 mm[Hg] Zenaida Suresh [facility]; [facility] Work Phone: Comment on above: Patient Position: Sitting; Cuff Location : Left Arm; Cuff Size: Large 12-10-2011 09:48-0400 Heart rate 56 /min Zenaida Prince [facility]; [facility] Work Phone: Comment on above: Pattern: Regular 12-10-2011 09:48-0400 Respiratory rate 16 /min Zenaida Prince [facility]; [facility] Work Phone: Comment on above: Pattern: Unlabored 12-10-2011 09:48-0400 Systolic blood pressure 128 mm[Hg] Zenaida Suresh [facility]; [facility] Work Phone: Comment on above: Patient Position: Sitting; Cuff Location : Left Arm; Cuff Size: Large 12-04-2011 11:43-0400 Body height 162.56 cm Zenaida Starrdillan [facility]; [facility] Work Phone: 12-04-2011 11:43-0400 Body mass index (BMI) [Ratio] 30.9 kg/m2 Zenaida Starrdillan [facility]; [facility] Work Phone: 12-04-2011 11:43-0400 Body surface area Derived from formula 1.87 m2 Zenaida Suresh [facility]; [facility] Work Phone: 12-04-2011 11:43-0400 Body temperature 97.7 [degF] Zenaida Starrdillan [facility]; [facility] Work Phone: 12-04-2011 11:43-0400 Body weight 81.65 kg Zenaida Starrdillan [facility]; [facility] Work Phone: 12-04-2011 11:43-0400 Diastolic blood pressure 76 mm[Hg] Zenaida Starrdillan [facility]; [facility] Work Phone: Comment on above: Patient Position: Sitting; Cuff Location : Left Arm; Cuff Size: Standard 12-04-2011 11:43-0400 Heart rate 56 /min Zenaida Starrdillan [facility]; [facility] Work Phone: Comment on above: Pattern: Regular 12-04-2011 11:43-0400 Respiratory rate 18 /min Zenaida Suresh [facility]; [facility] Work Phone: Comment on above: Pattern: Unlabored 12-04-2011 11:43-0400 Systolic blood pressure 142 mm[Hg] Zenaida Starrdillan [facility]; [facility] Work Phone: Comment on above: Patient Position: Sitting; Cuff Location : Left Arm; Cuff Size: Standard Encounters Encounter Date Encounter Type Care Provider Facility Start: 04-06-2025 End: 04-06-2025 ambulatory Praveena Dumont NP-[facility] Work Phone: -Laboratory Specimen Start: 04-06-2025 End: 04-06-[address] Oliver Rowell MD -Laboratory Specimen Work Phone: Start: 04-06-2025 End: 04-06-2025 ambulatory [facility] Facility:[facility] Start: 02-01-2025 Encounter for preprocedural laboratory examination [facility] Start: 01-25-2025 End: 01-25-2025 Non-patient / Non-visit Dr. Mk Landa MD -[facility] Work Phone: Start: 01-25-2025 End: 01-25-2025 ambulatory Praveena Dumont [employer] Work Phone: -Pulmonary Services/Neurology Start: 01-25-2025 End: 01-25-[address] Oliver Rowell MD -Pulmonary Services/Neurology Work Phone: Start: 01-25-2025 End: 01-25-2025 ambulatory [facility] Facility:[facility] Start: 08-31-2024 End: 08-31-2024 ambulatory LEIGH FAST Facility:[facility] Start: 08-31-2024 End: 08-31-2024 Patient encounter procedure Megan Graham APRN.HY[employer]AULIC [employer]LE [employer]MER OPERATOR Work Phone: [facility] Comment on above: Acute otitis externa of both ears, unspecified type (Primary Dx) Start: 07-13-2024 End: 07-13-2024 ambulatory [facility] Facility:[facility] Start: 06-07-2024 End: 06-07-2024 ambulatory [facility] Facility:[facility] Start: 04-19-2024 End: 04-19-2024 ambulatory Dillon H Juan Daniel INSIDE SALES SPECIALIST [place] [place]: 03-15-2024 End: 03-15-2024 ambulatory LEIGH A FAST Facility:[facility] Start: 03-15-2024 End: 03-15-2024 Patient encounter procedure Laurie Aparicio APRN.HYDRAULIC PILE HAMMER OPERATOR Work Phone: [facility] Comment on above: SOB (shortness of br eath) (Primary Dx) Start: 09-08-2023 Non-patient / Non-visit INSIDE SALES SPECIALIST-C Nena Dumont Work Phone: [facility] Work Phone: Start: 09-07-2023 Non-patient / Non-visit INSIDE SALES SPECIALIST-C Nena Dumont Work Phone: [facility] Work Phone: Start: 09-07-2023 End: 09-08-2023 Evaluation and management of inpatient INSIDE SALES SPECIALIST-C Praveena Dumont Work Phone: [facility] Work Phone: Start: 09-07-2023 End: 09-07-2023 ambulatory SELF Facility:[facility] Start: 09-07-2023 End: 09-07-2023 Patient encounter procedure Raul FRAIREC Work Phone: [facility] Comment on above: Hypoxia (Primary Dx) ; Fever, unspecified fever cause Start: 09-02-2023 End: 09-02-2023 Patient encounter procedure Ree Bazan APRN.HYDRAULIC PILE HAMMER OPERATOR Work Phone: [facility] Comment on above: Skin infection (Prim carole Dx) Start: 06-02-2023 End: 06-02-2023 ambulatory INSIDE SALES SPECIALIST-C Praveena Dumont Work Phone: [facility] Work Phone: Start: 06-02-2023 End: 06-02-2023 Patient encounter procedure INSIDE SALES SPECIALIST-C Praveena Dumont Work Phone: [facility] Start: 04-24-2023 End: 04-24-2023 Patient encounter procedure INSIDE SALES SPECIALIST-C Praveenahong Dumont Work Phone: [facility] Work Phone: Start: 05-20-2022 End: 05-20-2022 Patient encounter procedure Gonzalez Grey MD Work Phone: [facility] Comment on above: 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); Aneurysm of descending thoracic aorta without rupture; Essential hypertension; Hyperlipidemia, 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); Aneurysm of descending thoracic aorta without rupture Start: 11-12-2021 End: 11-12-2021 Patient encounter procedure Gonzalez Grey MD Work Phone: [facility] Comment on above: AAA (abdominal aorti c aneurysm) without rupture (HCC); Centrilobular emphysema (HCC); Essential hypertension AAA (abdominal aorti c aneurysm) without rupture (HCC) (Primary Dx) Start: 11-12-2021 End: 11-12-2021 Subsequent hospital visit by physician Rosenda Main F30 (I-Stat) Work Phone: Radiology Start: 10-10-2015 End: 10-10-2015 Office outpatient visit 40 minutes Leigh Fast DO Work Phone: [facility] Start: 08-07-2015 End: 08-08-2015 Office outpatient visit 15 minutes Leigh Fast DO Work Phone: [facility] Start: 07-19-2015 End: 07-23-2015 Office outpatient visit 25 minutes Leigh Fast DO Work Phone: [facility] Start: 06-07-2015 End: 06-07-2015 Phone Encounter Leigh Fast DO Work Phone: [facility] Start: 06-06-2015 End: 06-06-2015 Office outpatient visit 25 minutes Leigh Fast DO Work Phone: [facility] Start: 02-08-2015 End: 02-09-2015 Office outpatient visit 25 minutes Leigh Fast DO Work Phone: [facility] Start: 12-07-2014 End: 12-08-2014 Office outpatient visit 10 minutes Leigh Fast DO Work Phone: [facility] Start: 10-12-2014 End: 10-13-2014 Office outpatient visit 25 minutes Leigh Fast DO Work Phone: [facility] Start: 05-13-2014 End: 05-13-2014 Office outpatient visit 5 minutes Leigh Fast DO Work Phone: [facility] Start: 04-26-2014 End: 04-26-2014 Office outpatient visit 25 minutes Leigh Fast DO Work Phone: [facility] Start: 12-22-2013 End: 12-22-2013 Patient encounter procedure Leigh Fast DO Work Phone: [facility] Start: 11-24-2013 End: 11-25-2013 Patient encounter procedure Leigh Fast DO Work Phone: [facility] Start: 11-05-2013 End: 11-05-2013 Phone Encounter Leigh Fast DO Work Phone: [facility] Start: 11-03-2013 End: 11-03-2013 Patient encounter procedure Leigh Fast DO Work Phone: [facility] Start: 09-22-2013 End: 09-22-2013 Patient encounter procedure Leigh Fast DO Work Phone: [facility] Start: 08-24-2013 End: 08-24-2013 Patient encounter procedure Leigh Fast DO Work Phone: [facility] Start: 04-20-2013 End: 04-20-2013 Patient encounter procedure Leigh Fast DO Work Phone: [facility] Start: 01-13-2013 End: 01-13-2013 Phone Encounter Leigh Fast DO Work Phone: [facility] Start: 12-16-2012 End: 12-17-2012 Patient encounter procedure Leigh Fast DO Work Phone: [facility] Start: 08-19-2012 End: 08-19-2012 Patient encounter procedure Leigh Fast DO Work Phone: [facility] Start: 05-20-2012 End: 05-21-2012 Patient encounter procedure Leigh Fast DO Work Phone: [facility] Start: 04-08-2012 End: 04-12-2012 Patient encounter procedure Leigh Fast DO Work Phone: [facility] Start: 01-14-2012 End: 01-14-2012 Phone Encounter Leigh Fast DO Work Phone: [facility] Start: 01-08-2012 End: 01-08-2012 Patient encounter procedure Leigh Fast DO Work Phone: [facility] Start: 12-12-2011 End: 12-12-2011 Historical Summary Leigh Fast DO Work Phone: [facility] Start: 12-10-2011 End: 12-10-2011 Patient encounter procedure Leigh Fast DO Work Phone: [facility] Start: 12-04-2011 End: 12-05-2011 Patient encounter procedure Leigh Fast DO Work Phone: [facility] Start: 11-20-2011 End: 11-20-2011 Historical Summary Leigh Fast DO Work Phone: [facility] End: 06-06-2015 Patient encounter procedure Susan Armijo [facility] Internal [facility]; [facility] Work Phone: Procedures Date Procedure Procedure Detail Performing Clinician Start: 04-06-2025 Aerobic microbial culture Praveenahong Dumont N P-C Work Phone: Start: 04-06-2025 Anaerobic microbial culture Praveena Dumont INSIDE SALES SPECIALIST-C Work Phone: Start: 04-06-2025 Gram stain microscopy Praveena Dumont INSIDE SALES SPECIALIST-C Work Phone: Start: 09-07-2023 SARS-CoV-2, Influenza & RSV (PCR) INSIDE SALES SPECIALIST-C Praveenahong Dumont Work Phone: Start: 09-07-2023 Plain chest X-ray INSIDE SALES SPECIALIST-C Praveena Dumont Work Phone: Start: 11-12-2021 Ct angio abd&plvis cntrst mtrl [...] 08-28-2016 Follow Up Appt 6 months Sebastian Contrreas Start: 06-13-2016 End: 06-13-2016 History and Physical Exam Procedure Note: See Note; NOTES: [facility] Medical Records Department [address] [place] [address] History and Physical 06/13/16 1633 MR#: [id number] Acct: [id number] Name: FRANCO REYES Rep #: [id number] : 1935 80 From: Saleem Gonzalez MD PCP: Leigh Desai DO Status: REG ER Y Location: ED Problem List (1) Acute encephalopathy Status: Acute (2) Amnesia (retrograde) Status: Acute (3) Hypertension Status: Chronic Qualifiers: Hypertension type: H (4) Coronary artery disease Status: Chronic Qualifiers: Coronary Disease-Associated Artery/Lesion type: C [place] vs. transplanted heart: N Associated angina: A [...] Ike)] Niacin 500 mg PO DAILY 10/23/15 Hudgins-3 Fatty Acids [Fish Oil] 500 mg PO [...] 83.2 H Lymph % (Auto) 8.7 L [place] % (Auto) 7.1 Eos % (Auto) 0.4 [...] Clarity Clear Urine pH 6.5 Ur Specific Caroleen 1.005 Urine Protein Negative Urine Glucose (UA) [...] every 12 hourly from tomorrow morning. 06/13/16 0951 <Electronically signed by Saleem Gonzalez MD> Date Saleem Gonzalez MD Cosigner Signature (if applicable): Date CC: Leigh Desai DO; Saleem Gonzalez MD Signed Leigh Desai DO Work Phone: Start: 06-13-2016 End: 06-13-2016 Abdomen/Pelvis without Cont Procedure Note: See Note; NOTES: [facility] Imaging Services [address] [place] [address] Verdana 4d Abdomen/Pelvis without Cont MR#: [id number] Acct: [id number] Name: FRANCO REYES Rep #: [id number] : 1935 M 80 From: Shay Kay MD PCP: Leigh Desai DO Status: REG ER Study: Abdomen/Pelvis without Cont Date of Exam: 06/13/16 Exam# [id number] Ordering Dr: Almaz Gaona DO STUDY: CT [...] Shay Kay MD at 13:40 EST Tel [phone], Service support [phone], CC: Leigh Desai DO; Almaz Gaona DO Java J2Ee Application Developer: Signed Leigh Desai DO Work Phone: Start: 06-13-2016 End: 06-13-2016 Brain/Head without Contrast Procedure Note: See Note; NOTES: [facility] Imaging Services [address] [place] [address] Verdana 4d Brain/Head without Contrast MR#: [id number] Acct: [id number] Name: FRANCO REYES Rep #: [id number] : 1935 M 80 From: Shay Kay MD PCP: Leigh Desai DO Status: REG ER Study: Brain/Head without Contrast Date of Exam: 06/13/16 Exam# [id number] Ordering Dr: Almaz Gaona DO STUDY: CT [...] Shay Kay MD at 13:36 EST Tel [phone], Service support [phone], CC: Leigh Desai DO; Almaz Gaona DO Java J2Ee Application Developer: Signed Leigh Desai DO Work Phone: Start: 06-13-2016 End: 06-13-2016 Chest 1 View Procedure Note: See Note; NOTES: [facility] Imaging Services [address] [place] [address] Verdana 4d Chest 1 View MR#: [id number] Acct: [id number] Name: FRANCO REYES Eleazar Rep #: [id number] : 1935 80 From: Shay Kay MD PCP: Leigh Desai DO Status: PRE ER Study: Chest 1 View Date of Exam: 06/13/16 Exam# [id number] Ordering Dr: Almaz Gaona DO STUDY: X-RAY [...] Shay Kay MD at 13:05 EST Tel [phone], Service support [phone], CC: Leigh Desai DO; Almaz Gaona DO Java J2Ee Application Developer: Signed Leigh Desai DO Work Phone: Start: 10-30-2015 End: 10-30-2015 Emergency Department Summary Procedure Note: See Note; NOTES: [facility] Medical Records Department [address] [place] [address] Emergency Department Summary MR#: [id number] Acct: [id number] Name: FRANCO REYES Rep #: [id number] : 1935 80 From: Juan José Zazueta MD PCP: Leigh Desai DO Status: DEP ER DATE OF SERVICE: 10/23/2015 CHIEF COMPLAINT: Chills and dysuria. HISTORY OF PRESENT ILLNESS: This is a 80-year-old male presenting secondary to 2 days' worth of symptoms. He states that he is having some burning with urination and difficulty emptying. He states that day night, he was having chills associated with [...] Juan José Zazueta M.D. T: SOFYA JOB: [id number] 10/30/15 0023 <Electronically signed by Juan José Zazueta MD> Date Juan José Zazueta MD Cosigner Signature (If Indicated): Date CC: Leigh Desai DO Date Dictated: 10/23/15721 Date Transcribed: 10/23/15721 Java J2Ee Application Developer: Signed Leigh Desai DO Work Phone: Start: 10-23-2015 End: 10-23-2015 Discharge Instruction Procedure Note: See Note; NOTES: [facility] Medical Records Department [address] [place] [address] Discharge Instruction 10/23/15717 MR#: [id number] Acct: [id number] Name: FRANCO REYES Eleazar Rep #: [id number] : 1935 80 From: Juan José Zazueta MD PCP: Leigh Desia DO Status: [facility] ER ED Disposition - Plan for ED Patient: Disposition: Home or Assisted Living Chief Complaint: Complaint Diagnosis: UTI (urinary tract infection) Instructions: ED Bladder Infection, Male (Adult) Prescriptions: Smz/Tmp Ds [Bactrim Ds] 1 tablet PO BID #20 tablet Referrals: Leigh Desai DO [Primary Care Provider] - 5-7 Days What to do if you have Problems For any increased pain, shortness of breath, bleeding, nausea or vomiting, chest pain, or any unexpected problems, contact your doctor. Call [facility] ([phone]) or report to the closest Emergency Room. Call 911 if necessary. 10/23/15 0741 <Electronically signed by Juan José Zazueta MD> Date Juan José Zazueta MD Cosigner Signature (If Indicated): Date CC: Leigh Little DO Work Phone: Start: 06-08-2015 End: 06-08-2015 Echocardiogram Complete Procedure Note: See Note; NOTES: [facility] Cardiovascular Services [address] [place] [address] Echo Complete 06/07/15 1347 MR#: [id number] Acct: [id number] Name: FRANCO REYES Rep #: [id number] : 1935 79 From: Wili Thomas MD Attending Dr: Leigh Desai DO Status: REG CLI Ordering Dr: Leigh Desai DO Date: 06/07/15 Location: [facility] Sex: M C Admitted: Procedure This was [...] FS: 31.1 % LA dimension: 4.6 cm LAV(MOD-bp): 45.0 ml LA A4 area: 17.3 cm2 RA A4 area: 12.8 cm2 LAV(MOD-bp) Indexed: 23.4 ml/m2 LAV(MOD-sp2): 48.6 ml LAV(MOD-sp4): 40.2 ml Doppler Measurements AND Calculations MV E max shamika: Lat Peak E' Shamika: Med Peak E' Shamika: Ao V2 max: 183.0 cm/sec 93.1 cm/sec 13.0 cm/sec 8.6 cm/sec Ao max P.4 mmHg MV A max shamika: Ao V2 mean: 127.1 cm/sec 116.0 cm/sec MV E/A: 0.73 Ao mean P.1 mmHg Ao V2 VTI: 27.9 cm RICK(I,D): 2.4 cm2 RICK(V,D): 2.1 cm2 LV V1 max: 105.0 cm/sec SV(LVOT): 66.5 ml PA V2 max: 121.5 cm/sec TR max shamika: LV V1 max P.4 mmHg PA max P.9 mmHg 298.0 cm/sec LV V1 mean P.9 mmHg TR max P.5 mmHg LV V1 mean: 64.0 cm/sec LV V1 VTI: 18.6 cm E/E' lat: 7.2 E/E' med: 10.8 Interpretation Summary Mild concentric left ventricular hypertrophy. The estimated ejection fraction is 65 %. Stage 1 diastolic dysfunction. Right ventricular systolic pressure estimated to be 41 mmHg. Mild pulmonary hypertension. Mild aortic stenosis. Focal calcium located on non coronary cusp. Compared to echo report dated 04/16/2012, no appreciable changes noted. Ordering Physician: Leigh Desai Performed By: Patience Dawson RDCS, RVT 06/07/15 1509 Date Wili Thomas MD CC: Leigh Fast DO Date Dictated: 06/07/15 1347 Date Transcribed: 06/07/15 1509 Java J2Ee Application Developer: Signed Leigh Desai DO Work Phone: Start: 10-20-2014 End: 10-20-2014 Aorta Procedure Note: See Note; NOTES: [facility] Imaging Services [address] [place] [address] Ultrasound Report MR#: [id number] Acct: [id number] Name: FRANCO REYES Rep #: [id number] : 1935 M 79 From: Shay Kay MD PCP: Leigh Desai DO Status: REG CLI Study: Aorta Date of Exam: 10/20/14 Exam# [id number] Ordering Dr: Leigh Desai DO PROCEDURES: ULTRASOUND AORTA REASON FOR [...] Shay Kay MD at 10:18 EDT Tel [phone], Service support [phone], CC: Leigh Desai DO Java J2Ee Application Developer: Signed Leigh Desai DO Work Phone: Start: 02-21-2014 End: 02-21-2014 Aorta Procedure Note: See Note; NOTES: [facility] Imaging Services [address] [place] [address] Ultrasound Report MR#: [id number] Acct: [id number] Name: FRANCO REYES Rep #: [id number] : 1935 M 78 From: Shay Kay MD PCP: Leigh Desai DO Status: REG CLI Study: Aorta Date of Exam: 02/21/14 Exam# [id number] Ordering Dr: Leigh Desai DO PROCEDURES: ULTRASOUND AORTA REASON FOR [...] Shay Kay MD at 15:21 EDT Tel [phone], Service support [phone], CC: Leigh Desai DO Java J2Ee Application Developer: Signed Leigh Desai DO Work Phone: Start: 11-16-2013 End: 11-16-2013 Lower Ext/No Jt/w/o Procedure Note: See Note; NOTES: [facility] Imaging Services [address] [place] [address] MRI Report MR#: [id number] Acct: [id number] Name: FRANCO REYES Rep #: [id number] : 1935 M 78 From: Ye Chong MD PCP: Leigh Desai DO Status: REG CLI Study: Lower Ext/No Jt/w/o Date of Exam: 11/16/13 Exam# [id number] Ordering Dr: Leigh Desai DO PROCEDURE: MRI LOWER EXTREMITY LEFT [...] FACR at 21:47 EDT , Service support [phone], CC: Leigh Desai DO Java J2Ee Application Developer: Signed Leigh Desai DO Work Phone: Start: 08-26-2013 End: 08-26-2013 Knee 4 or More Views Procedure Note: See Note; NOTES: [facility] Imaging Services [address] [place] [address] Radiology Report MR#: [id number] Acct: [id number] Name: FRANCO REYES Rep #: [id number] : 1935 M 78 From: Richa Becerra MD PCP: Leigh Desai DO Status: REG CLI Study: Knee 4 or More Views Date of Exam: 08/26/13 Exam# [id number] Ordering Dr: Leigh Desai DO STUDY: X-RAY - LEFT KNEE [...] M.D. at 19:11 EST , Service support [phone], CC: Leigh Desai DO Java J2Ee Application Developer: Signed Leigh Desai DO Work Phone: Start: 08-26-2013 End: 08-26-2013 L/S Spine Min 4 Views Procedure Note: See Note; NOTES: [facility] Imaging Services [address] [place] [address] Radiology Report MR#: [id number] Acct: [id number] Name: FRANCO REYES Rep #: [id number] : 1935 M 78 From: Richa Becerra MD PCP: Leigh Desai DO Status: REG CLI Study: L/S Spine Min 4 Views Date of Exam: 08/26/13 Exam# [id number] Ordering Dr: Leigh Desai DO STUDY: X-RAY - LUMBAR SPINE [...] M.D. at 19:47 EST , Service support [phone], CC: Leigh Desai DO Java J2Ee Application Developer: Signed Leigh Desai DO Work Phone: Start: 07-28-1989 History of coronary artery bypass grafting H/O coronary artery bypass surgery INSIDE SALES SPECIALISTGarimaC Praveena Dumont Work Phone: Comment on above: CABG X 3 ; Colonoscopy Lyndsay Maksim GARCIA Comment on above: 2005 Electrocardiographic procedure Lyndsay Schaeffer CMA Comment on above: 05/2011 right hip replacemnt- 2003 C antoine Schaeffer CMA turp Lyndsay Maksim GARCIA Plan of Treatment Date Care Activity Detail Author Start: 07-28-2024 Advance Directive Discussion Advance Directive Discussion [facility] Start: 03-28-2024 Covid-19 Vaccine () Covid-19 Vaccine () [facility] Start: 03-28-2024 Influenza vaccination Influenza Vaccine (#1) [facility] Start: 09-08-2023 Patient discharge [facility] Start: 09-08-2023 Verification routine [facility] Start: 09-07-2023 Following clinical pathway protocol [facility] Start: 09-07-2023 Ambulation without limitation [facility] Start: 09-07-2023 Assessment of risk of venous thromboembolism [facility] Start: 09-07-2023 Incentive spirometry [facility] Start: 09-07-2023 Inhalation therapy procedure [facility] Start: 09-07-2023 Insertion of catheter into peripheral vein [facility] Start: 09-07-2023 Measuring intake and output [facility] Start: 09-07-2023 Oxygen therapy [facility] Start: 09-07-2023 Physiotherapy of chest [facility] Start: 09-07-2023 Providing care according to standard [facility] Start: 09-07-2023 Respiratory secretion precautions [facility] Start: 09-07-2023 [facility] Start: 09-07-2023 Admission procedure [facility] Start: 09-07-2023 [facility] Start: 07-28-2023 Advance Directive Discussion Advance Directive Discussion [facility] Start: 07-28-2023 Depression Assessment Depression Assessment [facility] Start: 03-28-2023 Covid-19 Vaccine () Covid-19 Vaccine () [facility] Start: 03-28-2022 Influenza vaccination [facility] Start: 07-28-2021 ADVANCE DIRECTIVE DISCUSSION ADVANCE DIRECTIVE DISCUSSION [facility] Start: 07-28-2021 DEPRESSION ASSESSMENT DEPRESSION ASSESSMENT [facility] Start: 09-15-2017 End: 03-21-2017 *Hepatic Function Panel *Hepatic Function Panel [facility] Work Phone: Start: 09-15-2017 End: 03-21-2017 Lipid panel [AGGREGATE] *Lipid Profile CC PCP [facility] Work Phone: Start: 09-11-2017 End: 09-11-2017 Appointment Appointment [facility] Work Phone: Start: 03-13-2017 End: 03-13-2017 Appointment Appointment [facility] Work Phone: Start: 03-13-2017 End: 03-21-2017 *Hepatic Function Panel *Hepatic Function Panel [facility] Work Phone: Start: 03-13-2017 End: 03-13-2017 Follow Up Appt 6 months Follow Up Appt 6 months [facility] Work Phone: Start: 03-13-2017 End: 03-21-2017 Lipid panel [AGGREGATE] *Lipid Profile CC PCP [facility] Work Phone: Start: 03-13-2017 End: 03-13-2017 MMM MMM [facility] Work Phone: Start: 02-27-2017 End: 02-27-2017 Appointment Appointment [facility] Work Phone: Start: 08-28-2016 End: 08-28-2016 STEAM DRIER TENDER STEAM DRIER TENDER [facility] Work Phone: Start: 08-28-2016 End: 08-28-2016 Follow Up Appt 6 months Follow Up Appt 6 months [facility] Work Phone: Start: 07-09-2016 DIABETES SCREEN DIABETES SCREEN [facility] Start: 07-09-2016 Diabetes Screening Diabetes Screening [facility] Start: 10-10-2015 Procedure Education Eprescribed prescriptions (G8553) [facility] Work Phone: Start: 10-10-2015 Urine albumin quantitative MICROALBUMIN: CREATININE RATIO (64064) AND (12044) [facility]; [facility] Work Phone: Start: 10-10-2015 Assay of prostate specific antigen total PSA (PROSTATE SPECIFIC ANTIGEN) (V76.44) [facility]; [facility] Work Phone: Start: 10-10-2015 Blood count complete auto&auto difrntl wbc CBC W/AUTO DIFF WBC (49828) [facility]; [facility] Work Phone: Start: 10-10-2015 Comprehensive metabolic panel METABOLIC PANEL, COMPREHENSIVE (39590) [facility]; [facility] Work Phone: Start: 10-10-2015 Lipid panel LIPID PANEL (03609) [facility]; [facility] Work Phone: Start: 10-10-2015 Assay of thyroid stimulating hormone tsh TSH (45083) [facility]; [facility] Work Phone: Start: 09-14-2015 Pneumococcal Vaccine: 50+ (2 of 2 - PPSV23) Pneumococcal Vaccine: 50+ (2 of 2 - PPSV23) [facility] Start: 09-14-2015 Pneumococcal Vaccine: 65+ (2 of 2 - PPSV23 or PCV20) Pneumococcal Vaccine: 65+ (2 of 2 - PPSV23 or PCV20) [facility] Start: 07-19-2015 Procedure Education Eprescribed prescriptions (G8553) [facility]; [facility] Work Phone: Start: 06-06-2015 Procedure Education Eprescribed prescriptions (G8553) [facility]; [facility] Work Phone: Start: 06-06-2015 Assay of free thyroxine T4, FREE (THYROXINE) (98627) [facility]; [facility] Work Phone: Start: 06-06-2015 Assay of triiodothyronine t3 free T3, FREE (TRIDOTHYRONINE) (67201) [facility]; [facility] Work Phone: Start: 06-06-2015 Assay of thyroid stimulating hormone tsh TSH (41397) [facility]; [facility] Work Phone: Start: 06-06-2015 Blood count complete auto&auto difrntl wbc CBC W/AUTO DIFF WBC (74695) [facility]; [facility] Work Phone: Start: 06-06-2015 Comprehensive metabolic panel METABOLIC PANEL, COMPREHENSIVE (20487) [facility]; [facility] Work Phone: Start: 06-06-2015 Lipid panel LIPID PANEL (52017) [facility]; [facility] Work Phone: Start: 02-08-2015 Procedure Education Eprescribed prescriptions (G8553) [facility]; [facility] Work Phone: Start: 10-12-2014 Blood count complete auto&auto difrntl wbc CBC W/AUTO DIFF WBC (61248) [facility]; [facility] Work Phone: Start: 10-12-2014 Comprehensive metabolic panel METABOLIC PANEL, COMPREHENSIVE (87120) [facility]; [facility] Work Phone: Start: 10-12-2014 Lipid panel LIPID PANEL (39896) [facility]; [facility] Work Phone: Start: 10-12-2014 Assay of thyroid stimulating hormone tsh TSH (41172) [facility]; [facility] Work Phone: Start: 10-12-2014 Assay of prostate specific antigen total PSA (PROSTATE SPECIFIC ANTIGEN) (V76.44) [facility]; [facility] Work Phone: Start: 10-12-2014 Hemoglobin glycosylated a1c HgA1C , Office (31349) [facility] Work Phone: Start: 05-13-2014 Patient Education [facility]; [facility] Work [...] Phone: Start: 04-08-2012 Lipid panel LIPID PANEL (32963) [facility] Work Phone: Start: 04-08-2012 Comprehensive metabolic panel METABOLIC PANEL, COMPREHENSIVE (35530) [facility] Work Phone: Start: 04-08-2012 Assay of triiodothyronine t3 free T3, FREE (TRIDOTHYRONINE) (33523) [facility] Work Phone: Start: 04-08-2012 Assay of thyroid stimulating hormone tsh TSH (77926) [facility]; [facility] Work Phone: Start: 04-08-2012 Assay of thyroxine total T4, TOTAL (04453) [facility]; [facility] Work Phone: Start: 01-08-2012 Patient Education Depression: Brief Version *: depression [facility]; [facility] Work Phone: Start: 01-08-2012 Provider Instructions for Treatment Diet, Exercise, and Wt loss [facility]; [facility] Work Phone: Start: 2011 RSV Vaccine (1 - 1-dose 75+ series) RSV Vaccine (1 - 1-dose 75+ series) [facility] Start: 2001 PNEUMOVAX AGE 65 AND OVER WITH 5YR LOOKBACK (#1) PNEUMOVAX AGE 65 AND OVER WITH 5YR LOOKBACK (#1) [facility] Start: 1996 RSV Vaccine (1 - 1-dose 60+ series) RSV Vaccine (1 - 1-dose 60+ series) [facility] Start: 1986 SHINGRIX VACCINE (1 of 2) SHINGRIX VACCINE (1 of 2) [facility] Start: 1955 Urine microalbumin profile [facility] Start: 1954 Anxiety Screening Anxiety Screening [facility] Start: 1954 Depression Screening Depression Screening [facility] Start: 1954 SPIROMETRY SPIROMETRY [facility] Start: 1942 PNEUMOCOCCAL: 65+ (1 - PCV) PNEUMOCOCCAL: 65+ (1 - PCV) [facility] Start: 1941 COVID-19 VACCINE (1) COVID-19 VACCINE (1) [facility] Start: 1936 COVID-19 VACCINE (#1) COVID-19 VACCINE (#1) [facility] End: 06-19-2023 Ct angio abd&plvis cntrst mtrl w/wo cntrst img CTA ABD/PEL WO/W IVCON Radiology Routine 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 1 Occurrences starting 05/20/2022 until 06/19/2023 [facility] Work Phone: Comment on above: 1 Occurrences starting 05/20/2022 until 06/19/2023 End: 06-19-2023 Ct angiography chest w/contrast/noncontrast CTA CHEST (NONGATED) WO/W IVCON Radiology Routine 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 1 Occurrences starting 05/20/2022 until 06/19/2023 [facility] Work Phone: Comment on above: 1 Occurrences starting 05/20/2022 until 06/19/2023 Patient Education LOW%20FAT%20DIET [facility] Work Phone: Patient referral [facility] Work Phone: End: 11-12-2022 US ABD AORTA COMPLETE VAS LAB US ABD AORTA COMPLETE VAS LAB Vascular Lab Routine AAA (abdominal aortic aneurysm) without rupture (HCC) 1 Occurrences starting 11/12/2021 until 11/12/2022 [facility] Work Phone: Comment on above: 1 Occurrences starting 11/12/2021 until 11/12/2022 [facility] Work Phone: [facility] Work Phone: [facility] Work Phone: [facility] Work Phone: [facility] Work Phone: [facility] Work Phone: [facility] Work Phone: [facility] Work Phone: [facility] Work Phone: [facility] Work Phone: [facility] Work Phone: [facility] Work Phone: [facility] Work Phone: [facility] Work Phone: [facility] Work Phone: [facility] Work Phone: [facility]; [facility] Work Phone: [facility]; [facility] Work Phone: [facility]; [facility] Work Phone: Immunizations Immunization Date Immunization Notes Care Provider [facility] 06-02-2023 influenza virus vaccine, unspecified formulation Laurie Aparicio APRN.HYDRAULIC PILE HAMMER OPERATOR Work Phone: [facility] 05-20-2020 influenza, high-dose , quadrivalent vaccine (FLUZONE HIGH DOSE QUADRIVALENT) Gonzalez Grey MD Work Phone: [facility] 06-14-2016 influenza, injectabl e, quadrivalent, preservative free INSIDE SALES SPECIALIST-C Praveena Dumont Work Phone: [facility] 12-04-2011 varicella zoster immune globulin Leigh Desai DO Work Phone: [facility] Work Phone: 05-20-2005 influenza virus vaccine, unspecified formulation Gonzalez Grey MD Work Phone: [facility] Work Phone: Payers Date Payer Category Payer Self-pay [id number] 2021 Medicare AETNA MEDICARE A ETNA MEDICARE PPO [id number] 2021-Present [phone] [address] [place] [address] PPO [id number] 2014 Private Health Insurance [facility] [id number] 2009 Medicare AETNA MEDICARE A ETNA MEDICARE PPO [id number] 2009-Present [phone] [address] [place] [address] PPO [id number] Unknown Unknown COMMERCIAL OTHER [id number] Unknown [id number] Unknown [id number] Unknown [id number] Unknown [id number] Unknown [id number] Unknown [id number] Social History Date Type Detail Facility Start: 05-20-2022 End: 04-19-2024 Tobacco smoking status NHIS Ex-smoker [facility] Start: 07-28-1956 End: 07-28-1971 History of tobacco use Current smoker [facility] Work Phone: Start: 07-28-1956 End: 07-28-1971 History of tobacco use Cigarette Smoker [facility] Work Phone: Start: 11-12-2021 End: 08-31-2024 Alcohol intake Current non-drinker of alcohol (finding) [facility] Start: 1935 Sex Assigned At Not on file [facility] Start: 11-02-2021 End: 05-20-2022 Exposure to SARS-CoV-2 (event) Not sure [facility] Start: 07-04-2020 End: 05-20-2022 Cigarettes smoked current (pack per day) - Reported 1 [facility] Start: 05-20-2022 End: 03-15-2024 Tobacco use and exposure Smokeless tobacco non-user [facility] Alcohol Use: Alcohol Use: [facility] Work Phone: Exercise History: Exercise History: [facility]; [facility] Work Phone: Comment on above: walks Living Situation: Living Situation: [facility]; [facility] Work Phone: Comment on above: - 3 children with 1 grandchild Tobacco use: Tobacco use: [facility] Work Phone: Start: 04-24-2023 End: 09-07-2023 Tobacco smoking status NJIS Unknown if ever smoked [facility] Start: 06-14-2016 None [facility] Start: 06-14-2016 With Family [facility] Start: 1935 Sex Assigned At Male [facility] Start: 07-04-2020 End: 09-02-2023 Tobacco use panel [facility] National Score (1-100), lower number is lower risk Not on file [facility] Goals Date Patient Goal Desired Activity /State Functional Status Date Assessment Result Facility 09-08-2023 Functional status [facility] Work Phone: Mental Status Date Assessment Result Facility 09-07-2023 Cognitive function Appropriate;Cooperativ e [facility] Work Phone: 09-07-2023 Cognitive function Arousable To Voice/Nam e [facility] Work Phone: Clinical Notes 11-12-2021 to 08-31-2024 Megan Graham APRN.HYDRAULIC PILE HAMMER OPERATOR - 08/31/2024 2:40 PM Laurie De Souza APRN.HYDRAULIC PILE HAMMER OPERATOR - 03/15/2024 7:54 PM EDT Note Date & Type Note Facility 08-31-2024 Note HNO ID: [id number] Author: MEGAN GRAHAM APRN.HYDRAULIC PILE HAMMER OPERATOR Service: ? Author Type: Nurse Practitioner Type: Progress Notes Filed: 08/31/2024 14:48 Note Text: CC: Patient presents with: Cough: Congestion, L ear pain x5 days HPI: Franco Reyes is a 89 year old male who presents to the office with complaint of cough, nonproductive and ear symptoms for 5 days. Symptoms are staying the same. Associated symptoms includes ear pain. Denies wheezing, dyspnea, nausea, vomiting , and diarrhea. Treatments tried include nothing so far. with no relief of symptoms. Sick contacts: unknown. History of asthma, frequent episodes of bronchitis, chronic bronchitis, bronchiectasis or COPD: No Smoker: No Seasonal/environmental allergies: No The ROS is otherwise negative. The patient's pmh, medications, allergies, and past visits are reviewed. PHYSICAL EXAM: BP 177/82 Pulse 67 Temp 36.8 ?C (98.2 ?F) Resp 24 Wt 95 kg (209 lb 7 oz) SpO2 94% BMI 32.80 kg/m? General appearance: alert, cooperative, pleasant, in no acute distress Head: Normocephalic Eyes: EOM's intact, conjunctiva pink and moist, no icterus, sclera white, non-injected Ears: Right ear: External ear/canal- cerumen impaction and irritated canal, TM - clear with good landmarks. Left ear: External ear/canal- irritated canal, TM - tympanosclerosis Oropharynx:moist without lesions, No erythema, exudates or tonsillar hypertrophy. Heart: Negative. RRR without obvious murmur, gallop, or rubs. No ectopy. Lungs: clear to auscultation, without rales or wheeze, good air exchange PAST MEDICAL HISTORY Diagnosis Date AAA (abdominal [...] 05/28/06 UMBILICAL HERNIA ALLERGIES Patient has no known allergies. MEDICATIONS lisinopril (ZESTRIL) 20 mg tablet metoprolol succinate ER (TOPROL XL) 25 mg 24 hr tablet Take 25 mg by mouth. simvastatin (ZOCOR) 20 mg tablet Take 20 mg by mouth daily at bedtime. OMEGA-3 FATTY ACIDS 1,000 MG CAP Take one(1) tablet daily. CHOLECALCIFEROL (VITAMIN D3) 1,000 UNIT TAB Take one(1) tablet daily. aspirin(ECOTRIN LOW STRENGTH 81 MG TAB) Take one(1) tablet daily. ofloxacin (FLOXIN) 0.3 % otic solution Use 5 Drops in both ears once daily for 7 days. metoprolol tartrate, short acting, (LOPRESSOR) 50 mg tablet Take 25 mg by mouth twice daily. PT IS TAKING ONLY ONE 1/2 TAB DAILY lisinopril 5 mg tablet Take 1 tablet by mouth once daily. citalopram hydrobromide (CELEXA) 10 mg tablet Take 10 mg by mouth once daily. niacin/inositol niacinate(NIACIN FLUSH FREE 400 MG-100 MG CAP) Take one(1) tablet daily. (Patient not taking: Reported on 09/02/2023) FAMILY HISTORY Problem Relation Age of Onset Cancer Father Heart Mother Social History Tobacco Use Smoking status: Former Current packs/day: 0.00 Average packs/day: 1 pack/day for 15.0 years (15.0 ttl pk-yrs) Types: Cigarettes Start date: 07/28/1956 Quit date: 07/28/1971 Years since quittin.1 Smokeless tobacco: Never Substance Use Topics Alcohol use: No Drug use: No ASSESSMENT/PLAN: 1. Acute otitis externa of both ears, unspecified type - ICD9: 380.10, ICD10: H60.503 - OFLOXACIN 0.3 % EAR DROPS Prescription instructions reviewed with patient as applicable. Potential red flag symptoms discussed with the patient. Reviewed appropriate action plan to take if red flag symptoms occur. Patient agreeable to treatment plan. Megan Graham APRN.[facility] 08-31-2024 History of Present illness Narrative CC: Patient presents with: Cough: Congestion, L ear pain x5 days HPI: Franco Reyes is a 89 year old male who presents to the office with complaint of cough, nonproductive and ear symptoms for 5 days. Symptoms are staying the same. Associated symptoms includes ear pain. Denies wheezing, dyspnea, nausea, vomiting , and diarrhea. Treatments tried include nothing so far. with no relief of symptoms. Sick contacts: unknown. History of asthma, frequent episodes of bronchitis, chronic bronchitis, bronchiectasis or COPD: No Smoker: No Seasonal/environmental allergies: No The ROS is otherwise negative. The patient's pmh, medications, allergies, and past visits are reviewed. PHYSICAL EXAM: BP 177/82 Pulse 67 Temp 36.8 C (98.2 F) Resp 24 Wt 95 kg (209 lb 7 oz) SpO2 94% BMI 32.80 kg/m General appearance: alert, cooperative, pleasant, in no acute distress Head: Normocephalic Eyes: EOM's intact, conjunctiva pink and moist, no icterus, sclera white, non-injected Ears: Right ear: External ear/canal- cerumen impaction and irritated canal, TM - clear with good landmarks. Left ear: External ear/canal- irritated canal, TM - tympanosclerosis Oropharynx:moist without lesions, No erythema, exudates or tonsillar hypertrophy. Heart: Negative. RRR without obvious murmur, gallop, or rubs. No ectopy. Lungs: clear to auscultation, without rales or wheeze, good air exchange PAST MEDICAL HISTORY Diagnosis Date AAA (abdominal [...] 05/28/06 UMBILICAL HERNIA ALLERGIES Patient has no known allergies. MEDICATIONS lisinopril (ZESTRIL) 20 mg tablet metoprolol succinate ER (TOPROL XL) 25 mg 24 hr tablet Take 25 mg by mouth. simvastatin (ZOCOR) 20 mg tablet Take 20 mg by mouth daily at bedtime. OMEGA-3 FATTY ACIDS 1,000 MG CAP Take one(1) tablet daily. CHOLECALCIFEROL (VITAMIN D3) 1,000 UNIT TAB Take one(1) tablet daily. aspirin(ECOTRIN LOW STRENGTH 81 MG TAB) Take one(1) tablet daily. ofloxacin (FLOXIN) 0.3 % otic solution Use 5 Drops in both ears once daily for 7 days. metoprolol tartrate, short acting, (LOPRESSOR) 50 mg tablet Take 25 mg by mouth twice daily. PT IS TAKING ONLY ONE 1/2 TAB DAILY lisinopril 5 mg tablet Take 1 tablet by mouth once daily. citalopram hydrobromide (CELEXA) 10 mg tablet Take 10 mg by mouth once daily. niacin/inositol niacinate(NIACIN FLUSH FREE 400 MG-100 MG CAP) Take one(1) tablet daily. (Patient not taking: Reported on 09/02/2023) FAMILY HISTORY Problem Relation Age of Onset Cancer Father Heart Mother Social History Tobacco Use Smoking status: Former Current packs/day: 0.00 Average packs/day: 1 pack/day for 15.0 years (15.0 ttl pk-yrs) Types: Cigarettes Start date: 07/28/1956 Quit date: 07/28/1971 Years since quittin.1 Smokeless tobacco: Never Substance Use Topics Alcohol use: No Drug use: No ASSESSMENT/PLAN: 1. Acute otitis externa of both ears, unspecified type - ICD9: 380.10, ICD10: H60.503 - OFLOXACIN 0.3 % EAR DROPS Prescription instructions reviewed with patient as applicable. Potential red flag symptoms discussed with the patient. Reviewed appropriate action plan to take if red flag symptoms occur. Patient agreeable to treatment plan. Megan Graham APRN.KARTIK documented in this encounter [facility] 03-15-2024 Note HNO ID: [id number] Author: LAURIE APARICIO APRN.KARTIK Service: ? Author Type: Nurse Practitioner Type: Progress Notes Filed: 03/15/2024 19:56 Note Text: Patient presents today stating that suddenly around 4 PM today he felt chilled and developed wheezing. He states that all of a sudden he just started not feeling well. On presentation here his initial pulse ox was 88% and patient appeared to have moderate work of breathing. Patient does have a known history of COPD. His temperature was 102.6. After discussion with patient I informed him that I felt that he should be evaluated at a facility with a higher level of care. I explained to him that with his low oxygen saturation combined with his current fever there was a high likelihood of pneumonia and possible need for admission to the hospital. I offered transportation to [facility] which family declines and they will self transport. Patient was able to ambulate back to his car. [facility] 03-15-2024 History of Present illness Narrative Patient presents today stating that suddenly around 4 PM today he felt chilled and developed wheezing. He states that all of a sudden he just started not feeling well. On presentation here his initial pulse ox was 88% and patient appeared to have moderate work of breathing. Patient does have a known history of COPD. His temperature was 102.6. After discussion with patient I informed him that I felt that he should be evaluated at a facility with a higher level of care. I explained to him that with his low oxygen saturation combined with his current fever there was a high likelihood of pneumonia and possible need for admission to the hospital. I offered transportation to [facility] which family declines and they will self transport. Patient was able to ambulate back to his car. documented in this encounter [facility] 09-08-2023 Discharge summary Note Date/Time September 08, 2023 11:07am [facility] Medical Records Department [address] [place] [id number] Discharge Summary 09/08/23 1107 MR#: [id number] Acct: [id number] Name: FRANCO REYES Rep #:[id number] : 1935 88 From: Eulogio Cobian DO PCP: TRACIE Gutierrez Status:ADM IN Location: [place] [address]-1 Providers Date of Admission: 09/07/23 Primary Care Physician: TRACIE Gutierrez Reason For Visit: ACUTE INFLUENZA A Diagnosis Discharge Diagnosis (1) Influenza A: Status: Acute Code(s): J10.1 - Influenza due to other identified influenza virus with other respiratorymanifestations Plan Acute influenza A infection * Tamiflu COPD with mild exacerbation * precipitated by patient acute influenza A. * Prednisone * Wean oxygen as tolerated. Patient is ambulatory in home and in the community and requires home oxygen with portability. 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 Patient on Lovenox dose adjusted for kidney function Code status: full. Medications at Discharge Home Medications aspirin 81 mg tablet,delayed release 81 mg PO DAILY@0800 10/23/15 cholecalciferol (vitamin D3) 25 mcg (1,000 unit) tablet 2,000 unit PO DAILY 10/23/15 omega 7-vac-win-fish oil 60 mg-90 mg-500 mg capsule 1 cap PO DAILY 06/05/20 lisinopril 20 mg tablet 20 mg PO DAILY #90 tabs 02/17/23 metoprolol succinate 25 mg tablet,extended release 24 hr 25 mg PO BID #180 tabs 02/17/23 simvastatin 20 mg tablet 20 mg PO DAILY #90 tabs 02/17/23 Glucosamine Arthritis 09/07/23 Tumeric PO BID Arthritis 09/07/23 albuterol sulfate 90 mcg/actuation aerosol inhaler 2 puff inhalation Q6H PRN shortness of breath or wheezing #8.5 grams 09/08/23 azithromycin 250 mg tablet 500 mg (2 x 250 mg) PO Q24 #3 tabs 09/08/23 oseltamivir 30 mg capsule 30 mg PO BID #8 caps 09/08/23 prednisone 20 mg tablet 40 mg (2 x 20 mg) PO DAILY@0800 #10 tabs 09/08/23 Hospital Course Operations None Procedures None Summary of Care Provided Minutes Spent on Discharge: 32 Weight / BMI Weight Weight: 90.2 kg Body Mass Index (BMI) 33.1 ABG / Lab / Microbiology Data 09/08/23 05:25 09/08/23 05:25 Laboratory: Laboratory Results - last 24 hr 09/08/23 05:25: WBC 6.2, RBC 4.75, Hgb 14.2, Hct 45.9, MCV 96.6 H, MCH 29.9, MCHC 30.9 L, RDW Std Deviation 50.3 H, RDW Coeff of Laura 14.1, Plt Count 209, MPV10.6, Immature Gran % (Auto) 0.200, Neut % (Auto) 83.2 H, Lymph % (Auto) 13.2 L,Lamoure % (Auto) 3.2, Eos % (Auto) 0.0, Baso % (Auto) 0.2, Absolute Neuts (auto) 5.2, Absolute Lymphs (auto) 0.82 L, Nucleated RBC % 0, Sodium 141, Potassium 5.0, Chloride 112 H, Carbon Dioxide 24.0, Anion Gap 5, BUN 26 H, Creatinine 1.08, Estim Creat Clear Calc 49.74, Est GFR (MDRD) Af Amer 83, Est GFR (MDRD) Non-Af 69, BUN/Creatinine Ratio 24.1 H, Glucose 146 H, Calcium 8.3 L, Phosphorus2.5, Magnesium 2.3 Microbiology: Microbiology 09/07/23 10:04 Mucosa - Nasopharyngeal SARS-CoV-2, Influenza & RSV (PCR) - Final Influenzae A D/C Instructions Discharge Diet: No restrictions Meaningful Use Info Meaningful Use Diagnoses (Choose all that apply): None applicable Discharge Plan Admission Admit Date/Time: 09/07/23 11:37 Primary Reason for Your Visit: influenza A. COPD exacerbation. Attending Provider: Eulogio Cobian Primary Care Provider: Praveena Dumont Consulting Providers: Lukas Louise Discharge Orders/Prescriptions Prescriptions: New azithromycin 250 mg Tablet 500 mg PO Q24 Qty: 3 0RF prednisone 20 mg Tablet 40 mg PO DAILY@0800 Qty: 10 0RF oseltamivir 30 mg Capsule 30 mg PO BID Qty: 8 0RF albuterol sulfate 90 mcg/actuation HFA aerosol inhaler 2 puff inhalation Q6H PRN (Reason: shortness of breath or wheezing) Qty: 8.5 0RF Continued omega 0-tem-you-fish oil 60-90-500 mg capsule 1 cap PO DAILY aspirin 81 MG tablet 81 mg PO DAILY@0800 Patient Comments: [facility] cholecalciferol (vitamin D3) 1,000 UNIT tablet 2,000 unit PO DAILY Patient Comments: SUPPLEMENT Tumeric PO BID Patient Comments: takes one in the morning and one in the evening. Glucosamine metoprolol succinate 25 mg tablet extended release 24 hr 25 mg PO BID Qty: 180 3RF simvastatin 20 mg tablet 20 mg PO DAILY Qty: 90 3RF lisinopril 20 mg tablet 20 mg PO DAILY Qty: 90 3RF Referrals / Follow Up: Praveena Dumont, GUANACO-C [Primary Care Provider] - Within 2 Weeks Disposition Disposition (needs filled in before D/C Order can be placed): Home, Self Care Charges/Coding Visit Charges Inpatient E&M: 04656 Disch Hosp >30min 09/08/23 1111 <Electronically signed by Eulogio Cobian DO> Cosigner Signature (if applicable): CC: [facility] Praveena Dumont; Dr. Eulogio Cobian DO~ Signed [facility] Work Phone: [phone]) 276-531002-12-2024 Progress note Author Eulogio Cobian [facility] September 08, 2023 11:06am Note Date/Time September 08, 2023 8:23am [facility] Medical Records Department [address] [place] [address] Progress Note - Hospitalist 09/08/23820 MR#: [id number] Acct: [id number] Name: FRANCO REYES Rep #:[id number] : 1935 88 From: Eulogio Cobian DO PCP: TRACIE Gutierrez Status:ADM IN [id number] Reason for Visit Reason for Visit: Diagnoses Influenza due to other identified influenza virus with other respiratory manifestations (09/07/23) Subjective Subjective Feeling well. Anxious to go home. Objective Data Objective Data Vital Signs: Vital Signs Temp Pulse Resp BP Pulse Ox O2 Del Method O2 Flow Rate 36.8 C 60 18 150/73 H 94 Nasal Cannula 2 09/08/23 02:18 09/08/23 07:16 09/08/23 07:16 09/08/23 02:18 09/08/23 07:16 09/08/23 07:16 09/08/23 07:16 Oxygen Flow Rate (L/min) 2 Oxygen Delivery Method Nasal Cannula Weight: 90.2 kg Body Mass Index (BMI) 33.1 Intake & Output: Intake and Output for Last 24 Hours 09/06/23 09/07/23 09/08/23 23:59 23:59 23:59 Intake Total 1240 / 1240 1300 / 1300 Output Total 125 / 125 Balance 1240 / 1240 1175 / 1175 Lab / Micro Data 09/08/23 05:25 09/08/23 05:25 Labs: Laboratory Results - last 24 hr 09/07/23 10:05: WBC 9.3, RBC 5.02, Hgb 15.3, Hct 47.1, MCV 93.8, MCH 30.5, MCHC 32.5, RDW Std Deviation 49.0 H, RDW Coeff of Laura 14.2, Plt Count 277, MPV 10.3, Immature Gran % (Auto) 0.200, Neut % (Auto) 63.3, Lymph % (Auto) 16.9 L, Lamoure % (Auto) 18.4 H, Eos % (Auto) 0.2, Baso % (Auto) 1.0, Absolute Neuts (auto) 5.9, Absolute Lymphs (auto) 1.56, Nucleated RBC % 0, Differential Comment SCANNED, Sodium 141, Potassium 4.5, Chloride 108 H, Carbon Dioxide 26.0, Anion Gap 7, BUN27 H, Creatinine 1.46 H, Estim Creat Clear Calc 36.39, Est GFR (MDRD) Af Amer 59L, Est GFR (MDRD) Non-Af 49 L, BUN/Creatinine Ratio 18.5, Glucose 123 H, Calcium9.2 09/08/23 05:25: WBC 6.2, RBC 4.75, Hgb 14.2, Hct 45.9, MCV 96.6 H, MCH 29.9, MCHC 30.9 L, RDW Std Deviation 50.3 H, RDW Coeff of Laura 14.1, Plt Count 209, MPV10.6, Immature Gran % (Auto) 0.200, Neut % (Auto) 83.2 H, Lymph % (Auto) 13.2 L,Lamoure % (Auto) 3.2, Eos % (Auto) 0.0, Baso % (Auto) 0.2, Absolute Neuts (auto) 5.2, Absolute Lymphs (auto) 0.82 L, Nucleated RBC % 0, Sodium 141, Potassium 5.0, Chloride 112 H, Carbon Dioxide 24.0, Anion Gap 5, BUN 26 H, Creatinine 1.08, Estim Creat Clear Calc 49.74, Est GFR (MDRD) Af Amer 83, Est GFR (MDRD) Non-Af 69, BUN/Creatinine Ratio 24.1 H, Glucose 146 H, Calcium 8.3 L, Phosphorus2.5, Magnesium 2.3 Micro: Microbiology 09/07/23 10:04 Mucosa - Nasopharyngeal SARS-CoV-2, Influenza & RSV (PCR) - Final Influenzae A Radiography Diagnostic Testing: Radiology Impression Chest X-Ray 09/07/23 10:20 IMPRESSION: No radiographic evidence of acute cardiopulmonary disease. Electronically Signed: Evans Causey MD at 10:59 EST , Physical Exam Const alert and no apparent distress HEENT head/scalp atraumatic and moist oral mucous membranes Resp normal respiratory effort and no retractions Auscultation: wheezes Cardio regular rate, regular rhythm, S1 normal heart sound and S2 normal heart sound GI normal to inspection, nondistended, normoactive bowel sounds and soft to palpation Assessment & Plan Assessment/Plan (1) Influenza A: PLAN: Plan Acute influenza A infection * Tamiflu COPD with mild exacerbation * precipitated by patient acute influenza A. * Prednisone * Wean oxygen as tolerated. Patient is ambulatory in home and in the community and requires home oxygen with portability. 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 Patient on Lovenox dose adjusted for kidney function Code status: full. 09/08/23 1106 <Electronically signed by Eulogio Cobian DO> Cosigner Signature (if applicable): CC: ~ Signed [facility] Work Phone: 1([phone] 147-492302-11-2024 Discharge summary Author Jayson Carter [facility] September 07, 2023 4:17pm Note Date/Time September 07, 2023 9:56am [facility] System Medical Records Department [address] [place] [address] Emergency Department Summary 09/07/23 MR#: [id number] Acct: [id number] Name: AMYFRANCO D Rep #:[id number] : 1935 88 From: Jayson Carter MD PCP: TRACIE Gutierrez Status:ADM IN Location: [place] [address] HPI History of Present Illness Chief Complaint: Fever Informant: patient and family Onset/Context/Timing Onset: Days Context: Gradual Onset Timing: Continuous Current Severity: Mild Maximum Severity: Mild Narrative Narrative: 88-year-old male history of COPD, CAD, CABG and AAA and hypertension. Has had afever, cough and congestion since Friday morning. No vomiting or diarrhea. Coughing up all white phlegm. Able to take p.o. fluids. Complaining of generalized weakness. Today saw a urgent care center in the emergency department for further evaluation. Prior similar symptoms: Yes Recent Illness/Hospitalization: No PFSH [facility] Medical History Abdominal aortic aneurysm (AAA) Amnesia (retrograde) Atherosclerotic heart disease of [place] coronary artery without angina pectoris Encounter for long-term current use of high risk medication Essential (primary) hypertension Hayfever Hyperlipidemia Impacted cerumen, right ear Knee pain Nonrheumatic tricuspid (valve) insufficiency Obesity Home Medications aspirin 81 mg tablet,delayed release 81 mg PO DAILY@0800 10/23/15 [History Last Taken 06/12/16] cholecalciferol (vitamin D3) 25 mcg (1,000 unit) tablet 2,000 unit PO DAILY 10/23/15 [History Last Taken 06/12/16] omega 2-qtz-zzq-fish oil 60 mg-90 mg-500 mg capsule 1 cap PO DAILY 06/05/20 [History Last Taken Unknown] lisinopril 20 mg tablet 20 mg PO DAILY #90 tabs 02/17/23 [Rx Last Taken Unknown] metoprolol succinate 25 mg tablet,extended release 24 hr 25 mg PO BID #180 tabs 02/17/23 [Rx Last Taken Unknown] simvastatin 20 mg tablet 20 mg PO DAILY #90 tabs 02/17/23 [Rx Last Taken Unknown] Allergy/AdvReac Type Severity Reaction Status Date / Time No Known Allergies Allergy Verified 09/07/23 09:25 Family History Mother CAD (coronary artery disease) Sister Asthma Other Atherosclerosis Surgical History H/O coronary artery bypass surgery (1989) H/O hernia repair History of hip replacement Hx of cataract surgery Social History Smoking Status: Former smoker alcohol intake: never substance use type: does not use caffeine: Yes Type: coffee Number of servings: 1 what type of physical activity do you participate in: none seatbelt use: always do you feel safe at home: Yes ROS ROS ED ROS Narrative Cough, fever, generalized weakness and congestion. Review of Systems ROS Unobtainable: Denies due to encephalopathy Constitutional Constitutional ED: Reports fever(s); Denies chills Eyes Eyes: Denies blurry vision ENT ENT ED: Denies ear pain Cardiovascular Cardiovascular: Denies chest pain or palpitations Respiratory/Chest Respiratory/Chest: Reports cough Gastrointestinal Gastrointestinal: Denies abdominal pain, constipation, diarrhea, melena, nausea or vomiting Genitourinary Genitourinary ED: Denies dysuria or hematuria Musculoskeletal Musculoskeletal: Denies arthralgias, back pain or myalgias Integumentary Denies abscess or Abrasions Neurologic Neurologic: Denies headache(s) or paresthesias Endocrine Endocrinology: Denies cold intolerance Hematologic/Lymphatic Hematologic/Lymphatic: Reports none Allergic/Immunologic Allergic/Immunologic ED: Denies mouth swelling, tongue swelling or urticaria EXAM Physical Exam Narrative Exam Narrative: 88-year-old male vital signs are stable his initial temperature is 99.5 temporally. Pulse ox 93% on room air no hypoxia. He is in no distress. Daughter is in the room helping with the history. He does not look septic or toxic. He is currently in no distress. H EENT exam moist weeks membranes. Pupils round reactive light. No facial droop. Neck nontender no lymphadenopathy. Lungs dry cough. No rales, rhonchi or wheezing. Heart regular rhythm rate about 70 no murmur. Chest wall and ribs nontender. Abdomensoft nontender. No peritoneal signs. Back nontender. Moving all 4 extremities. Normal motor strength. Nontender. No edema. Neurologically is awake and alert. Answering questions following commands. Const Vital Signs: 09/07/23 09:25 09/07/23 10:03 09/07/23 11:02 Temperature 99.5 F H 99.1 F Temperature Source Temporal Oral Pulse Rate 70 69 Respiratory Rate 18 20 H Respiratory Effort Short of Breath Respiratory Pattern Tachypnea Blood Pressure 158/75 H 154/69 H Blood Pressure Mean 102 97 Pulse Ox 93 92 Oxygen Delivery Method Room Air Room Air Positive well nourished and well developed; Negative for cachectic, contracturesor unkempt General Appearance ED: well developed and NAD; Negative for unkempt, cachectic, contractures, cyanotic, diaphoretic or pallor Nutritional Appearance: Negative for cachectic HEENT Reports moist mucous membranes Negative for trauma or tenderness Eyes PERRL and EOMs intact bilaterally General Eye ED: Negative for pale conjunctiva, scleral icterus or other Neck no lymphadenopathy, supple and no JVD General: Negative for tenderness Lymph Lymphatic: Negative for other Chest Wall inspection of chest normal and palpation of chest normal Chest: Negative for other Resp normal respiratory effort and clear to auscultation bilaterally Effort and Inspection: Negative for retractions Auscultation: Negative for rales, rhonchi or wheezes Cardio regular rate, regular rhythm, S1 normal heart sound, S2 normal heart sound and no murmurs Rhythm: Negative for abnormal rhythm GI normal to inspection, nondistended, normoactive bowel sounds, non-tender, non-distended and no masses Auscultation: normoactive bowel sounds Palpation: soft; Negative for tender or guarding Back/Spine no CVA tenderness General Back: Negative for CVA tenderness Cervical Spine: Negative for cervical spine tenderness Thoracic Spine / Upper Back: Negative for thoracic spinal tenderness Lumbar Spine / Lower Back: Negative for lumbar spinal tenderness Extremity normal to inspection General Extremety ED: Negative for edema or tenderness General Extremity: Negative for edema Neuro oriented x3 and CN's II-XII intact bilaterally Sensorium / Orientation: alert Motor Exam: strength 5/5 throughout Psych mental status grossly normal Appearance: Negative for unkempt Attitude: No agitated Mood & Affect: Negative for depressed, anxious or tearful Skin no rashes or lesions noted and no wounds General Skin Exam: Negative for jaundice or pallor Lesions: No lesion noted Rashes: No rashes noted Trauma: Negative for abrasion Wounds: Negative for wounds noted MDM MDM MDM Narrative Medical decision making narrative: 88-year-old male URI symptoms will be tested for COVID and flu very well could be a viral syndrome versus pneumonia. Screening labs are being obtained. Will be treated with IV fluids. He will be ambulated to make sure he is strong enough to walk. Tylenol for low-grade fever. Repeat exam at 11:29 AM Patient doing well. Patient was ambulated down his pulseox dropped into the mid 80s. He was able to ambulate. Currently he is doing well. Spoke to he and his family. He will be admitted. History & Record Review Discussion w/independent historian: Patient and Family Additional record(s) reviewed:: Prior inpatient record, Prior outpatient record,Prior ED visit and Prior labs Lab Data Attestation: I reviewed the patient's lab results. Lab results narrative: CBC normal. White count of 9. H&H 15 and 47. Platelets 277. Electrolytes show a gap of 7 BUN and creatinine of 27 and 1.46. Glucose 123. Labs: Laboratory Results - last 24 hr 09/07/23 10:05 WBC 9.3 RBC 5.02 Hgb 15.3 Hct 47.1 MCV 93.8 MCH 30.5 MCHC 32.5 RDW Std Deviation 49.0 H RDW Coeff of Alura 14.2 Plt Count 277 MPV 10.3 Immature Gran % (Auto) 0.200 Neut % (Auto) 63.3 Lymph % (Auto) 16.9 L Lamoure % (Auto) 18.4 H Eos % (Auto) 0.2 Baso % (Auto) 1.0 Absolute Neuts (auto) 5.9 Absolute Lymphs (auto) 1.56 Nucleated RBC % 0 Differential Comment SCANNED Sodium 141 Potassium 4.5 Chloride 108 H Carbon Dioxide 26.0 Anion Gap 7 BUN 27 H Creatinine 1.46 H Estim Creat Clear Calc 36.39 Est GFR (MDRD) Af Amer 59 L Est GFR (MDRD) Non-Af 49 L BUN/Creatinine Ratio 18.5 Glucose 123 H Calcium 9.2 Radiography Chest X-Ray - ED: 1 View, Read by ED Physician, Read by Radiologist, Normal, Heart, Lungs, Mediastinum and Bony Structures Diagnostic Testing: Clinical Impression(s) from Imaging Studies Chest X-Ray 09/07/23 10:20 IMPRESSION: No radiographic evidence of acute cardiopulmonary disease. Electronically Signed: Evans Causey MD at 10:59 EST , Chest x-ray, portable, single view shows no acute abnormality. Interpreted bothmyself and the radiologist. Prior sternotomy. No pneumonia noted. Discharge Plan Triage Chief Complaint: Fever ED Provider: Jayson Carter Dx/Rx/DC Orders Clinical Impression: Influenza A, COPD (chronic obstructive pulmonary disease) with emphysema Prescriptions: No Action omega 2-gfh-jfd-fish oil 60-90-500 mg capsule 1 cap PO DAILY aspirin 81 MG tablet 81 mg PO DAILY@0800 Patient Comments: [facility] cholecalciferol (vitamin D3) 1,000 UNIT tablet 2,000 unit PO DAILY Patient Comments: SUPPLEMENT metoprolol succinate 25 mg tablet extended release 24 hr 25 mg PO BID Qty: 180 3RF simvastatin 20 mg tablet 20 mg PO DAILY Qty: 90 3RF lisinopril 20 mg tablet 20 mg PO DAILY Qty: 90 3RF Primary Care Provider: Praveena Dumont Referrals: Praveena Dumont, TRACIE [Primary Care Provider] - Disposition Disposition: Acute Care Hospital [facility] What to do if you have Problems For any increased pain, shortness of breath, bleeding, nausea or vomiting, chestpain, or any unexpected problems, contact your Primary Care Provider. Call [facility] ([phone]) or report to the closest Emergency Room. Call 911 if necessary. 09/07/23 1617 <Electronically signed by Jayson Carter MD> Cosigner Signature (if applicable): CC: INSIDE SALES SPECIALIST-C Praveena Dumont ~ Signed [facility] Work Phone: 1(519) 154-851402-11-2024 History and physical note Author Lukas Louise [facility] September 07, 2023 1:13pm Note Date/Time September 07, 2023 11:41am [facility] System Medical Records Department [address] [place] [id number] H&P Exam - Hospitalist 09/07/23 1141 MR#: [id number] Acct: [id number] Name: FRANCO REYES Rep #:[id number] : 1935 88 From: Lukas Louise MD PCP: TRACIE Gutierrez Status:REG ER Location: ED HPI - General General Date of Admission: 09/07/23 Date of Service: 09/07/23 Chief Complaint: Generalized weakness HPI Narrative FRANCO REYES, is a 88 M with multiple comorbidities including COPD, coronary artery disease status post CABG ,Essential hypertension who presents with generalized weakness. Patient symptoms started 2 days prior to his admission. Patient did experience sinus congestion subjective fever as well as chills. Patient was seen and evaluated at an urgent care center and sent to the ED. Workup in the emergency department did reveal presence of influenza A infection. Patient did experience significant hypoxia on ambulation with oxygen saturationdropping to the mid 80s. Decision subsequently made to admit patient for further management in the hospital. [facility] Medical History Abdominal aortic aneurysm (AAA) Amnesia (retrograde) Atherosclerotic heart disease of [place] coronary artery without angina pectoris Encounter for long-term current use of high risk medication Essential (primary) hypertension Hayfever Hyperlipidemia Impacted cerumen, right ear Knee pain Nonrheumatic tricuspid (valve) insufficiency Obesity Home Medications aspirin 81 mg tablet,delayed release 81 mg PO DAILY@0800 10/23/15 [History Last Taken 06/12/16] cholecalciferol (vitamin D3) 25 mcg (1,000 unit) tablet 2,000 unit PO DAILY 10/23/15 [History Last Taken 06/12/16] omega 7-bfu-pfv-fish oil 60 mg-90 mg-500 mg capsule 1 cap PO DAILY 06/05/20 [History Last Taken Unknown] lisinopril 20 mg tablet 20 mg PO DAILY #90 tabs 02/17/23 [Rx Last Taken Unknown] metoprolol succinate 25 mg tablet,extended release 24 hr 25 mg PO BID #180 tabs 02/17/23 [Rx Last Taken Unknown] simvastatin 20 mg tablet 20 mg PO DAILY #90 tabs 02/17/23 [Rx Last Taken Unknown] Allergy/AdvReac Type Severity Reaction Status Date / Time No Known Allergies Allergy Verified 09/07/23 09:25 Family History Mother CAD (coronary artery disease) Sister Asthma Other Atherosclerosis Surgical History H/O coronary artery bypass surgery (1989) H/O hernia repair History of hip replacement Hx of cataract surgery Social History Smoking Status: Former smoker alcohol intake: never substance use type: does not use caffeine: Yes Type: coffee Number of servings: 1 what type of physical activity do you participate in: none seatbelt use: always do you feel safe at home: Yes ROS ROS Narrative GENERAL: fever, chills, HEENT: denies headache, sinus congestion, RESPIRATORY: cough, shortness of breath, CARDIAC: denies chest pain, palpitations, GASTROINTESTINAL: denies abdominal pain, GENITOURINARY: denies dysuria, urgency, EXTREMITY: denies swelling MUSCULOSKELETAL: denies current joint pain or tenderness NEUROLOGIC: denies focal numbness, weakness, tingling HEMATOLOGIC: denies easy bruising and/or hemorrhage INTEGUMENT: denies rashes PSYCHIATRIC: denies suicidal or homicidal ideation Vital Signs Vital Signs Vital Signs: 09/07/23 09:25 09/07/23 10:03 09/07/23 11:02 Temperature 99.5 F H 99.1 F Temperature Source Temporal Oral Pulse Rate 70 69 Respiratory Rate 18 20 H Respiratory Effort Short of Breath Respiratory Pattern Tachypnea Blood Pressure 158/75 H 154/69 H Blood Pressure Mean 102 97 Pulse Ox 93 92 Oxygen Delivery Method Room Air Room Air Weight Weight: 91.626 kg Body Mass Index (BMI) 33.6 Physical Exam Narrative GENERAL: Frail looking HEENT: Atraumatic; normocephalic EYES; Anicteric, Normal Conjunctiva NECK; supple, normal thyroid, RESPIRATORY: Diminished to auscultation CARDIOVASCULAR: Regular S1 S2, GI: soft, normoactive bowel sounds, : No Renal angle tenderness; EXTREMITIES: No edema, no clubbing, MUSCULOSKELETAL: no muscle wasting NEURO: Awake; no lateralizing signs. SKIN: No Rash PSYCH; Flat affect Results Lab / Micro Data 09/07/23 10:05 09/07/23 10:05 Labs: Laboratory Results - last 24 hr 09/07/23 10:05: WBC 9.3, RBC 5.02, Hgb 15.3, Hct 47.1, MCV 93.8, MCH 30.5, MCHC 32.5, RDW Std Deviation 49.0 H, RDW Coeff of Laura 14.2, Plt Count 277, MPV 10.3, Immature Gran % (Auto) 0.200, Neut % (Auto) 63.3, Lymph % (Auto) 16.9 L, Lamoure % (Auto) 18.4 H, Eos % (Auto) 0.2, Baso % (Auto) 1.0, Absolute Neuts (auto) 5.9, Absolute Lymphs (auto) 1.56, Nucleated RBC % 0, Differential Comment SCANNED, Sodium 141, Potassium 4.5, Chloride 108 H, Carbon Dioxide 26.0, Anion Gap 7, BUN27 H, Creatinine 1.46 H, Estim Creat Clear Calc 36.39, Est GFR (MDRD) Af Amer 59L, Est GFR (MDRD) Non-Af 49 L, BUN/Creatinine Ratio 18.5, Glucose 123 H, Calcium9.2 Micro: Microbiology 09/07/23 10:04 Mucosa - Nasopharyngeal SARS-CoV-2, Influenza & RSV (PCR) - Final Influenzae A Imaging Radiology Impression Chest X-Ray 09/07/23 10:20 IMPRESSION: No radiographic evidence of acute cardiopulmonary disease. Electronically Signed: Evans Causey MD at 10:59 EST , Assessment & Plan Assessment/Plan (1) Influenza A: PLAN: Plan Patient is an 88-year-old gentleman presented with progressive generalized weakness subjective fever and chills tested positive for influenza A 1. Acute influenza A infection ? Patient admitted to regular nursing floor started on Tamiflu in addition to symptomatic treatment 2. COPD ? With mild exacerbation precipitated by patient acute influenza A. Patient managed with systemic steroid, bronchodilator treatments in addition to supplemental oxygen which is currently being titrated to keep saturation greaterthan 90 3. Acute hypoxia ? Secondary to #1 and #2 4. Coronary artery disease ? With previous CABG patient remains on guideline directed medical therapy 5. Hypertension - Blood pressure controlled, home medications continued with dose adjustment as needed 6. Acute renal insufficiency and superimposed on chronic kidney disease stage III ? Baseline creatinine 1.2 patient creatinine on admission was 1.4 started on hydration with subsequent monitoring of electrolyte 7. Dyslipidemia -Patient is on statin therapy, continued at home dose 8. DVT prophylaxis ? Patient on Lovenox dose adjusted for kidney function Time spent in the patient's overall evaluation,decision-making process, review of diagnostic data, adjustment of management, discussion with other providers, nursing nursing and ancillary staff involved in patient's care documentation, 75 Minutes Advance planning; did discuss with the patient and family regarding advanced directives as well as CODE STATUS. Did explain the various scenarios involved (FULL CODE, DNR CCA, DNR CCA with no intubation, and DNR CC and what each meant) patient elected to remain full code with CPR and intubation if needed. Order was placed. Time spent on discussion 18 minutes. Charges/Coding Visit Charges Inpatient E&M: 19136 Init Hosp L3 Procedures Hospitalists Procedures: 72013 Advncd Care Plan 30 Min 09/07/23 1313 <Electronically signed by Lukas Louise MD> Cosigner Signature (if applicable): CC: INSIDE SALES SPECIALIST-Derian Dumont; Dr. Lukas Louise MD~ Signed [facility] Work Phone: 1(934) 812-552602-11-2024 NoteHNO ID: [id number] Author: RAUL QUINTERO PA-C Service: ? Author Type: Physician Assistant Administrator Type: Progress Notes Filed: 09/07/2023 09:21 Note Text: Presents with a chief complaint of cough, shortness of breath, abdominal pain and fever over the past 2 days. He does have a history of COPD. Patient found to be hypoxic here at 91% and febrile. We do not have x-ray services or further workup here at [facility] so recommended he be evaluated in the emergency department. His daughter will take him to [facility] to be fully evaluated.[facility]02-11-2024 History of Present illness Narrative* Raul Quintero PA-C - 09/07/2023 9:20 AM EST Presents with a chief complaint of cough, shortness of breath, abdominal pain and fever over the past 2 days. He does have a history of COPD. Patient found to be hypoxic here at 91% and febrile. We do not have x-ray services or further workup here at [facility] so recommended he be evaluated in the emergency department. His daughter will take him to [facility] to be fully evaluated. documented [facility] History of Present illness Narrative* Ree Bazan APRN.KARTIK - 09/02/2023 2:36 PM EST This note was created using NoteWriter. Subjective Franco Reyes is a 88 year old male. [...] history is provided by the patient. No english as a second language instructor was used. Wound Check This is a new problem. The current episode started 1 to 4 weeks ago. The problem occurs constantly.The problem has been unchanged. Pertinent negatives include [...] area three times a day for 10 days.Location: [facility] [place] doxycycline monohydrate 100 mg [...] up for recheck in two days - Ree Bazan APRN.HYDRAULIC PILE HAMMER OPERATOR documented in this encounterPark[facility]10-24-[facility]22 History of Present illness Narrative* Gonzalez Grye MD - 05/20/2022 12:15 PM EDT Images from the original note were not included. 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 [facility] [place] DEPARTMENT OF VASCULAR SURGERY OUTPATIENT VISIT DATE May 20, 2022 OUTPATIENT VISIT TYPE ESTABLISHED SERVICE DATE: 05/20/2022 SERVICE TIME: 1:01 PM PRIMARY CARE PHYSICIAN: Leigh Desai DO HISTORY OF PRESENT ILLNESS: Mr. [...] 1 - N/A S documented in this encounterPark[facility]04-18-2022 History of Present illness Narrative* RT Yee(R) - 11/12/2021 12:30 PM EDT Radiology Service Progress Note PATIENT NAME: Franco Reyes DATE OF SERVICE: November 12, 2021 TIME: 12:42 PM PATIENT IDENTITY VERIFICATION COMPLETED USING TWO (2) IDENTIFIERS: Name and Date of confirmedby patient verbally and Name and Date of [...] RT Yee(R) November 12, 2021 12:42 PM * Va Leo RN - 11/12/2021 12:30 PM EDT Radiology Service Progress Note DATE OF SERVICE: [...] Intact SIGNATURE: Va Leo RN PATIENT NAME: Franco Reyes DATE: November 12, 2021 TIME: 12:20 PM documented in this encounterPark[facility]04-18-2022 History of Present illness Narrative* Gonzalez Grey MD - 11/12/2021 12:10 PM EDT Images from the original note were not included. [facility] [place] DEPARTMENT OF VASCULAR SURGERY OUTPATIENT VISIT DATE November 12, 2021 OUTPATIENT VISIT TYPE CONSULTATION SERVICE DATE: 11/12/2021 SERVICE TIME: 12:10 PM PRIMARY CARE PHYSICIAN: Leigh Desai DO REFERRING PROVIDER: Raymundo Sousa III [...] an AAA of 4.0 to 4.9 cm indiameter. [place] Small Aneurysm (UKSAT) Trial and the Aneurysm Detection and Management (JESSICA) Trial, both which showed no survival benefit to repair of abdominal aortic aneurysms (AAA) that were less than 5.5cm. Both showed that surveillance was safe and both showed that 60% of people eventually crossed over toopen repair. The risk of risk of rupture during surveillance was less than 1% for both studies; wasactually .6% in [place] and 0.8% in the [facility]. Current medicare data shows risk of open AAA repair to be associated with 4% mortality. [facility] experience has been 2%. Endovascular AAA repair has 2% mortality nationwide in medicare population and 1% at [facility]. This shows that either open AAA [...] Making SIGNATURE: Gonzalez Grey MD PATIENT NAME: Franco Reyes DATE: November 12, 2021 TIME: 12:10 PM [facility] Author Neema Goldberg [facility] September 08, 2023 1:49pm Note Date/Time September 08, 2023 1:49pm [facility] Medical Records Department [address] [place] [address] Counseling Note - Pharmacy 09/08/23 1347 MR#: [id number] Acct: [id number] Name: FRANCO REYES Rep #:[id number] : 1935 88 From: Neema Goldberg PCP: EH GutierrezC Status:ADM IN Y Location: [place] [address] Pharmacy [facility] Service has performed discharge medication reconciliation and counseling for this patient. Patient counseled via telephone due to droplet precautions. 1. ALBUTEROL INHALER 2PUFF Q6H PRN SOB/WHEEZING 2. AZITHROMYCIN 500MG PO DAILY X 3 DAYS 3. OSELTAMIVIR 30MG PO BID X 4 DAYS 4. PREDNISONE 40MG PO DAILY X 5 DAYS The patient's discharge medication list was reviewed for discrepancies and discrepancies were resolved. The patient was counseled on the following discharge medications and changes in medications for homegoing were reviewed. The Reason for Use, instructions for use, and potential side effects were reviewed for all new medications. The patient's questions regarding all of their medications were answered. The patient was able to verbally demonstrate an understanding of their dischargemedications. Medications at Discharge Home Medications aspirin 81 mg tablet,delayed release 81 mg PO DAILY@0800 10/23/15 cholecalciferol (vitamin D3) 25 mcg (1,000 unit) tablet 2,000 unit PO DAILY 10/23/15 omega 7-iiw-kvz-fish oil 60 mg-90 mg-500 mg capsule 1 cap PO DAILY 06/05/20 lisinopril 20 mg tablet 20 mg PO DAILY #90 tabs 02/17/23 metoprolol succinate 25 mg tablet,extended release 24 hr 25 mg PO BID #180 tabs 02/17/23 simvastatin 20 mg tablet 20 mg PO DAILY #90 tabs 02/17/23 Glucosamine Arthritis 09/07/23 Tumeric PO BID Arthritis 09/07/23 albuterol sulfate 90 mcg/actuation aerosol inhaler 2 puff inhalation Q6H PRN shortness of breath or wheezing #8.5 grams 09/08/23 azithromycin 250 mg tablet 500 mg (2 x 250 mg) PO Q24 #3 tabs 09/08/23 oseltamivir 30 mg capsule 30 mg PO BID #8 caps 09/08/23 prednisone 20 mg tablet 40 mg (2 x 20 mg) PO DAILY@0800 #10 tabs 09/08/23 09/08/23 1349 <Electronically signed by Neema Goldberg> Date _ Neema Goldberg Cosigner Signature (if applicable): Date CC: ~ Signed [facility] Work Phone: Evaluation note* Diagnosis AAA (abdominal aortic aneurysm) without rupture (HCC) Abdominal aneurysm without mention of rupture Centrilobular emphysema (HCC) Other emphysema Essential hypertension Unspecified essential [facility] AAA (abdominal aortic aneurysm) without rupture (HCC)- Primary Abdominal aneurysm without mention of rupture [facility] Diagnosis Abdominal aortic aneurysm (AAA) without rupture (HCC) [facility] Diagnosis 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 Essential hypertension Unspecified essential hypertension Hyperlipidemia, mixed Mixed hyperlipidemia [facility] Diagnosis 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 [facility] Diagnosis Onset Date Resolution Status Abdominal aortic aneurysm (AAA) chronic Essential (primary) hypertension chronic H/O coronary artery bypass surgery 1990 chronic Hyperlipidemia chronic [facility] Work Phone: Evaluation note* Diagnosis Skin infection- Primary Unspecified local infection of skin and subcutaneous tissue [facility] Diagnosis Hypoxia- Primary Hypoxemia Fever, unspecified fever cause [facility] Diagnosis Onset Date Resolution Status COPD (chronic obstructive pu lmonary disease) with emphysema acute Influenza A acute [facility] Work Phone: Evaluation note* Diagnosis SOB (shortness of breath)- Primary Shortness of breath documented in this encounter [facility] note* Diagnosis Acute otitis externa of both ears, unspecified type- Primary documented in this encounter [facility] noteNo assessment information availableWWilson Street Hospital Work Phone: Instructions* Name Dates Details How to access health [...] Referred By Contac t Referred To Contact [facility] Diagnoses AAA (abdominal aortic aneurysm) without rupture (HCC) Procedures US ABD AORTA COMPLETE VAS LAB DUP-SCAN AORTA IVC ILIAC VASCL/BPGS COMPLETE Gonzalez Grey MD [address] [place] [address] [place] [address] [place] [address] Referral ID Status Reason Start Date Expiration Date Visits Requested Visits Authorized [id number] Authorized Auto-Generat ed Referral 11/12/2021 11/12/2022 1 1 [facility] for referral (narrative)No reason for referral information availableWWilson Street Hospital Work Phone: Reason for Referral Specialty Diagnoses / Procedures Referred By Contac t Referred To Contact CT IMAGING Diagnoses 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 Procedures CTA ABD/PEL WO/W IVCON CT ANGIO ABD&PLVIS CNTRST MTRL W/WO CNTRST IMGES Gonzalez Grey MD [address] [place] [address] Ct Imaging Referral ID Status Reason Start Date Expiration Date Visits Requested Visits Authorized [id number] Pending Review Auto-Generat ed Referral 2 06/19/2023 1 1 Specialty Diagnoses / Procedures Referred By Contac t Referred To Contact CT IMAGING Diagnoses 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 Procedures CTA CHEST (NONGATED) WO/W IVCON CT ANGIOGRAPHY CHEST W/CONTRAST/NONCONTRAST Gonzalez Grey MD [address] [place] [address] Ct Imaging Referral ID Status Reason Start Date Expiration Date Visits Requested Visits Authorized [id number] Pending Review Auto-Generat ed Referral 2 06/19/2023 1 1 Family History Unknown Family Member Name Dates Details Father Comments: from lung issu es at age 72- had alot of exposures in his life Status:Active Mother Comments:- atheroscl erosis- age 76 Status:Active Relationship Condition Age at Onset Recorded Date/T stacey Not Specified Atherosclerosis Unknown mother Coronary artery disease Unknown sister Asthma Unknown Chief Complaint and Reason for Visit Chief Complaint 1 Y FU Reason for Visit Abdominal aortic ane urysm (AAA) Essential (primary) hypertension H/O coronary artery bypass surgery Hyperlipidemia Chief Complaint ACUTE INFLUENZA A fever ACUTE INFLUENZA A Reason for Visit COPD (chronic obstru ctive pulmonary disease) with emphysema Influenza A Chief Complaint Admit Date PRE OP, SURGERY 02/15/25 January 25, 2025 10:42am Chief Complaint Admit Date PRE OP, SURGERY 02/15/25 January 25, 2025 10:42am PREOP January 25, 2025 10:53 am OTORRHEA April 06, 2025 3:32pm Advance Directives Advance Directive Response Recorded Date/ Time Advance Directives No August 2:33pm Living Will No September 16, 020 2:33pm Power of Odd Piece Checker No September 16, 2019 2:33pm Advance Directive Response Recorded Date/ Time Name of Medical Power of Odd Piece Checker DaughterLes September 07, 2023 4:13pm Advance Directives No August 2:33pm Living Will Yes September 07, 024 4:13pm Power of Odd Piece Checker Yes September 07, 2023 4:13pm Advance Directive Response Recorded Date/ Time Advance Directives No August 3:33pm Summary Purpose Additional Source Comments Source Comments (unrecognize d section and content) In the event this informatio n is protected by the Federal Confidentiality of Alcohol and Drug Abuse Patient Records regulations: The Federal rules restrict any use of the information to criminally investigate or prosecute any alcohol or drug abuse patient.[facility] the event this information is protected by the Federal Confidentiality of Alcohol and Drug Abuse Patient Records regulations: The Federal rules restrict any use of the information to criminally investigate or prosecute any alcohol or drug abuse patient.[facility] the event this information is protected by the Federal Confidentiality of Alcohol and Drug Abuse Patient Records regulations: The Federal rules restrict any use of the information to criminally investigate or prosecute any alcohol or drug abuse patient.[facility] the event this information is protected by the Federal Confidentiality of Alcohol and Drug Abuse Patient Records regulations: The Federal rules restrict any use of the information to criminally investigate or prosecute any alcohol or drug abuse patient.[facility] the event this information is protected by the Federal Confidentiality of Alcohol and Drug Abuse Patient Records regulations: The Federal rules restrict any use of the information to criminally investigate or prosecute any alcohol or drug abuse patient.[facility] the event this information is protected by the Federal Confidentiality of Alcohol and Drug Abuse Patient Records regulations: The Federal rules restrict any use of the information to criminally investigate or prosecute any alcohol or drug abuse patient.[facility] the event this information is protected by the Federal Confidentiality of Alcohol and Drug Abuse Patient Records regulations: The Federal rules restrict any use of the information to criminally investigate or prosecute any alcohol or drug abuse patient.[facility] the event this information is protected by the Federal Confidentiality of Alcohol and Drug Abuse Patient Records regulations: The Federal rules restrict any use of the information to criminally investigate or prosecute any alcohol or drug abuse patient.[facility] the event this information is protected by the Federal Confidentiality of Alcohol and Drug Abuse Patient Records regulations: The Federal rules restrict any use of the information to criminally investigate or prosecute any alcohol or drug abuse patient.[facility] Reason for Visit (unrecogniz ed section and content) Reason Comments Consult Reason Comments Radiology CT Specialty Diagnoses / Procedures Referred By Contac t Referred To Contact CT IMAGING Diagnoses Abdominal aortic aneurysm (AAA) without rupture (HCC) Procedures CTA CHEST (NONGATED) WO/W IVCON CTA CHEST, W/WO CONTRAST Gonzalez Grey MD [address] [place] [address] Ct Imaging Referral ID Status Reason Start Date Expiration Date V isits Requested Visits Authorized [id number] Closed Auto-Generate d Referral 07/10/2021 08/09/2022 1 1 Reason Comments Established Patient Reason Comments Rash Rash abound eyebrows x 2 weeks Reason Comments Fever Chills, runny nose, cough, stomach hurts from coughing x 2 days Reason Comments Wheezing chills x today Reason Comments Cough Congestion, L ear pa in x5 days Care Teams (unrecognized sec tion and content) Crm Technical Lead Relationship Specialty Start Date End Date Leigh Desai DO PCP - General Internal Medicine 01/16/12 Crm Technical Lead Relationship Specialty Start Date End Date FastLeigh A, DO PCP - General Internal Medicine 01/16/12 Crm Technical Lead Relationship Specialty Start Date End Date Leigh Desai A DO PCP - General Internal Medicine 01/16/12 Crm Technical Lead Relationship Specialty Start Date End Date Leigh Desai DO PCP - General Internal Medicine 01/16/12 Team Status: Active Member Role Status Dates Dr. Arnulfo Gordon MD Family Provider Active Praveena Dumont NP-C Primary Care Provider Active Team Status: Inactive Member Role Status Dates EH GutierrezC Primary Care Provider, Referring P tato Active Dr. Mk Landa MD Attending Provider Active Team Status: Inactive Member Role Status Dates Praveena Dumont NP-C Primary Care Provide r, Attending Provider, Referring Provider Active Crm Technical Lead Relationship Specialty Start Date End Date Leigh Desai DO PCP - General Internal Medicine 01/16/12 Crm Technical Lead Relationship Specialty Start Date End Date Leigh Desai DO PCP - General Internal Medicine 01/16/12 Team Status: Active Member Role Status Dates Praveena Dumont NP-C Primary Care Provider Active Dr. Jayson Carter MD Emergency Provider Active Dr. Lukas Louise MD Attending Provider Active Team Status: Active Member Role Status Dates EH GutierrezC Primary Care Provider Active Dr. Jayson Carter MD Emergency Provider Active Dr. Lukas Louise MD Admit Provider, Other Provider A ctive Dr. Eulogio Cobian DO Attending Provider, Other Provid er Active Team Status: Inactive Member Role Status Dates Praveena Dumont , INSIDE SALES SPECIALIST-C Primary Care Provider Active Dr. Jayson Carter MD Emergency Provider Active Dr. Lukas Louise MD Admit Provider, Other Provider A ctive Dr. Eulogio Cobian DO Attending Provider Active Crm Technical Lead Relationship Specialty Start Date End Date Leigh Desai DO PCP - General Internal Medicine 01/16/12 Team Status: Active Member Role/Relationship Status Dates Praveenahong Dumont , INSIDE SALES SPECIALIST-C Primary Care Provider Active Team Status: Inactive Member Role/Relationship Status Dates Praveenahong Dumont , INSIDE SALES SPECIALIST-C Primary Care Provider Active Start: January 25, 2025 End: January 25, 2025 Dr. Oliver Rowell MD Attending Provider Activ e Start: January 25, 2025 End: January 25, 2025 Dr. Oliver Rowell MD Referring Provider Activ e Start: January 25, 2025 End: January 25, 2025 Team Status: Active Member Role/Relationship Status Dates Praveenahong Dumont , INSIDE SALES SPECIALIST-C Primary care physician Active Team Status: Inactive Member Role/Relationship Status Dates Praveenahong Dumont , INSIDE SALES SPECIALIST-C Primary care physician Active Start: January 25, 2025 End: January 25, 2025 Dr. Oliver Rowell MD Attending physician Acti ve Start: January 25, 2025 End: January 25, 2025 Dr. Oliver Rowell MD Referring Provider Activ e Start: January 25, 2025 End: January 25, 2025 Team Status: Active Member Role/Relationship Status Dates Praveena Dumont , INSIDE SALES SPECIALIST-C Primary care physician Active Start: January 25, 2025 End: January 25, 2025 Dr. Mk Landa MD Attending physician Active Start: January 25, 2025 End: January 25, 2025 Dr. Oliver Rowell MD Referring Provider Activ e Start: January 25, 2025 End: January 25, 2025 Team Status: Inactive Member Role/Relationship Status Dates Praveena Dumont , INSIDE SALES SPECIALIST-C Primary care physician Active Start: April 06, 2025 End: April 06, 2025 Dr. Oliver Rowell MD Attending physician Kait castrejon Start: April 06, 2025 End: April 06, 2025 Dr. Oliver Rowell MD Referring Provider Activ e Start: April 06, 2025 End: April 06, 2025 Goals (unrecognized section and content) Goals may be documented in a n alternate sectionGoals may be documented in an alternate sectionGoals may be documented in an alternate section (unrecognized sect ion and content) No Status Records FoundNo Status Records Found INFORMATION SOURCE (unrecogn ized section and content) DATE CREATED AUTHOR 09/02/2024 [facility] DATE CREATED AUTHOR AUTHOR'S ORGANIZ ATION 04/17/2025 [facility] FOR RECORDS PERTAINING TO PATIENTS WHO ARE [...] BE BASED ON THE PRIMARY CLINICAL RECORDS. [employer] provides no warranty or guarantee of the accuracy or completeness of information in this document.
[2025-06-15 15:16] LABS: Hematocrit 51.9 % (40-54); Hemoglobin 15.9 g/dL (13.0-16.5); Immature Granulocytes Count 0.030 X10^3/uL (0.0-0.0); Mean Corp Hgb Conc 30.6 g/dL (32-36); Mean Corpuscular Volume 98.9 fL (80-94); Mean Platelet Vol. 10.4 fl (6.2-12.0); NRBC Flagged by Analyzer 0 % (0-5); Platelet Count 275 K/mm3 (150-450); RBC Distribution Width CV 13.3 % (11.6-14.6); RBC Distribution Width SD 48.9 fl (35.1-43.9); Red Blood Count 5.25 M/mm3 (4.6-6.2); White Blood Count 8.4 K/mm3 (4.4-11.0)
[2025-06-15 15:54] LABS: AST(SGOT) 16 U/L (<=37); Alanine Aminotransfer ALT/SGPT 11 U/L (<=46); Albumin, Serum 3.8 g/dL (3.4-4.8); Alkaline Phosphatase 65 U/L (40-129); Anion Gap 7 (5-15); BUN 27 mg/dL (4-19); BUN/Creat Ratio 16.9 RATIO (10-20); Calcium,Total 9.6 mg/dL (7.6-11.0); Carbon Dioxide 27.5 mmol/L (21.0-32.0); Chloride 103 mmol/L (98-108); Cholesterol 125 mg/dL (<=200); Globulin 3.3 g/dL (2.2-4.2); Glucose 90 mg/dL (70-99); Low Density Lipoprotein Calc. 64 mg/dL; Potassium 5.3 mmol/L (3.3-5.1); Triglycerides 160 mg/dL; Very Low Density Lipoprotein 32 mg/dL (5-40); Vitamin D,25 Hydroxy 104.0 ng/mL (30-100); cholesterol:hdl ratio screen 3.75
== END | disposition home or self-care (01) ==
LOC: BFHLAB 12:54
PROVIDERS: PCP Nurse Practitioner Family; Visit Provider Nurse Practitioner Family
DX: E78.2 Mixed hyperlipidemia (principal); E55.9 Vitamin D deficiency, unspecified; I10 Essential (primary) hypertension
CPT/HCPCS: 36415; 80053; 80061; 82306; 85025